=== PATIENT | female | born 1960 | race African-American/Black ===

== ENCOUNTER 2017-03-17 01:14 | Inpatient (IN) | payer MEDICARE, OTHER ==
[2017-03-17] MEDS: PIPERACILLIN/TAZOBACTAM 4.5 GM in IV NORMAL SALINE 100ML 100 ML IV (01:30)
[2017-03-17] MEDS: IV NORMAL SALINE 1000ML BAG 1,000 ML IV ×3 (01:30→03:15)
[2017-03-17] MEDS ORDERED: PIPERACILLIN/TAZO IV Push 4.5 GM VIAL. IVP (01:30)
[2017-03-17] MEDS: IPRATRPIUM/ALBUTEROL 0.5/2.5MG 3 ML NEBU. NEB ×4 (02:20→19:20)
[2017-03-17 02:25] LABS: INFLUENZA A PATIENT NEGATIVE (NEGATIVE); INFLUENZA B PATIENT NEGATIVE (NEGATIVE); OBC FLU VALID
[2017-03-17 02:26] LABS: BILIRUBIN,URINE NEGATIVE (NEG); CLARITY,URINE CLOUDY; COLOR,URINE AMBER; GLUCOSE,URINE NEGATIVE (NEG); NITRITE,URINE NEGATIVE (NEG); PROTEIN,URINE 30 mg/dL (NEG-TRACE); UROBILINOGEN,URINE 0.2 mg/dL (0.2 mg/dL)
[2017-03-17 02:27] LABS: BASO % 0 % (0-3); EOS % 0 % (0-3); HEMATOCRIT 41.1 % (36.0-47.0); HEMOGLOBIN 13.7 g/dL (12.0-15.5); LYMPH % 9 % (24-48); MEAN CORPUSCULAR HEMOGLOBIN 32 pg (25-35); MEAN CORPUSCULAR HGB CONC 33 g/dL (31-37); MEAN CORPUSCULAR VOLUME 96 fL (79-100); MONO # 0.5 x10^3/uL (0.0-1.1); MONO % 4 % (0-9); NEUT # 9.6 x10^3uL (1.8-7.7); NEUT % 87 % (31-73); PLATELET COUNT 352 x10^3/uL (140-400); RED BLOOD COUNT 4.27 x10^6/uL (3.50-5.40); RED CELL DISTRIBUTION WIDTH 14.7 % (11.5-14.5); WHITE BLOOD COUNT 11.1 x10^3/uL (4.0-11.0)
[2017-03-17] MEDS: ONDANSETRON PF 4 MG/2 ML VIAL. IV (02:33)
[2017-03-17 02:36] LABS: ANION GAP 8 (6-14); BLOOD UREA NITROGEN 23 mg/dL (7-20); BUN/CREATININE RATIO 23 (6-20); CALCIUM 8.9 mg/dL (8.5-10.1); CARBON DIOXIDE 28 mmol/L (21-32); CHLORIDE 99 mmol/L (98-107); GFR 69.1; GLUCOSE 136 mg/dL (70-99); POTASSIUM 5.3 mmol/L (3.5-5.1); SODIUM 135 mmol/L (136-145)
[2017-03-17 02:44] LABS: LACTIC ACID 2.3 mmol/L (0.4-2.0)
[2017-03-17 02:49] LABS: BACTERIA,URINE MOD /HPF (0-FEW); SQUAMOUS EPITHELIAL CELL,UR FEW /LPF; WBC,URINE TNTC /HPF (0-4)
[2017-03-17 02:50] LABS: ALBUMIN/GLOBULIN RATIO 0.6 (1.0-1.7); ALK PHOS 111 U/L (46-116); ALT (SGPT) 32 U/L (14-59); AST (SGOT) 35 U/L (15-37); CREATINE KINASE 166 U/L (26-192); TOTAL BILIRUBIN 0.6 mg/dL (0.2-1.0); TOTAL PROTEIN 7.8 g/dL (6.4-8.2)
[2017-03-17 02:54] LABS: NT-PRO BNP < 5 pg/mL (0-124); TROPONINI < 0.017 ng/mL (0.000-0.055)
[2017-03-17 03:11] LABS: ADD MAN DIFF? YES
[2017-03-17] MEDS ORDERED: PIP/TAZO PER PHARMACY MC (03:15)
[2017-03-17] MEDS ORDERED: ONDANSETRON PF 4 MG/2 ML VIAL. IV (03:15)
[2017-03-17 06:25] LABS: LACTIC ACID 3.3 mmol/L (0.4-2.0)
[2017-03-17] MEDS: PIPERACILLIN/TAZOBACTAM 3.375 GM in IV NORMAL SALINE 50ML 50 ML IV ×3 (07:36→17:50)
[2017-03-17 09:30] LABS: % BANDS 6 % (0-9); % LYMPHS 9 % (24-48); % MONOS 3 % (0-10); % SEGS 82 % (35-66); PLT ESTIMATE ADEQUATE (ADEQUATE)
[2017-03-17] MEDS: IOHEXOL 300 MG/ML 100ML VIAL. IV (10:04)
[2017-03-17] MEDS ORDERED: MAGNESIUM HYDROXIDE 2,400 MG/30 ML ORAL.SUSP. PEG (10:30)
[2017-03-17] MEDS ORDERED: DEXTROSE 50% 25 GM / 50ML DISP.SYRIN. IV (10:30)
[2017-03-17] MEDS: POTASSIUM CL 20MEQ IN D5W 1,000 ML IV (10:30)
[2017-03-17] MEDS: METOPROLOL TART IMMED RELEASE 25 MG TABLET. PEG (11:00)
[2017-03-17] MEDS: DOXYCYCLINE HYCLATE 100 MG in IV DEXTROSE 5% 100 ML IV ×2 (11:49→22:23)
[2017-03-17] MEDS: SIMVASTATIN 10 MG TABLET PO (11:55)
[2017-03-17] MEDS: RIVASTIGMINE 13.3MG PATCH. TD (11:56)
[2017-03-17] MEDS: MULTIVITAMINS,THERAPEUTIC 5 ML ORAL LIQUID. PEG (11:56)
[2017-03-17] MEDS: INSULIN ASPART 300 UNITS/3 ML INSULN.PEN SQ ×2 (12:00→17:00)
[2017-03-17 12:28] LABS: POC GLUCOSE 124 mg/dL (70-99)
[2017-03-17 13:11] LABS: INR 1.2 (0.8-1.1); PROTHROMBIN TIME PATIENT 14.7 SEC (11.7-14.0)
[2017-03-17] MEDS ORDERED: IV DEXTROSE 5% 1,000 ML IV ×2 (13:30)
[2017-03-17] MEDS: IV DEXTROSE 5% 1,000 ML IV (13:35)
[2017-03-17] MEDS: VANCOMYCIN 1.5 GM in IV DEXTROSE 5% 500 ML IV (14:46)
[2017-03-17] MEDS: VANCOMYCIN PER PHARMACY MC (15:16)
[2017-03-17 17:26] LABS: POC GLUCOSE 170 mg/dL (70-99)
[2017-03-17] MEDS ORDERED: VANCOMYCIN PER PHARMACY MC (21:00)
[2017-03-17 21:10] LABS: MRSA BY PCR Negative (Negative)
[2017-03-17] MEDS: HEPARIN PF for SUB-Q USE 5,000 UNIT/0.5 ML VIAL. SQ (22:28)
[2017-03-18] MEDS: PIPERACILLIN/TAZOBACTAM 3.375 GM in IV NORMAL SALINE 50ML 50 ML IV ×4 (00:44→17:56)
[2017-03-18] MEDS: METOPROLOL TART IMMED RELEASE 25 MG TABLET. PEG ×3 (00:45→21:50)
[2017-03-18 04:02] LABS: POC GLUCOSE 158 mg/dL (70-99)
[2017-03-18 04:29] LABS: ADD MAN DIFF? NO
[2017-03-18 04:42] LABS: BASO % 0 % (0-3); EOS # 0.2 x10^3/uL (0.0-0.7); EOS % 2 % (0-3); HEMATOCRIT 33.4 % (36.0-47.0); HEMOGLOBIN 11.2 g/dL (12.0-15.5); LYMPH % 8 % (24-48); MEAN CORPUSCULAR HEMOGLOBIN 32 pg (25-35); MEAN CORPUSCULAR HGB CONC 34 g/dL (31-37); MEAN CORPUSCULAR VOLUME 97 fL (79-100); MONO # 0.6 x10^3/uL (0.0-1.1); MONO % 5 % (0-9); NEUT # 11.1 x10^3uL (1.8-7.7); NEUT % 86 % (31-73); PLATELET COUNT 261 x10^3/uL (140-400); RED BLOOD COUNT 3.46 x10^6/uL (3.50-5.40); RED CELL DISTRIBUTION WIDTH 14.6 % (11.5-14.5)
[2017-03-18 04:53] LABS: ANION GAP 9 (6-14); BLOOD UREA NITROGEN 12 mg/dL (7-20); CALCIUM 8.7 mg/dL (8.5-10.1); CARBON DIOXIDE 24 mmol/L (21-32); CHLORIDE 107 mmol/L (98-107); CREATININE 1.1 mg/dL (0.6-1.0); GFR 61.9; GLUCOSE 194 mg/dL (70-99); POTASSIUM 3.8 mmol/L (3.5-5.1); SODIUM 140 mmol/L (136-145)
[2017-03-18 07:54] LABS: POC GLUCOSE 150 mg/dL (70-99)
[2017-03-18] MEDS: INSULIN ASPART 300 UNITS/3 ML INSULN.PEN SQ ×3 (08:00→17:00)
[2017-03-18] MEDS: IPRATRPIUM/ALBUTEROL 0.5/2.5MG 3 ML NEBU. NEB ×4 (08:02→20:27)
[2017-03-18] MEDS: DOXYCYCLINE HYCLATE 100 MG in IV DEXTROSE 5% 100 ML IV ×2 (08:53→21:47)
[2017-03-18] MEDS: RIVASTIGMINE 13.3MG PATCH. TD (08:53)
[2017-03-18] MEDS: HEPARIN PF for SUB-Q USE 5,000 UNIT/0.5 ML VIAL. SQ ×2 (08:55→21:52)
[2017-03-18] MEDS: MULTIVITAMINS,THERAPEUTIC 5 ML ORAL LIQUID. PEG (08:56)
[2017-03-18] MEDS: ASPIRIN CHEWABLE 81 MG TABLET. PO (08:56)
[2017-03-18] MEDS: SIMVASTATIN 10 MG TABLET PO (08:57)
[2017-03-18] MEDS: VANCOMYCIN PER PHARMACY MC ×2 (09:55→09:57)
[2017-03-18 12:04] LABS: POC GLUCOSE 170 mg/dL (70-99)
[2017-03-18] MEDS: VANCOMYCIN 1.25 GM in IV DEXTROSE 5 %-0.2 % NACL 500 ML IV (15:03)
[2017-03-18] MEDS: IV DEXTROSE 5% 1,000 ML IV ×2 (15:03→16:25)
[2017-03-18 20:47] LABS: POC GLUCOSE 184 mg/dL (70-99)
[2017-03-18] MEDS: ACETAMINOPHEN 325 MG TABLET. PO (22:04)
[2017-03-18 23:11] LABS: SPECIMEN SOURCE Urine (.); STREP PNEUMO ANTIGEN Negative (Negative)
[2017-03-19] MEDS: PIPERACILLIN/TAZOBACTAM 3.375 GM in IV NORMAL SALINE 50ML 50 ML IV ×5 (00:16→23:18)
[2017-03-19 05:22] LABS: ADD MAN DIFF? NO
[2017-03-19 05:42] LABS: BASO % 0 % (0-3); EOS # 0.2 x10^3/uL (0.0-0.7); EOS % 2 % (0-3); HEMATOCRIT 33.5 % (36.0-47.0); HEMOGLOBIN 11.1 g/dL (12.0-15.5); LYMPH # 1.5 x10^3/uL (1.0-4.8); LYMPH % 15 % (24-48); MEAN CORPUSCULAR HEMOGLOBIN 32 pg (25-35); MEAN CORPUSCULAR HGB CONC 33 g/dL (31-37); MEAN CORPUSCULAR VOLUME 96 fL (79-100); MONO # 0.6 x10^3/uL (0.0-1.1); MONO % 6 % (0-9); NEUT # 8.2 x10^3uL (1.8-7.7); NEUT % 78 % (31-73); PLATELET COUNT 275 x10^3/uL (140-400); RED CELL DISTRIBUTION WIDTH 14.7 % (11.5-14.5); WHITE BLOOD COUNT 10.5 x10^3/uL (4.0-11.0)
[2017-03-19] MEDS: IV DEXTROSE 5% 1,000 ML IV (05:45)
[2017-03-19 06:01] LABS: ANION GAP 5 (6-14); BLOOD UREA NITROGEN 13 mg/dL (7-20); CALCIUM 8.6 mg/dL (8.5-10.1); CARBON DIOXIDE 29 mmol/L (21-32); CHLORIDE 105 mmol/L (98-107); CREATININE 0.8 mg/dL (0.6-1.0); GFR 89.5; GLUCOSE 184 mg/dL (70-99); POTASSIUM 3.7 mmol/L (3.5-5.1); SODIUM 139 mmol/L (136-145)
[2017-03-19] MEDS: IPRATRPIUM/ALBUTEROL 0.5/2.5MG 3 ML NEBU. NEB ×4 (07:25→19:42)
[2017-03-19] MEDS: INSULIN ASPART 300 UNITS/3 ML INSULN.PEN SQ ×3 (08:00→17:52)
[2017-03-19 08:10] LABS: POC GLUCOSE 173 mg/dL (70-99)
[2017-03-19] MEDS: MULTIVITAMINS,THERAPEUTIC 5 ML ORAL LIQUID. PEG (09:00)
[2017-03-19] MEDS: DOXYCYCLINE HYCLATE 100 MG in IV DEXTROSE 5% 100 ML IV ×2 (09:00→20:30)
[2017-03-19] MEDS: SIMVASTATIN 10 MG TABLET PO (09:00)
[2017-03-19] MEDS: METOPROLOL TART IMMED RELEASE 25 MG TABLET. PEG ×2 (09:00→20:32)
[2017-03-19] MEDS: HEPARIN PF for SUB-Q USE 5,000 UNIT/0.5 ML VIAL. SQ ×2 (09:00→20:31)
[2017-03-19] MEDS: RIVASTIGMINE 13.3MG PATCH. TD (09:00)
[2017-03-19] MEDS: ASPIRIN CHEWABLE 81 MG TABLET. PO (09:00)
[2017-03-19] MEDS: LANSOPRAZOLE 30 MG TAB.RAP.DR FT (09:30)
[2017-03-19 11:48] LABS: POC GLUCOSE 228 mg/dL (70-99)
[2017-03-19 15:23] LABS: VANC TR 8.3 mcg/mL (10.0-20.0)
[2017-03-19] MEDS: VANCOMYCIN 1.25 GM in IV DEXTROSE 5 %-0.2 % NACL 500 ML IV (15:36)
[2017-03-19 16:36] LABS: POC GLUCOSE 208 mg/dL (70-99)
[2017-03-19] MEDS: VANCOMYCIN PER PHARMACY MC (16:45)
[2017-03-19 21:20] LABS: POC GLUCOSE 131 mg/dL (70-99)
[2017-03-20 03:41] LABS: POC GLUCOSE 182 mg/dL (70-99)
[2017-03-20] MEDS: PIPERACILLIN/TAZOBACTAM 3.375 GM in IV NORMAL SALINE 50ML 50 ML IV ×3 (05:39→18:08)
[2017-03-20] MEDS: IPRATRPIUM/ALBUTEROL 0.5/2.5MG 3 ML NEBU. NEB ×4 (08:00→20:03)
[2017-03-20 08:23] LABS: POC GLUCOSE 206 mg/dL (70-99)
[2017-03-20] MEDS: DOXYCYCLINE HYCLATE 100 MG in IV DEXTROSE 5% 100 ML IV ×2 (09:02→20:58)
[2017-03-20] MEDS: RIVASTIGMINE 13.3MG PATCH. TD (09:18)
[2017-03-20] MEDS: MULTIVITAMINS,THERAPEUTIC 5 ML ORAL LIQUID. PEG (09:18)
[2017-03-20] MEDS: SIMVASTATIN 10 MG TABLET PO (09:18)
[2017-03-20] MEDS: ASPIRIN CHEWABLE 81 MG TABLET. PO (09:18)
[2017-03-20] MEDS: LANSOPRAZOLE 30 MG TAB.RAP.DR FT (09:18)
[2017-03-20] MEDS: HEPARIN PF for SUB-Q USE 5,000 UNIT/0.5 ML VIAL. SQ ×2 (09:20→21:16)
[2017-03-20] MEDS: INSULIN ASPART 300 UNITS/3 ML INSULN.PEN SQ ×3 (09:22→18:07)
[2017-03-20] MEDS: VANCOMYCIN 1.25 GM in IV DEXTROSE 5 %-0.2 % NACL 500 ML IV (10:54)
[2017-03-20] MEDS: LACTOBACILLUS RHAMNOSUS GG 1 CAPSULE. PO ×2 (10:58→20:57)
[2017-03-20] MEDS: METOPROLOL TART IMMED RELEASE 25 MG TABLET. PEG ×2 (10:58→20:58)
[2017-03-20 11:23] LABS: POC GLUCOSE 230 mg/dL (70-99)
[2017-03-20] MEDS: VANCOMYCIN PER PHARMACY MC (12:28)
[2017-03-20 16:02] LABS: POC GLUCOSE 239 mg/dL (70-99)
[2017-03-20 21:24] LABS: POC GLUCOSE 123 mg/dL (70-99)
[2017-03-20 23:07] LABS: C DIFF BY PCR Negative (Negative)
[2017-03-21] MEDS: PIPERACILLIN/TAZOBACTAM 3.375 GM in IV NORMAL SALINE 50ML 50 ML IV ×4 (00:30→17:49)
[2017-03-21] MEDS: VANCOMYCIN 1.25 GM in IV DEXTROSE 5 %-0.2 % NACL 500 ML IV ×2 (04:24→21:43)
[2017-03-21 05:09] LABS: ADD MAN DIFF? NO
[2017-03-21 05:22] LABS: BASO # 0.1 x10^3/uL (0.0-0.2); BASO % 1 % (0-3); EOS # 0.2 x10^3/uL (0.0-0.7); EOS % 3 % (0-3); HEMATOCRIT 32.6 % (36.0-47.0); HEMOGLOBIN 10.8 g/dL (12.0-15.5); LYMPH # 1.5 x10^3/uL (1.0-4.8); LYMPH % 20 % (24-48); MEAN CORPUSCULAR HEMOGLOBIN 32 pg (25-35); MEAN CORPUSCULAR HGB CONC 33 g/dL (31-37); MEAN CORPUSCULAR VOLUME 96 fL (79-100); MONO # 0.6 x10^3/uL (0.0-1.1); MONO % 8 % (0-9); NEUT # 5.2 x10^3uL (1.8-7.7); NEUT % 69 % (31-73); PLATELET COUNT 294 x10^3/uL (140-400); RED BLOOD COUNT 3.39 x10^6/uL (3.50-5.40); RED CELL DISTRIBUTION WIDTH 14.6 % (11.5-14.5); WHITE BLOOD COUNT 7.5 x10^3/uL (4.0-11.0)
[2017-03-21 05:40] LABS: ALBUMIN 1.9 g/dL (3.4-5.0); ALBUMIN/GLOBULIN RATIO 0.4 (1.0-1.7); ALK PHOS 82 U/L (46-116); ALT (SGPT) 18 U/L (14-59); ANION GAP 5 (6-14); AST (SGOT) 25 U/L (15-37); BLOOD UREA NITROGEN 14 mg/dL (7-20); BUN/CREATININE RATIO 16 (6-20); CALCIUM 8.8 mg/dL (8.5-10.1); CARBON DIOXIDE 30 mmol/L (21-32); CHLORIDE 105 mmol/L (98-107); CREATININE 0.9 mg/dL (0.6-1.0); GFR 78.1; GLUCOSE 190 mg/dL (70-99); POTASSIUM 3.9 mmol/L (3.5-5.1); SODIUM 140 mmol/L (136-145); TOTAL BILIRUBIN 0.3 mg/dL (0.2-1.0); TOTAL PROTEIN 6.9 g/dL (6.4-8.2)
[2017-03-21] MEDS: IPRATRPIUM/ALBUTEROL 0.5/2.5MG 3 ML NEBU. NEB ×4 (08:51→19:38)
[2017-03-21] MEDS: DOXYCYCLINE HYCLATE 100 MG in IV DEXTROSE 5% 100 ML IV ×2 (09:15→20:55)
[2017-03-21] MEDS: LACTOBACILLUS RHAMNOSUS GG 1 CAPSULE. PO (09:16)
[2017-03-21] MEDS: METOPROLOL TART IMMED RELEASE 25 MG TABLET. PEG ×2 (09:16→21:29)
[2017-03-21] MEDS: ASPIRIN CHEWABLE 81 MG TABLET. PO (09:16)
[2017-03-21] MEDS: MULTIVITAMINS,THERAPEUTIC 5 ML ORAL LIQUID. PEG (09:16)
[2017-03-21] MEDS: LANSOPRAZOLE 30 MG TAB.RAP.DR FT (09:16)
[2017-03-21] MEDS: SIMVASTATIN 10 MG TABLET PO (09:16)
[2017-03-21] MEDS: RIVASTIGMINE 13.3MG PATCH. TD (09:17)
[2017-03-21] MEDS: HEPARIN PF for SUB-Q USE 5,000 UNIT/0.5 ML VIAL. SQ ×2 (09:18→21:47)
[2017-03-21] MEDS: INSULIN ASPART 300 UNITS/3 ML INSULN.PEN SQ ×3 (09:19→18:01)
[2017-03-21 12:11] LABS: POC GLUCOSE 157 mg/dL (70-99)
[2017-03-21 12:11] LABS: POC GLUCOSE 214 mg/dL (70-99)
[2017-03-21] MEDS: VANCOMYCIN PER PHARMACY MC (16:42)
[2017-03-21 17:04] LABS: POC GLUCOSE 167 mg/dL (70-99)
[2017-03-22] MEDS: PIPERACILLIN/TAZOBACTAM 3.375 GM in IV NORMAL SALINE 50ML 50 ML IV ×4 (00:20→18:38)
[2017-03-22] MEDS: INSULIN ASPART 300 UNITS/3 ML INSULN.PEN SQ ×3 (08:00→17:00)
[2017-03-22] MEDS: IPRATRPIUM/ALBUTEROL 0.5/2.5MG 3 ML NEBU. NEB ×4 (08:16→19:47)
[2017-03-22 08:29] LABS: POC GLUCOSE 145 mg/dL (70-99)
[2017-03-22] MEDS: DOXYCYCLINE HYCLATE 100 MG in IV DEXTROSE 5% 100 ML IV (09:00)
[2017-03-22 09:36] LABS: ADD MAN DIFF? NO
[2017-03-22 10:06] LABS: ALBUMIN 1.7 g/dL (3.4-5.0); ALBUMIN/GLOBULIN RATIO 0.4 (1.0-1.7); ALK PHOS 79 U/L (46-116); ALT (SGPT) 15 U/L (14-59); ANION GAP 8 (6-14); AST (SGOT) 19 U/L (15-37); BLOOD UREA NITROGEN 15 mg/dL (7-20); BUN/CREATININE RATIO 17 (6-20); CALCIUM 9.2 mg/dL (8.5-10.1); CARBON DIOXIDE 27 mmol/L (21-32); CHLORIDE 106 mmol/L (98-107); CREATININE 0.9 mg/dL (0.6-1.0); GFR 78.1; GLUCOSE 169 mg/dL (70-99); POTASSIUM 4.2 mmol/L (3.5-5.1); SODIUM 141 mmol/L (136-145); TOTAL BILIRUBIN 0.3 mg/dL (0.2-1.0); TOTAL PROTEIN 6.5 g/dL (6.4-8.2)
[2017-03-22] MEDS: RIVASTIGMINE 13.3MG PATCH. TD (10:16)
[2017-03-22] MEDS: METOPROLOL TART IMMED RELEASE 25 MG TABLET. PEG ×2 (10:17→20:41)
[2017-03-22] MEDS: MULTIVITAMINS,THERAPEUTIC 5 ML ORAL LIQUID. PEG (10:17)
[2017-03-22] MEDS: LANSOPRAZOLE 30 MG TAB.RAP.DR FT (10:17)
[2017-03-22] MEDS: ASPIRIN CHEWABLE 81 MG TABLET. PO (10:18)
[2017-03-22] MEDS: SIMVASTATIN 10 MG TABLET PO (10:21)
[2017-03-22] MEDS: HEPARIN PF for SUB-Q USE 5,000 UNIT/0.5 ML VIAL. SQ ×2 (10:38→20:45)
[2017-03-22 11:00] LABS: BASO % 0 % (0-3); EOS # 0.1 x10^3/uL (0.0-0.7); EOS % 2 % (0-3); HEMATOCRIT 28.9 % (36.0-47.0); HEMOGLOBIN 9.3 g/dL (12.0-15.5); LYMPH # 1.8 x10^3/uL (1.0-4.8); LYMPH % 26 % (24-48); MEAN CORPUSCULAR HEMOGLOBIN 32 pg (25-35); MEAN CORPUSCULAR HGB CONC 32 g/dL (31-37); MEAN CORPUSCULAR VOLUME 98 fL (79-100); MONO # 0.6 x10^3/uL (0.0-1.1); MONO % 8 % (0-9); NEUT # 4.4 x10^3uL (1.8-7.7); NEUT % 63 % (31-73); PLATELET COUNT 281 x10^3/uL (140-400); RED BLOOD COUNT 2.95 x10^6/uL (3.50-5.40); RED CELL DISTRIBUTION WIDTH 14.9 % (11.5-14.5)
[2017-03-22 12:25] LABS: POC GLUCOSE 167 mg/dL (70-99)
[2017-03-22] MEDS: LINEZOLID 600 MG TABLET PO ×2 (13:14→20:41)
[2017-03-22] MEDS: ACETAMINOPHEN 325 MG TABLET. PO (15:30)
[2017-03-23] MEDS: PIPERACILLIN/TAZOBACTAM 3.375 GM in IV NORMAL SALINE 50ML 50 ML IV ×4 (00:08→18:11)
[2017-03-23 05:13] LABS: POC GLUCOSE 161 mg/dL (70-99)
[2017-03-23 06:28] LABS: ALBUMIN 1.9 g/dL (3.4-5.0); ALBUMIN/GLOBULIN RATIO 0.4 (1.0-1.7); ALK PHOS 78 U/L (46-116); ALT (SGPT) 21 U/L (14-59); ANION GAP 10 (6-14); AST (SGOT) 27 U/L (15-37); BLOOD UREA NITROGEN 13 mg/dL (7-20); BUN/CREATININE RATIO 14 (6-20); CALCIUM 9.3 mg/dL (8.5-10.1); CARBON DIOXIDE 28 mmol/L (21-32); CHLORIDE 105 mmol/L (98-107); CREATININE 0.9 mg/dL (0.6-1.0); GFR 78.1; GLUCOSE 144 mg/dL (70-99); POTASSIUM 3.8 mmol/L (3.5-5.1); SODIUM 143 mmol/L (136-145); TOTAL BILIRUBIN 0.3 mg/dL (0.2-1.0); TOTAL PROTEIN 6.7 g/dL (6.4-8.2)
[2017-03-23 06:31] LABS: POC GLUCOSE 137 mg/dL (70-99)
[2017-03-23] MEDS ORDERED: HYDROmorphone 2 MG/ML VIAL IV (07:00)
[2017-03-23] MEDS ORDERED: ONDANSETRON PF 4 MG/2 ML VIAL. IV (07:00)
[2017-03-23] MEDS ORDERED: PROCHLORPERAZINE 10 MG/2 ML VIAL. IV (07:00)
[2017-03-23] MEDS ORDERED: IV RINGERS,LACTATED 1000ML 1,000 ML IV (07:00)
[2017-03-23] MEDS ORDERED: MORPHINE SULFATE 2 MG/ML DISP.SYRIN. IV (07:00)
[2017-03-23] MEDS ORDERED: LIDOCAINE 1% PF 2 ML VIAL. ID (07:00)
[2017-03-23] MEDS: HEPARIN PF for SUB-Q USE 5,000 UNIT/0.5 ML VIAL. SQ ×2 (07:20→20:55)
[2017-03-23] MEDS: IPRATRPIUM/ALBUTEROL 0.5/2.5MG 3 ML NEBU. NEB ×4 (07:54→19:40)
[2017-03-23] MEDS: INSULIN ASPART 300 UNITS/3 ML INSULN.PEN SQ ×3 (08:00→17:00)
[2017-03-23] MEDS: METOPROLOL TART IMMED RELEASE 25 MG TABLET. PEG ×2 (09:00→20:54)
[2017-03-23] MEDS: LINEZOLID 600 MG TABLET PO ×2 (09:45→20:51)
[2017-03-23] MEDS: SIMVASTATIN 10 MG TABLET PO (09:46)
[2017-03-23] MEDS: LANSOPRAZOLE 30 MG TAB.RAP.DR FT (10:00)
[2017-03-23] MEDS: ASPIRIN CHEWABLE 81 MG TABLET. PO (10:00)
[2017-03-23] MEDS: MULTIVITAMINS,THERAPEUTIC 5 ML ORAL LIQUID. PEG (10:01)
[2017-03-23] MEDS: RIVASTIGMINE 13.3MG PATCH. TD (10:02)
[2017-03-23 11:44] LABS: POC GLUCOSE 140 mg/dL (70-99)
[2017-03-23] MEDS ORDERED: fentaNYL PF VIAL 100 MCG/2 ML VIAL (15:10)
[2017-03-23] MEDS ORDERED: MIDAZOLAM HCL/PF 5 MG/5 ML VIAL. (15:10)
[2017-03-23] MEDS: MIDAZOLAM HCL/PF 5 MG/5 ML VIAL. IV ×3 (15:20→15:24)
[2017-03-23] MEDS: fentaNYL PF VIAL 100 MCG/2 ML VIAL IV ×2 (15:20→15:22)
[2017-03-23 17:48] LABS: POC GLUCOSE 132 mg/dL (70-99)
[2017-03-24 00:24] LABS: POC GLUCOSE 127 mg/dL (70-99)
[2017-03-24] MEDS: PIPERACILLIN/TAZOBACTAM 3.375 GM in IV NORMAL SALINE 50ML 50 ML IV ×4 (00:48→18:00)
[2017-03-24 03:38] LABS: ALBUMIN/GLOBULIN RATIO 0.4 (1.0-1.7); ALK PHOS 77 U/L (46-116); ALT (SGPT) 32 U/L (14-59); ANION GAP 9 (6-14); AST (SGOT) 35 U/L (15-37); BLOOD UREA NITROGEN 12 mg/dL (7-20); BUN/CREATININE RATIO 13 (6-20); CALCIUM 9.2 mg/dL (8.5-10.1); CARBON DIOXIDE 27 mmol/L (21-32); CHLORIDE 107 mmol/L (98-107); CREATININE 0.9 mg/dL (0.6-1.0); GFR 78.1; GLUCOSE 125 mg/dL (70-99); POTASSIUM 3.9 mmol/L (3.5-5.1); SODIUM 143 mmol/L (136-145); TOTAL BILIRUBIN 0.3 mg/dL (0.2-1.0); TOTAL PROTEIN 6.8 g/dL (6.4-8.2)
[2017-03-24 06:26] LABS: POC GLUCOSE 113 mg/dL (70-99)
[2017-03-24] MEDS ORDERED: PROCHLORPERAZINE 10 MG/2 ML VIAL. IV (07:00)
[2017-03-24] MEDS ORDERED: LIDOCAINE 1% PF 2 ML VIAL. ID (07:00)
[2017-03-24] MEDS ORDERED: HYDROmorphone 2 MG/ML VIAL IV (07:00)
[2017-03-24] MEDS ORDERED: ONDANSETRON PF 4 MG/2 ML VIAL. IV (07:00)
[2017-03-24] MEDS ORDERED: MORPHINE SULFATE 2 MG/ML DISP.SYRIN. IV (07:00)
[2017-03-24] MEDS: INSULIN ASPART 300 UNITS/3 ML INSULN.PEN SQ ×3 (08:00→17:00)
[2017-03-24] MEDS: MULTIVITAMINS,THERAPEUTIC 5 ML ORAL LIQUID. PEG (09:00)
[2017-03-24] MEDS: HEPARIN PF for SUB-Q USE 5,000 UNIT/0.5 ML VIAL. SQ ×2 (09:00→21:00)
[2017-03-24] MEDS: METOPROLOL TART IMMED RELEASE 25 MG TABLET. PEG ×2 (09:00→20:47)
[2017-03-24] MEDS: IPRATRPIUM/ALBUTEROL 0.5/2.5MG 3 ML NEBU. NEB ×4 (09:14→19:41)
[2017-03-24 11:29] LABS: POC GLUCOSE 114 mg/dL (70-99)
[2017-03-24] MEDS ORDERED: LACTOBACILLUS RHAMNOSUS GG 1 CAPSULE. PO (12:00)
[2017-03-24] MEDS ORDERED: IOHEXOL 300 MG/ML 100ML VIAL. (12:58)
[2017-03-24] MEDS ORDERED: 0.9 % SODIUM CHLORIDE 50 ML VIAL. IJ (12:59)
[2017-03-24] MEDS ORDERED: LIDOCAINE 2% JELLY 6ML IN APPLICATOR. (12:59)
[2017-03-24] MEDS: IV RINGERS,LACTATED 1000ML 1,000 ML IV (13:51)
[2017-03-24] MEDS: CIPROFLOXACIN 400MG PREMIX 200 ML IV ×2 (14:02→21:00)
[2017-03-24] MEDS ORDERED: LIDOCAINE 2% PF Vial for OR 5 ML VIAL. (14:12)
[2017-03-24] MEDS ORDERED: MIDAZOLAM HCL/PF 2 MG/2 ML VIAL. (14:12)
[2017-03-24] MEDS ORDERED: fentaNYL PF VIAL 100 MCG/2 ML VIAL (14:12)
[2017-03-24] MEDS ORDERED: PROPOFOL 20 ML IV (14:12)
[2017-03-24] MEDS ORDERED: DEXAMETHASONE SOD PHOS 20 MG/5 ML VIAL. (14:18)
[2017-03-24] MEDS ORDERED: ONDANSETRON PF 4 MG/2 ML VIAL. (14:18)
[2017-03-24] MEDS ORDERED: GLYCOPYRROLATE 1 MG/5 ML VIAL. (14:55)
[2017-03-24 15:49] LABS: POC GLUCOSE 163 mg/dL (70-99)
[2017-03-24 17:34] LABS: POC GLUCOSE 152 mg/dL (70-99)
[2017-03-24] MEDS: LANSOPRAZOLE 30 MG TAB.RAP.DR FT (18:00)
[2017-03-24] MEDS: ASPIRIN CHEWABLE 81 MG TABLET. PO (18:01)
[2017-03-24] MEDS: SIMVASTATIN 10 MG TABLET PO (18:01)
[2017-03-24] MEDS: LINEZOLID 600 MG TABLET PO ×2 (18:01→20:47)
[2017-03-24] MEDS: RIVASTIGMINE 13.3MG PATCH. TD (18:02)
[2017-03-25 00:17] LABS: POC GLUCOSE 185 mg/dL (70-99)
[2017-03-25] MEDS: PIPERACILLIN/TAZOBACTAM 3.375 GM in IV NORMAL SALINE 50ML 50 ML IV ×2 (00:23→06:23)
[2017-03-25 05:17] LABS: ADD MAN DIFF? NO
[2017-03-25 05:38] LABS: BASO % 0 % (0-3); EOS % 0 % (0-3); HEMATOCRIT 32.4 % (36.0-47.0); HEMOGLOBIN 10.6 g/dL (12.0-15.5); LYMPH # 0.8 x10^3/uL (1.0-4.8); LYMPH % 13 % (24-48); MEAN CORPUSCULAR HEMOGLOBIN 31 pg (25-35); MEAN CORPUSCULAR HGB CONC 33 g/dL (31-37); MEAN CORPUSCULAR VOLUME 96 fL (79-100); MONO # 0.2 x10^3/uL (0.0-1.1); MONO % 3 % (0-9); NEUT # 4.9 x10^3uL (1.8-7.7); NEUT % 84 % (31-73); PLATELET COUNT 365 x10^3/uL (140-400); RED BLOOD COUNT 3.39 x10^6/uL (3.50-5.40); RED CELL DISTRIBUTION WIDTH 14.2 % (11.5-14.5); WHITE BLOOD COUNT 5.9 x10^3/uL (4.0-11.0)
[2017-03-25 05:51] LABS: ALBUMIN 1.8 g/dL (3.4-5.0); ALBUMIN/GLOBULIN RATIO 0.4 (1.0-1.7); ALK PHOS 72 U/L (46-116); ALT (SGPT) 40 U/L (14-59); ANION GAP 8 (6-14); AST (SGOT) 34 U/L (15-37); BLOOD UREA NITROGEN 11 mg/dL (7-20); BUN/CREATININE RATIO 11 (6-20); CALCIUM 8.3 mg/dL (8.5-10.1); CARBON DIOXIDE 29 mmol/L (21-32); CHLORIDE 103 mmol/L (98-107); GFR 69.1; GLUCOSE 208 mg/dL (70-99); POTASSIUM 4.2 mmol/L (3.5-5.1); SODIUM 140 mmol/L (136-145); TOTAL BILIRUBIN 0.2 mg/dL (0.2-1.0); TOTAL PROTEIN 6.7 g/dL (6.4-8.2)
[2017-03-25] MEDS: INSULIN ASPART 300 UNITS/3 ML INSULN.PEN SQ ×3 (08:00→17:00)
[2017-03-25] MEDS: IPRATRPIUM/ALBUTEROL 0.5/2.5MG 3 ML NEBU. NEB ×4 (08:20→20:26)
[2017-03-25] MEDS: METOPROLOL TART IMMED RELEASE 25 MG TABLET. PEG (09:00)
[2017-03-25] MEDS: ASPIRIN CHEWABLE 81 MG TABLET. PO (09:25)
[2017-03-25] MEDS: SIMVASTATIN 10 MG TABLET PO (09:25)
[2017-03-25] MEDS: MULTIVITAMINS,THERAPEUTIC 5 ML ORAL LIQUID. PEG (09:25)
[2017-03-25] MEDS: LANSOPRAZOLE 30 MG TAB.RAP.DR FT (09:25)
[2017-03-25] MEDS: RIVASTIGMINE 13.3MG PATCH. TD (09:25)
[2017-03-25] MEDS: CIPROFLOXACIN HCL 250 MG TABLET. PEG ×2 (09:28→21:17)
[2017-03-25] MEDS: HEPARIN PF for SUB-Q USE 5,000 UNIT/0.5 ML VIAL. SQ ×2 (09:41→21:23)
[2017-03-25 11:30] LABS: POC GLUCOSE 163 mg/dL (70-99)
[2017-03-25 12:05] LABS: POC GLUCOSE 136 mg/dL (70-99)
[2017-03-25 17:18] LABS: POC GLUCOSE 151 mg/dL (70-99)
[2017-03-25] MEDS: CITRIC ACID/SODIUM CITRATE 30 ML SOLUTION. PO ×2 (18:02→21:17)
[2017-03-26 00:14] LABS: POC GLUCOSE 146 mg/dL (70-99)
[2017-03-26 06:17] LABS: ALBUMIN 1.9 g/dL (3.4-5.0); ALBUMIN/GLOBULIN RATIO 0.4 (1.0-1.7); ALK PHOS 72 U/L (46-116); ALT (SGPT) 42 U/L (14-59); ANION GAP 6 (6-14); AST (SGOT) 35 U/L (15-37); BLOOD UREA NITROGEN 14 mg/dL (7-20); BUN/CREATININE RATIO 16 (6-20); CALCIUM 8.6 mg/dL (8.5-10.1); CARBON DIOXIDE 30 mmol/L (21-32); CHLORIDE 108 mmol/L (98-107); CREATININE 0.9 mg/dL (0.6-1.0); GFR 78.1; GLUCOSE 156 mg/dL (70-99); POTASSIUM 3.8 mmol/L (3.5-5.1); SODIUM 144 mmol/L (136-145); TOTAL BILIRUBIN 0.1 mg/dL (0.2-1.0); TOTAL PROTEIN 6.6 g/dL (6.4-8.2)
[2017-03-26] MEDS: INSULIN ASPART 300 UNITS/3 ML INSULN.PEN SQ (08:00)
[2017-03-26] MEDS: IPRATRPIUM/ALBUTEROL 0.5/2.5MG 3 ML NEBU. NEB ×2 (08:12→11:39)
[2017-03-26 08:57] LABS: POC GLUCOSE 169 mg/dL (70-99)
[2017-03-26] MEDS: RIVASTIGMINE 13.3MG PATCH. TD (09:47)
[2017-03-26] MEDS: CITRIC ACID/SODIUM CITRATE 30 ML SOLUTION. PO (09:47)
[2017-03-26] MEDS: LANSOPRAZOLE 30 MG TAB.RAP.DR FT (09:47)
[2017-03-26] MEDS: CIPROFLOXACIN HCL 250 MG TABLET. PEG (09:47)
[2017-03-26] MEDS: MULTIVITAMINS,THERAPEUTIC 5 ML ORAL LIQUID. PEG (09:47)
[2017-03-26] MEDS: ASPIRIN CHEWABLE 81 MG TABLET. PO (09:48)
[2017-03-26] MEDS: SIMVASTATIN 10 MG TABLET PO (09:48)
[2017-03-26] MEDS: HEPARIN PF for SUB-Q USE 5,000 UNIT/0.5 ML VIAL. SQ (10:02)
[2017-04-02 16:22] LABS: CALCIUM PHOSPHATE 40 % (.); COLOR Tan (.); COMMENT Note: (.); MAGNESIUM AMMON PHOS 60 % (.); STONE WEIGHT 8959.3 mg (.)
== END 2017-03-26 12:10 | disposition home or self-care (01) | DRG 871 ==
LOC: ER 01:14 → 2 SOUTH 03:19
PROC: 0TCB8ZZ Extirpation of Matter from Bladder, Via Natural or Artificial Opening Endoscopic (ICD-10-PCS; principal; 2017-03-23 15:20)
PROC: 0D20XUZ Change Feeding Device in Upper Intestinal Tract, External Approach (ICD-10-PCS; 2017-03-23 15:20)
DX: A41.9 Sepsis, unspecified organism (principal); J69.0 Pneumonitis due to inhalation of food and vomit; F03.90 Unspecified dementia, unspecified severity, without behavioral disturbance, psychotic disturbance, mood disturbance, and anxiety; N30.00 Acute cystitis without hematuria; K94.23 Gastrostomy malfunction; F41.9 Anxiety disorder, unspecified; K59.00 Constipation, unspecified; E11.9 Type 2 diabetes mellitus without complications; N21.0 Calculus in bladder; G40.909 Epilepsy, unspecified, not intractable, without status epilepticus; R13.12 Dysphagia, oropharyngeal phase; M19.90 Unspecified osteoarthritis, unspecified site; K29.70 Gastritis, unspecified, without bleeding; N20.0 Calculus of kidney; Q90.9 Down syndrome, unspecified; Z90.710 Acquired absence of both cervix and uterus; Z79.82 Long term (current) use of aspirin; Z79.4 Long term (current) use of insulin; Z79.899 Other long term (current) drug therapy; Z95.0 Presence of cardiac pacemaker
CPT/HCPCS: 36415; 71045; 74018; 74177; 80048; 80053; 80202; 81001; 82365; 82550; 82962; 83605; 83880; 84484; 85007; 85025; 85610; 87040; 87086; 87205; 87324; 87449; 87641; 87804; 87804-59; 93005; 94618; 94640; 94760; 96361; 96365; 96367; 96375; 99291; 99291-25; C1769; G0500; J0744; J1100; J1815; J2250; J2405; J2543; J2704; J3010; J3370; J3490; J7030; J7120; J7620; Q9967

== ENCOUNTER 2018-05-23 19:33 | Inpatient (IN) | payer MEDICARE, OTHER ==
[~2018-05-23] VITALS: Ht 152.4 cm; Wt 92.5 kg
[~2018-05-23 19:33] MED LIST: ACET325T9 PEG; ACET500T33 PO; ASPI-630 PO; ASPI81TA50 PO; BISA10SU55 RC; CIPR500T94 PO; CITR15SO PEG; DICL100G18 TP; DOCU-109 PO; FAMO-63 PEG; Hydrocodone/Acetaminophen NG; INSU100I17 SQ; INSU100I27 SQ; LACT10SO17 PO; LANS30CA PO; Levetiracetam PEG; MAGN400O7 PEG; METO25TA4 PEG; MULT1TAB52 PEG; NAPR-514 PO; ONDA4TAB7 PO; PRED10TA PO; RISP0.5T3 PO; RISP1TAB43 PO; RIVA1PAT5 TD; SIMV10TA PO; SIMV10TA3 PO; TRAM50TA PO; VENL37.5 PO
[2018-05-23] MEDS ORDERED: IV NORMAL SALINE 1000ML BAG 1,000 ML IV ONE ×3 (20:00→21:15)
[2018-05-23] MEDS ORDERED: ACETAMINOPHEN 650 MG SUPP.RECT. PR ONE (20:00)
[2018-05-23] MEDS ORDERED: VANCOMYCIN PER PHARMACY MC ONE (20:00)
[2018-05-23] MEDS ORDERED: 0.9 % SODIUM CHLORIDE 10 ML DISP.SYRIN. IV PRN (20:00)
[2018-05-23] MEDS ORDERED: PROPOFOL 100 ML IV PRN (20:00)
[2018-05-23] MEDS ORDERED: PIPERACILLIN/TAZOBACTAM 4.5 GM in IV NORMAL SALINE 100ML 100 ML IV ONE (20:00)
[2018-05-23] MEDS ORDERED: MIDAZOLAM HCL/PF 5 MG/5 ML VIAL. IV ONE (20:15)
[2018-05-23 20:19] LABS: BASO % 1 % (0-3); EOS % 0 % (0-3); HEMATOCRIT 38.4 % (36.0-47.0); HEMOGLOBIN 12.6 g/dL (12.0-15.5); LYMPH # 0.5 x10^3/uL (1.0-4.8); LYMPH % 12 % (24-48); MEAN CORPUSCULAR HEMOGLOBIN 30 pg (25-35); MEAN CORPUSCULAR HGB CONC 33 g/dL (31-37); MEAN CORPUSCULAR VOLUME 92 fL (79-100); MONO # 0.3 x10^3/uL (0.0-1.1); MONO % 8 % (0-9); NEUT % 79 % (31-73); PLATELET COUNT 229 x10^3/uL (140-400); RED BLOOD COUNT 4.17 x10^6/uL (3.50-5.40); RED CELL DISTRIBUTION WIDTH 17.1 % (11.5-14.5); WHITE BLOOD COUNT 3.8 x10^3/uL (4.0-11.0)
[2018-05-23 20:28] LABS: PROTHROMBIN TIME PATIENT 14.5 SEC (11.7-14.0)
[2018-05-23 20:32] LABS: BILIRUBIN,URINE NEGATIVE (NEG); CLARITY,URINE CLOUDY; COLOR,URINE YELLOW; NITRITE,URINE NEGATIVE (NEG); PH,URINE 5.5; PROTEIN,URINE 100 mg/dL (NEG-TRACE); UROBILINOGEN,URINE 0.2 mg/dL (0.2 mg/dL)
[2018-05-23] MEDS: IV NORMAL SALINE 1000ML BAG 1,000 ML IV SCH (20:40)
[2018-05-23 20:41] LABS: AMORPHOUS SEDIMENT,UR PRESENT /HPF; BACTERIA,URINE FEW /HPF (0-FEW); SQUAMOUS EPITHELIAL CELL,UR MOD /LPF; WBC,URINE OCC /HPF (0-4)
[2018-05-23 20:44] LABS: ALBUMIN 2.5 g/dL (3.4-5.0); ALBUMIN/GLOBULIN RATIO 0.4 (1.0-1.7); CALCIUM 8.7 mg/dL (8.5-10.1); CREATININE 1.5 mg/dL (0.6-1.0); GFR 43.2; POTASSIUM 4.3 mmol/L (3.5-5.1); TOTAL BILIRUBIN 0.2 mg/dL (0.2-1.0); TOTAL PROTEIN 8.3 g/dL (6.4-8.2)
[2018-05-23] MEDS ORDERED: CHLORHEXIDINE 0.12% 15 ML MOUTHWASH. MM SCH (21:00)
[2018-05-23] MEDS ORDERED: PROPOFOL 50 ML IV ONE ×2 (21:02→21:15)
[2018-05-23 21:14] LABS: BASE EXCESS COOX -2 mmol/L (-3-3); HCO3 COOX 24 mmol/L (21-28); METHEMOGLOBIN 0.7 % (0.0-1.9); OXYHEMOGLOBIN 98.1 %; PCO2 COOX 42 mmHg (35-46); PO2 COOX 381 mmHg (75-108); SAT O2 COOX 99 % (92-99)
[2018-05-23] MEDS ORDERED: INSULIN REGULAR 100 UNIT/ML 3ML VIAL. SQ ONE (21:15)
[2018-05-23] MEDS ORDERED: IV 1/2 NORMAL SALINE 1,000 ML IV ONE (21:15)
[2018-05-23] MEDS ORDERED: VANCOMYCIN 1.75 GM in IV NORMAL SALINE 500ML BAG 500 ML IV ONE (21:30)
--- NOTE | 2018-05-23 21:30 | PHYS DOC ---
Past Medical History Past Medical History: Anxiety, Constipation, Dementia, Diabetes-Type II Additional Past Medical Histor: mentally challanged,downs syndrome, cardiac Past Surgical History: Hysterectomy Additional Past Surgical Histo: Gastrostomy tube Alcohol Use: None Drug Use: None Adult General Chief Complaint Chief Complaint: SHORTNESS OF BREATH HPI HPI 57-year-old Down syndrome patient from a halfway presents with fever and respiratory distress via EMS. Apparently the symptoms started over the last 12- 24 hours. Patient is unable to provide any meaningful history. According to EMS on their arrival she was in distress with oxygen saturations in the low 80s. According to the halfway she has been coughing and felt warm.[] Review of Systems Review of Systems Review of systems is unobtainable secondary to critical illness and altered mental status Current Medications Current Medications Current Medications Medications (Trade) Dose Ordered Sig/Charmaine Start Time Stop Time Status Last Admin Dose Admin Acetaminophen (Tylenol Supp) 650 mg 1X ONCE 05/23/18 20:00 05/23/18 20:04 DC 05/23/18 20:33 650 MG Fentanyl Citrate (Fentanyl 2ml Vial) 50 mcg PRN Q1HR PRN 05/23/18 20:00 Lorazepam (Ativan) 2 mg STK-MED ONCE 05/23/18 20:04 05/23/18 20:05 DC Midazolam HCl (Versed) 5 mg 1X ONCE 05/23/18 20:15 05/23/18 20:16 DC 05/23/18 20:33 5 MG Norepinephrine Bitartrate 250 ml @ 0 mls/hr CONT PRN 05/23/18 20:30 Piperacillin Sod/ Tazobactam Sod 4.5 gm/Sodium Chloride 100 ml @ 200 mls/hr 1X ONCE 05/23/18 20:00 05/23/18 20:29 DC 05/23/18 20:34 200 MLS/HR Propofol 100 ml @ 0 mls/hr CONT PRN 05/23/18 20:00 Sodium Chloride 1,000 ml @ 1,000 mls/hr 1X ONCE 05/23/18 20:00 05/23/18 20:59 DC 05/23/18 20:41 1,000 MLS/HR Sodium Chloride (Normal Saline Flush) 10 ml QSHIFT PRN 05/23/18 20:00 Vancomycin HCl (Vanco Per Pharmacy) 1 each 1X ONCE 05/23/18 20:00 4/8/19 22:03 DC 05/23/18 20:00 1 EACH Allergies Allergies Allergies Coded Allergies Type Severity Reaction Last Updated Verified No Known Drug Allergies 03/24/17 No Physical Exam Physical Exam Constitutional: Critically ill appearing female in severe distress. [] HENT: Obvious Down's bases bilateral external ears normal, mucous membranes dry[ ] Eyes: PERRLA, EOMI, conjunctiva normal, no discharge. [] Neck: Normal range of motion, no tenderness, supple, no stridor. [] Cardiovascular: Tachycardic no obvious murmur] Lungs & Thorax: Coarse breath sounds bilaterally by basilar rales[] Abdomen: Bowel sounds normal, soft, no tenderness, no masses, no pulsatile masses. [] Skin: Warm, dry, no erythema, no rash. [] Back: No tenderness, no CVA tenderness. [] Extremities: No tenderness, no cyanosis, no clubbing, ROM intact, no edema. [] Neurologic: Moves all 4 extremities. [] Psychologic: Unable to assess. [] Current Patient Data Vital Signs Vital Signs Date Time Temp Pulse Resp B/P (MAP) Pulse Ox O2 Delivery O2 Flow Rate FiO2 05/23/18 19:50 98 Ventilator 05/23/18 19:33 103.2 132 40 158/109 (125) 103.2 Lab Values Laboratory Tests Test 05/23/18 20:00 05/23/18 20:05 Urine Collection Type U cath Urine Color Yellow Urine Clarity Cloudy Urine pH 5.5 Urine Specific [place] >=1.030 Urine Protein 100 mg/dL (NEG-TRACE) Urine Glucose (UA) >=1000 mg/dL (NEG) Urine Ketones (Stick) Negative mg/dL (NEG) Urine Blood Moderate (NEG) Urine Nitrite Negative (NEG) Urine Bilirubin Negative (NEG) Urine Urobilinogen Dipstick 0.2 mg/dL (0.2 mg/dL) Urine Leukocyte Esterase Negative (NEG) Urine RBC 1-2 /HPF (0-2) Urine WBC Occ /HPF (0-4) Urine Squamous Epithelial Cells Mod /LPF Urine Amorphous Sediment Present /HPF Urine Bacteria Few /HPF (0-FEW) White Blood Count 3.8 x10^3/uL (4.0-11.0) L Red Blood Count 4.17 x10^6/uL (3.50-5.40) Hemoglobin 12.6 g/dL (12.0-15.5) Hematocrit 38.4 % (36.0-47.0) Mean Corpuscular Volume 92 fL (79-100) Mean Corpuscular Hemoglobin 30 pg (25-35) Mean Corpuscular Hemoglobin Concent 33 g/dL (31-37) Red Cell Distribution Width 17.1 % (11.5-14.5) H Platelet Count 229 x10^3/uL (140-400) Neutrophils (%) (Auto) 79 % (31-73) H Lymphocytes (%) (Auto) 12 % (24-48) L Monocytes (%) (Auto) 8 % (0-9) Eosinophils (%) (Auto) 0 % (0-3) Basophils (%) (Auto) 1 % (0-3) Neutrophils # (Auto) 3.0 x10^3uL (1.8-7.7) Lymphocytes # (Auto) 0.5 x10^3/uL (1.0-4.8) L Monocytes # (Auto) 0.3 x10^3/uL (0.0-1.1) Eosinophils # (Auto) 0.0 x10^3/uL (0.0-0.7) Basophils # (Auto) 0.0 x10^3/uL (0.0-0.2) Prothrombin Time 14.5 SEC (11.7-14.0) H Prothrombin Time INR 1.2 (0.8-1.1) H Sodium Level 151 mmol/L (136-145) H Potassium Level 4.3 mmol/L (3.5-5.1) Chloride Level 111 mmol/L (98-107) H Carbon Dioxide Level 25 mmol/L (21-32) Anion Gap 15 (6-14) H Blood Urea Nitrogen 28 mg/dL (7-20) H Creatinine 1.5 mg/dL (0.6-1.0) H Estimated GFR (Cockcroft-Gault) 43.2 BUN/Creatinine Ratio 19 (6-20) Glucose Level 612 mg/dL (70-99) *H Lactic Acid Level 5.7 mmol/L (0.4-2.0) *H Calcium Level 8.7 mg/dL (8.5-10.1) Total Bilirubin 0.2 mg/dL (0.2-1.0) Aspartate Amino Transferase (AST) 43 U/L (15-37) H Alanine Aminotransferase (ALT) 44 U/L (14-59) Alkaline Phosphatase 93 U/L (46-116) Total Protein 8.3 g/dL (6.4-8.2) H Albumin 2.5 g/dL (3.4-5.0) L Albumin/Globulin Ratio 0.4 (1.0-1.7) L Laboratory Tests 05/23/18 20:05 Laboratory Tests 05/23/18 20:05 EKG EKG [EKG sinus tachycardia rate of 110 with some nonspecific T-wave abnormality anterior lateral] Radiology/Procedures Radiology/Procedures [] Impressions: Chest x-ray no obvious infiltrate as interpreted by me Course & Med Decision Making Course & Med Decision Making Pertinent Labs and Imaging studies reviewed. (See chart for details) [CRITICAL CARE: Time spent was 35 minutes. This includes medical management, evaluation, reevaluation, discussion with consultants and family. Critical Care does NOT include time spent on separately billed procedures. ] Procedure: Rapid sequence intubation Indication respiratory failure tachypnea. Patient was given 20 mg of etomidate followed by 100 mg of succinyl choline then using a 4 Michael blade the cords were directly visualized and 80 ET tube was placed to 21 cm at the lips. Patient was then placed on a ventilator. Patient tolerated procedure well. ED course: Evaluation reveals a febrile altered female with tachypnea who appears toxic. The severe sepsis pathway was followed. The patient was given 30 mL's per kilogram of normal saline she was also given broad-spectrum antibiotics in the way of Zosyn 4.5 g IV and vancomycin 1 g IV. Patient's blood pressure was in the 90s systolic early after the fluid bolus it was up into the 120s and she was appropriately sedated with clipper van. I spoke with Dr. Hudson who agreed to accept the patient to the ICU. Patient's lactic acid was in the 5 range. Dragon Disclaimer Dragon Disclaimer This electronic medical record was generated, in whole or in part, using a voice recognition dictation system. Departure Departure Impression: Primary Impression: Septic shock Disposition: 09 ADMITTED INPATIENT Admitting Physician: Shanice Butler Condition: CRITICAL Referrals: VANNESSA GOMEZ (PCP) VIOLETA BRIGGS DO May 23, 2018 21:30
[2018-05-23] MEDS ORDERED: ETOMIDATE 20 MG/10 ML VIAL. IV ONE (21:32)
[2018-05-23] MEDS ORDERED: SUCCINYLCHOLINE 200 MG/10 ML VIAL. ONE (21:32)
[2018-05-23 22:00] VITALS: BP 114/76
--- NOTE | 2018-05-23 22:08 | NUR ---
Pharmacy Vancomycin Dosing Note S:Consulted to monitor and dose vancomycin started 05/23/18. O:CORNELIO SMITH V is a 57 year old F with Sepsis . Height: 5 feet, 0 inches Weight: 72.933224 kg [place] Body Weight: 45.50 Adjusted Body Weight: 56.14 Dosing Weight: Actual Other Antibiotics: ZOSYN 4.5GM IV X1 IN ER (05/23) LABS: Last BUN: 28 Last Creatinine: 1.5 Creatinine Clearance: 36 mL/min Last WBC: 3.8 Last Procalcitonin: Tmax (past 24 hours): Microbiology: I/O: Drug Levels: Last level: on at Last dose given at Vancomycin Dosing: Loading Dose: 1750 mg x1 05/23/182129 Dosing Weight: Actual Target Trough: 15-20 A: Based on: Actual Wt and CrCl P: 1. 05/24/182129 Vancomycin 1000 mg IV q24h 2. Follow up Trough level on 05/25/18 at 2100 3. Pharmacy will continue to monitor, follow and adjust therapy as needed. MARCIA OCHOA RPH, 05/23/182207 Signed: 05/23/18 at 2209 by MARCIA OCHOA RPH PHA
[2018-05-23 22:15] VITALS: BP 76/55
[2018-05-23 22:30] VITALS: BP 79/53
[2018-05-23 22:45] VITALS: BP 93/55
[2018-05-23] MEDS ORDERED: IV NORMAL SALINE 500ML BAG 500 ML IV ONE ×2 (22:45→23:00)
[2018-05-23 23:00] VITALS: BP 86/62
[2018-05-23 23:30] VITALS: BP 78/59
[2018-05-23] MEDS ORDERED: DEXTROSE 50% 25 GM / 50ML DISP.SYRIN. IV PRN (23:30)
[2018-05-23] MEDS ORDERED: PIP/TAZO PER PHARMACY MC PRN (23:30)
[2018-05-23] MEDS: MIDAZOLAM 100mg/100ml NS BAG 100 ML IV PRN (23:34)
[2018-05-23] MEDS: ENOXAPARIN 40 MG/0.4 ML SYRINGE. SQ SCH (23:36)
--- NOTE | 2018-05-23 23:55 | HP ---
ADMIT DATE: 05/23/2018 CHIEF COMPLAINT: Shortness of breath. HISTORY OF PRESENT ILLNESS: The patient is a pleasant 57-year-old female who has Down syndrome. She presented with fulminant respiratory failure that has been occurring for 12-24 hours. She was unable to provide any history. EMS brought her in. She is from a facility. While in the ER, she was noted to be extremely in severe sepsis with respiratory failure. She has now been intubated. She has got a fever. She is tachycardic and we just suctioned her lungs. It appears she has probably aspirated. There was a lot of aspirate in the suction tube. She also has a lactic acid level of 5.7. PAST MEDICAL HISTORY: Down syndrome, anxiety, constipation, dementia, diabetes, hysterectomy, PEG tube. ALLERGIES: None. FAMILY HISTORY: Diabetes. SOCIAL HISTORY: I believe she lives at a facility. She does not drink, smoke or take drugs. MEDICATIONS: Reviewed. She is on Cipro, Exelon, simvastatin, aspirin, Tylenol, citric acid, milk of magnesia, Prevacid, Levemir, vitamins, Keppra. REVIEW OF SYSTEMS: Unable to obtain. The patient is on the vent. PHYSICAL EXAMINATION: VITAL SIGNS: Temperature 103.2, pulse 110, respirations 16, blood pressure 106/74 and O2 sat 100% on the vent. GENERAL: She is sedated with propofol on the ventilator. HEART: Tachycardic, S1, S2. LUNGS: Coarse. ABDOMEN: Soft, positive bowel sounds. There is a PEG. EXTREMITIES: Trace edema. SKIN: No rashes. ENDOCRINE: No thyromegaly. LYMPHATICS: No cervical nodes. HEMATOPOIETIC: No bruising. LABORATORY DATA: White count is 3.8. Electrolytes: Sodium 151, potassium 4.3, chloride 111, bicarbonate 25, BUN 28, creatinine 1.5, glucose 612, anion gap is 15. Chest x-ray, results are pending. ASSESSMENT AND PLAN: Severe sepsis and anion gap metabolic acidosis, suspect diabetic ketoacidosis on top of sepsis in a middle-aged female who has Down's and respiratory failure. The patient is being admitted to the ICU on the ventilator. We will consult Pulmonary Medicine, consult Infectious Disease. Diabetic ketoacidosis protocol, frequent labs. Deep venous thrombosis prophylaxis. Full code per the records. PROGNOSIS: Extremely guarded. Total time 31 minutes. DARCI ALICEA DO DR: Alysa JOB#: [id number] / [id number]
[2018-05-24] VITALS (31 sets, daily range): BP systolic 68–127; BP diastolic 46–75
[2018-05-24] MEDS: INSULIN LISPRO 300 UNITS/3 ML INSULN.PEN. SQ SCH ×4 (00:06→17:48)
[2018-05-24] MEDS: NOREPINEPHRIN 8MG/250ML PREMIX 250 ML IV PRN ×2 (00:27→12:56)
--- NOTE | 2018-05-24 01:00 | NUR ---
ADMISSION: Pt arrived to RM 107 @ 2155 via ED bed. Pt on Ventilator, propofol for sedation. Pt hooked up to ICU monitors, unable to orient to room/call light or routines. RN talked to pt's mother Ayesha on the phone and updated on pt condition. Dr. Esme gurrola for sedation medications and updated on sepsis protocol. Versed and Fentanyl PRN were ordered for sedation. Due to low BP on admission, (2) 500cc Normal saline boluses were ordered to increase BP. Duoned QID, CXR and ABG in the AM. Dr. Luke gurrola for antibiotic orders, insulin orders, and DVT prophylaxis. Orders received for Zosyn and Vancomycin, high dose sliding scale insulin, and Lovenox daily. See IV spreadsheet and vital signs for Levophed titration and BP readings. Will continue to monitor.
[2018-05-24] MEDS ORDERED: NYST1POW5 MC (02:27)
[2018-05-24] MEDS ORDERED: METF500T16 PEG (02:27)
[2018-05-24] MEDS ORDERED: FAMO20TA5 PEG (02:27)
[2018-05-24] MEDS ORDERED: ATOR10TA60 PEG (02:27)
[2018-05-24] MEDS: IV NORMAL SALINE 1000ML BAG 1,000 ML IV SCH ×3 (04:37→20:31)
[2018-05-24] MEDS: ACETAMINOPHEN 650 MG SUPP.RECT. PR PRN ×2 (04:50→15:52)
[2018-05-24 05:24] LABS: BASO % 0 % (0-3); EOS # 0.1 x10^3/uL (0.0-0.7); EOS % 1 % (0-3); HEMATOCRIT 34.2 % (36.0-47.0); LYMPH # 0.9 x10^3/uL (1.0-4.8); LYMPH % 17 % (24-48); MEAN CORPUSCULAR HEMOGLOBIN 30 pg (25-35); MEAN CORPUSCULAR HGB CONC 32 g/dL (31-37); MEAN CORPUSCULAR VOLUME 92 fL (79-100); MONO # 0.2 x10^3/uL (0.0-1.1); MONO % 4 % (0-9); NEUT # 3.8 x10^3uL (1.8-7.7); NEUT % 77 % (31-73); PLATELET COUNT 200 x10^3/uL (140-400); RED BLOOD COUNT 3.73 x10^6/uL (3.50-5.40); RED CELL DISTRIBUTION WIDTH 16.5 % (11.5-14.5)
[2018-05-24 05:50] LABS: ALBUMIN 2.1 g/dL (3.4-5.0); ALBUMIN/GLOBULIN RATIO 0.4 (1.0-1.7); CREATININE 1.1 mg/dL (0.6-1.0); GFR 61.7; POTASSIUM 3.6 mmol/L (3.5-5.1); TOTAL BILIRUBIN 0.3 mg/dL (0.2-1.0)
[2018-05-24] MEDS: PIPERACILLIN/TAZOBACTAM 3.375 GM in IV NORMAL SALINE 50ML 50 ML IV SCH ×4 (06:03→23:52)
--- NOTE | 2018-05-24 06:43 | EKG ---
[facility] [address] [place] [address] Test Date: 2018-05-23 Test Time: 20:37:13 Pat Name: CORNELIO SMITH Department: Room: 107 1 Gender: F Executor Of Estate: : 1960 Requested By: VIOLETA BRIGGS Order Number: [id number] Reading MD: Suresh Galdamez MD Measurements Intervals [place] Rate: 110 P: 49 DE: 128 QRS: 35 QRSD: 64 T: 27 QT: 344 QTc: 471 Interpretive Statements SINUS TACHYCARDIA NON-SPECIFIC ST/T CHANGES Electronically Signed On 05-26-2018 10:05:07 CDT by Suresh Galdamez MD
--- NOTE | 2018-05-24 07:58 | RAD ---
Examination: PORTABLE CHEST 1V History: ER PATIENT. SEPSIS, ETT, OG TUBE. Hx PACEMAKER. Comparison/Correlation: 4 09/16/2018 portable chest x-ray exam Findings: Portable semiupright frontal view chest was obtained. Endotracheal tube terminus within the right mainstem bronchus. Dual-lead left-sided pacemaker is present. Enteric tube is present. It extends beyond the inferior aspect of the image acquired. It appears to be directed towards the pyloric region. Patient is rotated limiting assessment. Heart size and pulmonary vasculature are normal. No infiltrate or pleural effusion. No pneumothorax. No acute bony process. Impression: Endotracheal tube within the right mainstem bronchus. Retraction by 5 cm recommended. No infiltrate. Discussed with patient's nurse Zeinab on 05/24/2018 at 7:55 AM. Electronically signed by: Franco Penny MD (05/24/2018 7:55 AM) [facility]
--- NOTE | 2018-05-24 08:01 | PDOC ---
Infectious Disease Note Vital Sign Vital Signs Vital Signs Date Time Temp Pulse Resp B/P (MAP) Pulse Ox O2 Delivery O2 Flow Rate FiO2 05/24/18 06:00 101.9 103 16 104/66 (79) 92 Ventilator 101.9 Labs Lab Laboratory Tests Test 05/23/18 20:00 05/23/18 20:05 05/23/18 21:12 05/23/18 21:28 Urine Collection Type U cath Urine Color Yellow Urine Clarity Cloudy Urine pH 5.5 Urine Specific [place] >=1.030 Urine Protein 100 mg/dL (NEG-TRACE) Urine Glucose (UA) >=1000 mg/dL (NEG) Urine Ketones (Stick) Negative mg/dL (NEG) Urine Blood Moderate (NEG) Urine Nitrite Negative (NEG) Urine Bilirubin Negative (NEG) Urine Urobilinogen Dipstick 0.2 mg/dL (0.2 mg/dL) Urine Leukocyte Esterase Negative (NEG) Urine RBC 1-2 /HPF (0-2) Urine WBC Occ /HPF (0-4) Urine Squamous Epithelial Cells Mod /LPF Urine Amorphous Sediment Present /HPF Urine Bacteria Few /HPF (0-FEW) White Blood Count 3.8 x10^3/uL (4.0-11.0) Red Blood Count 4.17 x10^6/uL (3.50-5.40) Hemoglobin 12.6 g/dL (12.0-15.5) Hematocrit 38.4 % (36.0-47.0) Mean Corpuscular Volume 92 fL (79-100) Mean Corpuscular Hemoglobin 30 pg (25-35) Mean Corpuscular Hemoglobin Concent 33 g/dL (31-37) Red Cell Distribution Width 17.1 % (11.5-14.5) Platelet Count 229 x10^3/uL (140-400) Neutrophils (%) (Auto) 79 % (31-73) Lymphocytes (%) (Auto) 12 % (24-48) Monocytes (%) (Auto) 8 % (0-9) Eosinophils (%) (Auto) 0 % (0-3) Basophils (%) (Auto) 1 % (0-3) Neutrophils # (Auto) 3.0 x10^3uL (1.8-7.7) Lymphocytes # (Auto) 0.5 x10^3/uL (1.0-4.8) Monocytes # (Auto) 0.3 x10^3/uL (0.0-1.1) Eosinophils # (Auto) 0.0 x10^3/uL (0.0-0.7) Basophils # (Auto) 0.0 x10^3/uL (0.0-0.2) Prothrombin Time 14.5 SEC (11.7-14.0) Prothromb Time International Ratio 1.2 (0.8-1.1) Sodium Level 151 mmol/L (136-145) Potassium Level 4.3 mmol/L (3.5-5.1) Chloride Level 111 mmol/L (98-107) Carbon Dioxide Level 25 mmol/L (21-32) Anion Gap 15 (6-14) Blood Urea Nitrogen 28 mg/dL (7-20) Creatinine 1.5 mg/dL (0.6-1.0) Estimated GFR (Cockcroft-Gault) 43.2 BUN/Creatinine Ratio 19 (6-20) Glucose Level 612 mg/dL (70-99) Lactic Acid Level 5.7 mmol/L (0.4-2.0) Calcium Level 8.7 mg/dL (8.5-10.1) Total Bilirubin 0.2 mg/dL (0.2-1.0) Aspartate Amino Transf (AST/SGOT) 43 U/L (15-37) Alanine Aminotransferase (ALT/SGPT) 44 U/L (14-59) Alkaline Phosphatase 93 U/L (46-116) Total Protein 8.3 g/dL (6.4-8.2) Albumin 2.5 g/dL (3.4-5.0) Albumin/Globulin Ratio 0.4 (1.0-1.7) O2 Saturation 99 % (92-99) Arterial Blood pH 7.37 (7.35-7.45) Arterial Blood pCO2 at Patient Temp 42 mmHg (35-46) Arterial Blood pO2 at Patient Temp 381 mmHg (75-108) Arterial Blood HCO3 24 mmol/L (21-28) Arterial Blood Base Excess -2 mmol/L (-3-3) Oxyhemoglobin 98.1 % Methemoglobin 0.7 % (0.0-1.9) Carbon Monoxide, Quantitative 0.2 % (0.0-1.9) FiO2 100 Glucose (Fingerstick) 440 mg/dL (70-99) Test 05/23/18 23:45 05/24/18 00:02 05/24/18 04:25 Lactic Acid Level 5.1 mmol/L (0.4-2.0) Glucose (Fingerstick) 355 mg/dL (70-99) White Blood Count 5.0 x10^3/uL (4.0-11.0) Red Blood Count 3.73 x10^6/uL (3.50-5.40) Hemoglobin 11.0 g/dL (12.0-15.5) Hematocrit 34.2 % (36.0-47.0) Mean Corpuscular Volume 92 fL (79-100) Mean Corpuscular Hemoglobin 30 pg (25-35) Mean Corpuscular Hemoglobin Concent 32 g/dL (31-37) Red Cell Distribution Width 16.5 % (11.5-14.5) Platelet Count 200 x10^3/uL (140-400) Neutrophils (%) (Auto) 77 % (31-73) Lymphocytes (%) (Auto) 17 % (24-48) Monocytes (%) (Auto) 4 % (0-9) Eosinophils (%) (Auto) 1 % (0-3) Basophils (%) (Auto) 0 % (0-3) Neutrophils # (Auto) 3.8 x10^3uL (1.8-7.7) Lymphocytes # (Auto) 0.9 x10^3/uL (1.0-4.8) Monocytes # (Auto) 0.2 x10^3/uL (0.0-1.1) Eosinophils # (Auto) 0.1 x10^3/uL (0.0-0.7) Basophils # (Auto) 0.0 x10^3/uL (0.0-0.2) Sodium Level 155 mmol/L (136-145) Potassium Level 3.6 mmol/L (3.5-5.1) Chloride Level 119 mmol/L (98-107) Carbon Dioxide Level 22 mmol/L (21-32) Anion Gap 14 (6-14) Blood Urea Nitrogen 19 mg/dL (7-20) Creatinine 1.1 mg/dL (0.6-1.0) Estimated GFR (Cockcroft-Gault) 61.7 BUN/Creatinine Ratio 17 (6-20) Glucose Level 228 mg/dL (70-99) Calcium Level 8.0 mg/dL (8.5-10.1) Total Bilirubin 0.3 mg/dL (0.2-1.0) Aspartate Amino Transf (AST/SGOT) 42 U/L (15-37) Alanine Aminotransferase (ALT/SGPT) 33 U/L (14-59) Alkaline Phosphatase 69 U/L (46-116) Total Protein 7.0 g/dL (6.4-8.2) Albumin 2.1 g/dL (3.4-5.0) Albumin/Globulin Ratio 0.4 (1.0-1.7) Procalcitonin 0.56 ng/mL (0.00-0.10) Objective Assessment Septic shock Hypotension Lactic acidosis Fever Aspiration Down sy Plan Plan of Care vanc and zosyn supportive care need palliative care consult check cultures TERRANCE FLORES MD May 24, 2018 08:01
[2018-05-24] MEDS: IPRATRPIUM/ALBUTEROL 0.5/2.5MG 3 ML NEBU. NEB SCH ×4 (08:02→20:00)
[2018-05-24 08:06] LABS: BASE EXCESS ABG -2 mmol/L (-3-3); HCO3 ABG 20 mmol/L (21-28); PCO2 ABG 26 mmHg (35-46); PO2 ABG 59 mmHg (75-108); SAT O2 ABG 93 % (92-99)
--- NOTE | 2018-05-24 08:18 | RAD ---
Chest radiograph 05/24/2018 5:00 AM INDICATION: Respiratory failure COMPARISON: May 23, 2018 TECHNIQUE: Portable frontal semi-upright view of the chest is provided. FINDINGS: The cardiomediastinal silhouette is within normal limits. Endotracheal tube is in similar position, identified at the level of the gayathri with the distal tip projecting toward the right mainstem bronchus. Nasogastric tube is in similar position. Left chest wall cardiac device is in similar position. There is worsened aeration of the right lower lobe with patchy airspace disease in the right lower lobe. There is mild pulmonary vascular congestion. Suspect trace bilateral pleural effusions, increased. No pneumothorax. IMPRESSION: Similar position of endotracheal tube with the distal tip projecting over the right mainstem bronchus. This may be retracted 2-3 cm. Increased patchy airspace density in the right lower lobe may represent aspiration pneumonitis or atelectasis. Mild pulmonary vascular congestion with trace bilateral pleural effusions, increased. Electronically signed by: Renata Ace MD (05/24/2018 8:15 AM) [id number]
--- NOTE | 2018-05-24 10:27 | PDOC ---
PROGRESS NOTES Chief Complaint Chief Complaint Septic shock etiology undetermined at the present time Severe dehydration hypernatremia secondary to the above History of Down syndrome, History of anxiety dementia, diabetes mellitus type II insulin requiring History of PEG tube. Plan: Continue with supportive measures. Continue ventilatory support as per education sales consultant Continue with fluid resuscitation Will resume home medications Further recommendations based on the clinical course History of Present Illness History of Present Illness Patient laying in bed in no apparent distress. Patient is currently sedated on mechanical ventilation, no acute events reported overnight. No clear etiology for her sepsis other than low effective circulatory volume Vitals Vitals Vital Signs Date Time Temp Pulse Resp B/P (MAP) Pulse Ox O2 Delivery O2 Flow Rate FiO2 05/24/18 08:02 96 Ventilator 05/24/18 07:00 98.1 94 16 87/69 (75) 98.1 Physical Exam Physical Exam Gen.: Chronically ill-appearing in no apparent distress Head: Normal shape atraumatic Eyes: Pupils equal reactive to light and accommodation, normal conjunctivae and lids Ears: Normal shape Nose: Normal shape no trauma Mouth: No exudates of the back of throat no thrush no lesions Neck: Supple no JVD no carotid bruit or lymphadenopathy no thyromegaly Chest: Lungs clear to auscultation with good inspiratory effort no crackles rales or rhonchi Cardiovascular: S1-S2 regular rhythm no murmurs gallops or rubs Abdomen: Bowel sounds present soft nontender no hepatosplenomegaly appreciated sign Extremities: No clubbing no cyanosis no edema peripheral pulses palpated bilaterally Neurological: On sedation currently Psych: Unable to assess Lungs: Other Labs LABS Laboratory Tests Test 05/23/18 20:00 05/23/18 20:05 05/23/18 21:12 05/23/18 21:28 Urine Collection Type U cath Urine Color Yellow Urine Clarity Cloudy Urine pH 5.5 Urine Specific Ringle >=1.030 Urine Protein 100 mg/dL (NEG-TRACE) Urine Glucose (UA) >=1000 mg/dL (NEG) Urine Ketones (Stick) Negative mg/dL (NEG) Urine Blood Moderate (NEG) Urine Nitrite Negative (NEG) Urine Bilirubin Negative (NEG) Urine Urobilinogen Dipstick 0.2 mg/dL (0.2 mg/dL) Urine Leukocyte Esterase Negative (NEG) Urine RBC 1-2 /HPF (0-2) Urine WBC Occ /HPF (0-4) Urine Squamous Epithelial Cells Mod /LPF Urine Amorphous Sediment Present /HPF Urine Bacteria Few /HPF (0-FEW) White Blood Count 3.8 x10^3/uL (4.0-11.0) Red Blood Count 4.17 x10^6/uL (3.50-5.40) Hemoglobin 12.6 g/dL (12.0-15.5) Hematocrit 38.4 % (36.0-47.0) Mean Corpuscular Volume 92 fL (79-100) Mean Corpuscular Hemoglobin 30 pg (25-35) Mean Corpuscular Hemoglobin Concent 33 g/dL (31-37) Red Cell Distribution Width 17.1 % (11.5-14.5) Platelet Count 229 x10^3/uL (140-400) Neutrophils (%) (Auto) 79 % (31-73) Lymphocytes (%) (Auto) 12 % (24-48) Monocytes (%) (Auto) 8 % (0-9) Eosinophils (%) (Auto) 0 % (0-3) Basophils (%) (Auto) 1 % (0-3) Neutrophils # (Auto) 3.0 x10^3uL (1.8-7.7) Lymphocytes # (Auto) 0.5 x10^3/uL (1.0-4.8) Monocytes # (Auto) 0.3 x10^3/uL (0.0-1.1) Eosinophils # (Auto) 0.0 x10^3/uL (0.0-0.7) Basophils # (Auto) 0.0 x10^3/uL (0.0-0.2) Prothrombin Time 14.5 SEC (11.7-14.0) Prothromb Time International Ratio 1.2 (0.8-1.1) Sodium Level 151 mmol/L (136-145) Potassium Level 4.3 mmol/L (3.5-5.1) Chloride Level 111 mmol/L (98-107) Carbon Dioxide Level 25 mmol/L (21-32) Anion Gap 15 (6-14) Blood Urea Nitrogen 28 mg/dL (7-20) Creatinine 1.5 mg/dL (0.6-1.0) Estimated GFR (Cockcroft-Gault) 43.2 BUN/Creatinine Ratio 19 (6-20) Glucose Level 612 mg/dL (70-99) Lactic Acid Level 5.7 mmol/L (0.4-2.0) Calcium Level 8.7 mg/dL (8.5-10.1) Total Bilirubin 0.2 mg/dL (0.2-1.0) Aspartate Amino Transf (AST/SGOT) 43 U/L (15-37) Alanine Aminotransferase (ALT/SGPT) 44 U/L (14-59) Alkaline Phosphatase 93 U/L (46-116) Total Protein 8.3 g/dL (6.4-8.2) Albumin 2.5 g/dL (3.4-5.0) Albumin/Globulin Ratio 0.4 (1.0-1.7) O2 Saturation 99 % (92-99) Arterial Blood pH 7.37 (7.35-7.45) Arterial Blood pCO2 at Patient Temp 42 mmHg (35-46) Arterial Blood pO2 at Patient Temp 381 mmHg (75-108) Arterial Blood HCO3 24 mmol/L (21-28) Arterial Blood Base Excess -2 mmol/L (-3-3) Oxyhemoglobin 98.1 % Methemoglobin 0.7 % (0.0-1.9) Carbon Monoxide, Quantitative 0.2 % (0.0-1.9) FiO2 100 Glucose (Fingerstick) 440 mg/dL (70-99) Test 05/23/18 23:45 05/24/18 00:02 05/24/18 04:25 05/24/18 09:26 Lactic Acid Level 5.1 mmol/L (0.4-2.0) Glucose (Fingerstick) 355 mg/dL (70-99) 296 mg/dL (70-99) White Blood Count 5.0 x10^3/uL (4.0-11.0) Red Blood Count 3.73 x10^6/uL (3.50-5.40) Hemoglobin 11.0 g/dL (12.0-15.5) Hematocrit 34.2 % (36.0-47.0) Mean Corpuscular Volume 92 fL (79-100) Mean Corpuscular Hemoglobin 30 pg (25-35) Mean Corpuscular Hemoglobin Concent 32 g/dL (31-37) Red Cell Distribution Width 16.5 % (11.5-14.5) Platelet Count 200 x10^3/uL (140-400) Neutrophils (%) (Auto) 77 % (31-73) Lymphocytes (%) (Auto) 17 % (24-48) Monocytes (%) (Auto) 4 % (0-9) Eosinophils (%) (Auto) 1 % (0-3) Basophils (%) (Auto) 0 % (0-3) Neutrophils # (Auto) 3.8 x10^3uL (1.8-7.7) Lymphocytes # (Auto) 0.9 x10^3/uL (1.0-4.8) Monocytes # (Auto) 0.2 x10^3/uL (0.0-1.1) Eosinophils # (Auto) 0.1 x10^3/uL (0.0-0.7) Basophils # (Auto) 0.0 x10^3/uL (0.0-0.2) Sodium Level 155 mmol/L (136-145) Potassium Level 3.6 mmol/L (3.5-5.1) Chloride Level 119 mmol/L (98-107) Carbon Dioxide Level 22 mmol/L (21-32) Anion Gap 14 (6-14) Blood Urea Nitrogen 19 mg/dL (7-20) Creatinine 1.1 mg/dL (0.6-1.0) Estimated GFR (Cockcroft-Gault) 61.7 BUN/Creatinine Ratio 17 (6-20) Glucose Level 228 mg/dL (70-99) Calcium Level 8.0 mg/dL (8.5-10.1) Total Bilirubin 0.3 mg/dL (0.2-1.0) Aspartate Amino Transf (AST/SGOT) 42 U/L (15-37) Alanine Aminotransferase (ALT/SGPT) 33 U/L (14-59) Alkaline Phosphatase 69 U/L (46-116) Total Protein 7.0 g/dL (6.4-8.2) Albumin 2.1 g/dL (3.4-5.0) Albumin/Globulin Ratio 0.4 (1.0-1.7) Procalcitonin 0.56 ng/mL (0.00-0.10) Comment Review of Relevant I have reviewed the following items trey (where applicable) has been applied. Labs Laboratory Tests Test 05/23/18 20:00 05/23/18 20:05 05/23/18 21:12 05/23/18 21:28 Urine Collection Type U cath Urine Color Yellow Urine Clarity Cloudy Urine pH 5.5 Urine Specific Ringle >=1.030 Urine Protein 100 mg/dL (NEG-TRACE) Urine Glucose (UA) >=1000 mg/dL (NEG) Urine Ketones (Stick) Negative mg/dL (NEG) Urine Blood Moderate (NEG) Urine Nitrite Negative (NEG) Urine Bilirubin Negative (NEG) Urine Urobilinogen Dipstick 0.2 mg/dL (0.2 mg/dL) Urine Leukocyte Esterase Negative (NEG) Urine RBC 1-2 /HPF (0-2) Urine WBC Occ /HPF (0-4) Urine Squamous Epithelial Cells Mod /LPF Urine Amorphous Sediment Present /HPF Urine Bacteria Few /HPF (0-FEW) White Blood Count 3.8 x10^3/uL (4.0-11.0) Red Blood Count 4.17 x10^6/uL (3.50-5.40) Hemoglobin 12.6 g/dL (12.0-15.5) Hematocrit 38.4 % (36.0-47.0) Mean Corpuscular Volume 92 fL (79-100) Mean Corpuscular Hemoglobin 30 pg (25-35) Mean Corpuscular Hemoglobin Concent 33 g/dL (31-37) Red Cell Distribution Width 17.1 % (11.5-14.5) Platelet Count 229 x10^3/uL (140-400) Neutrophils (%) (Auto) 79 % (31-73) Lymphocytes (%) (Auto) 12 % (24-48) Monocytes (%) (Auto) 8 % (0-9) Eosinophils (%) (Auto) 0 % (0-3) Basophils (%) (Auto) 1 % (0-3) Neutrophils # (Auto) 3.0 x10^3uL (1.8-7.7) Lymphocytes # (Auto) 0.5 x10^3/uL (1.0-4.8) Monocytes # (Auto) 0.3 x10^3/uL (0.0-1.1) Eosinophils # (Auto) 0.0 x10^3/uL (0.0-0.7) Basophils # (Auto) 0.0 x10^3/uL (0.0-0.2) Prothrombin Time 14.5 SEC (11.7-14.0) Prothromb Time International Ratio 1.2 (0.8-1.1) Sodium Level 151 mmol/L (136-145) Potassium Level 4.3 mmol/L (3.5-5.1) Chloride Level 111 mmol/L (98-107) Carbon Dioxide Level 25 mmol/L (21-32) Anion Gap 15 (6-14) Blood Urea Nitrogen 28 mg/dL (7-20) Creatinine 1.5 mg/dL (0.6-1.0) Estimated GFR (Cockcroft-Gault) 43.2 BUN/Creatinine Ratio 19 (6-20) Glucose Level 612 mg/dL (70-99) Lactic Acid Level 5.7 mmol/L (0.4-2.0) Calcium Level 8.7 mg/dL (8.5-10.1) Total Bilirubin 0.2 mg/dL (0.2-1.0) Aspartate Amino Transf (AST/SGOT) 43 U/L (15-37) Alanine Aminotransferase (ALT/SGPT) 44 U/L (14-59) Alkaline Phosphatase 93 U/L (46-116) Total Protein 8.3 g/dL (6.4-8.2) Albumin 2.5 g/dL (3.4-5.0) Albumin/Globulin Ratio 0.4 (1.0-1.7) O2 Saturation 99 % (92-99) Arterial Blood pH 7.37 (7.35-7.45) Arterial Blood pCO2 at Patient Temp 42 mmHg (35-46) Arterial Blood pO2 at Patient Temp 381 mmHg (75-108) Arterial Blood HCO3 24 mmol/L (21-28) Arterial Blood Base Excess -2 mmol/L (-3-3) Oxyhemoglobin 98.1 % Methemoglobin 0.7 % (0.0-1.9) Carbon Monoxide, Quantitative 0.2 % (0.0-1.9) FiO2 100 Glucose (Fingerstick) 440 mg/dL (70-99) Test 05/23/18 23:45 05/24/18 00:02 05/24/18 04:25 05/24/18 09:26 Lactic Acid Level 5.1 mmol/L (0.4-2.0) Glucose (Fingerstick) 355 mg/dL (70-99) 296 mg/dL (70-99) White Blood Count 5.0 x10^3/uL (4.0-11.0) Red Blood Count 3.73 x10^6/uL (3.50-5.40) Hemoglobin 11.0 g/dL (12.0-15.5) Hematocrit 34.2 % (36.0-47.0) Mean Corpuscular Volume 92 fL (79-100) Mean Corpuscular Hemoglobin 30 pg (25-35) Mean Corpuscular Hemoglobin Concent 32 g/dL (31-37) Red Cell Distribution Width 16.5 % (11.5-14.5) Platelet Count 200 x10^3/uL (140-400) Neutrophils (%) (Auto) 77 % (31-73) Lymphocytes (%) (Auto) 17 % (24-48) Monocytes (%) (Auto) 4 % (0-9) Eosinophils (%) (Auto) 1 % (0-3) Basophils (%) (Auto) 0 % (0-3) Neutrophils # (Auto) 3.8 x10^3uL (1.8-7.7) Lymphocytes # (Auto) 0.9 x10^3/uL (1.0-4.8) Monocytes # (Auto) 0.2 x10^3/uL (0.0-1.1) Eosinophils # (Auto) 0.1 x10^3/uL (0.0-0.7) Basophils # (Auto) 0.0 x10^3/uL (0.0-0.2) Sodium Level 155 mmol/L (136-145) Potassium Level 3.6 mmol/L (3.5-5.1) Chloride Level 119 mmol/L (98-107) Carbon Dioxide Level 22 mmol/L (21-32) Anion Gap 14 (6-14) Blood Urea Nitrogen 19 mg/dL (7-20) Creatinine 1.1 mg/dL (0.6-1.0) Estimated GFR (Cockcroft-Gault) 61.7 BUN/Creatinine Ratio 17 (6-20) Glucose Level 228 mg/dL (70-99) Calcium Level 8.0 mg/dL (8.5-10.1) Total Bilirubin 0.3 mg/dL (0.2-1.0) Aspartate Amino Transf (AST/SGOT) 42 U/L (15-37) Alanine Aminotransferase (ALT/SGPT) 33 U/L (14-59) Alkaline Phosphatase 69 U/L (46-116) Total Protein 7.0 g/dL (6.4-8.2) Albumin 2.1 g/dL (3.4-5.0) Albumin/Globulin Ratio 0.4 (1.0-1.7) Procalcitonin 0.56 ng/mL (0.00-0.10) Laboratory Tests Test 05/23/18 20:00 05/23/18 20:05 05/23/18 21:12 05/23/18 21:28 Urine Collection Type U cath Urine Color Yellow Urine Clarity Cloudy Urine pH 5.5 Urine Specific Ringle >=1.030 Urine Protein 100 mg/dL (NEG-TRACE) Urine Glucose (UA) >=1000 mg/dL (NEG) Urine Ketones (Stick) Negative mg/dL (NEG) Urine Blood Moderate (NEG) Urine Nitrite Negative (NEG) Urine Bilirubin Negative (NEG) Urine Urobilinogen Dipstick 0.2 mg/dL (0.2 mg/dL) Urine Leukocyte Esterase Negative (NEG) Urine RBC 1-2 /HPF (0-2) Urine WBC Occ /HPF (0-4) Urine Squamous Epithelial Cells Mod /LPF Urine Amorphous Sediment Present /HPF Urine Bacteria Few /HPF (0-FEW) White Blood Count 3.8 x10^3/uL (4.0-11.0) Red Blood Count 4.17 x10^6/uL (3.50-5.40) Hemoglobin 12.6 g/dL (12.0-15.5) Hematocrit 38.4 % (36.0-47.0) Mean Corpuscular Volume 92 fL (79-100) Mean Corpuscular Hemoglobin 30 pg (25-35) Mean Corpuscular Hemoglobin Concent 33 g/dL (31-37) Red Cell Distribution Width 17.1 % (11.5-14.5) Platelet Count 229 x10^3/uL (140-400) Neutrophils (%) (Auto) 79 % (31-73) Lymphocytes (%) (Auto) 12 % (24-48) Monocytes (%) (Auto) 8 % (0-9) Eosinophils (%) (Auto) 0 % (0-3) Basophils (%) (Auto) 1 % (0-3) Neutrophils # (Auto) 3.0 x10^3uL (1.8-7.7) Lymphocytes # (Auto) 0.5 x10^3/uL (1.0-4.8) Monocytes # (Auto) 0.3 x10^3/uL (0.0-1.1) Eosinophils # (Auto) 0.0 x10^3/uL (0.0-0.7) Basophils # (Auto) 0.0 x10^3/uL (0.0-0.2) Prothrombin Time 14.5 SEC (11.7-14.0) Prothromb Time International Ratio 1.2 (0.8-1.1) Sodium Level 151 mmol/L (136-145) Potassium Level 4.3 mmol/L (3.5-5.1) Chloride Level 111 mmol/L (98-107) Carbon Dioxide Level 25 mmol/L (21-32) Anion Gap 15 (6-14) Blood Urea Nitrogen 28 mg/dL (7-20) Creatinine 1.5 mg/dL (0.6-1.0) Estimated GFR (Cockcroft-Gault) 43.2 BUN/Creatinine Ratio 19 (6-20) Glucose Level 612 mg/dL (70-99) Lactic Acid Level 5.7 mmol/L (0.4-2.0) Calcium Level 8.7 mg/dL (8.5-10.1) Total Bilirubin 0.2 mg/dL (0.2-1.0) Aspartate Amino Transf (AST/SGOT) 43 U/L (15-37) Alanine Aminotransferase (ALT/SGPT) 44 U/L (14-59) Alkaline Phosphatase 93 U/L (46-116) Total Protein 8.3 g/dL (6.4-8.2) Albumin 2.5 g/dL (3.4-5.0) Albumin/Globulin Ratio 0.4 (1.0-1.7) O2 Saturation 99 % (92-99) Arterial Blood pH 7.37 (7.35-7.45) Arterial Blood pCO2 at Patient Temp 42 mmHg (35-46) Arterial Blood pO2 at Patient Temp 381 mmHg (75-108) Arterial Blood HCO3 24 mmol/L (21-28) Arterial Blood Base Excess -2 mmol/L (-3-3) Oxyhemoglobin 98.1 % Methemoglobin 0.7 % (0.0-1.9) Carbon Monoxide, Quantitative 0.2 % (0.0-1.9) FiO2 100 Glucose (Fingerstick) 440 mg/dL (70-99) Test 05/23/18 23:45 05/24/18 00:02 05/24/18 04:25 05/24/18 09:26 Lactic Acid Level 5.1 mmol/L (0.4-2.0) Glucose (Fingerstick) 355 mg/dL (70-99) 296 mg/dL (70-99) White Blood Count 5.0 x10^3/uL (4.0-11.0) Red Blood Count 3.73 x10^6/uL (3.50-5.40) Hemoglobin 11.0 g/dL (12.0-15.5) Hematocrit 34.2 % (36.0-47.0) Mean Corpuscular Volume 92 fL (79-100) Mean Corpuscular Hemoglobin 30 pg (25-35) Mean Corpuscular Hemoglobin Concent 32 g/dL (31-37) Red Cell Distribution Width 16.5 % (11.5-14.5) Platelet Count 200 x10^3/uL (140-400) Neutrophils (%) (Auto) 77 % (31-73) Lymphocytes (%) (Auto) 17 % (24-48) Monocytes (%) (Auto) 4 % (0-9) Eosinophils (%) (Auto) 1 % (0-3) Basophils (%) (Auto) 0 % (0-3) Neutrophils # (Auto) 3.8 x10^3uL (1.8-7.7) Lymphocytes # (Auto) 0.9 x10^3/uL (1.0-4.8) Monocytes # (Auto) 0.2 x10^3/uL (0.0-1.1) Eosinophils # (Auto) 0.1 x10^3/uL (0.0-0.7) Basophils # (Auto) 0.0 x10^3/uL (0.0-0.2) Sodium Level 155 mmol/L (136-145) Potassium Level 3.6 mmol/L (3.5-5.1) Chloride Level 119 mmol/L (98-107) Carbon Dioxide Level 22 mmol/L (21-32) Anion Gap 14 (6-14) Blood Urea Nitrogen 19 mg/dL (7-20) Creatinine 1.1 mg/dL (0.6-1.0) Estimated GFR (Cockcroft-Gault) 61.7 BUN/Creatinine Ratio 17 (6-20) Glucose Level 228 mg/dL (70-99) Calcium Level 8.0 mg/dL (8.5-10.1) Total Bilirubin 0.3 mg/dL (0.2-1.0) Aspartate Amino Transf (AST/SGOT) 42 U/L (15-37) Alanine Aminotransferase (ALT/SGPT) 33 U/L (14-59) Alkaline Phosphatase 69 U/L (46-116) Total Protein 7.0 g/dL (6.4-8.2) Albumin 2.1 g/dL (3.4-5.0) Albumin/Globulin Ratio 0.4 (1.0-1.7) Procalcitonin 0.56 ng/mL (0.00-0.10) Medications Current Medications Sodium Chloride (Normal Saline Flush) 10 ml QSHIFT PRN IV AFTER MEDS AND BLOOD DRAWS; Start 05/23/18 at 20:00 Piperacillin Sod/ Tazobactam Sod 4.5 gm/Sodium Chloride 100 ml @ 200 mls/hr 1X ONCE IV Last administered on 05/23/18at 20:34; Start 05/23/18 at 20:00; Stop 05/23/18 at 20:29; Status DC Vancomycin HCl (Vanco Per Pharmacy) 1 each 1X ONCE MC Last administered on 05/23at 20:00; Start 05/23/18 at 20:00; Stop 05/23/18 at 22:03; Status DC Propofol 100 ml @ 0 mls/hr CONT PRN IV SEE PROTOCOL; Start 05/23/18 at 20:00 Fentanyl Citrate (Fentanyl 2ml Vial) 25 mcg PRN Q1HR PRN IV SEE COMMENTS; Start 05/23/18 at 20:00 Fentanyl Citrate (Fentanyl 2ml Vial) 50 mcg PRN Q1HR PRN IV SEE COMMENTS; Start 05/23/18 at 20:00 Chlorhexidine Gluconate (Peridex) 15 ml BID MM Last administered on 05/24/18at 00 :05; Start 05/23/18 at 21:00; Stop 05/24/18 at 08:09; Status DC Acetaminophen (Tylenol Supp) 650 mg 1X ONCE ME Last administered on 05/23/18at 20:33; Start 05/23/18 at 20:00; Stop 05/23/18 at 20:04; Status DC Sodium Chloride 1,000 ml @ 1,000 mls/hr 1X ONCE IV Last administered on at 20:41; Start 05/23/18 at 20:00; Stop 05/23/18 at 20:59; Status DC Midazolam HCl (Versed) 5 mg 1X ONCE IV Last administered on 05/23/18at 20:33; Start 05/23/18 at 20:15; Stop 05/23/18 at 20:16; Status DC Lorazepam (Ativan) 2 mg STK-MED ONCE .ROUTE ; Start 05/23/18 at 20:04; Stop at 20:05; Status DC Norepinephrine Bitartrate 250 ml @ 0 mls/hr CONT PRN IV PER PROTOCOL Last administered on 05/24/18at 00:27; Start 05/23/18 at 20:30 Sodium Chloride 1,000 ml @ 126 mls/hr [id number] IV ; Start 05/23/18 at 20:40; Stop 05/24/18 at 20:39 Sodium Chloride 1,000 ml @ 1,000 mls/hr 1X ONCE IV Last administered on at 20:50; Start 05/23/18 at 20:45; Stop 05/23/18 at 21:44; Status DC Sodium Chloride 1,000 ml @ 1,000 mls/hr 1X ONCE IV ; Start 05/23/18 at 21:15; Stop 05/23/18 at 21:16; Status DC Propofol 50 ml @ As Directed STK-MED ONCE IV ; Start 05/23/18 at 21:02; Stop 05/23 at 21:03; Status DC Propofol 50 ml @ 1.082 mls/ hr 1X ONCE IV Last administered on 05/23/18at 21:12 ; Start 05/23/18 at 21:15; Stop 05/25/18 at 19:27 Vancomycin HCl 1.75 gm/Sodium Chloride 500 ml @ 250 mls/hr 1X ONCE IV Last administered on 05/23/18at 21:23; Start 05/23/18 at 21:30; Stop 05/23/18 at 23:29; Status DC Insulin Human Regular (HumuLIN R VIAL) 14 unit 1X ONCE SQ Last administered on 05/23/18at 21:46; Start 05/23/18 at 21:15; Stop 05/23/18 at 21:16; Status DC Sodium Chloride 1,000 ml @ 75 mls/hr 1X ONCE IV Last administered on at 21:23; Start 05/23/18 at 21:15; Stop 05/24/18 at 10:34 Etomidate (Amidate) 20 mg STK-MED ONCE IV ; Start 05/23/18 at 21:32; Stop at 21:33; Status DC Succinylcholine Chloride (Anectine) 200 mg STK-MED ONCE .ROUTE ; Start 05/23/18 at 21:32; Stop 05/23/18 at 21:33; Status DC Vancomycin HCl 1 gm/Sodium Chloride 250 ml @ 250 mls/hr Q24H IV ; Start at 21:30 Vancomycin HCl (Vancomycin Trough Level) 1 each 1X ONCE MC ; Start 05/25/18 at 21:00; Stop 05/25/18 at 21:01 Sodium Chloride 500 ml @ 500 mls/hr 1X ONCE IV Last administered on 05/23/18at 22:45; Start 05/23/18 at 22:45; Stop 05/23/18 at 23:44; Status DC Albuterol/ Ipratropium (Duoneb) 3 ml RTQID NEB Last administered on 05/24/18at 08 :02; Start 05/24/18 at 08:00 Fentanyl Citrate 30 ml @ 0 mls/hr CONT PRN IV SEE PROTOCOL; Start 05/23/18 at 22 :45 Midazolam HCl 100 ml @ 0 mls/hr CONT PRN IV SEE PROTOCOL Last administered on at 23:34; Start 05/23/18 at 22:45 Sodium Chloride 500 ml @ 500 mls/hr 1X ONCE IV Last administered on 05/23/18at 23:33; Start 05/23/18 at 23:00; Stop 05/23/18 at 23:59; Status DC Insulin Human Lispro (HumaLOG) 0-9 UNITS TIDWMEALS SQ Last administered on at 09:31; Start 05/24/18 at 00:00 Dextrose (Dextrose 50%-Water Syringe) 12.5 gm PRN Q15MIN PRN IV SEE COMMENTS; Start 05/23/18 at 23:30 Enoxaparin Sodium (Lovenox 40mg Syringe) 40 mg Q24H SQ Last administered on 05/23at 23:36; Start 05/23/18 at 23:30 Piperacillin Sod/ Tazobactam Sod (Zosyn Per Pharmacy) 1 each PRN DAILY PRN MC SEE COMMENTS; Start 05/23/18 at 23:30 Vancomycin HCl (Vanco Per Pharmacy) 1 each PRN DAILY PRN MC SEE COMMENTS; Start 05/23/18 at 23:30 Piperacillin Sod/ Tazobactam Sod 3.375 gm/Sodium Chloride 50 ml @ 100 mls/hr Q6HRS IV Last administered on 05/24/18at 06:03; Start 05/24/18 at 06:00 Acetaminophen (Tylenol Supp) 650 mg PRN Q6HRS PRN ME MILD PAIN / TEMP Last administered on 05/24/18at 04:50; Start 05/24/18 at 04:45 Active Scripts Active Levemir Flextouch (Insulin Detemir) 300 Units/3 Ml Insuln.pen 14 Units SQ DAILY Milk Of Magnesia (Magnesium Hydroxide) 2,400 Mg/30 Ml Oral.susp 2,400 Mg PEG PRN DAILY PRN 30 Days [Levetiracetam] 500 MG/5 ML Solution 500 Mg PEG BID 30 Days Reported Nystatin 1 Each Powder.ea. 1 Each MC PRN PRN Famotidine 20 Mg Tablet 20 Mg PEG HS Atorvastatin Calcium 10 Mg Tablet 10 Mg PEG HS Metformin Hcl 500 Mg Tablet 500 Mg PEG BIDWMEALS Sod Citrate-Citric Acid Soln (Citric Acid/Sodium Citrate) 15 Ml Solution 10 Ml PEG QIDAFTMEAL Lansoprazole 30 Mg Capsule.dr 1 Cap PO DAILY Cipro (Ciprofloxacin Hcl) 500 Mg Tablet 1 Tab PO BID 2 Days Tylenol (Acetaminophen) 325 Mg Tablet 650 Mg PEG PRN Q8HRS PRN Multivitamins (Multivitamin) 1 Each Tablet 1 Tab PEG DAILY EXELON 13.3mg/24hr (Rivastigmine) 1 Each Patch.td24 1 Patch TD DAILY Aspirin 81 Mg Tab.chew 81 Mg PO DAILY Simvastatin 10 Mg Tablet 10 Mg PO DAILY Vitals/I & O Vital Sign - Last 24 Hours 05/23/18 05/23/18 05/23/18 05/23/18 19:33 19:44 19:49 19:50 Temp 103.2 103.2 Pulse 132 130 110 Resp 40 20 20 B/P (MAP) 158/109 (125) 167/75 (105) 132/56 (81) Pulse Ox 90 93 98 98 O2 Delivery NonRebreather Mask Bag Valve Mask Ventilator Ventilator 05/23/18 05/23/18 05/23/18 05/23/18 20:00 20:20 20:25 20:35 Pulse 120 116 110 106 Resp 16 16 20 20 B/P (MAP) 93/61 (72) 133/64 (87) 122/63 (82) 100/63 (75) Pulse Ox 97 98 97 97 O2 Delivery Ventilator 05/23/18 05/23/18 05/23/18 05/23/18 20:45 20:55 21:10 21:15 Temp 99.1 99.1 Pulse 106 102 100 102 Resp 16 16 16 16 B/P (MAP) 101/64 (76) 121/76 (91) 110/72 (85) 110/70 (83) Pulse Ox 97 99 100 100 05/23/18 05/23/18 05/23/18 05/23/18 21:25 21:35 21:45 21:55 Pulse 104 104 106 Resp 16 16 16 B/P (MAP) 118/80 (93) 128/76 (93) 122/69 (86) Pulse Ox 98 98 98 99 O2 Delivery Ventilator Ventilator Ventilator 05/23/18 05/23/18 05/23/18 05/23/18 22:00 22:15 22:30 22:35 Temp 100.1 100.1 Pulse 98 106 Resp 16 15 B/P (MAP) 114/76 (89) 76/55 (62) 79/53 (62) Pulse Ox 98 97 O2 Delivery Ventilator Ventilator Mechanical Ventilator 05/23/18 05/23/18 05/23/18 05/23/18 22:45 23:00 23:30 23:59 Pulse 96 108 99 Resp 28 21 15 B/P (MAP) 93/55 (68) 86/62 (70) 78/59 (65) Pulse Ox 97 96 94 O2 Delivery Ventilator Ventilator Ventilator Mechanical Ventilator 05/24/18 05/24/18 05/24/18 05/24/18 00:00 00:00 00:20 00:30 Temp 99.7 99.7 Pulse 100 Resp 17 B/P (MAP) 81/53 (62) 68/46 (53) 77/51 (60) Pulse Ox 99 92 O2 Delivery Ventilator Ventilator 05/24/18 05/24/18 05/24/18 05/24/18 00:35 00:37 00:39 00:41 B/P (MAP) 76/51 (59) 82/51 (61) 80/53 (62) 86/54 (65) 05/24/18 05/24/18 05/24/18 05/24/18 00:53 01:00 02:00 02:09 Pulse 88 95 Resp 16 16 B/P (MAP) 86/61 (69) 92/57 (69) 81/61 (68) Pulse Ox 100 96 99 O2 Delivery Ventilator Ventilator Ventilator 05/24/18 05/24/18 05/24/18 05/24/18 03:00 04:00 04:00 05:00 Temp 102.0 102.0 Pulse 96 102 100 Resp 15 15 16 B/P (MAP) 99/58 (72) 97/54 (68) 91/58 (69) Pulse Ox 97 96 93 O2 Delivery Ventilator Mechanical Ventilator Ventilator Ventilator 05/24/18 05/24/18 05/24/18 05/24/18 05:03 06:00 07:00 08:02 Temp 101.9 98.1 101.9 98.1 Pulse 103 94 Resp 16 16 B/P (MAP) 104/66 (79) 87/69 (75) Pulse Ox 94 92 96 96 O2 Delivery Ventilator Ventilator Ventilator Ventilator Intake and Output 05/23/18 05/23/18 05/24/18 15:00 23:00 07:00 Intake Total 2100 ml 1798 ml Output Total 400 ml Balance 2100 ml 1398 ml LUCIEN PUGA MD May 24, 2018 10:27
[2018-05-24] MEDS ORDERED: MAGNESIUM HYDROXIDE 2,400 MG/30 ML ORAL.SUSP. PEG PRN (10:45)
[2018-05-24] MEDS: metFORMIN 500 MG TABLET PO SCH ×2 (11:30→17:00)
[2018-05-24] MEDS ORDERED: levETIRAcetam 500 MG TABLET PO SCH (11:30)
[2018-05-24] MEDS ORDERED: INSULIN GLARGINE 300 UNITS/3 ML INSULN.PEN. SQ SCH (11:30)
[2018-05-24] MEDS: VANCOMYCIN PER PHARMACY MC PRN (12:18)
[2018-05-24] MEDS: MULTIVITAMINS,THERAPEUTIC 5 ML ORAL LIQUID. PEG SCH (12:24)
[2018-05-24] MEDS: CITRIC ACID/SODIUM CITRATE 30 ML SOLUTION. PEG SCH ×3 (12:25→21:05)
[2018-05-24] MEDS: ASPIRIN CHEWABLE 81 MG TABLET. PO SCH (12:25)
[2018-05-24] MEDS: RIVASTIGMINE 13.3MG PATCH. TD SCH (12:26)
[2018-05-24] MEDS ORDERED: IV 1/2 NORMAL SALINE 1,000 ML IV ONE (12:30)
--- NOTE | 2018-05-24 12:38 | NUR ---
SS following for discharge planning SS reviewed pt chart. Pt is LTC resident from [facility] in [place], ; fax [phone]. Pt is currently on the vent. Palliative Care consulted. SS will continue to follow for discharge planning.
[2018-05-24] MEDS: MIDAZOLAM 100mg/100ml NS BAG 100 ML IV PRN (12:55)
--- NOTE | 2018-05-24 13:26 | PDOC2 ---
PALLIATIVE CARE Palliative Care Note Palliative Care Consult requested by Dr. Powell to address goals of care. Medical Assessment per medical record; Septic shock etiology undetermined at the present time Severe dehydration hypernatremia secondary to the above History of Down syndrome, History of anxiety dementia, diabetes mellitus type II insulin requiring History of PEG tube. Patient on Vent. pressor x1 ; Versed. Met with mother Ayesha and sister Deborah. Patient has 5 siblings. Reviewed above medical condition and events surrounding her admission from [facility] Patient has been a resident of [facility] x 5 years. Now Bedridden; PEG tube, unresponsive to commands --screaming at times. Family shared; patient graduated from special education school, enjoyed cooking and cleaning and being with her siblings/nieces and family. Loved to dance Vero: important Patient had stopped walking prior to being admitted to retirement Mother and sister feel that the patient has suffered enough. Discussed Code Status; They requested DNR--no chest compressions. no shocks. If patient is extubated they request patient not be re-intubated. Pacemaker will remain on. Outside the Hospital DNR/DNI form signed. Will have more conversation in 48 hours ---after seeing if she is able to improve. Above Reviewed with Zeinab Arriola will call physician for orders. LANCE SALAZAR May 24, 2018 13:26
--- NOTE | 2018-05-24 16:42 | CONS ---
DATE OF CONSULTATION: PULMONARY CONSULTATION ATTENDING PHYSICIAN: Dr. Shanice Butler. REASON FOR CONSULTATION: Respiratory failure. HISTORY OF PRESENT ILLNESS: The patient is a 57-year-old female who has history of Down syndrome. She was brought into the hospital with fulminant respiratory failure. The patient was seen in the Emergency Room and was noted to be septic. She was intubated. She had fever. She was tachycardic. She is currently requiring 12 mcg of Levophed despite receiving aggressive fluid resuscitation. The patient's chest x-ray was reviewed. Endotracheal tube is at the gayathri and there was a right lower lobe consolidation. She was seen by Infectious Disease and broad spectrum antibiotics have been initiated. The patient has also been seen by palliative care and there will be a family discussion regarding advanced directives. She is a DNR at present. PAST MEDICAL HISTORY: Significant for history of Down syndrome, anxiety, constipation, dementia, diabetes, hysterectomy and PEG tube. PAST SURGICAL HISTORY: As above. ALLERGIES: None. FAMILY HISTORY: Diabetes. SOCIAL HISTORY: Lives at the facility. No history of tobacco use. MEDICATIONS: All reviewed as listed in the MRAD. REVIEW OF SYSTEMS: Unable to obtain. PHYSICAL EXAMINATION: VITAL SIGNS: She had a T-max of 101.3, blood pressure 94 systolic, pulse ox is 97%. HEENT: Sclerae nonicteric. NECK: Supple. LUNGS: Diminished breath sounds. CARDIOVASCULAR: Regular rate and rhythm. ABDOMEN: Soft, obese. EXTREMITIES: Trace pitting edema. LABORATORY DATA: Reviewed. Sodium 155, BUN and creatinine 19 and 1.1, procalcitonin 0.56. ABGs with a pH of 7.37, pCO2 of 42 and a pO2 of 381 on 100% FiO2. INR 1.2. IMPRESSION: 1. Acute respiratory failure secondary to septic shock. 2. Septic shock likely source aspiration pneumonia. 3. High grade fever, likely related to aspiration pneumonia, but needs to rule out all other sources. 4. Down syndrome. RECOMMENDATIONS: 1. Continue with present assist control mode. Follow ABGs and make necessary adjustments. 2. Monitor sodium level. 3. Broad-spectrum antibiotics. 4. Follow renal function. 5. Wean pressors when systolic blood pressure stays above 100. 6. Monitor urine output. 7. Monitor white cell count. 8. DVT and stress ulcer prophylaxis. 9. Discussed with RN and RT. The patient remains critical. Palliative care is on the case to discuss the goals of care. RICH GREGORY MD DR: [place]/latrell JOB#: [id number] / [id number]
[2018-05-24 17:29] LABS: FIO2 ABG 40
[2018-05-24] MEDS ORDERED: NYSTATIN TOPICAL POWDER 15GM BOTTLE. TP PRN (21:00)
[2018-05-24] MEDS: ATORVASTATIN CALCIUM 10 MG TABLET. PEG SCH (21:05)
[2018-05-24] MEDS: VANCOMYCIN 1 GM in IV NORMAL SALINE 250ML 250 ML IV SCH (21:06)
--- NOTE | 2018-05-24 22:12 | CONS ---
DATE OF CONSULTATION: 05/24/2018 REQUESTING PHYSICIAN: Dr. Butler. REASON FOR CONSULTATION: Sepsis. HISTORY OF PRESENT ILLNESS: This is a 57-year-old female, with Down syndrome, who has been a snf resident with [facility], who also has a PEG tube. Evidently, she vomited and aspirated and was brought in with respiratory distress. The patient was found to be hypotensive, respiratory failure. The patient was intubated, requiring vasopressor support, started on vancomycin and Zosyn and currently, she is on a ventilator. The patient is not able to provide any information even in a normal state. The patient is currently on a ventilator, orally intubated and on a vasopressor support. PAST MEDICAL HISTORY: Positive for Down syndrome, the patient is total [facility], has had hysterectomy, gastrostomy tube, evidently documented as dementia, diabetes. SOCIAL HISTORY: Lives in a snf with total care. ALLERGIES: No known drug allergies. CURRENT MEDICATIONS: Reviewed. The patient is on vancomycin and Zosyn. REVIEW OF SYSTEMS: Unable to obtain other than what I mentioned in the HPI. Through the nursing, there is no more nausea, vomiting or diarrhea noted. She does have fever. PHYSICAL EXAMINATION: GENERAL: Orally intubated, sedated female, not in any distress. VITAL SIGNS: Temperature max is 102, pulse 103, respirations 16, blood pressure 104/66. HEENT: Both pupils are round and reacting. No conjunctival lesion. Oral, not much able to visualize since orally intubated. NECK: Supple, no JVP, no lymphadenopathy. LUNGS: Decreased breath sounds bilaterally. HEART: S1, S2 regular. No gallop or murmur. ABDOMEN: Soft, nontender. No organomegaly. EXTREMITIES: No edema or cyanosis. The patient has contractures. NEUROLOGIC: The patient does not respond currently. Anyway, she is sedated, intubated. SKIN: There is no skin breakdown. LABORATORY DATA: White count on admission yesterday was 3.8, it has improved to 5; hemoglobin 11, platelets are normal. BUN and creatinine is 19 and 1.1, bicarb is 22. Lactic acid was 5.1. Urinalysis unremarkable. Cultures are pending. Chest x-ray showed right-sided pulmonary infiltrate. IMPRESSION: 1. Aspiration pneumonia. 2. Sepsis with hypotension, lactic acidosis, requiring vasopressor support. 3. Fever. 4. Respiratory failure. 5. Circulatory failure. 6. Down syndrome. RECOMMENDATIONS: Agree with vancomycin and Zosyn. Supportive care. We will check the cultures and adjust. The patient needs Palliative Care consult. Overall prognosis is poor. Thank you very much, Dr. Butler, for giving me the opportunity to participate in this patient's care. TERRANCE FLORES MD DR: AMOL/latrell JOB#: [id number] / [id number]
[2018-05-24] MEDS: ENOXAPARIN 40 MG/0.4 ML SYRINGE. SQ SCH (23:52)
[2018-05-24] MEDS: IV 1/2 NORMAL SALINE 1,000 ML IV SCH (23:52)
[2018-05-25] VITALS (35 sets, daily range): BP systolic 73–125; BP diastolic 45–70
[2018-05-25] MEDS: ACETAMINOPHEN 325 MG TABLET. PO PRN (00:01)
[2018-05-25] MEDS: NOREPINEPHRIN 8MG/250ML PREMIX 250 ML IV PRN (01:42)
--- NOTE | 2018-05-25 02:00 | NUR ---
During bath, wounds found and pictured. Foams applied. Wound care nurse & nutrition consult placed per protocol.
[2018-05-25] MEDS: PIPERACILLIN/TAZOBACTAM 3.375 GM in IV NORMAL SALINE 50ML 50 ML IV SCH ×4 (06:07→23:38)
[2018-05-25 07:10] LABS: CALCIUM 7.6 mg/dL (8.5-10.1); CREATININE 1.1 mg/dL (0.6-1.0); GFR 61.7; POTASSIUM 3.5 mmol/L (3.5-5.1)
[2018-05-25 07:35] LABS: BASO % 0 % (0-3); EOS % 0 % (0-3); HEMATOCRIT 33.2 % (36.0-47.0); HEMOGLOBIN 10.8 g/dL (12.0-15.5); LYMPH # 1.4 x10^3/uL (1.0-4.8); LYMPH % 15 % (24-48); MEAN CORPUSCULAR HEMOGLOBIN 30 pg (25-35); MEAN CORPUSCULAR HGB CONC 33 g/dL (31-37); MEAN CORPUSCULAR VOLUME 92 fL (79-100); MONO # 0.2 x10^3/uL (0.0-1.1); MONO % 2 % (0-9); NEUT # 7.5 x10^3uL (1.8-7.7); NEUT % 82 % (31-73); PLATELET COUNT 163 x10^3/uL (140-400); RED CELL DISTRIBUTION WIDTH 17.1 % (11.5-14.5); WHITE BLOOD COUNT 9.1 x10^3/uL (4.0-11.0)
--- NOTE | 2018-05-25 07:38 | PDOC ---
Infectious Disease Note Subjective Subjective sedated on vent ROS ROS no n/v/d/sob Vital Sign Vital Signs Vital Signs Date Time Temp Pulse Resp B/P (MAP) Pulse Ox O2 Delivery O2 Flow Rate FiO2 05/25/18 07:09 98.2 64 16 124/67 (86) 93 Ventilator 98.2 Physical Exam PHYSICAL EXAM GENERAL: Orally intubated, sedated female, not in any distress. VITAL SIGNS: stable HEENT: Both pupils are round and reacting. No conjunctival lesion. Oral, not much able to visualize since orally intubated. NECK: Supple, no JVP, no lymphadenopathy. LUNGS: Decreased breath sounds bilaterally. HEART: S1, S2 regular. No gallop or murmur. ABDOMEN: Soft, nontender. No organomegaly. EXTREMITIES: No edema or cyanosis. The patient has contractures. NEUROLOGIC: The patient does not respond currently. Anyway, she is sedated, intubated. SKIN: There is no skin breakdown. Labs Lab Laboratory Tests Test 05/24/18 08:05 05/24/18 09:26 05/24/18 12:31 05/24/18 17:46 O2 Saturation 93 % (92-99) Arterial Blood pH 7.51 (7.35-7.45) Arterial Blood pCO2 at Patient Temp 26 mmHg (35-46) Arterial Blood pO2 at Patient Temp 59 mmHg (75-108) Arterial Blood HCO3 20 mmol/L (21-28) Arterial Blood Base Excess -2 mmol/L (-3-3) FiO2 40 Glucose (Fingerstick) 296 mg/dL (70-99) 294 mg/dL (70-99) 297 mg/dL (70-99) Test 05/25/18 06:20 Sodium Level 151 mmol/L (136-145) Potassium Level 3.5 mmol/L (3.5-5.1) Chloride Level 116 mmol/L (98-107) Carbon Dioxide Level 22 mmol/L (21-32) Anion Gap 13 (6-14) Blood Urea Nitrogen 9 mg/dL (7-20) Creatinine 1.1 mg/dL (0.6-1.0) Estimated GFR (Cockcroft-Gault) 61.7 Glucose Level 336 mg/dL (70-99) Calcium Level 7.6 mg/dL (8.5-10.1) Micro Microbiology 05/23/18 Blood Culture - Preliminary, Resulted NO GROWTH AFTER 1 DAY 05/23/18 - Final, Resulted 05/23/18 - Final, Resulted 05/23/18 - Final, Resulted 05/23/18 Gram Stain Evaluation - Final, Resulted 05/23/18 Sputum Culture, Resulted Pending Objective Assessment 1. Aspiration pneumonia. 2. Sepsis with hypotension, lactic acidosis, requiring vasopressor support. 3. Fever. 4. Respiratory failure. 5. Circulatory failure. 6. Down syndrome. Plan Plan of Care [facility] supportive care check cultures Palliative care input appreciated TERRANCE FLORES MD May 25, 2018 07:38
[2018-05-25] MEDS: MIDAZOLAM 100mg/100ml NS BAG 100 ML IV PRN (07:40)
[2018-05-25] MEDS: IV 1/2 NORMAL SALINE 1,000 ML IV SCH ×3 (07:44→23:39)
[2018-05-25] MEDS: metFORMIN 500 MG TABLET PO SCH ×2 (08:00→16:05)
[2018-05-25] MEDS: IPRATRPIUM/ALBUTEROL 0.5/2.5MG 3 ML NEBU. NEB SCH ×4 (08:13→20:04)
--- NOTE | 2018-05-25 08:20 | RAD ---
Single view of the chest. 05/25/2018 5:17 AM Indication: INTUBATED
RESPIRATORY FAILURE Comparison: Chest radiograph, yesterday FINDINGS: Endotracheal tube has been retracted and sits just above the gayathri. Enteric tube extends below the diaphragm. Left subclavian pacemaking device appears grossly similar in configuration. Right basilar infiltrate with possible small associated pleural effusion noted. No pneumothorax is identified. Heart size remains normal. Bony thorax is unchanged. IMPRESSION: 1. Repositioning of endotracheal tube with tip now just above the gayathri. 2. Grossly similar right basilar infiltrate. Probable small layering right pleural effusion. Electronically signed by: Vignesh Izaguirre MD (05/25/2018 8:17 AM) [id number]
[2018-05-25] MEDS: MULTIVITAMINS,THERAPEUTIC 5 ML ORAL LIQUID. PEG SCH (08:34)
[2018-05-25] MEDS: CITRIC ACID/SODIUM CITRATE 30 ML SOLUTION. PEG SCH ×4 (08:34→21:00)
[2018-05-25] MEDS: RIVASTIGMINE 13.3MG PATCH. TD SCH (08:34)
[2018-05-25] MEDS: ASPIRIN CHEWABLE 81 MG TABLET. PO SCH (08:34)
[2018-05-25 08:38] LABS: BASE EXCESS ABG -4 mmol/L (-3-3); HCO3 ABG 19 mmol/L (21-28); PCO2 ABG 26 mmHg (35-46); PO2 ABG 66 mmHg (75-108); SAT O2 ABG 93 % (92-99)
[2018-05-25] MEDS: INSULIN GLARGINE 300 UNITS/3 ML INSULN.PEN. SQ SCH (08:40)
[2018-05-25 08:41] LABS: FIO2 ABG 40%
[2018-05-25] MEDS: INSULIN LISPRO 300 UNITS/3 ML INSULN.PEN. SQ SCH ×3 (08:53→17:50)
[2018-05-25] MEDS ORDERED: SIMVASTATIN 10 MG TABLET PO SCH (09:00)
--- NOTE | 2018-05-25 09:16 | PDOC ---
PROGRESS NOTES Chief Complaint Chief Complaint Septic shock etiology undetermined at the present time Severe dehydration hypernatremia secondary to the above History of Down syndrome, History of anxiety dementia, diabetes mellitus type II insulin requiring uncontrolled History of PEG tube. Plan: increase lantus insulin and porvide correctional with 7 units for her glycemia of over 300 Continue with supportive measures. Continue ventilatory support as per immigration consultant Continue with fluid resuscitation Will resume home medications Further recommendations based on the clinical course History of Present Illness History of Present Illness Patient laying in bed in no apparent distress. Patient is currently sedated on mechanical ventilation, no acute events reported overnight. No clear etiology for her sepsis other than low effective circulatory volume Vitals Vitals Vital Signs Date Time Temp Pulse Resp B/P (MAP) Pulse Ox O2 Delivery O2 Flow Rate FiO2 05/25/18 09:00 61 16 102/50 (67) 96 Ventilator 05/25/18 07:09 98.2 98.2 Physical Exam Physical Exam GENERAL: Orally intubated, sedated female, not in any distress. VITAL SIGNS: stable HEENT: Both pupils are round and reacting. No conjunctival lesion. Oral, not much able to visualize since orally intubated. NECK: Supple, no JVP, no lymphadenopathy. LUNGS: Decreased breath sounds bilaterally. HEART: S1, S2 regular. No gallop or murmur. ABDOMEN: Soft, nontender. No organomegaly. EXTREMITIES: No edema or cyanosis. The patient has contractures. NEUROLOGIC: The patient does not respond currently. Anyway, she is sedated, intubated. SKIN: There is no skin breakdown. Lungs: Other Labs LABS Laboratory Tests Test 05/24/18 09:26 05/24/18 12:31 05/24/18 17:46 05/25/18 06:20 Glucose (Fingerstick) 296 mg/dL (70-99) 294 mg/dL (70-99) 297 mg/dL (70-99) White Blood Count 9.1 x10^3/uL (4.0-11.0) Red Blood Count 3.60 x10^6/uL (3.50-5.40) Hemoglobin 10.8 g/dL (12.0-15.5) Hematocrit 33.2 % (36.0-47.0) Mean Corpuscular Volume 92 fL (79-100) Mean Corpuscular Hemoglobin 30 pg (25-35) Mean Corpuscular Hemoglobin Concent 33 g/dL (31-37) Red Cell Distribution Width 17.1 % (11.5-14.5) Platelet Count 163 x10^3/uL (140-400) Neutrophils (%) (Auto) 82 % (31-73) Lymphocytes (%) (Auto) 15 % (24-48) Monocytes (%) (Auto) 2 % (0-9) Eosinophils (%) (Auto) 0 % (0-3) Basophils (%) (Auto) 0 % (0-3) Neutrophils # (Auto) 7.5 x10^3uL (1.8-7.7) Lymphocytes # (Auto) 1.4 x10^3/uL (1.0-4.8) Monocytes # (Auto) 0.2 x10^3/uL (0.0-1.1) Eosinophils # (Auto) 0.0 x10^3/uL (0.0-0.7) Basophils # (Auto) 0.0 x10^3/uL (0.0-0.2) Sodium Level 151 mmol/L (136-145) Potassium Level 3.5 mmol/L (3.5-5.1) Chloride Level 116 mmol/L (98-107) Carbon Dioxide Level 22 mmol/L (21-32) Anion Gap 13 (6-14) Blood Urea Nitrogen 9 mg/dL (7-20) Creatinine 1.1 mg/dL (0.6-1.0) Estimated GFR (Cockcroft-Gault) 61.7 Glucose Level 336 mg/dL (70-99) Calcium Level 7.6 mg/dL (8.5-10.1) Test 05/25/18 08:25 05/25/18 08:37 O2 Saturation 93 % (92-99) Arterial Blood pH 7.47 (7.35-7.45) Arterial Blood pCO2 at Patient Temp 26 mmHg (35-46) Arterial Blood pO2 at Patient Temp 66 mmHg (75-108) Arterial Blood HCO3 19 mmol/L (21-28) Arterial Blood Base Excess -4 mmol/L (-3-3) FiO2 40% Glucose (Fingerstick) 372 mg/dL (70-99) Review of Systems Review of Systems uanble to assess Comment Review of Relevant I have reviewed the following items trey (where applicable) has been applied. Labs Laboratory Tests Test 05/23/18 20:00 05/23/18 20:05 05/23/18 21:12 05/23/18 21:28 Urine Collection Type U cath Urine Color Yellow Urine Clarity Cloudy Urine pH 5.5 Urine Specific [place] >=1.030 Urine Protein 100 mg/dL (NEG-TRACE) Urine Glucose (UA) >=1000 mg/dL (NEG) Urine Ketones (Stick) Negative mg/dL (NEG) Urine Blood Moderate (NEG) Urine Nitrite Negative (NEG) Urine Bilirubin Negative (NEG) Urine Urobilinogen Dipstick 0.2 mg/dL (0.2 mg/dL) Urine Leukocyte Esterase Negative (NEG) Urine RBC 1-2 /HPF (0-2) Urine WBC Occ /HPF (0-4) Urine Squamous Epithelial Cells Mod /LPF Urine Amorphous Sediment Present /HPF Urine Bacteria Few /HPF (0-FEW) White Blood Count 3.8 x10^3/uL (4.0-11.0) Red Blood Count 4.17 x10^6/uL (3.50-5.40) Hemoglobin 12.6 g/dL (12.0-15.5) Hematocrit 38.4 % (36.0-47.0) Mean Corpuscular Volume 92 fL (79-100) Mean Corpuscular Hemoglobin 30 pg (25-35) Mean Corpuscular Hemoglobin Concent 33 g/dL (31-37) Red Cell Distribution Width 17.1 % (11.5-14.5) Platelet Count 229 x10^3/uL (140-400) Neutrophils (%) (Auto) 79 % (31-73) Lymphocytes (%) (Auto) 12 % (24-48) Monocytes (%) (Auto) 8 % (0-9) Eosinophils (%) (Auto) 0 % (0-3) Basophils (%) (Auto) 1 % (0-3) Neutrophils # (Auto) 3.0 x10^3uL (1.8-7.7) Lymphocytes # (Auto) 0.5 x10^3/uL (1.0-4.8) Monocytes # (Auto) 0.3 x10^3/uL (0.0-1.1) Eosinophils # (Auto) 0.0 x10^3/uL (0.0-0.7) Basophils # (Auto) 0.0 x10^3/uL (0.0-0.2) Prothrombin Time 14.5 SEC (11.7-14.0) Prothromb Time International Ratio 1.2 (0.8-1.1) Sodium Level 151 mmol/L (136-145) Potassium Level 4.3 mmol/L (3.5-5.1) Chloride Level 111 mmol/L (98-107) Carbon Dioxide Level 25 mmol/L (21-32) Anion Gap 15 (6-14) Blood Urea Nitrogen 28 mg/dL (7-20) Creatinine 1.5 mg/dL (0.6-1.0) Estimated GFR (Cockcroft-Gault) 43.2 BUN/Creatinine Ratio 19 (6-20) Glucose Level 612 mg/dL (70-99) Lactic Acid Level 5.7 mmol/L (0.4-2.0) Calcium Level 8.7 mg/dL (8.5-10.1) Total Bilirubin 0.2 mg/dL (0.2-1.0) Aspartate Amino Transf (AST/SGOT) 43 U/L (15-37) Alanine Aminotransferase (ALT/SGPT) 44 U/L (14-59) Alkaline Phosphatase 93 U/L (46-116) Total Protein 8.3 g/dL (6.4-8.2) Albumin 2.5 g/dL (3.4-5.0) Albumin/Globulin Ratio 0.4 (1.0-1.7) O2 Saturation 99 % (92-99) Arterial Blood pH 7.37 (7.35-7.45) Arterial Blood pCO2 at Patient Temp 42 mmHg (35-46) Arterial Blood pO2 at Patient Temp 381 mmHg (75-108) Arterial Blood HCO3 24 mmol/L (21-28) Arterial Blood Base Excess -2 mmol/L (-3-3) Oxyhemoglobin 98.1 % Methemoglobin 0.7 % (0.0-1.9) Carbon Monoxide, Quantitative 0.2 % (0.0-1.9) FiO2 100 Glucose (Fingerstick) 440 mg/dL (70-99) Test 05/23/18 22:15 05/23/18 23:45 05/24/18 00:02 05/24/18 04:25 Nasal Screen MRSA (PCR) Negative (Negative) Lactic Acid Level 5.1 mmol/L (0.4-2.0) Glucose (Fingerstick) 355 mg/dL (70-99) White Blood Count 5.0 x10^3/uL (4.0-11.0) Red Blood Count 3.73 x10^6/uL (3.50-5.40) Hemoglobin 11.0 g/dL (12.0-15.5) Hematocrit 34.2 % (36.0-47.0) Mean Corpuscular Volume 92 fL (79-100) Mean Corpuscular Hemoglobin 30 pg (25-35) Mean Corpuscular Hemoglobin Concent 32 g/dL (31-37) Red Cell Distribution Width 16.5 % (11.5-14.5) Platelet Count 200 x10^3/uL (140-400) Neutrophils (%) (Auto) 77 % (31-73) Lymphocytes (%) (Auto) 17 % (24-48) Monocytes (%) (Auto) 4 % (0-9) Eosinophils (%) (Auto) 1 % (0-3) Basophils (%) (Auto) 0 % (0-3) Neutrophils # (Auto) 3.8 x10^3uL (1.8-7.7) Lymphocytes # (Auto) 0.9 x10^3/uL (1.0-4.8) Monocytes # (Auto) 0.2 x10^3/uL (0.0-1.1) Eosinophils # (Auto) 0.1 x10^3/uL (0.0-0.7) Basophils # (Auto) 0.0 x10^3/uL (0.0-0.2) Sodium Level 155 mmol/L (136-145) Potassium Level 3.6 mmol/L (3.5-5.1) Chloride Level 119 mmol/L (98-107) Carbon Dioxide Level 22 mmol/L (21-32) Anion Gap 14 (6-14) Blood Urea Nitrogen 19 mg/dL (7-20) Creatinine 1.1 mg/dL (0.6-1.0) Estimated GFR (Cockcroft-Gault) 61.7 BUN/Creatinine Ratio 17 (6-20) Glucose Level 228 mg/dL (70-99) Calcium Level 8.0 mg/dL (8.5-10.1) Total Bilirubin 0.3 mg/dL (0.2-1.0) Aspartate Amino Transf (AST/SGOT) 42 U/L (15-37) Alanine Aminotransferase (ALT/SGPT) 33 U/L (14-59) Alkaline Phosphatase 69 U/L (46-116) Total Protein 7.0 g/dL (6.4-8.2) Albumin 2.1 g/dL (3.4-5.0) Albumin/Globulin Ratio 0.4 (1.0-1.7) Procalcitonin 0.56 ng/mL (0.00-0.10) Test 05/24/18 08:05 05/24/18 09:26 05/24/18 12:31 05/24/18 17:46 O2 Saturation 93 % (92-99) Arterial Blood pH 7.51 (7.35-7.45) Arterial Blood pCO2 at Patient Temp 26 mmHg (35-46) Arterial Blood pO2 at Patient Temp 59 mmHg (75-108) Arterial Blood HCO3 20 mmol/L (21-28) Arterial Blood Base Excess -2 mmol/L (-3-3) FiO2 40 Glucose (Fingerstick) 296 mg/dL (70-99) 294 mg/dL (70-99) 297 mg/dL (70-99) Test 05/25/18 06:20 05/25/18 08:25 05/25/18 08:37 White Blood Count 9.1 x10^3/uL (4.0-11.0) Red Blood Count 3.60 x10^6/uL (3.50-5.40) Hemoglobin 10.8 g/dL (12.0-15.5) Hematocrit 33.2 % (36.0-47.0) Mean Corpuscular Volume 92 fL (79-100) Mean Corpuscular Hemoglobin 30 pg (25-35) Mean Corpuscular Hemoglobin Concent 33 g/dL (31-37) Red Cell Distribution Width 17.1 % (11.5-14.5) Platelet Count 163 x10^3/uL (140-400) Neutrophils (%) (Auto) 82 % (31-73) Lymphocytes (%) (Auto) 15 % (24-48) Monocytes (%) (Auto) 2 % (0-9) Eosinophils (%) (Auto) 0 % (0-3) Basophils (%) (Auto) 0 % (0-3) Neutrophils # (Auto) 7.5 x10^3uL (1.8-7.7) Lymphocytes # (Auto) 1.4 x10^3/uL (1.0-4.8) Monocytes # (Auto) 0.2 x10^3/uL (0.0-1.1) Eosinophils # (Auto) 0.0 x10^3/uL (0.0-0.7) Basophils # (Auto) 0.0 x10^3/uL (0.0-0.2) Sodium Level 151 mmol/L (136-145) Potassium Level 3.5 mmol/L (3.5-5.1) Chloride Level 116 mmol/L (98-107) Carbon Dioxide Level 22 mmol/L (21-32) Anion Gap 13 (6-14) Blood Urea Nitrogen 9 mg/dL (7-20) Creatinine 1.1 mg/dL (0.6-1.0) Estimated GFR (Cockcroft-Gault) 61.7 Glucose Level 336 mg/dL (70-99) Calcium Level 7.6 mg/dL (8.5-10.1) O2 Saturation 93 % (92-99) Arterial Blood pH 7.47 (7.35-7.45) Arterial Blood pCO2 at Patient Temp 26 mmHg (35-46) Arterial Blood pO2 at Patient Temp 66 mmHg (75-108) Arterial Blood HCO3 19 mmol/L (21-28) Arterial Blood Base Excess -4 mmol/L (-3-3) FiO2 40% Glucose (Fingerstick) 372 mg/dL (70-99) Laboratory Tests Test 05/24/18 09:26 05/24/18 12:31 05/24/18 17:46 05/25/18 06:20 Glucose (Fingerstick) 296 mg/dL (70-99) 294 mg/dL (70-99) 297 mg/dL (70-99) White Blood Count 9.1 x10^3/uL (4.0-11.0) Red Blood Count 3.60 x10^6/uL (3.50-5.40) Hemoglobin 10.8 g/dL (12.0-15.5) Hematocrit 33.2 % (36.0-47.0) Mean Corpuscular Volume 92 fL (79-100) Mean Corpuscular Hemoglobin 30 pg (25-35) Mean Corpuscular Hemoglobin Concent 33 g/dL (31-37) Red Cell Distribution Width 17.1 % (11.5-14.5) Platelet Count 163 x10^3/uL (140-400) Neutrophils (%) (Auto) 82 % (31-73) Lymphocytes (%) (Auto) 15 % (24-48) Monocytes (%) (Auto) 2 % (0-9) Eosinophils (%) (Auto) 0 % (0-3) Basophils (%) (Auto) 0 % (0-3) Neutrophils # (Auto) 7.5 x10^3uL (1.8-7.7) Lymphocytes # (Auto) 1.4 x10^3/uL (1.0-4.8) Monocytes # (Auto) 0.2 x10^3/uL (0.0-1.1) Eosinophils # (Auto) 0.0 x10^3/uL (0.0-0.7) Basophils # (Auto) 0.0 x10^3/uL (0.0-0.2) Sodium Level 151 mmol/L (136-145) Potassium Level 3.5 mmol/L (3.5-5.1) Chloride Level 116 mmol/L (98-107) Carbon Dioxide Level 22 mmol/L (21-32) Anion Gap 13 (6-14) Blood Urea Nitrogen 9 mg/dL (7-20) Creatinine 1.1 mg/dL (0.6-1.0) Estimated GFR (Cockcroft-Gault) 61.7 Glucose Level 336 mg/dL (70-99) Calcium Level 7.6 mg/dL (8.5-10.1) Test 05/25/18 08:25 05/25/18 08:37 O2 Saturation 93 % (92-99) Arterial Blood pH 7.47 (7.35-7.45) Arterial Blood pCO2 at Patient Temp 26 mmHg (35-46) Arterial Blood pO2 at Patient Temp 66 mmHg (75-108) Arterial Blood HCO3 19 mmol/L (21-28) Arterial Blood Base Excess -4 mmol/L (-3-3) FiO2 40% Glucose (Fingerstick) 372 mg/dL (70-99) Microbiology 05/23/18 Blood Culture - Preliminary, Resulted NO GROWTH AFTER 1 DAY 05/23/18 - Final, Resulted 05/23/18 - Final, Resulted 05/23/18 - Final, Resulted 05/23/18 Gram Stain Evaluation - Final, Resulted 05/23/18 Sputum Culture, Resulted Pending Medications Current Medications Sodium Chloride (Normal Saline Flush) 10 ml QSHIFT PRN IV AFTER MEDS AND BLOOD DRAWS; Start 05/23/18 at 20:00 Piperacillin Sod/ Tazobactam Sod 4.5 gm/Sodium Chloride 100 ml @ 200 mls/hr 1X ONCE IV Last administered on 05/23/18at 20:34; Start 05/23/18 at 20:00; Stop 05/23/18 at 20:29; Status DC Vancomycin HCl (Vanco Per Pharmacy) 1 each 1X ONCE MC Last administered on 05/23at 20:00; Start 05/23/18 at 20:00; Stop 05/23/18 at 22:03; Status DC Propofol 100 ml @ 0 mls/hr CONT PRN IV SEE PROTOCOL; Start 05/23/18 at 20:00 Fentanyl Citrate (Fentanyl 2ml Vial) 25 mcg PRN Q1HR PRN IV SEE COMMENTS; Start 05/23/18 at 20:00 Fentanyl Citrate (Fentanyl 2ml Vial) 50 mcg PRN Q1HR PRN IV SEE COMMENTS; Start 05/23/18 at 20:00 Chlorhexidine Gluconate (Peridex) 15 ml BID MM Last administered on 05/24/18at 00 :05; Start 05/23/18 at 21:00; Stop 05/24/18 at 08:09; Status DC Acetaminophen (Tylenol Supp) 650 mg 1X ONCE NE Last administered on 05/23/18at 20:33; Start 05/23/18 at 20:00; Stop 05/23/18 at 20:04; Status DC Sodium Chloride 1,000 ml @ 1,000 mls/hr 1X ONCE IV Last administered on at 20:41; Start 05/23/18 at 20:00; Stop 05/23/18 at 20:59; Status DC Midazolam HCl (Versed) 5 mg 1X ONCE IV Last administered on 05/23/18at 20:33; Start 05/23/18 at 20:15; Stop 05/23/18 at 20:16; Status DC Lorazepam (Ativan) 2 mg STK-MED ONCE .ROUTE ; Start 05/23/18 at 20:04; Stop at 20:05; Status DC Norepinephrine Bitartrate 250 ml @ 0 mls/hr CONT PRN IV PER PROTOCOL Last administered on 05/25/18at 01:42; Start 05/23/18 at 20:30 Sodium Chloride 1,000 ml @ 126 mls/hr Q7H57M IV ; Start 05/23/18 at 20:40; Stop 05/24/18 at 20:39; Status DC Sodium Chloride 1,000 ml @ 1,000 mls/hr 1X ONCE IV Last administered on at 20:50; Start 05/23/18 at 20:45; Stop 05/23/18 at 21:44; Status DC Sodium Chloride 1,000 ml @ 1,000 mls/hr 1X ONCE IV ; Start 05/23/18 at 21:15; Stop 05/23/18 at 21:16; Status DC Propofol 50 ml @ As Directed STK-MED ONCE IV ; Start 05/23/18 at 21:02; Stop 05/23 at 21:03; Status DC Propofol 50 ml @ 1.082 mls/ hr 1X ONCE IV Last administered on 05/23/18at 21:12 ; Start 05/23/18 at 21:15; Stop 05/25/18 at 19:27 Vancomycin HCl 1.75 gm/Sodium Chloride 500 ml @ 250 mls/hr 1X ONCE IV Last administered on 05/23/18at 21:23; Start 05/23/18 at 21:30; Stop 05/23/18 at 23:29; Status DC Insulin Human Regular (HumuLIN R VIAL) 14 unit 1X ONCE SQ Last administered on 05/23/18at 21:46; Start 05/23/18 at 21:15; Stop 05/23/18 at 21:16; Status DC Sodium Chloride 1,000 ml @ 75 mls/hr 1X ONCE IV Last administered on at 21:23; Start 05/23/18 at 21:15; Stop 05/24/18 at 10:34; Status DC Etomidate (Amidate) 20 mg STK-MED ONCE IV ; Start 05/23/18 at 21:32; Stop at 21:33; Status DC Succinylcholine Chloride (Anectine) 200 mg STK-MED ONCE .ROUTE ; Start 05/23/18 at 21:32; Stop 05/23/18 at 21:33; Status DC Vancomycin HCl 1 gm/Sodium Chloride 250 ml @ 250 mls/hr Q24H IV Last administered on 05/24/18at 21:06; Start 05/24/18 at 21:30 Vancomycin HCl (Vancomycin Trough Level) 1 each 1X ONCE MC ; Start 05/25/18 at 21:00; Stop 05/25/18 at 21:01 Sodium Chloride 500 ml @ 500 mls/hr 1X ONCE IV Last administered on 05/23/18at 22:45; Start 05/23/18 at 22:45; Stop 05/23/18 at 23:44; Status DC Albuterol/ Ipratropium (Duoneb) 3 ml RTQID NEB Last administered on 05/25/18at 08:13; Start 05/24/18 at 08:00 Fentanyl Citrate 30 ml @ 0 mls/hr CONT PRN IV SEE PROTOCOL; Start 05/23/18 at 22 :45 Midazolam HCl 100 ml @ 0 mls/hr CONT PRN IV SEE PROTOCOL Last administered on at 07:40; Start 05/23/18 at 22:45 Sodium Chloride 500 ml @ 500 mls/hr 1X ONCE IV Last administered on 05/23/18at 23:33; Start 05/23/18 at 23:00; Stop 05/23/18 at 23:59; Status DC Insulin Human Lispro (HumaLOG) 0-9 UNITS TIDWMEALS SQ Last administered on 05/25at 08:53; Start 05/24/18 at 00:00 Dextrose (Dextrose 50%-Water Syringe) 12.5 gm PRN Q15MIN PRN IV SEE COMMENTS; Start 05/23/18 at 23:30 Enoxaparin Sodium (Lovenox 40mg Syringe) 40 mg Q24H SQ Last administered on 05/24at 23:52; Start 05/23/18 at 23:30 Piperacillin Sod/ Tazobactam Sod (Zosyn Per Pharmacy) 1 each PRN DAILY PRN MC SEE COMMENTS; Start 05/23/18 at 23:30 Vancomycin HCl (Vanco Per Pharmacy) 1 each PRN DAILY PRN MC SEE COMMENTS Last administered on 05/24/18at 12:18; Start 05/23/18 at 23:30 Piperacillin Sod/ Tazobactam Sod 3.375 gm/Sodium Chloride 50 ml @ 100 mls/hr Q6HRS IV Last administered on 05/25/18 06:07; Start 05/24/18 at 06:00 Acetaminophen (Tylenol Supp) 650 mg PRN Q6HRS PRN NE MILD PAIN / TEMP Last administered on 05/24/18at 15:52; Start 05/24/18 at 04:45 Acetaminophen (Tylenol) 650 mg PRN Q8HRS PRN PO MILD PAIN / TEMP Last administered on 05/25/18at 00:01; Start 05/24/18 at 10:45 Aspirin (Children'S Aspirin) 81 mg DAILY PO Last administered on 05/25/18 08: 34; Start 05/24/18 at 12:00 Atorvastatin Calcium (Lipitor) 10 mg HS PEG Last administered on 05/24/18at 21:05 ; Start 05/24/18 at 21:00 Citric Acid/ Sodium Citrate (Bicitra) 10 ml QIDAFTMEAL PEG Last administered on 05/25/18 08:34; Start 05/24/18 at 13:00 Magnesium Hydroxide (Milk Of Magnesia) 2,400 mg PRN DAILY PRN PEG CONSTIPATION ; Start 05/24/18 at 10:45 Rivastigmine (Exelon 13.3mg) 1 patch DAILY TD Last administered on 05/25/18at 08 :34; Start 05/24/18 at 11:30 Simvastatin (Zocor) 10 mg DAILY PO ; Start 05/25/18 at 09:00; Status UNV Insulin Glargine (Lantus) 14 units DAILY SQ Last administered on 05/24/18at 12:36 ; Start 05/24/18 at 11:30; Stop 05/25/18 at 07:19; Status DC Metformin HCl (Glucophage) 500 mg BIDWMEALS PO ; Start 05/24/18 at 11:30 Multivitamins (Thera-Plus Oral Liquid) 5 ml DAILY PEG Last administered on 05/25at 08:34; Start 05/24/18 at 11:30 Nystatin (Nystop) 1 ron PRN TID PRN TP REDNESS UNDER BREAST OR ARM; Start at 21:00 Levetiracetam (Keppra) 500 mg BID PO ; Start 05/24/18 at 11:30; Stop 05/24/18 at 12:10; Status DC Sodium Chloride 1,000 ml @ 125 mls/hr 1X ONCE IV Last administered on at 12:03; Start 05/24/18 at 12:30; Stop 05/24/18 at 20:29; Status DC Levetiracetam (Keppra) 500 mg BID PEG Last administered on 05/25/18at 08:34; Start 05/24/18 at 12:30 Sodium Chloride 1,000 ml @ 125 mls/hr Q8H IV Last administered on 05/25/18at 07 :44; Start 05/24/18 at 23:00 Insulin Glargine (Lantus) 18 units DAILY SQ Last administered on 05/25/18at 08: 40; Start 05/25/18 at 09:00 Active Scripts Active Levemir Flextouch (Insulin Detemir) 300 Units/3 Ml Insuln.pen 14 Units SQ DAILY Milk Of Magnesia (Magnesium Hydroxide) 2,400 Mg/30 Ml Oral.susp 2,400 Mg PEG PRN DAILY PRN 30 Days [Levetiracetam] 500 MG/5 ML Solution 500 Mg PEG BID 30 Days Reported Nystatin 1 Each Powder.ea. 1 Each MC PRN PRN Famotidine 20 Mg Tablet 20 Mg PEG HS Atorvastatin Calcium 10 Mg Tablet 10 Mg PEG HS Metformin Hcl 500 Mg Tablet 500 Mg PEG BIDWMEALS Sod Citrate-Citric Acid Soln (Citric Acid/Sodium Citrate) 15 Ml Solution 10 Ml PEG QIDAFTMEAL Lansoprazole 30 Mg Capsule.dr 1 Cap PO DAILY Cipro (Ciprofloxacin Hcl) 500 Mg Tablet 1 Tab PO BID 2 Days Tylenol (Acetaminophen) 325 Mg Tablet 650 Mg PEG PRN Q8HRS PRN Multivitamins (Multivitamin) 1 Each Tablet 1 Tab PEG DAILY EXELON 13.3mg/24hr (Rivastigmine) 1 Each Patch.td24 1 Patch TD DAILY Aspirin 81 Mg Tab.chew 81 Mg PO DAILY Simvastatin 10 Mg Tablet 10 Mg PO DAILY Vitals/I & O Vital Sign - Last 24 Hours 05/24/18 05/24/18 05/24/18 05/24/18 10:00 10:00 11:00 12:00 Temp 99.2 99.2 Pulse 106 100 100 Resp 16 16 16 B/P (MAP) 103/57 (72) 102/75 (84) 94/53 (67) Pulse Ox 96 91 92 93 O2 Delivery Ventilator Ventilator Ventilator Ventilator 05/24/18 05/24/18 05/24/18 05/24/18 12:00 12:25 13:00 14:00 Pulse 110 102 Resp 16 16 B/P (MAP) 100/56 (71) 90/50 (63) Pulse Ox 97 92 91 O2 Delivery Mechanical Ventilator Ventilator Ventilator Ventilator 05/24/18 05/24/18 05/24/18 05/24/18 14:10 15:00 15:59 16:02 Temp 101.3 101.3 Pulse 97 97 Resp 16 16 B/P (MAP) 95/65 (75) 94/52 (66) Pulse Ox 95 92 93 O2 Delivery Ventilator Ventilator Mechanical Ventilator 05/24/18 05/24/18 05/24/18 05/24/18 16:51 17:00 18:00 19:00 Pulse 106 110 103 Resp 16 19 16 B/P (MAP) 87/52 (64) 109/56 (73) 99/47 (64) Pulse Ox 97 93 92 95 O2 Delivery Ventilator Ventilator 05/24/18 05/24/18 05/24/18 05/24/18 20:00 20:00 20:00 21:00 Temp 102.5 98.6 102.5 98.6 Pulse 101 110 Resp 16 23 B/P (MAP) 100/61 (74) 93/62 (72) Pulse Ox 95 95 95 O2 Delivery Ventilator Mechanical Ventilator Ventilator Ventilator 05/24/18 05/24/18 05/24/18 05/24/18 22:00 22:57 23:00 23:59 Pulse 105 95 Resp 16 16 B/P (MAP) 107/66 (80) 127/73 (91) Pulse Ox 93 93 92 O2 Delivery Ventilator Ventilator Ventilator Mechanical Ventilator 05/25/18 05/25/18 05/25/18 05/25/18 00:00 01:00 01:00 02:00 Temp 101.5 101.5 Pulse 108 86 88 Resp 19 16 16 B/P (MAP) 109/70 (83) 98/56 (70) 120/62 (81) Pulse Ox 93 94 94 93 O2 Delivery Ventilator Ventilator Ventilator Ventilator 05/25/18 05/25/18 05/25/18 05/25/18 03:00 03:45 04:00 04:00 Temp 98.8 98.8 Pulse 65 90 Resp 16 18 B/P (MAP) 87/61 (70) 125/68 (87) Pulse Ox 91 92 93 O2 Delivery Ventilator Ventilator Ventilator Mechanical Ventilator 05/25/18 05/25/18 05/25/18 05/25/18 05:00 05:30 06:00 07:09 Temp 98.2 98.2 Pulse 94 60 64 Resp 17 15 16 B/P (MAP) 113/68 (83) 95/61 (72) 124/67 (86) Pulse Ox 92 92 96 93 O2 Delivery Ventilator Ventilator Ventilator Ventilator 05/25/18 05/25/18 05/25/18 05/25/18 08:00 08:00 08:13 09:00 Pulse 60 61 Resp 16 16 B/P (MAP) 105/65 (78) 102/50 (67) Pulse Ox 94 93 96 O2 Delivery Ventilator Mechanical Ventilator Ventilator Ventilator Intake and Output 05/24/18 05/24/18 05/25/18 15:00 23:00 07:00 Intake Total 50 ml 1367 ml 1663 ml Output Total 280 ml 405 ml 460 ml Balance -230 ml 962 ml 1203 ml LUCIEN PUGA MD May 25, 2018 09:16
[2018-05-25] MEDS: VANCOMYCIN PER PHARMACY MC PRN (09:26)
--- NOTE | 2018-05-25 09:27 | PDOC ---
PULMONARY PROGRESS NOTES Subjective remains on AC mode 12 mics of levo Vitals Vital Signs Date Time Temp Pulse Resp B/P (MAP) Pulse Ox O2 Delivery O2 Flow Rate FiO2 05/25/18 09:00 61 16 102/50 (67) 96 Ventilator 05/25/18 07:09 98.2 98.2 Lungs: Other (decrease bs) Cardiovascular: S1 Abdomen: Soft Extremities: Other (edema trace) Skin: Warm Labs Laboratory Tests Test 05/23/18 20:00 05/23/18 20:05 05/23/18 21:12 05/23/18 21:28 Urine Collection Type U cath Urine Color Yellow Urine Clarity Cloudy Urine pH 5.5 Urine Specific [place] >=1.030 Urine Protein 100 mg/dL (NEG-TRACE) Urine Glucose (UA) >=1000 mg/dL (NEG) Urine Ketones (Stick) Negative mg/dL (NEG) Urine Blood Moderate (NEG) Urine Nitrite Negative (NEG) Urine Bilirubin Negative (NEG) Urine Urobilinogen Dipstick 0.2 mg/dL (0.2 mg/dL) Urine Leukocyte Esterase Negative (NEG) Urine RBC 1-2 /HPF (0-2) Urine WBC Occ /HPF (0-4) Urine Squamous Epithelial Cells Mod /LPF Urine Amorphous Sediment Present /HPF Urine Bacteria Few /HPF (0-FEW) White Blood Count 3.8 x10^3/uL (4.0-11.0) Red Blood Count 4.17 x10^6/uL (3.50-5.40) Hemoglobin 12.6 g/dL (12.0-15.5) Hematocrit 38.4 % (36.0-47.0) Mean Corpuscular Volume 92 fL (79-100) Mean Corpuscular Hemoglobin 30 pg (25-35) Mean Corpuscular Hemoglobin Concent 33 g/dL (31-37) Red Cell Distribution Width 17.1 % (11.5-14.5) Platelet Count 229 x10^3/uL (140-400) Neutrophils (%) (Auto) 79 % (31-73) Lymphocytes (%) (Auto) 12 % (24-48) Monocytes (%) (Auto) 8 % (0-9) Eosinophils (%) (Auto) 0 % (0-3) Basophils (%) (Auto) 1 % (0-3) Neutrophils # (Auto) 3.0 x10^3uL (1.8-7.7) Lymphocytes # (Auto) 0.5 x10^3/uL (1.0-4.8) Monocytes # (Auto) 0.3 x10^3/uL (0.0-1.1) Eosinophils # (Auto) 0.0 x10^3/uL (0.0-0.7) Basophils # (Auto) 0.0 x10^3/uL (0.0-0.2) Prothrombin Time 14.5 SEC (11.7-14.0) Prothromb Time International Ratio 1.2 (0.8-1.1) Sodium Level 151 mmol/L (136-145) Potassium Level 4.3 mmol/L (3.5-5.1) Chloride Level 111 mmol/L (98-107) Carbon Dioxide Level 25 mmol/L (21-32) Anion Gap 15 (6-14) Blood Urea Nitrogen 28 mg/dL (7-20) Creatinine 1.5 mg/dL (0.6-1.0) Estimated GFR (Cockcroft-Gault) 43.2 BUN/Creatinine Ratio 19 (6-20) Glucose Level 612 mg/dL (70-99) Lactic Acid Level 5.7 mmol/L (0.4-2.0) Calcium Level 8.7 mg/dL (8.5-10.1) Total Bilirubin 0.2 mg/dL (0.2-1.0) Aspartate Amino Transf (AST/SGOT) 43 U/L (15-37) Alanine Aminotransferase (ALT/SGPT) 44 U/L (14-59) Alkaline Phosphatase 93 U/L (46-116) Total Protein 8.3 g/dL (6.4-8.2) Albumin 2.5 g/dL (3.4-5.0) Albumin/Globulin Ratio 0.4 (1.0-1.7) O2 Saturation 99 % (92-99) Arterial Blood pH 7.37 (7.35-7.45) Arterial Blood pCO2 at Patient Temp 42 mmHg (35-46) Arterial Blood pO2 at Patient Temp 381 mmHg (75-108) Arterial Blood HCO3 24 mmol/L (21-28) Arterial Blood Base Excess -2 mmol/L (-3-3) Oxyhemoglobin 98.1 % Methemoglobin 0.7 % (0.0-1.9) Carbon Monoxide, Quantitative 0.2 % (0.0-1.9) FiO2 100 Glucose (Fingerstick) 440 mg/dL (70-99) Test 05/23/18 22:15 05/23/18 23:45 05/24/18 00:02 05/24/18 04:25 Nasal Screen MRSA (PCR) Negative (Negative) Lactic Acid Level 5.1 mmol/L (0.4-2.0) Glucose (Fingerstick) 355 mg/dL (70-99) White Blood Count 5.0 x10^3/uL (4.0-11.0) Red Blood Count 3.73 x10^6/uL (3.50-5.40) Hemoglobin 11.0 g/dL (12.0-15.5) Hematocrit 34.2 % (36.0-47.0) Mean Corpuscular Volume 92 fL (79-100) Mean Corpuscular Hemoglobin 30 pg (25-35) Mean Corpuscular Hemoglobin Concent 32 g/dL (31-37) Red Cell Distribution Width 16.5 % (11.5-14.5) Platelet Count 200 x10^3/uL (140-400) Neutrophils (%) (Auto) 77 % (31-73) Lymphocytes (%) (Auto) 17 % (24-48) Monocytes (%) (Auto) 4 % (0-9) Eosinophils (%) (Auto) 1 % (0-3) Basophils (%) (Auto) 0 % (0-3) Neutrophils # (Auto) 3.8 x10^3uL (1.8-7.7) Lymphocytes # (Auto) 0.9 x10^3/uL (1.0-4.8) Monocytes # (Auto) 0.2 x10^3/uL (0.0-1.1) Eosinophils # (Auto) 0.1 x10^3/uL (0.0-0.7) Basophils # (Auto) 0.0 x10^3/uL (0.0-0.2) Sodium Level 155 mmol/L (136-145) Potassium Level 3.6 mmol/L (3.5-5.1) Chloride Level 119 mmol/L (98-107) Carbon Dioxide Level 22 mmol/L (21-32) Anion Gap 14 (6-14) Blood Urea Nitrogen 19 mg/dL (7-20) Creatinine 1.1 mg/dL (0.6-1.0) Estimated GFR (Cockcroft-Gault) 61.7 BUN/Creatinine Ratio 17 (6-20) Glucose Level 228 mg/dL (70-99) Calcium Level 8.0 mg/dL (8.5-10.1) Total Bilirubin 0.3 mg/dL (0.2-1.0) Aspartate Amino Transf (AST/SGOT) 42 U/L (15-37) Alanine Aminotransferase (ALT/SGPT) 33 U/L (14-59) Alkaline Phosphatase 69 U/L (46-116) Total Protein 7.0 g/dL (6.4-8.2) Albumin 2.1 g/dL (3.4-5.0) Albumin/Globulin Ratio 0.4 (1.0-1.7) Procalcitonin 0.56 ng/mL (0.00-0.10) Test 05/24/18 08:05 05/24/18 09:26 05/24/18 12:31 05/24/18 17:46 O2 Saturation 93 % (92-99) Arterial Blood pH 7.51 (7.35-7.45) Arterial Blood pCO2 at Patient Temp 26 mmHg (35-46) Arterial Blood pO2 at Patient Temp 59 mmHg (75-108) Arterial Blood HCO3 20 mmol/L (21-28) Arterial Blood Base Excess -2 mmol/L (-3-3) FiO2 40 Glucose (Fingerstick) 296 mg/dL (70-99) 294 mg/dL (70-99) 297 mg/dL (70-99) Test 05/25/18 06:20 05/25/18 08:25 05/25/18 08:37 White Blood Count 9.1 x10^3/uL (4.0-11.0) Red Blood Count 3.60 x10^6/uL (3.50-5.40) Hemoglobin 10.8 g/dL (12.0-15.5) Hematocrit 33.2 % (36.0-47.0) Mean Corpuscular Volume 92 fL (79-100) Mean Corpuscular Hemoglobin 30 pg (25-35) Mean Corpuscular Hemoglobin Concent 33 g/dL (31-37) Red Cell Distribution Width 17.1 % (11.5-14.5) Platelet Count 163 x10^3/uL (140-400) Neutrophils (%) (Auto) 82 % (31-73) Lymphocytes (%) (Auto) 15 % (24-48) Monocytes (%) (Auto) 2 % (0-9) Eosinophils (%) (Auto) 0 % (0-3) Basophils (%) (Auto) 0 % (0-3) Neutrophils # (Auto) 7.5 x10^3uL (1.8-7.7) Lymphocytes # (Auto) 1.4 x10^3/uL (1.0-4.8) Monocytes # (Auto) 0.2 x10^3/uL (0.0-1.1) Eosinophils # (Auto) 0.0 x10^3/uL (0.0-0.7) Basophils # (Auto) 0.0 x10^3/uL (0.0-0.2) Sodium Level 151 mmol/L (136-145) Potassium Level 3.5 mmol/L (3.5-5.1) Chloride Level 116 mmol/L (98-107) Carbon Dioxide Level 22 mmol/L (21-32) Anion Gap 13 (6-14) Blood Urea Nitrogen 9 mg/dL (7-20) Creatinine 1.1 mg/dL (0.6-1.0) Estimated GFR (Cockcroft-Gault) 61.7 Glucose Level 336 mg/dL (70-99) Calcium Level 7.6 mg/dL (8.5-10.1) O2 Saturation 93 % (92-99) Arterial Blood pH 7.47 (7.35-7.45) Arterial Blood pCO2 at Patient Temp 26 mmHg (35-46) Arterial Blood pO2 at Patient Temp 66 mmHg (75-108) Arterial Blood HCO3 19 mmol/L (21-28) Arterial Blood Base Excess -4 mmol/L (-3-3) FiO2 40% Glucose (Fingerstick) 372 mg/dL (70-99) Laboratory Tests Test 05/24/18 09:26 05/24/18 12:31 05/24/18 17:46 05/25/18 06:20 Glucose (Fingerstick) 296 mg/dL (70-99) 294 mg/dL (70-99) 297 mg/dL (70-99) White Blood Count 9.1 x10^3/uL (4.0-11.0) Red Blood Count 3.60 x10^6/uL (3.50-5.40) Hemoglobin 10.8 g/dL (12.0-15.5) Hematocrit 33.2 % (36.0-47.0) Mean Corpuscular Volume 92 fL (79-100) Mean Corpuscular Hemoglobin 30 pg (25-35) Mean Corpuscular Hemoglobin Concent 33 g/dL (31-37) Red Cell Distribution Width 17.1 % (11.5-14.5) Platelet Count 163 x10^3/uL (140-400) Neutrophils (%) (Auto) 82 % (31-73) Lymphocytes (%) (Auto) 15 % (24-48) Monocytes (%) (Auto) 2 % (0-9) Eosinophils (%) (Auto) 0 % (0-3) Basophils (%) (Auto) 0 % (0-3) Neutrophils # (Auto) 7.5 x10^3uL (1.8-7.7) Lymphocytes # (Auto) 1.4 x10^3/uL (1.0-4.8) Monocytes # (Auto) 0.2 x10^3/uL (0.0-1.1) Eosinophils # (Auto) 0.0 x10^3/uL (0.0-0.7) Basophils # (Auto) 0.0 x10^3/uL (0.0-0.2) Sodium Level 151 mmol/L (136-145) Potassium Level 3.5 mmol/L (3.5-5.1) Chloride Level 116 mmol/L (98-107) Carbon Dioxide Level 22 mmol/L (21-32) Anion Gap 13 (6-14) Blood Urea Nitrogen 9 mg/dL (7-20) Creatinine 1.1 mg/dL (0.6-1.0) Estimated GFR (Cockcroft-Gault) 61.7 Glucose Level 336 mg/dL (70-99) Calcium Level 7.6 mg/dL (8.5-10.1) Test 05/25/18 08:25 05/25/18 08:37 O2 Saturation 93 % (92-99) Arterial Blood pH 7.47 (7.35-7.45) Arterial Blood pCO2 at Patient Temp 26 mmHg (35-46) Arterial Blood pO2 at Patient Temp 66 mmHg (75-108) Arterial Blood HCO3 19 mmol/L (21-28) Arterial Blood Base Excess -4 mmol/L (-3-3) FiO2 40% Glucose (Fingerstick) 372 mg/dL (70-99) Medications Active Scripts Medications Dose Route/Sig Max Daily Dose Days Date Category Nystatin 1 Each Powder.ea. 1 Each MC PRN PRN 05/24/18 Reported Famotidine 20 Mg Tablet 20 Mg PEG HS 05/24/18 Reported Atorvastatin Calcium 10 Mg Tablet 10 Mg PEG HS 05/24/18 Reported Metformin Hcl 500 Mg Tablet 500 Mg PEG BIDWMEALS 05/24/18 Reported Sod Citrate-Citric Acid Soln (Citric Acid/Sodium Citrate) 15 Ml Solution 10 Ml PEG QIDAFTMEAL 03/26/17 Reported Lansoprazole 30 Mg Capsule.dr 1 Cap PO DAILY 03/26/17 Reported Cipro (Ciprofloxacin Hcl) 500 Mg Tablet 1 Tab PO BID 2 03/26/17 Reported Tylenol (Acetaminophen) 325 Mg Tablet 650 Mg PEG PRN Q8HRS PRN 03/17/17 Reported Multivitamins (Multivitamin) 1 Each Tablet 1 Tab PEG DAILY 03/17/17 Reported Levemir Flextouch (Insulin Detemir) 300 Units/3 Ml Insuln.pen 14 Units SQ DAILY 09/05/14 Rx Milk Of Magnesia (Magnesium Hydroxide) 2,400 Mg/30 Ml Oral.susp 2,400 Mg PEG PRN DAILY PRN 30 09/05/14 Rx [Levetiracetam] 500 MG/5 ML Solution 500 Mg PEG BID 30 09/05/14 Rx EXELON 13.3mg/24hr (Rivastigmine) 1 Each Patch.td24 1 Patch TD DAILY 08/14/14 Reported Aspirin 81 Mg Tab.chew 81 Mg PO DAILY 03/18/13 Reported Simvastatin 10 Mg Tablet 10 Mg PO DAILY 03/18/13 Reported Comments CXR 05/25 RLL consolidation Impression . 1. Acute respiratory failure secondary to septic shock. 2. Septic shock likely source aspiration pneumonia. 3. High grade fever, likely related to aspiration pneumonia, but needs to rule out all other sources. 4. Down's syndrome. 5. Hypernatremia/ free water deficit Plan . 1. Continue with present assist control mode. Follow ABGs and make necessary adjustments. 2. Monitor sodium level. tap water today 3. Broad-spectrum antibiotics. 4. Follow renal function. 5. Wean pressors when systolic blood pressure stays above 100. 6. Monitor urine output. 7. Monitor white cell count. 8. DVT and stress ulcer prophylaxis. 9. Discussed with RN and RT. The patient remains critical. Palliative care is on the case to discuss the goals of care cct 30. RICH GREGORY MD May 25, 2018 09:27
--- NOTE | 2018-05-25 11:00 | PDOC2 ---
PALLIATIVE CARE Palliative Care Note Palliative Care Patient remains on Vent, pressor, Versed. Keppra. No family at bedside. Code Status; DNR/ no reintubation when extubated per family wishes Will continue to evaluate. Meet with family end of week. Spoke with Ayesha--mother. Answered questions/provided support. [id number] Family Meeting Wednesday 1300. LANCE SALAZAR May 25, 2018 11:00
--- NOTE | 2018-05-25 17:43 | NUR ---
Wound care: Patient seen per wound care consult. See wound assessment. Tube feeding placed on hold. Patient has DTI to right 5th toe. Wound cleansed and assessed. Recommendations for skin prep and telfa dressing. Dressing applied. all other areas that were pictured are reddened but remain blanchable. Patient having loose stools at this time. patient cleaned up and gown and linens changed. Patient repositioned to right side using wedge. Calazime applied to coccyx. Jpatient on ICU bed. Bilateral heel medix placed back on patient. Dressing change instructions left in room. No other wounds noted. RN at bedside. Wound care will follow patient.
[2018-05-25] MEDS: ATORVASTATIN CALCIUM 10 MG TABLET. PEG SCH (21:09)
[2018-05-25 21:24] LABS: VANC TR 6.9 mcg/mL (10.0-20.0)
[2018-05-25] MEDS: VANCOMYCIN 1 GM in IV NORMAL SALINE 250ML 250 ML IV SCH (21:37)
[2018-05-25] MEDS: ENOXAPARIN 40 MG/0.4 ML SYRINGE. SQ SCH (23:38)
[2018-05-26] VITALS (23 sets, daily range): BP systolic 70–118; BP diastolic 42–68
[2018-05-26] MEDS: VANCOMYCIN PER PHARMACY MC PRN (01:02)
--- NOTE | 2018-05-26 01:02 | NUR ---
Pharmacy Vancomycin Dosing Note S:Consulted to monitor and dose vancomycin started 05/23/18. O:CORNELIO SMITH V is a 57 year old F with Sepsis . Height: 5 feet, 0 inches Weight: 77.611790 kg [place] Body Weight: 45.50 Adjusted Body Weight: 58.34 Dosing Weight: Actual Other Antibiotics: ZOSYN LABS: Last BUN: 9 Last Creatinine: 1.1 Creatinine Clearance: 50 mL/min Last WBC: 9.1 Last Procalcitonin: 0.56 Tmax (past 24 hours): 101.5 Microbiology: Sputum: GPC Blood: NGTD (after 1 day) I/O: 3080/1175 Drug Levels: Last Trough level: 6.9 on 05/25/18 at 2100 Last dose given 05/24/18 at 2106 Vancomycin Dosing: Loading Dose: 1750 mg x1 Dosing Weight: Actual Target Trough: 15-20 A: Based on: TROUGH P: 1. Begin Vancomycin 1000 mg IV q12h 2. Follow up Trough level on 05/27/18 at 0930 3. Pharmacy will continue to monitor, follow and adjust therapy as needed. ASIM SANTORO RPH, 05/26/18101 Signed: 05/26/18 at 101 by ASIM SANTORO RPH PHA
[2018-05-26] MEDS: NOREPINEPHRIN 8MG/250ML PREMIX 250 ML IV PRN ×3 (01:25→23:24)
[2018-05-26] MEDS: ACETAMINOPHEN 650 MG SUPP.RECT. PR PRN (02:16)
[2018-05-26] MEDS: MIDAZOLAM 100mg/100ml NS BAG 100 ML IV PRN (02:49)
[2018-05-26] MEDS: PIPERACILLIN/TAZOBACTAM 3.375 GM in IV NORMAL SALINE 50ML 50 ML IV SCH ×4 (06:15→23:33)
--- NOTE | 2018-05-26 07:46 | PDOC ---
Infectious Disease Note Subjective Subjective sedated on vent ROS ROS unresponsive Vital Sign Vital Signs Vital Signs Date Time Temp Pulse Resp B/P (MAP) Pulse Ox O2 Delivery O2 Flow Rate FiO2 05/26/18 06:00 103 17 103/68 (80) 96 Ventilator 05/26/18 04:00 100.8 100.8 Physical Exam PHYSICAL EXAM GENERAL: Orally intubated, sedated female, not in any distress. VITAL SIGNS: stable HEENT: Both pupils are round and reacting. No conjunctival lesion. Oral, not much able to visualize since orally intubated. NECK: Supple, no JVP, no lymphadenopathy. LUNGS: Decreased breath sounds bilaterally. HEART: S1, S2 regular. No gallop or murmur. ABDOMEN: Soft, nontender. No organomegaly. EXTREMITIES: No edema or cyanosis. The patient has contractures. NEUROLOGIC: The patient does not respond currently. Anyway, she is sedated, intubated. SKIN: There is no skin breakdown. Labs Lab Laboratory Tests Test 05/25/18 08:25 05/25/18 08:37 05/25/18 11:58 05/25/18 17:47 O2 Saturation 93 % (92-99) Arterial Blood pH 7.47 (7.35-7.45) Arterial Blood pCO2 at Patient Temp 26 mmHg (35-46) Arterial Blood pO2 at Patient Temp 66 mmHg (75-108) Arterial Blood HCO3 19 mmol/L (21-28) Arterial Blood Base Excess -4 mmol/L (-3-3) FiO2 40% Glucose (Fingerstick) 372 mg/dL (70-99) 238 mg/dL (70-99) 269 mg/dL (70-99) Test 05/25/18 20:50 05/25/18 23:45 Vancomycin Level Trough 6.9 mcg/mL (10.0-20.0) Vancomycin Last Dose Date 05/24/18 Vancomycin Last Dose Time 2130 Glucose (Fingerstick) 216 mg/dL (70-99) Micro Microbiology 05/23/18 Blood Culture - Preliminary, Resulted NO GROWTH AFTER 1 DAY 05/23/18 - Final, Resulted 05/23/18 - Final, Resulted 05/23/18 - Final, Resulted 05/23/18 Gram Stain Evaluation - Final, Resulted 05/23/18 Sputum Culture, Resulted Pending Objective Assessment 1. Aspiration pneumonia. 2. Sepsis with hypotension, lactic acidosis, requiring vasopressor support. 3. Fever. 4. Respiratory failure. 5. Circulatory failure. 6. Down syndrome. Plan Plan of Care [place] d/c vanc supportive care check cultures Palliative care input appreciated TERRANCE FLORES MD May 26, 2018 07:46
[2018-05-26 08:34] LABS: BASE EXCESS ABG -2 mmol/L (-3-3); HCO3 ABG 20 mmol/L (21-28); PCO2 ABG 26 mmHg (35-46); PO2 ABG 55 mmHg (75-108); SAT O2 ABG 91 % (92-99)
--- NOTE | 2018-05-26 08:34 | PDOC ---
PROGRESS NOTES Chief Complaint Chief Complaint Septic shock etiology most likely Related to underlying lung process Severe dehydration hypernatremia secondary to the above History of Down syndrome, History of anxiety dementia, diabetes mellitus type II insulin requiring uncontrolled History of PEG tube. Hypernatremia secondary to water deficit Plan: increase lantus insulin and provide correctional with 7 units for her glycemia of over 300 Continue with supportive measures. Continue ventilatory support as per validation consultant Continue with fluid resuscitation Will resume home medications currently still on pressors antibiotics [facility] tomás Further recommendations based on the clinical course History of Present Illness History of Present Illness Patient laying in bed in no apparent distress. Patient is currently sedated on mechanical ventilation, no acute events reported overnight. No clear etiology for her sepsis other than low effective circulatory volume Vitals Vitals Vital Signs Date Time Temp Pulse Resp B/P (MAP) Pulse Ox O2 Delivery O2 Flow Rate FiO2 05/26/18 07:31 94 Ventilator 05/26/18 06:00 103 17 103/68 (80) 05/26/18 04:00 100.8 100.8 Physical Exam Physical Exam GENERAL: Orally intubated, sedated female, not in any distress. VITAL SIGNS: stable HEENT: Both pupils are round and reacting. No conjunctival lesion. Oral, not much able to visualize since orally intubated. NECK: Supple, no JVP, no lymphadenopathy. LUNGS: Decreased breath sounds bilaterally. HEART: S1, S2 regular. No gallop or murmur. ABDOMEN: Soft, nontender. No organomegaly. EXTREMITIES: No edema or cyanosis. The patient has contractures. NEUROLOGIC: The patient does not respond currently. Anyway, she is sedated, intubated. SKIN: There is no skin breakdown. Lungs: Other (decrease bs) Labs LABS Laboratory Tests Test 05/25/18 08:37 05/25/18 11:58 05/25/18 17:47 05/25/18 20:50 Glucose (Fingerstick) 372 mg/dL (70-99) 238 mg/dL (70-99) 269 mg/dL (70-99) Vancomycin Level Trough 6.9 mcg/mL (10.0-20.0) Vancomycin Last Dose Date 05/24/18 Vancomycin Last Dose Time 2129 Test 05/25/18 23:45 Glucose (Fingerstick) 216 mg/dL (70-99) Comment Review of Relevant I have reviewed the following items trey (where applicable) has been applied. Labs Laboratory Tests Test 05/24/18 09:26 05/24/18 12:31 05/24/18 17:46 05/25/18 06:20 Glucose (Fingerstick) 296 mg/dL (70-99) 294 mg/dL (70-99) 297 mg/dL (70-99) White Blood Count 9.1 x10^3/uL (4.0-11.0) Red Blood Count 3.60 x10^6/uL (3.50-5.40) Hemoglobin 10.8 g/dL (12.0-15.5) Hematocrit 33.2 % (36.0-47.0) Mean Corpuscular Volume 92 fL (79-100) Mean Corpuscular Hemoglobin 30 pg (25-35) Mean Corpuscular Hemoglobin Concent 33 g/dL (31-37) Red Cell Distribution Width 17.1 % (11.5-14.5) Platelet Count 163 x10^3/uL (140-400) Neutrophils (%) (Auto) 82 % (31-73) Lymphocytes (%) (Auto) 15 % (24-48) Monocytes (%) (Auto) 2 % (0-9) Eosinophils (%) (Auto) 0 % (0-3) Basophils (%) (Auto) 0 % (0-3) Neutrophils # (Auto) 7.5 x10^3uL (1.8-7.7) Lymphocytes # (Auto) 1.4 x10^3/uL (1.0-4.8) Monocytes # (Auto) 0.2 x10^3/uL (0.0-1.1) Eosinophils # (Auto) 0.0 x10^3/uL (0.0-0.7) Basophils # (Auto) 0.0 x10^3/uL (0.0-0.2) Sodium Level 151 mmol/L (136-145) Potassium Level 3.5 mmol/L (3.5-5.1) Chloride Level 116 mmol/L (98-107) Carbon Dioxide Level 22 mmol/L (21-32) Anion Gap 13 (6-14) Blood Urea Nitrogen 9 mg/dL (7-20) Creatinine 1.1 mg/dL (0.6-1.0) Estimated GFR (Cockcroft-Gault) 61.7 Glucose Level 336 mg/dL (70-99) Calcium Level 7.6 mg/dL (8.5-10.1) Test 05/25/18 08:25 05/25/18 08:37 05/25/18 11:58 05/25/18 17:47 O2 Saturation 93 % (92-99) Arterial Blood pH 7.47 (7.35-7.45) Arterial Blood pCO2 at Patient Temp 26 mmHg (35-46) Arterial Blood pO2 at Patient Temp 66 mmHg (75-108) Arterial Blood HCO3 19 mmol/L (21-28) Arterial Blood Base Excess -4 mmol/L (-3-3) FiO2 40% Glucose (Fingerstick) 372 mg/dL (70-99) 238 mg/dL (70-99) 269 mg/dL (70-99) Test 05/25/18 20:50 05/25/18 23:45 Vancomycin Level Trough 6.9 mcg/mL (10.0-20.0) Vancomycin Last Dose Date 05/24/18 Vancomycin Last Dose Time 2130 Glucose (Fingerstick) 216 mg/dL (70-99) Laboratory Tests Test 05/25/18 08:37 05/25/18 11:58 05/25/18 17:47 05/25/18 20:50 Glucose (Fingerstick) 372 mg/dL (70-99) 238 mg/dL (70-99) 269 mg/dL (70-99) Vancomycin Level Trough 6.9 mcg/mL (10.0-20.0) Vancomycin Last Dose Date 05/24/18 Vancomycin Last Dose Time 2129 Test 05/25/18 23:45 Glucose (Fingerstick) 216 mg/dL (70-99) Microbiology 05/23/18 Blood Culture - Preliminary, Resulted NO GROWTH AFTER 2 DAYS 05/23/18 - Final, Resulted 05/23/18 - Final, Resulted 05/23/18 - Final, Resulted 05/23/18 Gram Stain Evaluation - Final, Resulted 05/23/18 Sputum Culture - Preliminary, Resulted 05/23/18 Sputum Result 1 - Final, Resulted Medications Current Medications Sodium Chloride (Normal Saline Flush) 10 ml QSHIFT PRN IV AFTER MEDS AND BLOOD DRAWS; Start 05/23/18 at 20:00 Piperacillin Sod/ Tazobactam Sod 4.5 gm/Sodium Chloride 100 ml @ 200 mls/hr 1X ONCE IV Last administered on 05/23/18at 20:34; Start 05/23/18 at 20:00; Stop 05/23/18 at 20:29; Status DC Vancomycin HCl (Vanco Per Pharmacy) 1 each 1X ONCE MC Last administered on 05/23at 20:00; Start 05/23/18 at 20:00; Stop 05/23/18 at 22:03; Status DC Propofol 100 ml @ 0 mls/hr CONT PRN IV SEE PROTOCOL; Start 05/23/18 at 20:00 Fentanyl Citrate (Fentanyl 2ml Vial) 25 mcg PRN Q1HR PRN IV SEE COMMENTS; Start 05/23/18 at 20:00 Fentanyl Citrate (Fentanyl 2ml Vial) 50 mcg PRN Q1HR PRN IV SEE COMMENTS; Start 05/23/18 at 20:00 Chlorhexidine Gluconate (Peridex) 15 ml BID MM Last administered on 05/24/18at 00 :05; Start 05/23/18 at 21:00; Stop 05/24/18 at 08:09; Status DC Acetaminophen (Tylenol Supp) 650 mg 1X ONCE OK Last administered on 05/23/18at 20:33; Start 05/23/18 at 20:00; Stop 05/23/18 at 20:04; Status DC Sodium Chloride 1,000 ml @ 1,000 mls/hr 1X ONCE IV Last administered on at 20:41; Start 05/23/18 at 20:00; Stop 05/23/18 at 20:59; Status DC Midazolam HCl (Versed) 5 mg 1X ONCE IV Last administered on 05/23/18at 20:33; Start 05/23/18 at 20:15; Stop 05/23/18 at 20:16; Status DC Lorazepam (Ativan) 2 mg STK-MED ONCE .ROUTE ; Start 05/23/18 at 20:04; Stop at 20:05; Status DC Norepinephrine Bitartrate 250 ml @ 0 mls/hr CONT PRN IV PER PROTOCOL Last administered on 05/26/18at 01:25; Start 05/23/18 at 20:30 Sodium Chloride 1,000 ml @ 126 mls/hr Q7H57M IV ; Start 05/23/18 at 20:40; Stop 05/24/18 at 20:39; Status DC Sodium Chloride 1,000 ml @ 1,000 mls/hr 1X ONCE IV Last administered on at 20:50; Start 05/23/18 at 20:45; Stop 05/23/18 at 21:44; Status DC Sodium Chloride 1,000 ml @ 1,000 mls/hr 1X ONCE IV ; Start 05/23/18 at 21:15; Stop 05/23/18 at 21:16; Status DC Propofol 50 ml @ As Directed STK-MED ONCE IV ; Start 05/23/18 at 21:02; Stop 05/23 at 21:03; Status DC Propofol 50 ml @ 1.082 mls/ hr 1X ONCE IV Last administered on 05/23/18at 21:12 ; Start 05/23/18 at 21:15; Stop 05/25/18 at 19:27; Status DC Vancomycin HCl 1.75 gm/Sodium Chloride 500 ml @ 250 mls/hr 1X ONCE IV Last administered on 05/23/18at 21:23; Start 05/23/18 at 21:30; Stop 05/23/18 at 23:29; Status DC Insulin Human Regular (HumuLIN R VIAL) 14 unit 1X ONCE SQ Last administered on 05/23/18at 21:46; Start 05/23/18 at 21:15; Stop 05/23/18 at 21:16; Status DC Sodium Chloride 1,000 ml @ 75 mls/hr 1X ONCE IV Last administered on at 21:23; Start 05/23/18 at 21:15; Stop 05/24/18 at 10:34; Status DC Etomidate (Amidate) 20 mg STK-MED ONCE IV ; Start 05/23/18 at 21:32; Stop at 21:33; Status DC Succinylcholine Chloride (Anectine) 200 mg STK-MED ONCE .ROUTE ; Start 05/23/18 at 21:32; Stop 05/23/18 at 21:33; Status DC Vancomycin HCl 1 gm/Sodium Chloride 250 ml @ 250 mls/hr Q24H IV Last administered on 05/25/18at 21:37; Start 05/24/18 at 21:30; Stop 05/26/18 at 01:00 ; Status DC Vancomycin HCl (Vancomycin Trough Level) 1 each 1X ONCE MC Last administered on 05/25/18at 21:00; Start 05/25/18 at 21:00; Stop 05/25/18 at 21:01; Status DC Sodium Chloride 500 ml @ 500 mls/hr 1X ONCE IV Last administered on 05/23/18at 22:45; Start 05/23/18 at 22:45; Stop 05/23/18 at 23:44; Status DC Albuterol/ Ipratropium (Duoneb) 3 ml RTQID NEB Last administered on 05/25/18at 20:04; Start 05/24/18 at 08:00 Fentanyl Citrate 30 ml @ 0 mls/hr CONT PRN IV SEE PROTOCOL; Start 05/23/18 at 22 :45 Midazolam HCl 100 ml @ 0 mls/hr CONT PRN IV SEE PROTOCOL Last administered on at 02:49; Start 05/23/18 at 22:45 Sodium Chloride 500 ml @ 500 mls/hr 1X ONCE IV Last administered on 05/23/18at 23:33; Start 05/23/18 at 23:00; Stop 05/23/18 at 23:59; Status DC Insulin Human Lispro (HumaLOG) 0-9 UNITS TIDWMEALS SQ Last administered on 05/25at 17:50; Start 05/24/18 at 00:00 Dextrose (Dextrose 50%-Water Syringe) 12.5 gm PRN Q15MIN PRN IV SEE COMMENTS; Start 05/23/18 at 23:30 Enoxaparin Sodium (Lovenox 40mg Syringe) 40 mg Q24H SQ Last administered on 12/03at 23:38; Start 05/23/18 at 23:30 Piperacillin Sod/ Tazobactam Sod (Zosyn Per Pharmacy) 1 each PRN DAILY PRN MC SEE COMMENTS; Start 05/23/18 at 23:30 Vancomycin HCl (Vanco Per Pharmacy) 1 each PRN DAILY PRN MC SEE COMMENTS Last administered on 05/26/18at 01:02; Start 05/23/18 at 23:30 Piperacillin Sod/ Tazobactam Sod 3.375 gm/Sodium Chloride 50 ml @ 100 mls/hr Q6HRS IV Last administered on 05/26/18at 06:15; Start 05/24/18 at 06:00 Acetaminophen (Tylenol Supp) 650 mg PRN Q6HRS PRN OK MILD PAIN / TEMP Last administered on 05/26/18at 02:16; Start 05/24/18 at 04:45 Acetaminophen (Tylenol) 650 mg PRN Q8HRS PRN PO MILD PAIN / TEMP Last administered on 05/25/18at 00:01; Start 05/24/18 at 10:45 Aspirin (Children'S Aspirin) 81 mg DAILY PO Last administered on 05/25/18at 08: 34; Start 05/24/18 at 12:00 Atorvastatin Calcium (Lipitor) 10 mg HS PEG Last administered on 05/25/18at 21: 09; Start 05/24/18 at 21:00 Citric Acid/ Sodium Citrate (Bicitra) 10 ml QIDAFTMEAL PEG Last administered on 05/25/18at 21:00; Start 05/24/18 at 13:00 Magnesium Hydroxide (Milk Of Magnesia) 2,400 mg PRN DAILY PRN PEG CONSTIPATION ; Start 05/24/18 at 10:45 Rivastigmine (Exelon 13.3mg) 1 patch DAILY TD Last administered on 05/25/18at 08 :34; Start 05/24/18 at 11:30 Simvastatin (Zocor) 10 mg DAILY PO ; Start 05/25/18 at 09:00; Status UNV Insulin Glargine (Lantus) 14 units DAILY SQ Last administered on 05/24/18at 12:36 ; Start 05/24/18 at 11:30; Stop 05/25/18 at 07:19; Status DC Metformin HCl (Glucophage) 500 mg BIDWMEALS PO ; Start 05/24/18 at 11:30 Multivitamins (Thera-Plus Oral Liquid) 5 ml DAILY PEG Last administered on 05/25at 08:34; Start 05/24/18 at 11:30 Nystatin (Nystop) 1 ron PRN TID PRN TP REDNESS UNDER BREAST OR ARM; Start at 21:00 Levetiracetam (Keppra) 500 mg BID PO ; Start 05/24/18 at 11:30; Stop 05/24/18 at 12:10; Status DC Sodium Chloride 1,000 ml @ 125 mls/hr 1X ONCE IV Last administered on at 12:03; Start 05/24/18 at 12:30; Stop 05/24/18 at 20:29; Status DC Levetiracetam (Keppra) 500 mg BID PEG Last administered on 05/25/18at 21:09; Start 05/24/18 at 12:30 Sodium Chloride 1,000 ml @ 125 mls/hr Q8H IV Last administered on 05/25/18at 23 :39; Start 05/24/18 at 23:00 Insulin Glargine (Lantus) 18 units DAILY SQ Last administered on 05/25/18at 08: 40; Start 05/25/18 at 09:00 Vancomycin HCl 1 gm/Sodium Chloride 250 ml @ 250 mls/hr Q12H IV ; Start at 10:00 Vancomycin HCl (Vancomycin Trough Level) 1 each 1X ONCE MC ; Start 05/27/18 at 09:30; Stop 05/27/18 at 09:31 Active Scripts Active Levemir Flextouch (Insulin Detemir) 300 Units/3 Ml Insuln.pen 14 Units SQ DAILY Milk Of Magnesia (Magnesium Hydroxide) 2,400 Mg/30 Ml Oral.susp 2,400 Mg PEG PRN DAILY PRN 30 Days [Levetiracetam] 500 MG/5 ML Solution 500 Mg PEG BID 30 Days Reported Nystatin 1 Each Powder.ea. 1 Each MC PRN PRN Famotidine 20 Mg Tablet 20 Mg PEG HS Atorvastatin Calcium 10 Mg Tablet 10 Mg PEG HS Metformin Hcl 500 Mg Tablet 500 Mg PEG BIDWMEALS Sod Citrate-Citric Acid Soln (Citric Acid/Sodium Citrate) 15 Ml Solution 10 Ml PEG QIDAFTMEAL Lansoprazole 30 Mg Capsule.dr 1 Cap PO DAILY Cipro (Ciprofloxacin Hcl) 500 Mg Tablet 1 Tab PO BID 2 Days Tylenol (Acetaminophen) 325 Mg Tablet 650 Mg PEG PRN Q8HRS PRN Multivitamins (Multivitamin) 1 Each Tablet 1 Tab PEG DAILY EXELON 13.3mg/24hr (Rivastigmine) 1 Each Patch.td24 1 Patch TD DAILY Aspirin 81 Mg Tab.chew 81 Mg PO DAILY Simvastatin 10 Mg Tablet 10 Mg PO DAILY Vitals/I & O Vital Sign - Last 24 Hours 05/25/18 05/25/18 05/25/18 05/25/18 09:00 10:00 10:45 11:01 Temp 99.0 99.0 Pulse 61 94 95 Resp 16 16 17 B/P (MAP) 102/50 (67) 105/66 (79) 94/56 (69) 93/60 (71) Pulse Ox 96 95 95 O2 Delivery Ventilator Ventilator Ventilator 05/25/18 05/25/18 05/25/18 05/25/18 11:15 11:30 11:30 12:00 B/P (MAP) 103/56 (72) 91/56 (68) Pulse Ox 97 O2 Delivery Ventilator Mechanical Ventilator 05/25/18 05/25/18 05/25/18 05/25/18 12:00 12:15 13:00 13:15 Pulse 94 87 Resp 16 16 B/P (MAP) 105/62 (76) 103/66 (78) 86/54 (65) 86/56 (66) Pulse Ox 96 97 O2 Delivery Ventilator Ventilator 05/25/18 05/25/18 05/25/18 05/25/18 14:00 14:34 15:00 15:20 Pulse 96 90 Resp 16 16 B/P (MAP) 93/62 (72) 100/68 (79) 82/53 (63) Pulse Ox 96 92 96 O2 Delivery Ventilator Ventilator Ventilator 05/25/18 05/25/18 05/25/18 05/25/18 15:37 16:00 16:20 16:35 B/P (MAP) 109/66 (80) 106/66 (79) Pulse Ox 94 O2 Delivery Ventilator Mechanical Ventilator 05/25/18 05/25/18 05/25/18 05/25/18 16:45 17:00 17:00 17:33 Pulse 85 Resp 16 B/P (MAP) 99/63 (75) 89/52 (64) 89/55 (66) Pulse Ox 95 96 O2 Delivery Ventilator Ventilator 05/25/18 05/25/18 05/25/18 05/25/18 18:00 19:00 20:00 20:00 Temp 98.7 98.7 Pulse 108 108 102 Resp 18 18 15 B/P (MAP) 84/46 (59) 84/46 (59) 85/56 (66) Pulse Ox 96 96 96 O2 Delivery Ventilator Ventilator Mechanical Ventilator Ventilator 05/25/18 05/25/18 05/25/18 05/25/18 20:05 21:00 22:00 23:00 Pulse 108 113 118 Resp 19 B/P (MAP) 103/60 (74) 96/64 (75) 73/45 (54) Pulse Ox 96 96 96 96 O2 Delivery Ventilator Ventilator Ventilator Ventilator 05/25/18 05/25/18 05/25/18 05/25/18 23:15 23:30 23:52 23:59 Temp 98.8 98.8 Pulse 110 110 102 Resp 19 19 17 B/P (MAP) 83/49 (60) 83/49 (60) 112/56 (74) Pulse Ox 97 97 96 95 O2 Delivery Ventilator Ventilator Ventilator Ventilator 05/25/18 05/26/18 05/26/18 05/26/18 23:59 01:03 02:00 02:11 Temp 101.0 101.0 Pulse 118 98 Resp B/P (MAP) 104/67 (79) 98/59 (72) Pulse Ox 92 92 96 O2 Delivery Mechanical Ventilator Ventilator Ventilator Ventilator 05/26/18 05/26/18 05/26/18 05/26/18 03:00 03:54 04:00 04:00 Temp 100.8 100.8 Pulse 95 90 Resp 17 18 B/P (MAP) 105/57 (73) 113/63 (80) Pulse Ox 95 95 96 O2 Delivery Ventilator Ventilator Ventilator Mechanical Ventilator 05/26/18 05/26/18 05/26/18 05:32 06:00 07:31 Pulse 114 103 Resp 17 17 B/P (MAP) 104/63 (77) 103/68 (80) Pulse Ox 95 96 94 O2 Delivery Ventilator Ventilator Ventilator Intake and Output 05/25/18 05/25/18 05/26/18 15:00 23:00 07:00 Intake Total 500 ml 3104 ml 1098 ml Output Total 650 ml 635 ml 975 ml Balance -150 ml 2469 ml 123 ml LUCIEN PUGA MD May 26, 2018 08:33
[2018-05-26] MEDS: metFORMIN 500 MG TABLET PO SCH ×2 (08:38→17:28)
[2018-05-26] MEDS: ASPIRIN CHEWABLE 81 MG TABLET. PO SCH (08:38)
[2018-05-26] MEDS: MULTIVITAMINS,THERAPEUTIC 5 ML ORAL LIQUID. PEG SCH (08:39)
[2018-05-26] MEDS: CITRIC ACID/SODIUM CITRATE 30 ML SOLUTION. PEG SCH ×4 (08:40→21:00)
[2018-05-26] MEDS: RIVASTIGMINE 13.3MG PATCH. TD SCH (08:44)
[2018-05-26] MEDS ORDERED: MAGNESIUM SULFATE 2GM 50 ML IV ONE (08:45)
[2018-05-26] MEDS: IV 1/2 NORMAL SALINE 1,000 ML IV SCH ×3 (08:46→23:29)
--- NOTE | 2018-05-26 09:18 | PDOC ---
PULMONARY PROGRESS NOTES Subjective on vent, on versed, on levo, increased 02 need, febrile Vitals Vital Signs Date Time Temp Pulse Resp B/P (MAP) Pulse Ox O2 Delivery O2 Flow Rate FiO2 05/26/18 07:31 94 Ventilator 05/26/18 06:00 103 17 103/68 (80) 05/26/18 04:00 100.8 100.8 Comments ros as mentioned as above discussed w rn, rt, other sys otherwise neg sedated on vent HEENT: Other (nc at perrl nose clear, orally intubated neck no lad, no thyromegaly) Lungs: Other (decrease bs) Cardiovascular: S1, S2 Abdomen: Soft, Non-tender, Other (no mass) Extremities: Other (edema trace) Skin: Warm Labs Laboratory Tests Test 05/24/18 09:26 05/24/18 12:31 05/24/18 17:46 05/25/18 06:20 Glucose (Fingerstick) 296 mg/dL (70-99) 294 mg/dL (70-99) 297 mg/dL (70-99) White Blood Count 9.1 x10^3/uL (4.0-11.0) Red Blood Count 3.60 x10^6/uL (3.50-5.40) Hemoglobin 10.8 g/dL (12.0-15.5) Hematocrit 33.2 % (36.0-47.0) Mean Corpuscular Volume 92 fL (79-100) Mean Corpuscular Hemoglobin 30 pg (25-35) Mean Corpuscular Hemoglobin Concent 33 g/dL (31-37) Red Cell Distribution Width 17.1 % (11.5-14.5) Platelet Count 163 x10^3/uL (140-400) Neutrophils (%) (Auto) 82 % (31-73) Lymphocytes (%) (Auto) 15 % (24-48) Monocytes (%) (Auto) 2 % (0-9) Eosinophils (%) (Auto) 0 % (0-3) Basophils (%) (Auto) 0 % (0-3) Neutrophils # (Auto) 7.5 x10^3uL (1.8-7.7) Lymphocytes # (Auto) 1.4 x10^3/uL (1.0-4.8) Monocytes # (Auto) 0.2 x10^3/uL (0.0-1.1) Eosinophils # (Auto) 0.0 x10^3/uL (0.0-0.7) Basophils # (Auto) 0.0 x10^3/uL (0.0-0.2) Sodium Level 151 mmol/L (136-145) Potassium Level 3.5 mmol/L (3.5-5.1) Chloride Level 116 mmol/L (98-107) Carbon Dioxide Level 22 mmol/L (21-32) Anion Gap 13 (6-14) Blood Urea Nitrogen 9 mg/dL (7-20) Creatinine 1.1 mg/dL (0.6-1.0) Estimated GFR (Cockcroft-Gault) 61.7 Glucose Level 336 mg/dL (70-99) Calcium Level 7.6 mg/dL (8.5-10.1) Test 05/25/18 08:25 05/25/18 08:37 05/25/18 11:58 05/25/18 17:47 O2 Saturation 93 % (92-99) Arterial Blood pH 7.47 (7.35-7.45) Arterial Blood pCO2 at Patient Temp 26 mmHg (35-46) Arterial Blood pO2 at Patient Temp 66 mmHg (75-108) Arterial Blood HCO3 19 mmol/L (21-28) Arterial Blood Base Excess -4 mmol/L (-3-3) FiO2 40% Glucose (Fingerstick) 372 mg/dL (70-99) 238 mg/dL (70-99) 269 mg/dL (70-99) Test 05/25/18 20:50 05/25/18 23:45 Vancomycin Level Trough 6.9 mcg/mL (10.0-20.0) Vancomycin Last Dose Date 05/24/18 Vancomycin Last Dose Time 2129 Glucose (Fingerstick) 216 mg/dL (70-99) Laboratory Tests Test 05/25/18 11:58 05/25/18 17:47 05/25/18 20:50 05/25/18 23:45 Glucose (Fingerstick) 238 mg/dL (70-99) 269 mg/dL (70-99) 216 mg/dL (70-99) Vancomycin Level Trough 6.9 mcg/mL (10.0-20.0) Vancomycin Last Dose Date 05/24/18 Vancomycin Last Dose Time 2130 Medications Active Scripts Medications Dose Route/Sig Max Daily Dose Days Date Category Nystatin 1 Each Powder.ea. 1 Each MC PRN PRN 05/24/18 Reported Famotidine 20 Mg Tablet 20 Mg PEG HS 05/24/18 Reported Atorvastatin Calcium 10 Mg Tablet 10 Mg PEG HS 05/24/18 Reported Metformin Hcl 500 Mg Tablet 500 Mg PEG BIDWMEALS 05/24/18 Reported Sod Citrate-Citric Acid Soln (Citric Acid/Sodium Citrate) 15 Ml Solution 10 Ml PEG QIDAFTMEAL 03/26/17 Reported Lansoprazole 30 Mg Capsule.dr 1 Cap PO DAILY 03/26/17 Reported Cipro (Ciprofloxacin Hcl) 500 Mg Tablet 1 Tab PO BID 2 03/26/17 Reported Tylenol (Acetaminophen) 325 Mg Tablet 650 Mg PEG PRN Q8HRS PRN 03/17/17 Reported Multivitamins (Multivitamin) 1 Each Tablet 1 Tab PEG DAILY 03/17/17 Reported Levemir Flextouch (Insulin Detemir) 300 Units/3 Ml Insuln.pen 14 Units SQ DAILY 09/05/14 Rx Milk Of Magnesia (Magnesium Hydroxide) 2,400 Mg/30 Ml Oral.susp 2,400 Mg PEG PRN DAILY PRN 30 09/05/14 Rx [Levetiracetam] 500 MG/5 ML Solution 500 Mg PEG BID 30 09/05/14 Rx EXELON 13.3mg/24hr (Rivastigmine) 1 Each Patch.td24 1 Patch TD DAILY 08/14/14 Reported Aspirin 81 Mg Tab.chew 81 Mg PO DAILY 03/18/13 Reported Simvastatin 10 Mg Tablet 10 Mg PO DAILY 03/18/13 Reported Comments CXR 05/25 RLL consolidation Impression . 1. Acute respiratory failure secondary to septic shock. worse, increased 02 need 2. Septic shock likely source aspiration pneumonia. 3. recurrent fever, ? etiology 4. Down's syndrome. 5. Hypernatremia/ improving Plan . 1. cont vent support, setting reviewed, abg reviewed, increased 02 need, will do cxr, will decrease vt to 450, not ready for sbt 2. Monitor sodium level. 3. Broad-spectrum antibiotics. new fever, [place] cx, abx per id 4. Follow renal function. 5. Wean pressors to keep map >65 6. Monitor urine output. 7. Monitor white cell count. 8. DVT and stress ulcer prophylaxis. 9. elevate hob Discussed with RN and RT. The patient remains critical. Palliative care is on the case to discuss the goals of care KWESI PIPER MD May 26, 2018 09:17
[2018-05-26 09:27] LABS: FIO2 ABG 55
[2018-05-26] MEDS: INSULIN LISPRO 300 UNITS/3 ML INSULN.PEN. SQ SCH ×3 (09:29→17:48)
[2018-05-26] MEDS: INSULIN GLARGINE 300 UNITS/3 ML INSULN.PEN. SQ SCH (09:34)
[2018-05-26 09:40] LABS: BASO % 0 % (0-3); EOS % 0 % (0-3); HEMATOCRIT 35.8 % (36.0-47.0); HEMOGLOBIN 11.4 g/dL (12.0-15.5); LYMPH % 22 % (24-48); MEAN CORPUSCULAR HEMOGLOBIN 29 pg (25-35); MEAN CORPUSCULAR HGB CONC 32 g/dL (31-37); MEAN CORPUSCULAR VOLUME 92 fL (79-100); MONO # 0.1 x10^3/uL (0.0-1.1); MONO % 3 % (0-9); NEUT # 3.5 x10^3uL (1.8-7.7); NEUT % 75 % (31-73); PLATELET COUNT 149 x10^3/uL (140-400); RED BLOOD COUNT 3.88 x10^6/uL (3.50-5.40); RED CELL DISTRIBUTION WIDTH 17.3 % (11.5-14.5); WHITE BLOOD COUNT 4.7 x10^3/uL (4.0-11.0)
[2018-05-26 09:50] LABS: CALCIUM 7.6 mg/dL (8.5-10.1); CREATININE 1.1 mg/dL (0.6-1.0); GFR 61.7; POTASSIUM 3.3 mmol/L (3.5-5.1)
[2018-05-26] MEDS ORDERED: VANCOMYCIN 1 GM in IV NORMAL SALINE 250ML 250 ML IV SCH (10:00)
[2018-05-26] MEDS ORDERED: POTASSIUM CHLORIDE 20 MEQ/15 ML ORAL LIQUID. PEG ONE (10:30)
[2018-05-26] MEDS: IPRATRPIUM/ALBUTEROL 0.5/2.5MG 3 ML NEBU. NEB SCH ×4 (11:16→20:00)
--- NOTE | 2018-05-26 17:16 | RAD ---
EXAM: CHEST 1 VIEW History: Respiratory failure COMPARISON: 05/25/2018 TECHNIQUE: Single portable radiograph of the chest FINDINGS: Mild cardiomegaly. Left-sided cardiac pacer is identified. ET tube, feeding tube unchanged. Moderate prominent appearing bilateral interstitial lung markings likely congestive changes. Patchy bibasilar lung airspace opacity likely atelectasis or infiltrates with small bilateral pleural effusions. IMPRESSION: 1. ET tube, feeding tube as described above. 2. Increased congestive changes with patchy bibasilar lung airspace opacities likely atelectasis or infiltrates. Electronically signed by: Santana Guerrero MD (05/26/2018 5:13 PM) [id number]
[2018-05-26] MEDS: ACETAMINOPHEN 650 MG/20.3 ML SOLUTION. PEG PRN (17:31)
[2018-05-26] MEDS: FAMOTIDINE 20 MG/2 ML VIAL IVP SCH (21:55)
[2018-05-26] MEDS: ATORVASTATIN CALCIUM 10 MG TABLET. PEG SCH (21:55)
[2018-05-26] MEDS: ENOXAPARIN 40 MG/0.4 ML SYRINGE. SQ SCH (23:29)
[2018-05-27] VITALS (24 sets, daily range): BP systolic 81–140; BP diastolic 45–92
[2018-05-27] MEDS: MIDAZOLAM 100mg/100ml NS BAG 100 ML IV PRN ×2 (02:59→19:09)
[2018-05-27] MEDS: PIPERACILLIN/TAZOBACTAM 3.375 GM in IV NORMAL SALINE 50ML 50 ML IV SCH ×3 (05:52→18:12)
--- NOTE | 2018-05-27 06:11 | PDOC ---
PULMONARY PROGRESS NOTES Subjective on vent, on versed, on more levo, on fi02 60%, small ett secretion, febrile Vitals Vital Signs Date Time Temp Pulse Resp B/P (MAP) Pulse Ox O2 Delivery O2 Flow Rate FiO2 05/27/18 05:33 92 Ventilator 05/27/18 05:00 65 14 111/71 (84) 05/26/18 23:59 97.5 97.5 Comments ros as mentioned as above discussed w rn, rt, other sys otherwise neg sedated on vent HEENT: Other (nc at perrl nose clear, orally intubated neck no lad, no thyromegaly) Lungs: Other (decrease bs) Cardiovascular: S1, S2 Abdomen: Soft, Non-tender, Other (no mass) Extremities: Other (edema trace) Skin: Warm Labs Laboratory Tests Test 05/25/18 06:20 05/25/18 08:25 05/25/18 08:37 05/25/18 11:58 White Blood Count 9.1 x10^3/uL (4.0-11.0) Red Blood Count 3.60 x10^6/uL (3.50-5.40) Hemoglobin 10.8 g/dL (12.0-15.5) Hematocrit 33.2 % (36.0-47.0) Mean Corpuscular Volume 92 fL (79-100) Mean Corpuscular Hemoglobin 30 pg (25-35) Mean Corpuscular Hemoglobin Concent 33 g/dL (31-37) Red Cell Distribution Width 17.1 % (11.5-14.5) Platelet Count 163 x10^3/uL (140-400) Neutrophils (%) (Auto) 82 % (31-73) Lymphocytes (%) (Auto) 15 % (24-48) Monocytes (%) (Auto) 2 % (0-9) Eosinophils (%) (Auto) 0 % (0-3) Basophils (%) (Auto) 0 % (0-3) Neutrophils # (Auto) 7.5 x10^3uL (1.8-7.7) Lymphocytes # (Auto) 1.4 x10^3/uL (1.0-4.8) Monocytes # (Auto) 0.2 x10^3/uL (0.0-1.1) Eosinophils # (Auto) 0.0 x10^3/uL (0.0-0.7) Basophils # (Auto) 0.0 x10^3/uL (0.0-0.2) Sodium Level 151 mmol/L (136-145) Potassium Level 3.5 mmol/L (3.5-5.1) Chloride Level 116 mmol/L (98-107) Carbon Dioxide Level 22 mmol/L (21-32) Anion Gap 13 (6-14) Blood Urea Nitrogen 9 mg/dL (7-20) Creatinine 1.1 mg/dL (0.6-1.0) Estimated GFR (Cockcroft-Gault) 61.7 Glucose Level 336 mg/dL (70-99) Calcium Level 7.6 mg/dL (8.5-10.1) O2 Saturation 93 % (92-99) Arterial Blood pH 7.47 (7.35-7.45) Arterial Blood pCO2 at Patient Temp 26 mmHg (35-46) Arterial Blood pO2 at Patient Temp 66 mmHg (75-108) Arterial Blood HCO3 19 mmol/L (21-28) Arterial Blood Base Excess -4 mmol/L (-3-3) FiO2 40% Glucose (Fingerstick) 372 mg/dL (70-99) 238 mg/dL (70-99) Test 05/25/18 17:47 05/25/18 20:50 05/25/18 23:45 05/26/18 07:00 Glucose (Fingerstick) 269 mg/dL (70-99) 216 mg/dL (70-99) Vancomycin Level Trough 6.9 mcg/mL (10.0-20.0) Vancomycin Last Dose Date 05/24/18 Vancomycin Last Dose Time 2130 O2 Saturation 91 % (92-99) Arterial Blood pH 7.50 (7.35-7.45) Arterial Blood pCO2 at Patient Temp 26 mmHg (35-46) Arterial Blood pO2 at Patient Temp 55 mmHg (75-108) Arterial Blood HCO3 20 mmol/L (21-28) Arterial Blood Base Excess -2 mmol/L (-3-3) FiO2 55 Test 05/26/18 09:20 05/26/18 09:22 05/26/18 13:09 05/26/18 17:42 White Blood Count 4.7 x10^3/uL (4.0-11.0) Red Blood Count 3.88 x10^6/uL (3.50-5.40) Hemoglobin 11.4 g/dL (12.0-15.5) Hematocrit 35.8 % (36.0-47.0) Mean Corpuscular Volume 92 fL (79-100) Mean Corpuscular Hemoglobin 29 pg (25-35) Mean Corpuscular Hemoglobin Concent 32 g/dL (31-37) Red Cell Distribution Width 17.3 % (11.5-14.5) Platelet Count 149 x10^3/uL (140-400) Neutrophils (%) (Auto) 75 % (31-73) Lymphocytes (%) (Auto) 22 % (24-48) Monocytes (%) (Auto) 3 % (0-9) Eosinophils (%) (Auto) 0 % (0-3) Basophils (%) (Auto) 0 % (0-3) Neutrophils # (Auto) 3.5 x10^3uL (1.8-7.7) Lymphocytes # (Auto) 1.0 x10^3/uL (1.0-4.8) Monocytes # (Auto) 0.1 x10^3/uL (0.0-1.1) Eosinophils # (Auto) 0.0 x10^3/uL (0.0-0.7) Basophils # (Auto) 0.0 x10^3/uL (0.0-0.2) Sodium Level 147 mmol/L (136-145) Potassium Level 3.3 mmol/L (3.5-5.1) Chloride Level 108 mmol/L (98-107) Carbon Dioxide Level 24 mmol/L (21-32) Anion Gap 15 (6-14) Blood Urea Nitrogen 9 mg/dL (7-20) Creatinine 1.1 mg/dL (0.6-1.0) Estimated GFR (Cockcroft-Gault) 61.7 Glucose Level 298 mg/dL (70-99) Calcium Level 7.6 mg/dL (8.5-10.1) Glucose (Fingerstick) 272 mg/dL (70-99) 302 mg/dL (70-99) 270 mg/dL (70-99) Laboratory Tests Test 05/26/18 07:00 05/26/18 09:20 05/26/18 09:22 05/26/18 13:09 O2 Saturation 91 % (92-99) Arterial Blood pH 7.50 (7.35-7.45) Arterial Blood pCO2 at Patient Temp 26 mmHg (35-46) Arterial Blood pO2 at Patient Temp 55 mmHg (75-108) Arterial Blood HCO3 20 mmol/L (21-28) Arterial Blood Base Excess -2 mmol/L (-3-3) FiO2 55 White Blood Count 4.7 x10^3/uL (4.0-11.0) Red Blood Count 3.88 x10^6/uL (3.50-5.40) Hemoglobin 11.4 g/dL (12.0-15.5) Hematocrit 35.8 % (36.0-47.0) Mean Corpuscular Volume 92 fL (79-100) Mean Corpuscular Hemoglobin 29 pg (25-35) Mean Corpuscular Hemoglobin Concent 32 g/dL (31-37) Red Cell Distribution Width 17.3 % (11.5-14.5) Platelet Count 149 x10^3/uL (140-400) Neutrophils (%) (Auto) 75 % (31-73) Lymphocytes (%) (Auto) 22 % (24-48) Monocytes (%) (Auto) 3 % (0-9) Eosinophils (%) (Auto) 0 % (0-3) Basophils (%) (Auto) 0 % (0-3) Neutrophils # (Auto) 3.5 x10^3uL (1.8-7.7) Lymphocytes # (Auto) 1.0 x10^3/uL (1.0-4.8) Monocytes # (Auto) 0.1 x10^3/uL (0.0-1.1) Eosinophils # (Auto) 0.0 x10^3/uL (0.0-0.7) Basophils # (Auto) 0.0 x10^3/uL (0.0-0.2) Sodium Level 147 mmol/L (136-145) Potassium Level 3.3 mmol/L (3.5-5.1) Chloride Level 108 mmol/L (98-107) Carbon Dioxide Level 24 mmol/L (21-32) Anion Gap 15 (6-14) Blood Urea Nitrogen 9 mg/dL (7-20) Creatinine 1.1 mg/dL (0.6-1.0) Estimated GFR (Cockcroft-Gault) 61.7 Glucose Level 298 mg/dL (70-99) Calcium Level 7.6 mg/dL (8.5-10.1) Glucose (Fingerstick) 272 mg/dL (70-99) 302 mg/dL (70-99) Test 05/26/18 17:42 Glucose (Fingerstick) 270 mg/dL (70-99) Medications Active Scripts Medications Dose Route/Sig Max Daily Dose Days Date Category Nystatin 1 Each Powder.ea. 1 Each MC PRN PRN 05/24/18 Reported Famotidine 20 Mg Tablet 20 Mg PEG HS 05/24/18 Reported Atorvastatin Calcium 10 Mg Tablet 10 Mg PEG HS 05/24/18 Reported Metformin Hcl 500 Mg Tablet 500 Mg PEG BIDWMEALS 05/24/18 Reported Sod Citrate-Citric Acid Soln (Citric Acid/Sodium Citrate) 15 Ml Solution 10 Ml PEG QIDAFTMEAL 03/26/17 Reported Lansoprazole 30 Mg Capsule.dr 1 Cap PO DAILY 03/26/17 Reported Cipro (Ciprofloxacin Hcl) 500 Mg Tablet 1 Tab PO BID 2 03/26/17 Reported Tylenol (Acetaminophen) 325 Mg Tablet 650 Mg PEG PRN Q8HRS PRN 03/17/17 Reported Multivitamins (Multivitamin) 1 Each Tablet 1 Tab PEG DAILY 03/17/17 Reported Levemir Flextouch (Insulin Detemir) 300 Units/3 Ml Insuln.pen 14 Units SQ DAILY 09/05/14 Rx Milk Of Magnesia (Magnesium Hydroxide) 2,400 Mg/30 Ml Oral.susp 2,400 Mg PEG PRN DAILY PRN 30 09/05/14 Rx [Levetiracetam] 500 MG/5 ML Solution 500 Mg PEG BID 30 09/05/14 Rx EXELON 13.3mg/24hr (Rivastigmine) 1 Each Patch.td24 1 Patch TD DAILY 08/14/14 Reported Aspirin 81 Mg Tab.chew 81 Mg PO DAILY 03/18/13 Reported Simvastatin 10 Mg Tablet 10 Mg PO DAILY 03/18/13 Reported Comments reviewed, CXR 05/26 b ll infilt atelectasis effusion, worse, ett ok Impression . 1. Acute respiratory failure secondary to septic shock. worse, increased 02 need 2. Septic shock likely source aspiration pneumonia. 3. recurrent fever, ? etiology 4. Down's syndrome. 5. Hypernatremia/ improving Plan . 1. cont vent support, setting reviewed, will review abg, on 60% fio2, not ready for sbt 2. Monitor sodium level. 3. Broad-spectrum antibiotics. new fever, [place] cx, abx per id 4. Follow renal function. 5. Wean pressors to keep map >65 6. Monitor urine output. 7. Monitor white cell count. 8. DVT and stress ulcer prophylaxis. 9. elevate hob Discussed with RN and RT. The patient remains critical. Palliative care is on the case to discuss the goals of care, prognosis poor KWESI PIPER MD May 27, 2018 06:11
[2018-05-27] MEDS: metFORMIN 500 MG TABLET PO SCH ×2 (07:52→18:12)
[2018-05-27] MEDS: INSULIN LISPRO 300 UNITS/3 ML INSULN.PEN. SQ SCH ×3 (07:55→18:45)
[2018-05-27] MEDS: FAMOTIDINE 20 MG/2 ML VIAL IVP SCH ×2 (07:56→21:21)
[2018-05-27] MEDS: CITRIC ACID/SODIUM CITRATE 30 ML SOLUTION. PEG SCH ×4 (07:57→21:21)
[2018-05-27] MEDS: MULTIVITAMINS,THERAPEUTIC 5 ML ORAL LIQUID. PEG SCH (07:57)
[2018-05-27] MEDS: RIVASTIGMINE 13.3MG PATCH. TD SCH (07:58)
[2018-05-27] MEDS: ASPIRIN CHEWABLE 81 MG TABLET. PO SCH (08:08)
[2018-05-27] MEDS: IV 1/2 NORMAL SALINE 1,000 ML IV SCH ×2 (08:10→18:13)
[2018-05-27 09:01] LABS: BASE EXCESS ABG -2 mmol/L (-3-3); HCO3 ABG 21 mmol/L (21-28); PCO2 ABG 29 mmHg (35-46); PO2 ABG 62 mmHg (75-108); SAT O2 ABG 93 % (92-99)
[2018-05-27] MEDS: IPRATRPIUM/ALBUTEROL 0.5/2.5MG 3 ML NEBU. NEB SCH ×4 (09:07→19:43)
--- NOTE | 2018-05-27 09:07 | NUR ---
IP: Pt's sputum culture returned with MRSA requiring contact precautions.
[2018-05-27 09:17] LABS: FIO2 ABG 60
[2018-05-27 09:17] LABS: HEMOGLOBIN 12.2 g/dL (12.0-15.5); RED BLOOD COUNT 4.16 x10^6/uL (3.50-5.40); RED CELL DISTRIBUTION WIDTH 17.4 % (11.5-14.5)
--- NOTE | 2018-05-27 09:29 | PDOC ---
PROGRESS NOTES Chief Complaint Chief Complaint Septic shock etiology most likely Related to underlying lung process Severe dehydration hypernatremia secondary to the above Down syndrome History of anxiety dementia, diabetes mellitus type II insulin requiring uncontrolled History of PEG tube. Hypernatremia secondary to water deficit Plan: increase lantus insulin and provide correctional with 7 units for her glycemia of over 300 Continue with supportive measures. Continue ventilatory support as per bridal sales consultant Continue with fluid resuscitation Will resume home medications currently still on pressors antibiotics [facility] Further recommendations based on the clinical course History of Present Illness History of Present Illness Patient laying in bed in no apparent distress. Patient is currently sedated on mechanical ventilation, no acute events reported overnight. No clear etiology for her sepsis other than low effective circulatory volume Vitals Vitals Vital Signs Date Time Temp Pulse Resp B/P (MAP) Pulse Ox O2 Delivery O2 Flow Rate FiO2 05/27/18 09:07 96 Ventilator 05/27/18 06:23 65 14 117/71 (86) 05/26/18 23:59 97.5 97.5 Physical Exam Physical Exam GENERAL: Orally intubated, sedated female, not in any distress. VITAL SIGNS: stable HEENT: Both pupils are round and reacting. No conjunctival lesion. Oral, not much able to visualize since orally intubated. NECK: Supple, no JVP, no lymphadenopathy. LUNGS: Decreased breath sounds bilaterally. HEART: S1, S2 regular. No gallop or murmur. ABDOMEN: Soft, nontender. No organomegaly. EXTREMITIES: No edema or cyanosis. The patient has contractures. NEUROLOGIC: The patient does not respond currently. Anyway, she is sedated, intubated. SKIN: There is no skin breakdown. Lungs: Other (decrease bs) Labs LABS Laboratory Tests Test 05/26/18 13:09 05/26/18 17:42 05/27/18 07:49 05/27/18 08:40 Glucose (Fingerstick) 302 mg/dL (70-99) 270 mg/dL (70-99) 323 mg/dL (70-99) White Blood Count 4.0 x10^3/uL (4.0-11.0) Red Blood Count 4.16 x10^6/uL (3.50-5.40) Hemoglobin 12.2 g/dL (12.0-15.5) Hematocrit 38.0 % (36.0-47.0) Mean Corpuscular Volume 91 fL (79-100) Mean Corpuscular Hemoglobin 29 pg (25-35) Mean Corpuscular Hemoglobin Concent 32 g/dL (31-37) Red Cell Distribution Width 17.4 % (11.5-14.5) Platelet Count 143 x10^3/uL (140-400) Test 05/27/18 09:00 O2 Saturation 93 % (92-99) Arterial Blood pH 7.47 (7.35-7.45) Arterial Blood pCO2 at Patient Temp 29 mmHg (35-46) Arterial Blood pO2 at Patient Temp 62 mmHg (75-108) Arterial Blood HCO3 21 mmol/L (21-28) Arterial Blood Base Excess -2 mmol/L (-3-3) FiO2 60 Comment Review of Relevant I have reviewed the following items trey (where applicable) has been applied. Labs Laboratory Tests Test 05/25/18 11:58 05/25/18 17:47 05/25/18 20:50 05/25/18 23:45 Glucose (Fingerstick) 238 mg/dL (70-99) 269 mg/dL (70-99) 216 mg/dL (70-99) Vancomycin Level Trough 6.9 mcg/mL (10.0-20.0) Vancomycin Last Dose Date 05/24/18 Vancomycin Last Dose Time 2129 Test 05/26/18 07:00 05/26/18 09:20 05/26/18 09:22 05/26/18 13:09 O2 Saturation 91 % (92-99) Arterial Blood pH 7.50 (7.35-7.45) Arterial Blood pCO2 at Patient Temp 26 mmHg (35-46) Arterial Blood pO2 at Patient Temp 55 mmHg (75-108) Arterial Blood HCO3 20 mmol/L (21-28) Arterial Blood Base Excess -2 mmol/L (-3-3) FiO2 55 White Blood Count 4.7 x10^3/uL (4.0-11.0) Red Blood Count 3.88 x10^6/uL (3.50-5.40) Hemoglobin 11.4 g/dL (12.0-15.5) Hematocrit 35.8 % (36.0-47.0) Mean Corpuscular Volume 92 fL (79-100) Mean Corpuscular Hemoglobin 29 pg (25-35) Mean Corpuscular Hemoglobin Concent 32 g/dL (31-37) Red Cell Distribution Width 17.3 % (11.5-14.5) Platelet Count 149 x10^3/uL (140-400) Neutrophils (%) (Auto) 75 % (31-73) Lymphocytes (%) (Auto) 22 % (24-48) Monocytes (%) (Auto) 3 % (0-9) Eosinophils (%) (Auto) 0 % (0-3) Basophils (%) (Auto) 0 % (0-3) Neutrophils # (Auto) 3.5 x10^3uL (1.8-7.7) Lymphocytes # (Auto) 1.0 x10^3/uL (1.0-4.8) Monocytes # (Auto) 0.1 x10^3/uL (0.0-1.1) Eosinophils # (Auto) 0.0 x10^3/uL (0.0-0.7) Basophils # (Auto) 0.0 x10^3/uL (0.0-0.2) Sodium Level 147 mmol/L (136-145) Potassium Level 3.3 mmol/L (3.5-5.1) Chloride Level 108 mmol/L (98-107) Carbon Dioxide Level 24 mmol/L (21-32) Anion Gap 15 (6-14) Blood Urea Nitrogen 9 mg/dL (7-20) Creatinine 1.1 mg/dL (0.6-1.0) Estimated GFR (Cockcroft-Gault) 61.7 Glucose Level 298 mg/dL (70-99) Calcium Level 7.6 mg/dL (8.5-10.1) Glucose (Fingerstick) 272 mg/dL (70-99) 302 mg/dL (70-99) Test 05/26/18 17:42 05/27/18 07:49 05/27/18 08:40 05/27/18 09:00 Glucose (Fingerstick) 270 mg/dL (70-99) 323 mg/dL (70-99) White Blood Count 4.0 x10^3/uL (4.0-11.0) Red Blood Count 4.16 x10^6/uL (3.50-5.40) Hemoglobin 12.2 g/dL (12.0-15.5) Hematocrit 38.0 % (36.0-47.0) Mean Corpuscular Volume 91 fL (79-100) Mean Corpuscular Hemoglobin 29 pg (25-35) Mean Corpuscular Hemoglobin Concent 32 g/dL (31-37) Red Cell Distribution Width 17.4 % (11.5-14.5) Platelet Count 143 x10^3/uL (140-400) O2 Saturation 93 % (92-99) Arterial Blood pH 7.47 (7.35-7.45) Arterial Blood pCO2 at Patient Temp 29 mmHg (35-46) Arterial Blood pO2 at Patient Temp 62 mmHg (75-108) Arterial Blood HCO3 21 mmol/L (21-28) Arterial Blood Base Excess -2 mmol/L (-3-3) FiO2 60 Laboratory Tests Test 05/26/18 13:09 05/26/18 17:42 05/27/18 07:49 05/27/18 08:40 Glucose (Fingerstick) 302 mg/dL (70-99) 270 mg/dL (70-99) 323 mg/dL (70-99) White Blood Count 4.0 x10^3/uL (4.0-11.0) Red Blood Count 4.16 x10^6/uL (3.50-5.40) Hemoglobin 12.2 g/dL (12.0-15.5) Hematocrit 38.0 % (36.0-47.0) Mean Corpuscular Volume 91 fL (79-100) Mean Corpuscular Hemoglobin 29 pg (25-35) Mean Corpuscular Hemoglobin Concent 32 g/dL (31-37) Red Cell Distribution Width 17.4 % (11.5-14.5) Platelet Count 143 x10^3/uL (140-400) Test 05/27/18 09:00 O2 Saturation 93 % (92-99) Arterial Blood pH 7.47 (7.35-7.45) Arterial Blood pCO2 at Patient Temp 29 mmHg (35-46) Arterial Blood pO2 at Patient Temp 62 mmHg (75-108) Arterial Blood HCO3 21 mmol/L (21-28) Arterial Blood Base Excess -2 mmol/L (-3-3) FiO2 60 Microbiology 05/23/18 Blood Culture - Preliminary, Resulted NO GROWTH AFTER 3 DAYS 05/23/18 Stool Culture - Final, Resulted 05/23/18 Stool Culture Result 1 (GRACIE) - Final, Resulted 05/23/18 Campylobacter Antigen Assay - Preliminary, Resulted 05/23/18 Campylobactor Result 1 - Preliminary, Resulted 05/23/18 Shiga Toxin Test - Final, Resulted 05/23/18 - Final, Complete 05/23/18 - Final, Complete 05/23/18 - Final, Complete 05/23/18 Gram Stain Evaluation - Final, Complete 05/23/18 Sputum Culture - Final, Complete 05/23/18 Sputum Result 1 - Final, Complete 05/23/18 Sputum Result 2 - Final, Complete 05/23/18 - Final, Complete 05/23/18 Antimicrobic Susceptibility - Final, Complete Medications Current Medications Sodium Chloride (Normal Saline Flush) 10 ml QSHIFT PRN IV AFTER MEDS AND BLOOD DRAWS; Start 05/23/18 at 20:00 Piperacillin Sod/ Tazobactam Sod 4.5 gm/Sodium Chloride 100 ml @ 200 mls/hr 1X ONCE IV Last administered on 05/23/18at 20:34; Start 05/23/18 at 20:00; Stop 05/23/18 at 20:29; Status DC Vancomycin HCl (Vanco Per Pharmacy) 1 each 1X ONCE MC Last administered on 05/23at 20:00; Start 05/23/18 at 20:00; Stop 05/23/18 at 22:03; Status DC Propofol 100 ml @ 0 mls/hr CONT PRN IV SEE PROTOCOL; Start 05/23/18 at 20:00 Fentanyl Citrate (Fentanyl 2ml Vial) 25 mcg PRN Q1HR PRN IV SEE COMMENTS; Start 05/23/18 at 20:00 Fentanyl Citrate (Fentanyl 2ml Vial) 50 mcg PRN Q1HR PRN IV SEE COMMENTS; Start 05/23/18 at 20:00 Chlorhexidine Gluconate (Peridex) 15 ml BID MM Last administered on 05/24/18at 00 :05; Start 05/23/18 at 21:00; Stop 05/24/18 at 08:09; Status DC Acetaminophen (Tylenol Supp) 650 mg 1X ONCE IA Last administered on 05/23/18at 20:33; Start 05/23/18 at 20:00; Stop 05/23/18 at 20:04; Status DC Sodium Chloride 1,000 ml @ 1,000 mls/hr 1X ONCE IV Last administered on at 20:41; Start 05/23/18 at 20:00; Stop 05/23/18 at 20:59; Status DC Midazolam HCl (Versed) 5 mg 1X ONCE IV Last administered on 05/23/18at 20:33; Start 05/23/18 at 20:15; Stop 05/23/18 at 20:16; Status DC Lorazepam (Ativan) 2 mg STK-MED ONCE .ROUTE ; Start 05/23/18 at 20:04; Stop at 20:05; Status DC Norepinephrine Bitartrate 250 ml @ 0 mls/hr CONT PRN IV PER PROTOCOL Last administered on 05/26/18at 23:24; Start 05/23/18 at 20:30 Sodium Chloride 1,000 ml @ 126 mls/hr Q7H57M IV ; Start 05/23/18 at 20:40; Stop 05/24/18 at 20:39; Status DC Sodium Chloride 1,000 ml @ 1,000 mls/hr 1X ONCE IV Last administered on at 20:50; Start 05/23/18 at 20:45; Stop 05/23/18 at 21:44; Status DC Sodium Chloride 1,000 ml @ 1,000 mls/hr 1X ONCE IV ; Start 05/23/18 at 21:15; Stop 05/23/18 at 21:16; Status DC Propofol 50 ml @ As Directed STK-MED ONCE IV ; Start 05/23/18 at 21:02; Stop 05/23 at 21:03; Status DC Propofol 50 ml @ 1.082 mls/ hr 1X ONCE IV Last administered on 05/23/18at 21:12 ; Start 05/23/18 at 21:15; Stop 05/25/18 at 19:27; Status DC Vancomycin HCl 1.75 gm/Sodium Chloride 500 ml @ 250 mls/hr 1X ONCE IV Last administered on 05/23/18at 21:23; Start 05/23/18 at 21:30; Stop 05/23/18 at 23:29; Status DC Insulin Human Regular (HumuLIN R VIAL) 14 unit 1X ONCE SQ Last administered on 05/23/18at 21:46; Start 05/23/18 at 21:15; Stop 05/23/18 at 21:16; Status DC Sodium Chloride 1,000 ml @ 75 mls/hr 1X ONCE IV Last administered on at 21:23; Start 05/23/18 at 21:15; Stop 05/24/18 at 10:34; Status DC Etomidate (Amidate) 20 mg STK-MED ONCE IV ; Start 05/23/18 at 21:32; Stop at 21:33; Status DC Succinylcholine Chloride (Anectine) 200 mg STK-MED ONCE .ROUTE ; Start 05/23/18 at 21:32; Stop 05/23/18 at 21:33; Status DC Vancomycin HCl 1 gm/Sodium Chloride 250 ml @ 250 mls/hr Q24H IV Last administered on 05/25/18at 21:37; Start 05/24/18 at 21:30; Stop 05/26/18 at 01:00 ; Status DC Vancomycin HCl (Vancomycin Trough Level) 1 each 1X ONCE MC Last administered on 05/25/18at 21:00; Start 05/25/18 at 21:00; Stop 05/26/18 at 08:58; Status DC Sodium Chloride 500 ml @ 500 mls/hr 1X ONCE IV Last administered on 05/23/18at 22:45; Start 05/23/18 at 22:45; Stop 05/23/18 at 23:44; Status DC Albuterol/ Ipratropium (Duoneb) 3 ml RTQID NEB Last administered on 05/27/18at 09:07; Start 05/24/18 at 08:00 Fentanyl Citrate 30 ml @ 0 mls/hr CONT PRN IV SEE PROTOCOL; Start 05/23/18 at 22 :45 Midazolam HCl 100 ml @ 0 mls/hr CONT PRN IV SEE PROTOCOL Last administered on at 02:59; Start 05/23/18 at 22:45 Sodium Chloride 500 ml @ 500 mls/hr 1X ONCE IV Last administered on 05/23/18at 23:33; Start 05/23/18 at 23:00; Stop 05/23/18 at 23:59; Status DC Insulin Human Lispro (HumaLOG) 0-9 UNITS TIDWMEALS SQ Last administered on 05/27at 07:55; Start 05/24/18 at 00:00 Dextrose (Dextrose 50%-Water Syringe) 12.5 gm PRN Q15MIN PRN IV SEE COMMENTS; Start 05/23/18 at 23:30 Enoxaparin Sodium (Lovenox 40mg Syringe) 40 mg Q24H SQ Last administered on 01/03at 23:29; Start 05/23/18 at 23:30 Piperacillin Sod/ Tazobactam Sod (Zosyn Per Pharmacy) 1 each PRN DAILY PRN MC SEE COMMENTS; Start 05/23/18 at 23:30 Vancomycin HCl (Vanco Per Pharmacy) 1 each PRN DAILY PRN MC SEE COMMENTS Last administered on 05/26/18at 01:02; Start 05/23/18 at 23:30; Stop 05/26/18 at 08:58 ; Status DC Piperacillin Sod/ Tazobactam Sod 3.375 gm/Sodium Chloride 50 ml @ 100 mls/hr Q6HRS IV Last administered on 05/27/18 05:52; Start 05/24/18 at 06:00 Acetaminophen (Tylenol Supp) 650 mg PRN Q6HRS PRN IA MILD PAIN / TEMP Last administered on 05/26/18at 02:16; Start 05/24/18 at 04:45 Acetaminophen (Tylenol) 650 mg PRN Q8HRS PRN PO MILD PAIN / TEMP Last administered on 05/25/18at 00:01; Start 05/24/18 at 10:45 Aspirin (Children'S Aspirin) 81 mg DAILY PO Last administered on 05/27/18at 08: 08; Start 05/24/18 at 12:00 Atorvastatin Calcium (Lipitor) 10 mg HS PEG Last administered on 05/26/18at 21: 55; Start 05/24/18 at 21:00 Citric Acid/ Sodium Citrate (Bicitra) 10 ml QIDAFTMEAL PEG Last administered on 05/27/18 07:57; Start 05/24/18 at 13:00 Magnesium Hydroxide (Milk Of Magnesia) 2,400 mg PRN DAILY PRN PEG CONSTIPATION ; Start 05/24/18 at 10:45 Rivastigmine (Exelon 13.3mg) 1 patch DAILY TD Last administered on 05/27/18at 07 :58; Start 05/24/18 at 11:30 Simvastatin (Zocor) 10 mg DAILY PO ; Start 05/25/18 at 09:00; Status UNV Insulin Glargine (Lantus) 14 units DAILY SQ Last administered on 05/24/18at 12:36 ; Start 05/24/18 at 11:30; Stop 05/25/18 at 07:19; Status DC Metformin HCl (Glucophage) 500 mg BIDWMEALS PO Last administered on 05/27/18at 07:52; Start 05/24/18 at 11:30 Multivitamins (Thera-Plus Oral Liquid) 5 ml DAILY PEG Last administered on 05/27at 07:57; Start 05/24/18 at 11:30 Nystatin (Nystop) 1 ron PRN TID PRN TP REDNESS UNDER BREAST OR ARM; Start at 21:00 Levetiracetam (Keppra) 500 mg BID PO ; Start 05/24/18 at 11:30; Stop 05/24/18 at 12:10; Status DC Sodium Chloride 1,000 ml @ 125 mls/hr 1X ONCE IV Last administered on at 12:03; Start 05/24/18 at 12:30; Stop 05/24/18 at 20:29; Status DC Levetiracetam (Keppra) 500 mg BID PEG Last administered on 05/27/18at 07:57; Start 05/24/18 at 12:30 Sodium Chloride 1,000 ml @ 125 mls/hr Q8H IV Last administered on 05/27/18at 08 :10; Start 05/24/18 at 23:00 Insulin Glargine (Lantus) 18 units DAILY SQ Last administered on 05/26/18at 09: 34; Start 05/25/18 at 09:00 Vancomycin HCl 1 gm/Sodium Chloride 250 ml @ 250 mls/hr Q12H IV ; Start at 10:00; Stop 05/26/18 at 10:00; Status DC Vancomycin HCl (Vancomycin Trough Level) 1 each 1X ONCE MC ; Start 05/27/18 at 09:30; Stop 05/27/18 at 09:30; Status DC Magnesium Sulfate 50 ml @ 25 mls/hr 1X ONCE IV Last administered on 05/26/18at 10:00; Start 05/26/18 at 08:45; Stop 05/26/18 at 10:44; Status DC Acetaminophen (Tylenol) 650 mg PRN Q6HRS PRN PEG MILD PAIN / TEMP Last administered on 05/26/18at 17:31; Start 05/26/18 at 10:15 Potassium Chloride (KCl Oral Soln) 20 meq 1X ONCE PEG Last administered on 01/03at 10:44; Start 05/26/18 at 10:30; Stop 05/26/18 at 10:36; Status DC Famotidine (Pepcid Vial) 20 mg BID IVP Last administered on 05/27/18at 07:56; Start 05/26/18 at 21:00 Active Scripts Active Levemir Flextouch (Insulin Detemir) 300 Units/3 Ml Insuln.pen 14 Units SQ DAILY Milk Of Magnesia (Magnesium Hydroxide) 2,400 Mg/30 Ml Oral.susp 2,400 Mg PEG PRN DAILY PRN 30 Days [Levetiracetam] 500 MG/5 ML Solution 500 Mg PEG BID 30 Days Reported Nystatin 1 Each Powder.ea. 1 Each MC PRN PRN Famotidine 20 Mg Tablet 20 Mg PEG HS Atorvastatin Calcium 10 Mg Tablet 10 Mg PEG HS Metformin Hcl 500 Mg Tablet 500 Mg PEG BIDWMEALS Sod Citrate-Citric Acid Soln (Citric Acid/Sodium Citrate) 15 Ml Solution 10 Ml PEG QIDAFTMEAL Lansoprazole 30 Mg Capsule.dr 1 Cap PO DAILY Cipro (Ciprofloxacin Hcl) 500 Mg Tablet 1 Tab PO BID 2 Days Tylenol (Acetaminophen) 325 Mg Tablet 650 Mg PEG PRN Q8HRS PRN Multivitamins (Multivitamin) 1 Each Tablet 1 Tab PEG DAILY EXELON 13.3mg/24hr (Rivastigmine) 1 Each Patch.td24 1 Patch TD DAILY Aspirin 81 Mg Tab.chew 81 Mg PO DAILY Simvastatin 10 Mg Tablet 10 Mg PO DAILY Vitals/I & O Vital Sign - Last 24 Hours 05/26/18 05/26/18 05/26/18 05/26/18 10:00 11:00 11:17 12:00 Pulse 110 96 Resp 18 30 B/P (MAP) 70/42 (51) 110/58 (75) Pulse Ox 95 95 94 O2 Delivery Ventilator Ventilator Ventilator Mechanical Ventilator 05/26/18 05/26/18 05/26/18 05/26/18 12:00 12:23 13:00 14:00 Temp 100.1 100.1 Pulse 90 96 84 Resp 18 24 18 B/P (MAP) 96/47 (63) 84/52 (63) 97/44 (61) Pulse Ox 90 94 90 90 O2 Delivery Ventilator Ventilator Ventilator Ventilator 05/26/18 05/26/18 05/26/18 05/26/18 14:55 15:00 16:00 16:00 Temp 99.6 99.6 Pulse 72 72 Resp 16 16 B/P (MAP) 94/46 (62) 99/47 (64) Pulse Ox 91 93 91 O2 Delivery Ventilator Ventilator Ventilator Mechanical Ventilator 05/26/18 05/26/18 05/26/18 05/26/18 17:00 17:09 18:00 19:00 Pulse 70 68 72 Resp 16 16 18 B/P (MAP) 103/57 (72) 106/57 (73) 102/53 (69) Pulse Ox 92 90 92 95 O2 Delivery Ventilator Ventilator Ventilator Ventilator 05/26/18 05/26/18 05/26/18 05/26/18 19:59 20:00 20:00 21:00 Temp 97.5 97.5 Pulse 61 61 Resp 18 16 B/P (MAP) 118/67 (84) 97/50 (66) Pulse Ox 93 92 93 O2 Delivery Ventilator Ventilator Mechanical Ventilator Ventilator 05/26/18 05/26/18 05/26/18 05/26/18 22:00 23:00 23:26 23:59 Temp 97.5 97.5 Pulse 60 60 60 Resp 15 15 18 B/P (MAP) 96/50 (65) 103/56 (72) 109/63 (78) Pulse Ox 93 95 95 95 O2 Delivery Ventilator Ventilator Ventilator Ventilator 05/26/18 05/27/18 05/27/18 05/27/18 23:59 01:00 02:00 02:17 Pulse 60 58 Resp 15 15 B/P (MAP) 110/68 (82) 106/64 (78) Pulse Ox 95 95 92 O2 Delivery Mechanical Ventilator Ventilator Ventilator Ventilator 05/27/18 05/27/18 05/27/18 05/27/18 03:07 04:00 04:00 05:00 Pulse 93 99 65 Resp 15 15 14 B/P (MAP) 109/67 (81) 120/68 (85) 111/71 (84) Pulse Ox 92 92 92 O2 Delivery Ventilator Ventilator Mechanical Ventilator Ventilator 05/27/18 05/27/18 05/27/18 05/27/18 05:33 06:00 06:23 09:07 Pulse 65 65 Resp 14 14 B/P (MAP) 117/71 (86) 117/71 (86) Pulse Ox 92 92 92 96 O2 Delivery Ventilator Ventilator Ventilator Ventilator Intake and Output 05/26/18 05/26/18 05/27/18 15:00 23:00 07:00 Intake Total 510 ml 2867 ml 913 ml Output Total 1355 ml 1255 ml 1325 ml Balance -845 ml 1612 ml -412 ml ARIEL COBB MD May 27, 2018 09:29
--- NOTE | 2018-05-27 09:51 | PDOC ---
Infectious Disease Note Subjective Subjective sedated on vent ROS ROS no n/v/d/sob Vital Sign Vital Signs Vital Signs Date Time Temp Pulse Resp B/P (MAP) Pulse Ox O2 Delivery O2 Flow Rate FiO2 05/27/18 09:07 96 Ventilator 05/27/18 06:23 65 14 117/71 (86) 05/26/18 23:59 97.5 97.5 Physical Exam PHYSICAL EXAM GENERAL: Orally intubated, sedated female, not in any distress. VITAL SIGNS: stable HEENT: Both pupils are round and reacting. No conjunctival lesion. Oral, not much able to visualize since orally intubated. NECK: Supple, no JVP, no lymphadenopathy. LUNGS: Decreased breath sounds bilaterally. HEART: S1, S2 regular. No gallop or murmur. ABDOMEN: Soft, nontender. No organomegaly. EXTREMITIES: No edema or cyanosis. The patient has contractures. NEUROLOGIC: The patient does not respond currently. Anyway, she is sedated, intubated. SKIN: There is no skin breakdown. Labs Lab Laboratory Tests Test 05/26/18 13:09 05/26/18 17:42 05/27/18 07:49 05/27/18 08:40 Glucose (Fingerstick) 302 mg/dL (70-99) 270 mg/dL (70-99) 323 mg/dL (70-99) White Blood Count 4.0 x10^3/uL (4.0-11.0) Red Blood Count 4.16 x10^6/uL (3.50-5.40) Hemoglobin 12.2 g/dL (12.0-15.5) Hematocrit 38.0 % (36.0-47.0) Mean Corpuscular Volume 91 fL (79-100) Mean Corpuscular Hemoglobin 29 pg (25-35) Mean Corpuscular Hemoglobin Concent 32 g/dL (31-37) Red Cell Distribution Width 17.4 % (11.5-14.5) Platelet Count 143 x10^3/uL (140-400) Lactic Acid Level 2.5 mmol/L (0.4-2.0) Magnesium Level 2.1 mg/dL (1.8-2.4) Test 05/27/18 09:00 O2 Saturation 93 % (92-99) Arterial Blood pH 7.47 (7.35-7.45) Arterial Blood pCO2 at Patient Temp 29 mmHg (35-46) Arterial Blood pO2 at Patient Temp 62 mmHg (75-108) Arterial Blood HCO3 21 mmol/L (21-28) Arterial Blood Base Excess -2 mmol/L (-3-3) FiO2 60 Micro SPUTUM CULT RES 2 Final (continued) Beta hemolytic Streptococcus, group B 4+ Penicillin and ampicillin are drugs of choice for treatment of beta-hemolytic streptococcal infections. Susceptibility testing of penicillins and other beta-lactam agents approved by the FDA for treatment of beta-hemolytic streptococcal infections need not be performed routinely because nonsusceptible isolates are extremely rare in any beta-hemolytic streptococcus and have not been reported for Streptococcus pyogenes (group A). (CLSI) SPUTUM CULT RES 3 Final Comment Methicillin - resistant Staphylococcus aureus 4+ Most isolates of Staphylococcus sp. produce a beta- lactamase enzyme rendering them resistant to penicillin. Please contact the laboratory if penicillin is being considered for therapy. * This is a corrected result. * A prior result that was reported as final has been changed. ANTIMICROBIAL SUSCEPTIBILITY Final Comment S = Susceptible; I = Intermediate; R = Resistant P = Positive; N = Negative MICS are expressed in micrograms per mL Antibiotic RSLT#1 RSLT#2 RSLT#3 RSLT#4 Ciprofloxacin S =1 Clindamycin S<=0.25 Erythromycin S =0.5 Gentamicin S<=0.5 Levofloxacin S =1 Linezolid S =2 Oxacillin R =R Rifampin S<=0.5 Tetracycline S<=1 Trimethoprim/Sulfa S<=10 Vancomycin S =1 Performed at: [facility] [address], [place], [place] [id number] Management Accounts Manager: BRENT Kim MD, Phone: [phone] END OF REPORT Objective Assessment 1. Aspiration pneumonia. 2. Sepsis with hypotension, lactic acidosis, requiring vasopressor support. 3. Fever. 4. Respiratory failure. 5. Circulatory failure. 6. Down syndrome. Plan Plan of Care pedrosyn,, start zyvox supportive care check cultures Palliative care in works TERRANCE FLORES MD May 27, 2018 09:51
[2018-05-27 09:53] LABS: ALBUMIN 1.7 g/dL (3.4-5.0); ALBUMIN/GLOBULIN RATIO 0.3 (1.0-1.7); CALCIUM 7.8 mg/dL (8.5-10.1); CREATININE 1.1 mg/dL (0.6-1.0); GFR 61.7; POTASSIUM 4.1 mmol/L (3.5-5.1); TOTAL BILIRUBIN 0.2 mg/dL (0.2-1.0); TOTAL PROTEIN 7.1 g/dL (6.4-8.2)
[2018-05-27] MEDS: INSULIN GLARGINE 300 UNITS/3 ML INSULN.PEN. SQ SCH (10:12)
--- NOTE | 2018-05-27 10:15 | NUR ---
RN notified Dr. Poe of [place] 2.5. BC's drawn. Patient currently on IVF at 125ml/hr. No other IVF orders received. I.D. on case, Antibiotics ordered prior.
--- NOTE | 2018-05-27 13:41 | PDOC2 ---
PALLIATIVE CARE Palliative Care Note Palliative Care Patient remains on Vent 60%, Versed, pressor x1, antibiotics Does not respond to verbal stimuli. Met with Ayesha--mother; sister Deborah, brother Jan. Reviewed medical condition; need for continued ventilator support 60% (greater need for oxygen then at previous meeting) LA elevated; pressor increased/ decrease as appropriate; lack of significant progress. Discussed need for tracheostomy if patient is not able to be extubated in 10-14 days. currently day #4 of intubation. Would not be able to return to care home with vent. Family would like to continue with current treatment. Plan to meet again on Wednesday 4pm. LANCE SALAZAR May 27, 2018 13:41
[2018-05-27] MEDS: ACETAMINOPHEN 650 MG/20.3 ML SOLUTION. PEG PRN (15:04)
[2018-05-27] MEDS: NOREPINEPHRIN 8MG/250ML PREMIX 250 ML IV PRN (19:09)
[2018-05-27] MEDS: ATORVASTATIN CALCIUM 10 MG TABLET. PEG SCH (21:21)
[2018-05-28] VITALS (24 sets, daily range): BP systolic 69–126; BP diastolic 38–70
[2018-05-28] MEDS: PIPERACILLIN/TAZOBACTAM 3.375 GM in IV NORMAL SALINE 50ML 50 ML IV SCH ×5 (00:16→23:55)
[2018-05-28] MEDS: ENOXAPARIN 40 MG/0.4 ML SYRINGE. SQ SCH ×2 (00:16→23:55)
[2018-05-28] MEDS: fentaNYL PF VIAL 100 MCG/2 ML VIAL IV PRN (00:22)
--- NOTE | 2018-05-28 06:55 | PDOC ---
PULMONARY PROGRESS NOTES Subjective on vent, on versed, on levo, on fi02 60%, mod ett secretion, febrile, max t 103.3 Vitals Vital Signs Date Time Temp Pulse Resp B/P (MAP) Pulse Ox O2 Delivery O2 Flow Rate FiO2 05/28/18 06:00 108 21 106/61 (76) 99 Ventilator 05/28/18 05:00 99.6 99.6 Comments ros as mentioned as above discussed w rn, rt, other sys otherwise neg sedated on vent HEENT: Other (nc at perrl nose clear, orally intubated neck no lad, no thyromegaly) Lungs: Other (decrease bs) Cardiovascular: S1, S2 Abdomen: Soft, Non-tender, Other (no mass) Extremities: Other (edema trace) Skin: Warm Labs Laboratory Tests Test 05/26/18 07:00 05/26/18 09:20 05/26/18 09:22 05/26/18 13:09 O2 Saturation 91 % (92-99) Arterial Blood pH 7.50 (7.35-7.45) Arterial Blood pCO2 at Patient Temp 26 mmHg (35-46) Arterial Blood pO2 at Patient Temp 55 mmHg (75-108) Arterial Blood HCO3 20 mmol/L (21-28) Arterial Blood Base Excess -2 mmol/L (-3-3) FiO2 55 White Blood Count 4.7 x10^3/uL (4.0-11.0) Red Blood Count 3.88 x10^6/uL (3.50-5.40) Hemoglobin 11.4 g/dL (12.0-15.5) Hematocrit 35.8 % (36.0-47.0) Mean Corpuscular Volume 92 fL (79-100) Mean Corpuscular Hemoglobin 29 pg (25-35) Mean Corpuscular Hemoglobin Concent 32 g/dL (31-37) Red Cell Distribution Width 17.3 % (11.5-14.5) Platelet Count 149 x10^3/uL (140-400) Neutrophils (%) (Auto) 75 % (31-73) Lymphocytes (%) (Auto) 22 % (24-48) Monocytes (%) (Auto) 3 % (0-9) Eosinophils (%) (Auto) 0 % (0-3) Basophils (%) (Auto) 0 % (0-3) Neutrophils # (Auto) 3.5 x10^3uL (1.8-7.7) Lymphocytes # (Auto) 1.0 x10^3/uL (1.0-4.8) Monocytes # (Auto) 0.1 x10^3/uL (0.0-1.1) Eosinophils # (Auto) 0.0 x10^3/uL (0.0-0.7) Basophils # (Auto) 0.0 x10^3/uL (0.0-0.2) Sodium Level 147 mmol/L (136-145) Potassium Level 3.3 mmol/L (3.5-5.1) Chloride Level 108 mmol/L (98-107) Carbon Dioxide Level 24 mmol/L (21-32) Anion Gap 15 (6-14) Blood Urea Nitrogen 9 mg/dL (7-20) Creatinine 1.1 mg/dL (0.6-1.0) Estimated GFR (Cockcroft-Gault) 61.7 Glucose Level 298 mg/dL (70-99) Calcium Level 7.6 mg/dL (8.5-10.1) Glucose (Fingerstick) 272 mg/dL (70-99) 302 mg/dL (70-99) Test 05/26/18 17:42 05/27/18 07:49 05/27/18 08:40 05/27/18 09:00 Glucose (Fingerstick) 270 mg/dL (70-99) 323 mg/dL (70-99) White Blood Count 4.0 x10^3/uL (4.0-11.0) Red Blood Count 4.16 x10^6/uL (3.50-5.40) Hemoglobin 12.2 g/dL (12.0-15.5) Hematocrit 38.0 % (36.0-47.0) Mean Corpuscular Volume 91 fL (79-100) Mean Corpuscular Hemoglobin 29 pg (25-35) Mean Corpuscular Hemoglobin Concent 32 g/dL (31-37) Red Cell Distribution Width 17.4 % (11.5-14.5) Platelet Count 143 x10^3/uL (140-400) Sodium Level 149 mmol/L (136-145) Potassium Level 4.1 mmol/L (3.5-5.1) Chloride Level 112 mmol/L (98-107) Carbon Dioxide Level 25 mmol/L (21-32) Anion Gap 12 (6-14) Blood Urea Nitrogen 9 mg/dL (7-20) Creatinine 1.1 mg/dL (0.6-1.0) Estimated GFR (Cockcroft-Gault) 61.7 BUN/Creatinine Ratio 8 (6-20) Glucose Level 337 mg/dL (70-99) Lactic Acid Level 2.5 mmol/L (0.4-2.0) Calcium Level 7.8 mg/dL (8.5-10.1) Magnesium Level 2.1 mg/dL (1.8-2.4) Total Bilirubin 0.2 mg/dL (0.2-1.0) Aspartate Amino Transf (AST/SGOT) 71 U/L (15-37) Alanine Aminotransferase (ALT/SGPT) 37 U/L (14-59) Alkaline Phosphatase 109 U/L (46-116) Total Protein 7.1 g/dL (6.4-8.2) Albumin 1.7 g/dL (3.4-5.0) Albumin/Globulin Ratio 0.3 (1.0-1.7) O2 Saturation 93 % (92-99) Arterial Blood pH 7.47 (7.35-7.45) Arterial Blood pCO2 at Patient Temp 29 mmHg (35-46) Arterial Blood pO2 at Patient Temp 62 mmHg (75-108) Arterial Blood HCO3 21 mmol/L (21-28) Arterial Blood Base Excess -2 mmol/L (-3-3) FiO2 60 Test 05/27/18 10:10 05/27/18 12:52 05/27/18 18:15 Glucose (Fingerstick) 253 mg/dL (70-99) 311 mg/dL (70-99) 282 mg/dL (70-99) Laboratory Tests Test 05/27/18 07:49 05/27/18 08:40 05/27/18 09:00 05/27/18 10:10 Glucose (Fingerstick) 323 mg/dL (70-99) 253 mg/dL (70-99) White Blood Count 4.0 x10^3/uL (4.0-11.0) Red Blood Count 4.16 x10^6/uL (3.50-5.40) Hemoglobin 12.2 g/dL (12.0-15.5) Hematocrit 38.0 % (36.0-47.0) Mean Corpuscular Volume 91 fL (79-100) Mean Corpuscular Hemoglobin 29 pg (25-35) Mean Corpuscular Hemoglobin Concent 32 g/dL (31-37) Red Cell Distribution Width 17.4 % (11.5-14.5) Platelet Count 143 x10^3/uL (140-400) Sodium Level 149 mmol/L (136-145) Potassium Level 4.1 mmol/L (3.5-5.1) Chloride Level 112 mmol/L (98-107) Carbon Dioxide Level 25 mmol/L (21-32) Anion Gap 12 (6-14) Blood Urea Nitrogen 9 mg/dL (7-20) Creatinine 1.1 mg/dL (0.6-1.0) Estimated GFR (Cockcroft-Gault) 61.7 BUN/Creatinine Ratio 8 (6-20) Glucose Level 337 mg/dL (70-99) Lactic Acid Level 2.5 mmol/L (0.4-2.0) Calcium Level 7.8 mg/dL (8.5-10.1) Magnesium Level 2.1 mg/dL (1.8-2.4) Total Bilirubin 0.2 mg/dL (0.2-1.0) Aspartate Amino Transf (AST/SGOT) 71 U/L (15-37) Alanine Aminotransferase (ALT/SGPT) 37 U/L (14-59) Alkaline Phosphatase 109 U/L (46-116) Total Protein 7.1 g/dL (6.4-8.2) Albumin 1.7 g/dL (3.4-5.0) Albumin/Globulin Ratio 0.3 (1.0-1.7) O2 Saturation 93 % (92-99) Arterial Blood pH 7.47 (7.35-7.45) Arterial Blood pCO2 at Patient Temp 29 mmHg (35-46) Arterial Blood pO2 at Patient Temp 62 mmHg (75-108) Arterial Blood HCO3 21 mmol/L (21-28) Arterial Blood Base Excess -2 mmol/L (-3-3) FiO2 60 Test 05/27/18 12:52 05/27/18 18:15 Glucose (Fingerstick) 311 mg/dL (70-99) 282 mg/dL (70-99) Medications Active Scripts Medications Dose Route/Sig Max Daily Dose Days Date Category Nystatin 1 Each Powder.ea. 1 Each MC PRN PRN 05/24/18 Reported Famotidine 20 Mg Tablet 20 Mg PEG HS 05/24/18 Reported Atorvastatin Calcium 10 Mg Tablet 10 Mg PEG HS 05/24/18 Reported Metformin Hcl 500 Mg Tablet 500 Mg PEG BIDWMEALS 05/24/18 Reported Sod Citrate-Citric Acid Soln (Citric Acid/Sodium Citrate) 15 Ml Solution 10 Ml PEG QIDAFTMEAL 03/26/17 Reported Lansoprazole 30 Mg Capsule.dr 1 Cap PO DAILY 03/26/17 Reported Cipro (Ciprofloxacin Hcl) 500 Mg Tablet 1 Tab PO BID 2 03/26/17 Reported Tylenol (Acetaminophen) 325 Mg Tablet 650 Mg PEG PRN Q8HRS PRN 03/17/17 Reported Multivitamins (Multivitamin) 1 Each Tablet 1 Tab PEG DAILY 03/17/17 Reported Levemir Flextouch (Insulin Detemir) 300 Units/3 Ml Insuln.pen 14 Units SQ DAILY 09/05/14 Rx Milk Of Magnesia (Magnesium Hydroxide) 2,400 Mg/30 Ml Oral.susp 2,400 Mg PEG PRN DAILY PRN 30 09/05/14 Rx [Levetiracetam] 500 MG/5 ML Solution 500 Mg PEG BID 30 09/05/14 Rx EXELON 13.3mg/24hr (Rivastigmine) 1 Each Patch.td24 1 Patch TD DAILY 08/14/14 Reported Aspirin 81 Mg Tab.chew 81 Mg PO DAILY 03/18/13 Reported Simvastatin 10 Mg Tablet 10 Mg PO DAILY 03/18/13 Reported Comments reviewed, CXR 05/26 b ll infilt atelectasis effusion, worse, ett ok Impression . 1. Acute respiratory failure secondary to septic shock. worse, increased 02 need 2. Septic shock likely source aspiration pneumonia. MRSA and group B strep 3. recurrent fever, ? etiology 4. Down's syndrome. 5. Hypernatremia/ improving Plan . 1. cont vent support, setting reviewed, abg reviewed, on 60% fio2, titrate fi02 to keep sat 94%, not ready for sbt 2. Monitor sodium level. 3. Broad-spectrum antibiotics. fever, fu cx, sputum cx, abx per id, zosyn,, zyvox 4. Follow renal function. 5. Wean pressors to keep map >65 6. Monitor urine output. 7. Monitor white cell count. 8. DVT and stress ulcer prophylaxis. 9. elevate hob Discussed with RN and RT. The patient remains critical. Palliative care is on the case to discuss the goals of care, prognosis poor KWESI PIPER MD May 28, 2018 06:55
[2018-05-28] MEDS: IPRATRPIUM/ALBUTEROL 0.5/2.5MG 3 ML NEBU. NEB SCH ×4 (07:46→20:27)
[2018-05-28] MEDS: metFORMIN 500 MG TABLET PO SCH ×2 (07:53→17:37)
[2018-05-28] MEDS: INSULIN LISPRO 300 UNITS/3 ML INSULN.PEN. SQ SCH ×3 (07:54→17:38)
[2018-05-28] MEDS: ASPIRIN CHEWABLE 81 MG TABLET. PO SCH (08:36)
[2018-05-28] MEDS: CITRIC ACID/SODIUM CITRATE 30 ML SOLUTION. PEG SCH ×4 (08:36→21:22)
[2018-05-28] MEDS: MULTIVITAMINS,THERAPEUTIC 5 ML ORAL LIQUID. PEG SCH (08:37)
[2018-05-28] MEDS: RIVASTIGMINE 13.3MG PATCH. TD SCH (08:37)
[2018-05-28] MEDS: IV 1/2 NORMAL SALINE 1,000 ML IV SCH ×3 (08:38→23:00)
[2018-05-28] MEDS: FAMOTIDINE 20 MG/2 ML VIAL IVP SCH ×2 (08:38→21:22)
[2018-05-28] MEDS: INSULIN GLARGINE 300 UNITS/3 ML INSULN.PEN. SQ SCH (08:40)
--- NOTE | 2018-05-28 08:43 | PDOC ---
PROGRESS NOTES Chief Complaint Chief Complaint Septic shock etiology most likely Related to underlying lung process Severe dehydration hypernatremia secondary to the above Down syndrome History of anxiety dementia, diabetes mellitus type II insulin requiring uncontrolled History of PEG tube. Hypernatremia secondary to water deficit Plan: increased lantus insulin and provide correctional with 7 units for her glycemia of over 300 Continue with supportive measures. Continue ventilatory support as per health care consultant Continue with fluid resuscitation cont home medications currently still on pressors antibiotics [facility] Further recommendations based on the clinical course History of Present Illness History of Present Illness Patient laying in bed in no apparent distress. No acute events reported overnight. Temp 103F yesterday, repeated blood cultures. Intubated and sedated, FiO2 60%, Tube feedings 45 ml/hr No clear etiology for her sepsis other than low effective circulatory volume Vitals Vitals Vital Signs Date Time Temp Pulse Resp B/P (MAP) Pulse Ox O2 Delivery O2 Flow Rate FiO2 05/28/18 07:46 98 Ventilator 05/28/18 06:00 108 21 106/61 (76) 05/28/18 05:00 99.6 99.6 Physical Exam Physical Exam GENERAL: Orally intubated, sedated female, not in any distress. VITAL SIGNS: stable HEENT: Both pupils are round and reacting. No conjunctival lesion. Oral, not much able to visualize since orally intubated. NECK: Supple, no JVP, no lymphadenopathy. LUNGS: Decreased breath sounds bilaterally. HEART: S1, S2 regular. No gallop or murmur. ABDOMEN: Soft, nontender. No organomegaly. EXTREMITIES: No edema or cyanosis. The patient has contractures. NEUROLOGIC: The patient does not respond currently. Anyway, she is sedated, intubated. SKIN: There is no skin breakdown. Lungs: Other (decrease bs) Labs LABS Laboratory Tests Test 05/27/18 09:00 05/27/18 10:10 05/27/18 12:52 05/27/18 18:15 O2 Saturation 93 % (92-99) Arterial Blood pH 7.47 (7.35-7.45) Arterial Blood pCO2 at Patient Temp 29 mmHg (35-46) Arterial Blood pO2 at Patient Temp 62 mmHg (75-108) Arterial Blood HCO3 21 mmol/L (21-28) Arterial Blood Base Excess -2 mmol/L (-3-3) FiO2 60 Glucose (Fingerstick) 253 mg/dL (70-99) 311 mg/dL (70-99) 282 mg/dL (70-99) Test 05/28/18 07:51 Glucose (Fingerstick) 235 mg/dL (70-99) Comment Review of Relevant I have reviewed the following items trey (where applicable) has been applied. Labs Laboratory Tests Test 05/26/18 09:20 05/26/18 09:22 05/26/18 13:09 05/26/18 17:42 White Blood Count 4.7 x10^3/uL (4.0-11.0) Red Blood Count 3.88 x10^6/uL (3.50-5.40) Hemoglobin 11.4 g/dL (12.0-15.5) Hematocrit 35.8 % (36.0-47.0) Mean Corpuscular Volume 92 fL (79-100) Mean Corpuscular Hemoglobin 29 pg (25-35) Mean Corpuscular Hemoglobin Concent 32 g/dL (31-37) Red Cell Distribution Width 17.3 % (11.5-14.5) Platelet Count 149 x10^3/uL (140-400) Neutrophils (%) (Auto) 75 % (31-73) Lymphocytes (%) (Auto) 22 % (24-48) Monocytes (%) (Auto) 3 % (0-9) Eosinophils (%) (Auto) 0 % (0-3) Basophils (%) (Auto) 0 % (0-3) Neutrophils # (Auto) 3.5 x10^3uL (1.8-7.7) Lymphocytes # (Auto) 1.0 x10^3/uL (1.0-4.8) Monocytes # (Auto) 0.1 x10^3/uL (0.0-1.1) Eosinophils # (Auto) 0.0 x10^3/uL (0.0-0.7) Basophils # (Auto) 0.0 x10^3/uL (0.0-0.2) Sodium Level 147 mmol/L (136-145) Potassium Level 3.3 mmol/L (3.5-5.1) Chloride Level 108 mmol/L (98-107) Carbon Dioxide Level 24 mmol/L (21-32) Anion Gap 15 (6-14) Blood Urea Nitrogen 9 mg/dL (7-20) Creatinine 1.1 mg/dL (0.6-1.0) Estimated GFR (Cockcroft-Gault) 61.7 Glucose Level 298 mg/dL (70-99) Calcium Level 7.6 mg/dL (8.5-10.1) Glucose (Fingerstick) 272 mg/dL (70-99) 302 mg/dL (70-99) 270 mg/dL (70-99) Test 05/27/18 07:49 05/27/18 08:40 05/27/18 09:00 05/27/18 10:10 Glucose (Fingerstick) 323 mg/dL (70-99) 253 mg/dL (70-99) White Blood Count 4.0 x10^3/uL (4.0-11.0) Red Blood Count 4.16 x10^6/uL (3.50-5.40) Hemoglobin 12.2 g/dL (12.0-15.5) Hematocrit 38.0 % (36.0-47.0) Mean Corpuscular Volume 91 fL (79-100) Mean Corpuscular Hemoglobin 29 pg (25-35) Mean Corpuscular Hemoglobin Concent 32 g/dL (31-37) Red Cell Distribution Width 17.4 % (11.5-14.5) Platelet Count 143 x10^3/uL (140-400) Sodium Level 149 mmol/L (136-145) Potassium Level 4.1 mmol/L (3.5-5.1) Chloride Level 112 mmol/L (98-107) Carbon Dioxide Level 25 mmol/L (21-32) Anion Gap 12 (6-14) Blood Urea Nitrogen 9 mg/dL (7-20) Creatinine 1.1 mg/dL (0.6-1.0) Estimated GFR (Cockcroft-Gault) 61.7 BUN/Creatinine Ratio 8 (6-20) Glucose Level 337 mg/dL (70-99) Lactic Acid Level 2.5 mmol/L (0.4-2.0) Calcium Level 7.8 mg/dL (8.5-10.1) Magnesium Level 2.1 mg/dL (1.8-2.4) Total Bilirubin 0.2 mg/dL (0.2-1.0) Aspartate Amino Transf (AST/SGOT) 71 U/L (15-37) Alanine Aminotransferase (ALT/SGPT) 37 U/L (14-59) Alkaline Phosphatase 109 U/L (46-116) Total Protein 7.1 g/dL (6.4-8.2) Albumin 1.7 g/dL (3.4-5.0) Albumin/Globulin Ratio 0.3 (1.0-1.7) O2 Saturation 93 % (92-99) Arterial Blood pH 7.47 (7.35-7.45) Arterial Blood pCO2 at Patient Temp 29 mmHg (35-46) Arterial Blood pO2 at Patient Temp 62 mmHg (75-108) Arterial Blood HCO3 21 mmol/L (21-28) Arterial Blood Base Excess -2 mmol/L (-3-3) FiO2 60 Test 05/27/18 12:52 05/27/18 18:15 05/28/18 07:51 Glucose (Fingerstick) 311 mg/dL (70-99) 282 mg/dL (70-99) 235 mg/dL (70-99) Laboratory Tests Test 05/27/18 09:00 05/27/18 10:10 05/27/18 12:52 05/27/18 18:15 O2 Saturation 93 % (92-99) Arterial Blood pH 7.47 (7.35-7.45) Arterial Blood pCO2 at Patient Temp 29 mmHg (35-46) Arterial Blood pO2 at Patient Temp 62 mmHg (75-108) Arterial Blood HCO3 21 mmol/L (21-28) Arterial Blood Base Excess -2 mmol/L (-3-3) FiO2 60 Glucose (Fingerstick) 253 mg/dL (70-99) 311 mg/dL (70-99) 282 mg/dL (70-99) Test 05/28/18 07:51 Glucose (Fingerstick) 235 mg/dL (70-99) Microbiology 05/23/18 Blood Culture - Preliminary, Resulted NO GROWTH AFTER 4 DAYS 05/23/18 Stool Culture - Final, Resulted 05/23/18 Stool Culture Result 1 (GRACIE) - Final, Resulted 05/23/18 Campylobacter Antigen Assay - Preliminary, Resulted 05/23/18 Campylobactor Result 1 - Preliminary, Resulted 05/23/18 Shiga Toxin Test - Final, Resulted 05/23/18 - Final, Complete 05/23/18 - Final, Complete 05/23/18 - Final, Complete 05/23/18 Gram Stain Evaluation - Final, Complete 05/23/18 Sputum Culture - Final, Complete 05/23/18 Sputum Result 1 - Final, Complete 05/23/18 Sputum Result 2 - Final, Complete 05/23/18 - Final, Complete 05/23/18 Antimicrobic Susceptibility - Final, Complete Medications Current Medications Sodium Chloride (Normal Saline Flush) 10 ml QSHIFT PRN IV AFTER MEDS AND BLOOD DRAWS; Start 05/23/18 at 20:00 Piperacillin Sod/ Tazobactam Sod 4.5 gm/Sodium Chloride 100 ml @ 200 mls/hr 1X ONCE IV Last administered on 05/23/18at 20:34; Start 05/23/18 at 20:00; Stop 05/23/18 at 20:29; Status DC Vancomycin HCl (Vanco Per Pharmacy) 1 each 1X ONCE MC Last administered on 05/23at 20:00; Start 05/23/18 at 20:00; Stop 05/23/18 at 22:03; Status DC Propofol 100 ml @ 0 mls/hr CONT PRN IV SEE PROTOCOL; Start 05/23/18 at 20:00 Fentanyl Citrate (Fentanyl 2ml Vial) 25 mcg PRN Q1HR PRN IV SEE COMMENTS; Start 05/23/18 at 20:00 Fentanyl Citrate (Fentanyl 2ml Vial) 50 mcg PRN Q1HR PRN IV SEE COMMENTS Last administered on 05/28/18at 00:22; Start 05/23/18 at 20:00 Chlorhexidine Gluconate (Peridex) 15 ml BID MM Last administered on 05/24/18at 00 :05; Start 05/23/18 at 21:00; Stop 05/24/18 at 08:09; Status DC Acetaminophen (Tylenol Supp) 650 mg 1X ONCE [place] Last administered on 05/23/18at 20:33; Start 05/23/18 at 20:00; Stop 05/23/18 at 20:04; Status DC Sodium Chloride 1,000 ml @ 1,000 mls/hr 1X ONCE IV Last administered on at 20:41; Start 05/23/18 at 20:00; Stop 05/23/18 at 20:59; Status DC Midazolam HCl (Versed) 5 mg 1X ONCE IV Last administered on 05/23/18at 20:33; Start 05/23/18 at 20:15; Stop 05/23/18 at 20:16; Status DC Lorazepam (Ativan) 2 mg STK-MED ONCE .ROUTE ; Start 05/23/18 at 20:04; Stop at 20:05; Status DC Norepinephrine Bitartrate 250 ml @ 0 mls/hr CONT PRN IV PER PROTOCOL Last administered on 05/27/18at 19:09; Start 05/23/18 at 20:30 Sodium Chloride 1,000 ml @ 126 mls/hr Q7H57M IV ; Start 05/23/18 at 20:40; Stop 05/24/18 at 20:39; Status DC Sodium Chloride 1,000 ml @ 1,000 mls/hr 1X ONCE IV Last administered on at 20:50; Start 05/23/18 at 20:45; Stop 05/23/18 at 21:44; Status DC Sodium Chloride 1,000 ml @ 1,000 mls/hr 1X ONCE IV ; Start 05/23/18 at 21:15; Stop 05/23/18 at 21:16; Status DC Propofol 50 ml @ As Directed STK-MED ONCE IV ; Start 05/23/18 at 21:02; Stop 05/23 at 21:03; Status DC Propofol 50 ml @ 1.082 mls/ hr 1X ONCE IV Last administered on 05/23/18 21:12 ; Start 05/23/18 at 21:15; Stop 05/25/18 at 19:27; Status DC Vancomycin HCl 1.75 gm/Sodium Chloride 500 ml @ 250 mls/hr 1X ONCE IV Last administered on 05/23/18 21:23; Start 05/23/18 at 21:30; Stop 05/23/18 at 23:29; Status DC Insulin Human Regular (HumuLIN R VIAL) 14 unit 1X ONCE SQ Last administered on 05/23/18at 21:46; Start 05/23/18 at 21:15; Stop 05/23/18 at 21:16; Status DC Sodium Chloride 1,000 ml @ 75 mls/hr 1X ONCE IV Last administered on 21:23; Start 05/23/18 at 21:15; Stop 05/24/18 at 10:34; Status DC Etomidate (Amidate) 20 mg STK-MED ONCE IV ; Start 05/23/18 at 21:32; Stop at 21:33; Status DC Succinylcholine Chloride (Anectine) 200 mg STK-MED ONCE .ROUTE ; Start 05/23/18 at 21:32; Stop 05/23/18 at 21:33; Status DC Vancomycin HCl 1 gm/Sodium Chloride 250 ml @ 250 mls/hr Q24H IV Last administered on 05/25/18at 21:37; Start 05/24/18 at 21:30; Stop 05/26/18 at 01:00 ; Status DC Vancomycin HCl (Vancomycin Trough Level) 1 each 1X ONCE MC Last administered on 05/25/18at 21:00; Start 05/25/18 at 21:00; Stop 05/26/18 at 08:58; Status DC Sodium Chloride 500 ml @ 500 mls/hr 1X ONCE IV Last administered on 05/23/18at 22:45; Start 05/23/18 at 22:45; Stop 05/23/18 at 23:44; Status DC Albuterol/ Ipratropium (Duoneb) 3 ml RTQID NEB Last administered on 05/28/18at 07:46; Start 05/24/18 at 08:00 Fentanyl Citrate 30 ml @ 0 mls/hr CONT PRN IV SEE PROTOCOL; Start 05/23/18 at 22 :45 Midazolam HCl 100 ml @ 0 mls/hr CONT PRN IV SEE PROTOCOL Last administered on at 19:09; Start 05/23/18 at 22:45 Sodium Chloride 500 ml @ 500 mls/hr 1X ONCE IV Last administered on 05/23/18at 23:33; Start 05/23/18 at 23:00; Stop 05/23/18 at 23:59; Status DC Insulin Human Lispro (HumaLOG) 0-9 UNITS TIDWMEALS SQ Last administered on 05/28at 07:54; Start 05/24/18 at 00:00 Dextrose (Dextrose 50%-Water Syringe) 12.5 gm PRN Q15MIN PRN IV SEE COMMENTS; Start 05/23/18 at 23:30 Enoxaparin Sodium (Lovenox 40mg Syringe) 40 mg Q24H SQ Last administered on at 00:16; Start 05/23/18 at 23:30 Piperacillin Sod/ Tazobactam Sod (Zosyn Per Pharmacy) 1 each PRN DAILY PRN MC SEE COMMENTS; Start 05/23/18 at 23:30 Vancomycin HCl (Vanco Per Pharmacy) 1 each PRN DAILY PRN MC SEE COMMENTS Last administered on 05/26/18at 01:02; Start 05/23/18 at 23:30; Stop 05/26/18 at 08:58 ; Status DC Piperacillin Sod/ Tazobactam Sod 3.375 gm/Sodium Chloride 50 ml @ 100 mls/hr Q6HRS IV Last administered on 05/28/18at 05:34; Start 05/24/18 at 06:00 Acetaminophen (Tylenol Supp) 650 mg PRN Q6HRS PRN [place] MILD PAIN / TEMP Last administered on 05/26/18at 02:16; Start 05/24/18 at 04:45 Acetaminophen (Tylenol) 650 mg PRN Q8HRS PRN PO MILD PAIN / TEMP Last administered on 05/25/18at 00:01; Start 05/24/18 at 10:45 Aspirin (Children'S Aspirin) 81 mg DAILY PO Last administered on 05/28/18at 08: 36; Start 05/24/18 at 12:00 Atorvastatin Calcium (Lipitor) 10 mg HS PEG Last administered on 05/27/18at 21: 21; Start 05/24/18 at 21:00 Citric Acid/ Sodium Citrate (Bicitra) 10 ml QIDAFTMEAL PEG Last administered on 05/28/18at 08:36; Start 05/24/18 at 13:00 Magnesium Hydroxide (Milk Of Magnesia) 2,400 mg PRN DAILY PRN PEG CONSTIPATION ; Start 05/24/18 at 10:45 Rivastigmine (Exelon 13.3mg) 1 patch DAILY TD Last administered on 05/28/18at 08 :37; Start 05/24/18 at 11:30 Simvastatin (Zocor) 10 mg DAILY PO ; Start 05/25/18 at 09:00; Status UNV Insulin Glargine (Lantus) 14 units DAILY SQ Last administered on 05/24/18at 12:36 ; Start 05/24/18 at 11:30; Stop 05/25/18 at 07:19; Status DC Metformin HCl (Glucophage) 500 mg BIDWMEALS PO Last administered on 05/28/18at 07:53; Start 05/24/18 at 11:30 Multivitamins (Thera-Plus Oral Liquid) 5 ml DAILY PEG Last administered on 05/28at 08:37; Start 05/24/18 at 11:30 Nystatin (Nystop) 1 ron PRN TID PRN TP REDNESS UNDER BREAST OR ARM; Start at 21:00 Levetiracetam (Keppra) 500 mg BID PO ; Start 05/24/18 at 11:30; Stop 05/24/18 at 12:10; Status DC Sodium Chloride 1,000 ml @ 125 mls/hr 1X ONCE IV Last administered on at 12:03; Start 05/24/18 at 12:30; Stop 05/24/18 at 20:29; Status DC Levetiracetam (Keppra) 500 mg BID PEG Last administered on 05/28/18at 08:37; Start 05/24/18 at 12:30 Sodium Chloride 1,000 ml @ 125 mls/hr Q8H IV Last administered on 05/28/18at 08 :38; Start 05/24/18 at 23:00 Insulin Glargine (Lantus) 18 units DAILY SQ Last administered on 05/28/18at 08: 40; Start 05/25/18 at 09:00 Vancomycin HCl 1 gm/Sodium Chloride 250 ml @ 250 mls/hr Q12H IV ; Start at 10:00; Stop 05/26/18 at 10:00; Status DC Vancomycin HCl (Vancomycin Trough Level) 1 each 1X ONCE MC ; Start 05/27/18 at 09:30; Stop 05/27/18 at 09:30; Status DC Magnesium Sulfate 50 ml @ 25 mls/hr 1X ONCE IV Last administered on 05/26/18at 10:00; Start 05/26/18 at 08:45; Stop 05/26/18 at 10:44; Status DC Acetaminophen (Tylenol) 650 mg PRN Q6HRS PRN PEG MILD PAIN / TEMP Last administered on 05/27/18at 15:04; Start 05/26/18 at 10:15 Potassium Chloride (KCl Oral Soln) 20 meq 1X ONCE PEG Last administered on 01/03at 10:44; Start 05/26/18 at 10:30; Stop 05/26/18 at 10:36; Status DC Famotidine (Pepcid Vial) 20 mg BID IVP Last administered on 05/28/18at 08:38; Start 05/26/18 at 21:00 Linezolid/Dextrose 300 ml @ 300 mls/hr Q12HR IV Last administered on at 08:38; Start 05/27/18 at 10:30 Active Scripts Active Levemir Flextouch (Insulin Detemir) 300 Units/3 Ml Insuln.pen 14 Units SQ DAILY Milk Of Magnesia (Magnesium Hydroxide) 2,400 Mg/30 Ml Oral.susp 2,400 Mg PEG PRN DAILY PRN 30 Days [Levetiracetam] 500 MG/5 ML Solution 500 Mg PEG BID 30 Days Reported Nystatin 1 Each Powder.ea. 1 Each MC PRN PRN Famotidine 20 Mg Tablet 20 Mg PEG HS Atorvastatin Calcium 10 Mg Tablet 10 Mg PEG HS Metformin Hcl 500 Mg Tablet 500 Mg PEG BIDWMEALS Sod Citrate-Citric Acid Soln (Citric Acid/Sodium Citrate) 15 Ml Solution 10 Ml PEG QIDAFTMEAL Lansoprazole 30 Mg Capsule.dr 1 Cap PO DAILY Cipro (Ciprofloxacin Hcl) 500 Mg Tablet 1 Tab PO BID 2 Days Tylenol (Acetaminophen) 325 Mg Tablet 650 Mg PEG PRN Q8HRS PRN Multivitamins (Multivitamin) 1 Each Tablet 1 Tab PEG DAILY EXELON 13.3mg/24hr (Rivastigmine) 1 Each Patch.td24 1 Patch TD DAILY Aspirin 81 Mg Tab.chew 81 Mg PO DAILY Simvastatin 10 Mg Tablet 10 Mg PO DAILY Vitals/I & O Vital Sign - Last 24 Hours 05/27/18 05/27/18 05/27/18 05/27/18 09:00 09:07 10:00 11:00 Temp 101.1 101.1 Pulse 98 100 96 Resp 24 20 20 B/P (MAP) 117/62 (80) 103/61 (75) 122/53 (76) Pulse Ox 96 96 96 94 O2 Delivery Ventilator Ventilator Ventilator Ventilator 05/27/18 05/27/18 05/27/18 05/27/18 12:00 12:00 12:50 13:00 Temp 99.4 99.4 Pulse 104 104 Resp 21 21 B/P (MAP) 93/63 (73) 93/63 (73) Pulse Ox 94 92 94 O2 Delivery Ventilator Mechanical Ventilator Ventilator Ventilator 05/27/18 05/27/18 05/27/18 05/27/18 14:00 15:00 15:55 16:00 Temp 103.3 103.3 Pulse 120 120 120 Resp 26 B/P (MAP) 92/67 (75) 113/66 (82) 89/49 (62) Pulse Ox 92 94 95 95 O2 Delivery Ventilator Ventilator Ventilator Ventilator 05/27/18 05/27/18 05/27/18 05/27/18 16:00 17:00 18:00 19:00 Temp 98.9 98.8 98.9 98.8 Pulse 108 102 112 Resp 28 B/P (MAP) 96/54 (68) 100/63 (75) 95/56 (69) Pulse Ox 96 97 97 O2 Delivery Mechanical Ventilator Ventilator Ventilator Ventilator 05/27/18 05/27/18 05/27/18 05/27/18 19:30 19:43 20:00 20:00 Pulse 110 110 Resp 31 B/P (MAP) 81/50 (60) 92/45 (61) Pulse Ox 95 94 95 O2 Delivery Ventilator Ventilator Mechanical Ventilator Ventilator 05/27/18 05/27/18 05/27/18 05/27/18 21:00 22:00 22:43 23:00 Pulse 119 112 110 Resp 28 B/P (MAP) 119/63 (81) 111/57 (75) 89/53 (65) Pulse Ox 96 95 99 99 O2 Delivery Ventilator Ventilator Ventilator Ventilator 05/28/18 05/28/18 05/28/18 05/28/18 00:00 00:15 01:00 01:47 Temp 99.0 99.0 Pulse 94 106 Resp 18 17 B/P (MAP) 119/63 (81) 106/61 (76) Pulse Ox 99 100 100 O2 Delivery Ventilator Mechanical Ventilator Ventilator Ventilator 05/28/18 05/28/18 05/28/18 05/28/18 02:00 03:00 03:47 04:00 Pulse 94 102 102 Resp 25 B/P (MAP) 118/63 (81) 114/66 (82) 107/57 (74) Pulse Ox 100 100 99 O2 Delivery Ventilator Ventilator Mechanical Ventilator Ventilator 05/28/18 05/28/18 05/28/18 05/28/18 05:00 05:00 06:00 07:46 Temp 99.6 99.6 Pulse 98 108 Resp 24 21 B/P (MAP) 110/62 (78) 106/61 (76) Pulse Ox 100 100 99 98 O2 Delivery Ventilator Ventilator Ventilator Ventilator Intake and Output 05/27/18 05/27/18 05/28/18 15:00 23:00 07:00 Intake Total 1050 ml 2839.8 ml 2445 ml Output Total 1045 ml 855 ml 825 ml Balance 5 ml 1984.8 ml 1620 ml ARIEL COBB MD May 28, 2018 08:43
--- NOTE | 2018-05-28 09:26 | PDOC ---
Infectious Disease Note Subjective Subjective Intubated and sedated, FiO2 60% Tube feedings 45 ml/hr + diarrhea s/p rectal tube placement No fevers since yesterday so far, Tmaxx 103.3 Vital Sign Vital Signs Vital Signs Date Time Temp Pulse Resp B/P (MAP) Pulse Ox O2 Delivery O2 Flow Rate FiO2 05/28/18 07:46 98 Ventilator 05/28/18 06:00 108 21 106/61 (76) 05/28/18 05:00 99.6 99.6 Physical Exam PHYSICAL EXAM GENERAL: Orally intubated, sedated, not in any distress. HEENT: Pupils small, ETT, OGT LUNGS: Decreased breath sounds bilaterally. HEART: S1, S2 regular. No gallop or murmur. ABDOMEN: Soft, + BS. Rectal tube in place : Tamayo EXTREMITIES: Generalized edema, LE contractures NEUROLOGIC: Sedated on vent SKIN: No rash PIV Labs Lab Laboratory Tests Test 05/27/18 10:10 05/27/18 12:52 05/27/18 18:15 05/28/18 07:51 Glucose (Fingerstick) 253 mg/dL (70-99) 311 mg/dL (70-99) 282 mg/dL (70-99) 235 mg/dL (70-99) Micro 05/27. BLOOD CULTURE Preliminary NO GROWTH AFTER 1 DAY Objective Assessment Aspiration pneumonia. MRSA and group B strep Sepsis with hypotension, lactic acidosis, requiring vasopressor support. Fever. Respiratory failure. Circulatory failure. Down syndrome. Diarrhea Plan Plan of Care Zyvox and Zosyn BC NGTD Monitor labs/temp Supportive care Palliative care in works D/w nursing Criticall ill Patient seen and examined. Chart reviewed in detail. Case d/w [employer]. Agree with above plan. LOUISA MEDINA [employer] May 28, 2018 09:26 VENESSA BARRIENTOS MD May 28, 2018 20:26
[2018-05-28 09:52] LABS: BASE EXCESS ABG -2 mmol/L (-3-3); HCO3 ABG 22 mmol/L (21-28); PCO2 ABG 33 mmHg (35-46); PO2 ABG 65 mmHg (75-108); SAT O2 ABG 93 % (92-99)
[2018-05-28 09:56] LABS: FIO2 ABG 60
[2018-05-28] MEDS: MIDAZOLAM 100mg/100ml NS BAG 100 ML IV PRN (11:23)
[2018-05-28] MEDS: ACETAMINOPHEN 650 MG/20.3 ML SOLUTION. PEG PRN (19:13)
[2018-05-28] MEDS: ATORVASTATIN CALCIUM 10 MG TABLET. PEG SCH (21:23)
[2018-05-29] VITALS (27 sets, daily range): BP systolic 67–148; BP diastolic 44–84
[2018-05-29] MEDS: NOREPINEPHRIN 8MG/250ML PREMIX 250 ML IV PRN (03:18)
[2018-05-29] MEDS: PIPERACILLIN/TAZOBACTAM 3.375 GM in IV NORMAL SALINE 50ML 50 ML IV SCH ×4 (05:32→23:15)
--- NOTE | 2018-05-29 06:29 | PDOC ---
PULMONARY PROGRESS NOTES Subjective on vent, on versed, on levo, on fi02 50%, small ett secretion, febrile, max t 102 Vitals Vital Signs Date Time Temp Pulse Resp B/P (MAP) Pulse Ox O2 Delivery O2 Flow Rate FiO2 05/29/18 05:30 99 Ventilator 05/29/18 05:00 90 22 123/78 (93) 05/29/18 04:00 98.3 98.3 Comments ros as mentioned as above discussed w rn, rt, other sys otherwise neg sedated on vent HEENT: Other (nc at perrl nose clear, orally intubated neck no lad, no thyromegaly) Lungs: Crackles, Other (decrease bs) Cardiovascular: S1, S2 Abdomen: Soft, Non-tender, Other (no mass) Extremities: Other (edema trace) Skin: Warm Labs Laboratory Tests Test 05/27/18 07:49 05/27/18 08:40 05/27/18 09:00 05/27/18 10:10 Glucose (Fingerstick) 323 mg/dL (70-99) 253 mg/dL (70-99) White Blood Count 4.0 x10^3/uL (4.0-11.0) Red Blood Count 4.16 x10^6/uL (3.50-5.40) Hemoglobin 12.2 g/dL (12.0-15.5) Hematocrit 38.0 % (36.0-47.0) Mean Corpuscular Volume 91 fL (79-100) Mean Corpuscular Hemoglobin 29 pg (25-35) Mean Corpuscular Hemoglobin Concent 32 g/dL (31-37) Red Cell Distribution Width 17.4 % (11.5-14.5) Platelet Count 143 x10^3/uL (140-400) Sodium Level 149 mmol/L (136-145) Potassium Level 4.1 mmol/L (3.5-5.1) Chloride Level 112 mmol/L (98-107) Carbon Dioxide Level 25 mmol/L (21-32) Anion Gap 12 (6-14) Blood Urea Nitrogen 9 mg/dL (7-20) Creatinine 1.1 mg/dL (0.6-1.0) Estimated GFR (Cockcroft-Gault) 61.7 BUN/Creatinine Ratio 8 (6-20) Glucose Level 337 mg/dL (70-99) Lactic Acid Level 2.5 mmol/L (0.4-2.0) Calcium Level 7.8 mg/dL (8.5-10.1) Magnesium Level 2.1 mg/dL (1.8-2.4) Total Bilirubin 0.2 mg/dL (0.2-1.0) Aspartate Amino Transf (AST/SGOT) 71 U/L (15-37) Alanine Aminotransferase (ALT/SGPT) 37 U/L (14-59) Alkaline Phosphatase 109 U/L (46-116) Total Protein 7.1 g/dL (6.4-8.2) Albumin 1.7 g/dL (3.4-5.0) Albumin/Globulin Ratio 0.3 (1.0-1.7) O2 Saturation 93 % (92-99) Arterial Blood pH 7.47 (7.35-7.45) Arterial Blood pCO2 at Patient Temp 29 mmHg (35-46) Arterial Blood pO2 at Patient Temp 62 mmHg (75-108) Arterial Blood HCO3 21 mmol/L (21-28) Arterial Blood Base Excess -2 mmol/L (-3-3) FiO2 60 Test 05/27/18 12:52 05/27/18 18:15 05/28/18 07:51 05/28/18 09:35 Glucose (Fingerstick) 311 mg/dL (70-99) 282 mg/dL (70-99) 235 mg/dL (70-99) O2 Saturation 93 % (92-99) Arterial Blood pH 7.44 (7.35-7.45) Arterial Blood pCO2 at Patient Temp 33 mmHg (35-46) Arterial Blood pO2 at Patient Temp 65 mmHg (75-108) Arterial Blood HCO3 22 mmol/L (21-28) Arterial Blood Base Excess -2 mmol/L (-3-3) FiO2 60 Test 05/28/18 11:41 05/28/18 17:35 Glucose (Fingerstick) 263 mg/dL (70-99) 202 mg/dL (70-99) Laboratory Tests Test 05/28/18 07:51 05/28/18 09:35 05/28/18 11:41 05/28/18 17:35 Glucose (Fingerstick) 235 mg/dL (70-99) 263 mg/dL (70-99) 202 mg/dL (70-99) O2 Saturation 93 % (92-99) Arterial Blood pH 7.44 (7.35-7.45) Arterial Blood pCO2 at Patient Temp 33 mmHg (35-46) Arterial Blood pO2 at Patient Temp 65 mmHg (75-108) Arterial Blood HCO3 22 mmol/L (21-28) Arterial Blood Base Excess -2 mmol/L (-3-3) FiO2 60 Medications Active Scripts Medications Dose Route/Sig Max Daily Dose Days Date Category Nystatin 1 Each Powder.ea. 1 Each MC PRN PRN 05/24/18 Reported Famotidine 20 Mg Tablet 20 Mg PEG HS 05/24/18 Reported Atorvastatin Calcium 10 Mg Tablet 10 Mg PEG HS 05/24/18 Reported Metformin Hcl 500 Mg Tablet 500 Mg PEG BIDWMEALS 05/24/18 Reported Sod Citrate-Citric Acid Soln (Citric Acid/Sodium Citrate) 15 Ml Solution 10 Ml PEG QIDAFTMEAL 03/26/17 Reported Lansoprazole 30 Mg Capsule.dr 1 Cap PO DAILY 03/26/17 Reported Cipro (Ciprofloxacin Hcl) 500 Mg Tablet 1 Tab PO BID 2 03/26/17 Reported Tylenol (Acetaminophen) 325 Mg Tablet 650 Mg PEG PRN Q8HRS PRN 03/17/17 Reported Multivitamins (Multivitamin) 1 Each Tablet 1 Tab PEG DAILY 03/17/17 Reported Levemir Flextouch (Insulin Detemir) 300 Units/3 Ml Insuln.pen 14 Units SQ DAILY 09/05/14 Rx Milk Of Magnesia (Magnesium Hydroxide) 2,400 Mg/30 Ml Oral.susp 2,400 Mg PEG PRN DAILY PRN 30 09/05/14 Rx [Levetiracetam] 500 MG/5 ML Solution 500 Mg PEG BID 30 09/05/14 Rx EXELON 13.3mg/24hr (Rivastigmine) 1 Each Patch.td24 1 Patch TD DAILY 08/14/14 Reported Aspirin 81 Mg Tab.chew 81 Mg PO DAILY 03/18/13 Reported Simvastatin 10 Mg Tablet 10 Mg PO DAILY 03/18/13 Reported Comments reviewed, CXR b ll infilt atelectasis effusion, worse, ett ok Impression . 1. Acute respiratory failure secondary to septic shock. worse, increased 02 need 2. Septic shock likely source aspiration pneumonia. MRSA and group B strep 3. recurrent fever, ? etiology, per id 4. Down's syndrome. 5. Hypernatremia/ improving Plan . 1. cont vent support, setting reviewed, abg reviewed, on 50% fio2, titrate fi02 to keep sat 94%, not ready for sbt, am cxr, abg 2. Monitor sodium level. 3. Broad-spectrum antibiotics. fever, fu cx, sputum cx, abx per id, zosyn,, zyvox 4. Follow renal function. 5. Wean pressors to keep map >65 6. Monitor urine output. 7. Monitor white cell count. 8. DVT and stress ulcer prophylaxis. 9. elevate hob 10. pepcid and lovenox for prophylaxis Discussed with RN and RT. The patient remains critical. Palliative care is on the case to discuss the goals of care, prognosis poor KWESI PIPER MD May 29, 2018 06:28
[2018-05-29] MEDS: MIDAZOLAM 100mg/100ml NS BAG 100 ML IV PRN ×2 (08:04→23:09)
[2018-05-29] MEDS: IPRATRPIUM/ALBUTEROL 0.5/2.5MG 3 ML NEBU. NEB SCH ×4 (08:10→19:58)
--- NOTE | 2018-05-29 08:40 | PDOC ---
Infectious Disease Note Subjective Subjective Intubated and sedated, FiO2 down to 50% Hypotensive, Levophed 7 mcg Tube feedings 45 ml/hr Diarrhea Fevers Tmax 102.0 ROS ROS unobtainable Vital Sign Vital Signs Vital Signs Date Time Temp Pulse Resp B/P (MAP) Pulse Ox O2 Delivery O2 Flow Rate FiO2 05/29/18 08:09 112/69 (83) 05/29/18 08:06 96 Ventilator 05/29/18 07:56 99.8 101 17 99.8 Physical Exam PHYSICAL EXAM GENERAL: Orally intubated, sedated, not in any distress. HEENT: Pupils small, ETT, OGT LUNGS: Clear anteriorly HEART: S1, S2 regular. No gallop or murmur. ABDOMEN: Obese, soft, + BS. rectal tube out : Tamayo EXTREMITIES: Generalized edema, LE contractures NEUROLOGIC: Sedated on vent SKIN: No rash PIV Labs Lab Laboratory Tests Test 05/28/18 09:35 05/28/18 11:41 05/28/18 17:35 O2 Saturation 93 % (92-99) Arterial Blood pH 7.44 (7.35-7.45) Arterial Blood pCO2 at Patient Temp 33 mmHg (35-46) Arterial Blood pO2 at Patient Temp 65 mmHg (75-108) Arterial Blood HCO3 22 mmol/L (21-28) Arterial Blood Base Excess -2 mmol/L (-3-3) FiO2 60 Glucose (Fingerstick) 263 mg/dL (70-99) 202 mg/dL (70-99) Micro 05/27. BLOOD CULTURE Preliminary NO GROWTH AFTER 1 DAY Objective Assessment Aspiration pneumonia. MRSA and group B strep Sepsis with hypotension, lactic acidosis, requiring vasopressor support. Fever. Respiratory failure. Circulatory failure. Down syndrome. Diarrhea Plan Plan of Care Zyvox and Zosyn BC NGTD Monitor labs/temp Supportive care check c. diff May place PICC Palliative care in works D/w nursing Critically ill Patient seen and examined. Chart reviewed in detail. Case discussed with HELP DESK ASSOCIATE. Agree with above plan. LOUISA MEDINA AUDIT ANALYST May 29, 2018 08:40 VENESSA BARRIENTOS MD May 29, 2018 18:48
[2018-05-29] MEDS: metFORMIN 500 MG TABLET PO SCH ×2 (09:21→16:35)
[2018-05-29] MEDS: MULTIVITAMINS,THERAPEUTIC 5 ML ORAL LIQUID. PEG SCH (09:21)
[2018-05-29] MEDS: FAMOTIDINE 20 MG/2 ML VIAL IVP SCH ×2 (09:21→20:59)
[2018-05-29] MEDS: CITRIC ACID/SODIUM CITRATE 30 ML SOLUTION. PEG SCH ×4 (09:21→20:59)
[2018-05-29] MEDS: ASPIRIN CHEWABLE 81 MG TABLET. PO SCH (09:21)
[2018-05-29] MEDS: RIVASTIGMINE 13.3MG PATCH. TD SCH (09:21)
[2018-05-29] MEDS: INSULIN LISPRO 300 UNITS/3 ML INSULN.PEN. SQ SCH ×3 (09:22→16:37)
[2018-05-29] MEDS: INSULIN GLARGINE 300 UNITS/3 ML INSULN.PEN. SQ SCH (09:23)
[2018-05-29 09:29] LABS: ALBUMIN 1.4 g/dL (3.4-5.0); ALBUMIN/GLOBULIN RATIO 0.3 (1.0-1.7); CALCIUM 7.9 mg/dL (8.5-10.1); GFR 68.9; POTASSIUM 4.1 mmol/L (3.5-5.1); TOTAL BILIRUBIN 0.3 mg/dL (0.2-1.0); TOTAL PROTEIN 6.8 g/dL (6.4-8.2)
[2018-05-29 09:51] LABS: BASE EXCESS ABG 2 mmol/L (-3-3); HCO3 ABG 25 mmol/L (21-28); PCO2 ABG 34 mmHg (35-46); PO2 ABG 60 mmHg (75-108); SAT O2 ABG 93 % (92-99)
[2018-05-29 09:53] LABS: FIO2 ABG 50
--- NOTE | 2018-05-29 13:09 | RAD ---
AP chest. HISTORY: PICC line AP view was taken of the chest. There is a right arm PICC line which stops at the superior vena cava in good position. There are diffuse bilateral infiltrates with little change. There are pleural effusions. Endotracheal tube remains in good position. Pacemaker is unchanged. IMPRESSION: 1. Right arm PICC line in good position. 2. No change bilateral infiltrates. Electronically signed by: Vlad Vasquez MD (05/29/2018 1:05 PM) [facility]
[2018-05-29] MEDS: IV 1/2 NORMAL SALINE 1,000 ML IV SCH ×2 (14:28→15:00)
--- NOTE | 2018-05-29 18:14 | PDOC ---
PROGRESS NOTES Chief Complaint Chief Complaint Septic shock etiology most likely Related to underlying lung process Severe dehydration hypernatremia secondary to the above Down syndrome History of anxiety dementia, diabetes mellitus type II insulin requiring uncontrolled History of PEG tube. Hypernatremia secondary to water deficit Plan: increased lantus insulin and provide correctional with 7 units for her glycemia of over 300 Continue with supportive measures. Continue ventilatory support as per sr solutions consultant Continue with fluid resuscitation cont home medications currently still on pressors antibiotics [facility] Further recommendations based on the clinical course History of Present Illness History of Present Illness no apparent distress. No acute events reported overnight. fever yesterday, repeated blood cultures. No clear etiology for her sepsis other than low effective circulatory volume Vitals Vitals Vital Signs Date Time Temp Pulse Resp B/P (MAP) Pulse Ox O2 Delivery O2 Flow Rate FiO2 05/29/18 18:00 92 17 92/60 (71) 97 Ventilator 05/29/18 16:00 98.6 98.6 Physical Exam Physical Exam GENERAL: Orally intubated, sedated, not in any distress. HEENT: Pupils small, ETT, OGT LUNGS: Clear anteriorly HEART: S1, S2 regular. No gallop or murmur. ABDOMEN: Obese, soft, + BS. rectal tube out : Tamayo EXTREMITIES: Generalized edema, LE contractures NEUROLOGIC: Sedated on vent SKIN: No rash PIV Lungs: Crackles, Other (decrease bs) Labs LABS Laboratory Tests Test 05/29/18 08:55 05/29/18 09:20 05/29/18 09:40 05/29/18 12:03 Sodium Level 147 mmol/L (136-145) Potassium Level 4.1 mmol/L (3.5-5.1) Chloride Level 108 mmol/L (98-107) Carbon Dioxide Level 28 mmol/L (21-32) Anion Gap 11 (6-14) Blood Urea Nitrogen 8 mg/dL (7-20) Creatinine 1.0 mg/dL (0.6-1.0) Estimated GFR (Cockcroft-Gault) 68.9 BUN/Creatinine Ratio 8 (6-20) Glucose Level 336 mg/dL (70-99) Calcium Level 7.9 mg/dL (8.5-10.1) Total Bilirubin 0.3 mg/dL (0.2-1.0) Aspartate Amino Transf (AST/SGOT) 85 U/L (15-37) Alanine Aminotransferase (ALT/SGPT) 43 U/L (14-59) Alkaline Phosphatase 142 U/L (46-116) Total Protein 6.8 g/dL (6.4-8.2) Albumin 1.4 g/dL (3.4-5.0) Albumin/Globulin Ratio 0.3 (1.0-1.7) Glucose (Fingerstick) 317 mg/dL (70-99) 299 mg/dL (70-99) O2 Saturation 93 % (92-99) Arterial Blood pH 7.49 (7.35-7.45) Arterial Blood pCO2 at Patient Temp 34 mmHg (35-46) Arterial Blood pO2 at Patient Temp 60 mmHg (75-108) Arterial Blood HCO3 25 mmol/L (21-28) Arterial Blood Base Excess 2 mmol/L (-3-3) FiO2 50 Test 05/29/18 16:31 Glucose (Fingerstick) 251 mg/dL (70-99) Assessment and Plan Assessmemt and Plan PICC line today Comment Review of Relevant I have reviewed the following items trey (where applicable) has been applied. Labs Laboratory Tests Test 05/27/18 18:15 05/28/18 07:51 05/28/18 09:35 05/28/18 11:41 Glucose (Fingerstick) 282 mg/dL (70-99) 235 mg/dL (70-99) 263 mg/dL (70-99) O2 Saturation 93 % (92-99) Arterial Blood pH 7.44 (7.35-7.45) Arterial Blood pCO2 at Patient Temp 33 mmHg (35-46) Arterial Blood pO2 at Patient Temp 65 mmHg (75-108) Arterial Blood HCO3 22 mmol/L (21-28) Arterial Blood Base Excess -2 mmol/L (-3-3) FiO2 60 Test 05/28/18 17:35 05/29/18 08:55 05/29/18 09:20 05/29/18 09:40 Glucose (Fingerstick) 202 mg/dL (70-99) 317 mg/dL (70-99) Sodium Level 147 mmol/L (136-145) Potassium Level 4.1 mmol/L (3.5-5.1) Chloride Level 108 mmol/L (98-107) Carbon Dioxide Level 28 mmol/L (21-32) Anion Gap 11 (6-14) Blood Urea Nitrogen 8 mg/dL (7-20) Creatinine 1.0 mg/dL (0.6-1.0) Estimated GFR (Cockcroft-Gault) 68.9 BUN/Creatinine Ratio 8 (6-20) Glucose Level 336 mg/dL (70-99) Calcium Level 7.9 mg/dL (8.5-10.1) Total Bilirubin 0.3 mg/dL (0.2-1.0) Aspartate Amino Transf (AST/SGOT) 85 U/L (15-37) Alanine Aminotransferase (ALT/SGPT) 43 U/L (14-59) Alkaline Phosphatase 142 U/L (46-116) Total Protein 6.8 g/dL (6.4-8.2) Albumin 1.4 g/dL (3.4-5.0) Albumin/Globulin Ratio 0.3 (1.0-1.7) O2 Saturation 93 % (92-99) Arterial Blood pH 7.49 (7.35-7.45) Arterial Blood pCO2 at Patient Temp 34 mmHg (35-46) Arterial Blood pO2 at Patient Temp 60 mmHg (75-108) Arterial Blood HCO3 25 mmol/L (21-28) Arterial Blood Base Excess 2 mmol/L (-3-3) FiO2 50 Test 05/29/18 12:03 05/29/18 16:31 Glucose (Fingerstick) 299 mg/dL (70-99) 251 mg/dL (70-99) Laboratory Tests Test 05/29/18 08:55 05/29/18 09:20 05/29/18 09:40 05/29/18 12:03 Sodium Level 147 mmol/L (136-145) Potassium Level 4.1 mmol/L (3.5-5.1) Chloride Level 108 mmol/L (98-107) Carbon Dioxide Level 28 mmol/L (21-32) Anion Gap 11 (6-14) Blood Urea Nitrogen 8 mg/dL (7-20) Creatinine 1.0 mg/dL (0.6-1.0) Estimated GFR (Cockcroft-Gault) 68.9 BUN/Creatinine Ratio 8 (6-20) Glucose Level 336 mg/dL (70-99) Calcium Level 7.9 mg/dL (8.5-10.1) Total Bilirubin 0.3 mg/dL (0.2-1.0) Aspartate Amino Transf (AST/SGOT) 85 U/L (15-37) Alanine Aminotransferase (ALT/SGPT) 43 U/L (14-59) Alkaline Phosphatase 142 U/L (46-116) Total Protein 6.8 g/dL (6.4-8.2) Albumin 1.4 g/dL (3.4-5.0) Albumin/Globulin Ratio 0.3 (1.0-1.7) Glucose (Fingerstick) 317 mg/dL (70-99) 299 mg/dL (70-99) O2 Saturation 93 % (92-99) Arterial Blood pH 7.49 (7.35-7.45) Arterial Blood pCO2 at Patient Temp 34 mmHg (35-46) Arterial Blood pO2 at Patient Temp 60 mmHg (75-108) Arterial Blood HCO3 25 mmol/L (21-28) Arterial Blood Base Excess 2 mmol/L (-3-3) FiO2 50 Test 05/29/18 16:31 Glucose (Fingerstick) 251 mg/dL (70-99) Microbiology 05/27/18 Blood Culture - Preliminary, Resulted NO GROWTH AFTER 2 DAYS 05/23/18 Stool Culture - Final, Complete 05/23/18 Stool Culture Result 1 (GRACIE) - Final, Complete 05/23/18 Campylobacter Antigen Assay - Final, Complete 05/23/18 Campylobactor Result 1 - Final, Complete 05/23/18 Shiga Toxin Test - Final, Complete 05/23/18 - Final, Complete 05/23/18 - Final, Complete 05/23/18 - Final, Complete 05/23/18 Gram Stain Evaluation - Final, Complete 05/23/18 Sputum Culture - Final, Complete 05/23/18 Sputum Result 1 - Final, Complete 05/23/18 Sputum Result 2 - Final, Complete 05/23/18 - Final, Complete 05/23/18 Antimicrobic Susceptibility - Final, Complete Medications Current Medications Sodium Chloride (Normal Saline Flush) 10 ml QSHIFT PRN IV AFTER MEDS AND BLOOD DRAWS; Start 05/23/18 at 20:00 Piperacillin Sod/ Tazobactam Sod 4.5 gm/Sodium Chloride 100 ml @ 200 mls/hr 1X ONCE IV Last administered on 05/23/18at 20:34; Start 05/23/18 at 20:00; Stop 05/23/18 at 20:29; Status DC Vancomycin HCl (Vanco Per Pharmacy) 1 each 1X ONCE MC Last administered on 05/23at 20:00; Start 05/23/18 at 20:00; Stop 05/23/18 at 22:03; Status DC Propofol 100 ml @ 0 mls/hr CONT PRN IV SEE PROTOCOL; Start 05/23/18 at 20:00 Fentanyl Citrate (Fentanyl 2ml Vial) 25 mcg PRN Q1HR PRN IV SEE COMMENTS; Start 05/23/18 at 20:00 Fentanyl Citrate (Fentanyl 2ml Vial) 50 mcg PRN Q1HR PRN IV SEE COMMENTS Last administered on 05/28/18at 00:22; Start 05/23/18 at 20:00 Chlorhexidine Gluconate (Peridex) 15 ml BID MM Last administered on 05/24/18at 00 :05; Start 05/23/18 at 21:00; Stop 05/24/18 at 08:09; Status DC Acetaminophen (Tylenol Supp) 650 mg 1X ONCE NC Last administered on 05/23/18at 20:33; Start 05/23/18 at 20:00; Stop 05/23/18 at 20:04; Status DC Sodium Chloride 1,000 ml @ 1,000 mls/hr 1X ONCE IV Last administered on at 20:41; Start 05/23/18 at 20:00; Stop 05/23/18 at 20:59; Status DC Midazolam HCl (Versed) 5 mg 1X ONCE IV Last administered on 05/23/18at 20:33; Start 05/23/18 at 20:15; Stop 05/23/18 at 20:16; Status DC Lorazepam (Ativan) 2 mg STK-MED ONCE .ROUTE ; Start 05/23/18 at 20:04; Stop at 20:05; Status DC Norepinephrine Bitartrate 250 ml @ 0 mls/hr CONT PRN IV PER PROTOCOL Last administered on 05/29/18at 03:18; Start 05/23/18 at 20:30 Sodium Chloride 1,000 ml @ 126 mls/hr Q7H57M IV ; Start 05/23/18 at 20:40; Stop 05/24/18 at 20:39; Status DC Sodium Chloride 1,000 ml @ 1,000 mls/hr 1X ONCE IV Last administered on at 20:50; Start 05/23/18 at 20:45; Stop 05/23/18 at 21:44; Status DC Sodium Chloride 1,000 ml @ 1,000 mls/hr 1X ONCE IV ; Start 05/23/18 at 21:15; Stop 05/23/18 at 21:16; Status DC Propofol 50 ml @ As Directed STK-MED ONCE IV ; Start 05/23/18 at 21:02; Stop 05/23 at 21:03; Status DC Propofol 50 ml @ 1.082 mls/ hr 1X ONCE IV Last administered on 05/23/18at 21:12 ; Start 05/23/18 at 21:15; Stop 05/25/18 at 19:27; Status DC Vancomycin HCl 1.75 gm/Sodium Chloride 500 ml @ 250 mls/hr 1X ONCE IV Last administered on 05/23/18at 21:23; Start 05/23/18 at 21:30; Stop 05/23/18 at 23:29; Status DC Insulin Human Regular (HumuLIN R VIAL) 14 unit 1X ONCE SQ Last administered on 05/23/18at 21:46; Start 05/23/18 at 21:15; Stop 05/23/18 at 21:16; Status DC Sodium Chloride 1,000 ml @ 75 mls/hr 1X ONCE IV Last administered on at 21:23; Start 05/23/18 at 21:15; Stop 05/24/18 at 10:34; Status DC Etomidate (Amidate) 20 mg STK-MED ONCE IV ; Start 05/23/18 at 21:32; Stop at 21:33; Status DC Succinylcholine Chloride (Anectine) 200 mg STK-MED ONCE .ROUTE ; Start 05/23/18 at 21:32; Stop 05/23/18 at 21:33; Status DC Vancomycin HCl 1 gm/Sodium Chloride 250 ml @ 250 mls/hr Q24H IV Last administered on 05/25/18at 21:37; Start 05/24/18 at 21:30; Stop 05/26/18 at 01:00 ; Status DC Vancomycin HCl (Vancomycin Trough Level) 1 each 1X ONCE MC Last administered on 05/25/18at 21:00; Start 05/25/18 at 21:00; Stop 05/26/18 at 08:58; Status DC Sodium Chloride 500 ml @ 500 mls/hr 1X ONCE IV Last administered on 05/23/18at 22:45; Start 05/23/18 at 22:45; Stop 05/23/18 at 23:44; Status DC Albuterol/ Ipratropium (Duoneb) 3 ml RTQID NEB Last administered on 05/29/18at 15:44; Start 05/24/18 at 08:00 Fentanyl Citrate 30 ml @ 0 mls/hr CONT PRN IV SEE PROTOCOL; Start 05/23/18 at 22 :45 Midazolam HCl 100 ml @ 0 mls/hr CONT PRN IV SEE PROTOCOL Last administered on at 08:04; Start 05/23/18 at 22:45 Sodium Chloride 500 ml @ 500 mls/hr 1X ONCE IV Last administered on 05/23/18at 23:33; Start 05/23/18 at 23:00; Stop 05/23/18 at 23:59; Status DC Insulin Human Lispro (HumaLOG) 0-9 UNITS TIDWMEALS SQ Last administered on 05/29at 16:37; Start 05/24/18 at 00:00 Dextrose (Dextrose 50%-Water Syringe) 12.5 gm PRN Q15MIN PRN IV SEE COMMENTS; Start 05/23/18 at 23:30 Enoxaparin Sodium (Lovenox 40mg Syringe) 40 mg Q24H SQ Last administered on at 23:55; Start 05/23/18 at 23:30 Piperacillin Sod/ Tazobactam Sod (Zosyn Per Pharmacy) 1 each PRN DAILY PRN MC SEE COMMENTS; Start 05/23/18 at 23:30 Vancomycin HCl (Vanco Per Pharmacy) 1 each PRN DAILY PRN MC SEE COMMENTS Last administered on 05/26/18at 01:02; Start 05/23/18 at 23:30; Stop 05/26/18 at 08:58 ; Status DC Piperacillin Sod/ Tazobactam Sod 3.375 gm/Sodium Chloride 50 ml @ 100 mls/hr Q6HRS IV Last administered on 05/29/18at 16:35; Start 05/24/18 at 06:00 Acetaminophen (Tylenol Supp) 650 mg PRN Q6HRS PRN NC MILD PAIN / TEMP Last administered on 05/26/18 02:16; Start 05/24/18 at 04:45 Acetaminophen (Tylenol) 650 mg PRN Q8HRS PRN PO MILD PAIN / TEMP Last administered on 05/25/18at 00:01; Start 05/24/18 at 10:45 Aspirin (Children'S Aspirin) 81 mg DAILY PO Last administered on 05/29/18 09: 21; Start 05/24/18 at 12:00 Atorvastatin Calcium (Lipitor) 10 mg HS PEG Last administered on 05/28/18 21: 23; Start 05/24/18 at 21:00 Citric Acid/ Sodium Citrate (Bicitra) 10 ml QIDAFTMEAL PEG Last administered on 05/29/18 16:38; Start 05/24/18 at 13:00 Magnesium Hydroxide (Milk Of Magnesia) 2,400 mg PRN DAILY PRN PEG CONSTIPATION ; Start 05/24/18 at 10:45 Rivastigmine (Exelon 13.3mg) 1 patch DAILY TD Last administered on 05/29/18 09 :21; Start 05/24/18 at 11:30 Simvastatin (Zocor) 10 mg DAILY PO ; Start 05/25/18 at 09:00; Status UNV Insulin Glargine (Lantus) 14 units DAILY SQ Last administered on 05/24/18 12:36 ; Start 05/24/18 at 11:30; Stop 05/25/18 at 07:19; Status DC Metformin HCl (Glucophage) 500 mg BIDWMEALS PO Last administered on 05/29/18 16:35; Start 05/24/18 at 11:30 Multivitamins (Thera-Plus Oral Liquid) 5 ml DAILY PEG Last administered on 05/29 09:21; Start 05/24/18 at 11:30 Nystatin (Nystop) 1 ron PRN TID PRN TP REDNESS UNDER BREAST OR ARM; Start at 21:00 Levetiracetam (Keppra) 500 mg BID PO ; Start 05/24/18 at 11:30; Stop 05/24/18 at 12:10; Status DC Sodium Chloride 1,000 ml @ 125 mls/hr 1X ONCE IV Last administered on 4/9/ 19at 12:03; Start 05/24/18 at 12:30; Stop 05/24/18 at 20:29; Status DC Levetiracetam (Keppra) 500 mg BID PEG Last administered on 05/29/18 09:21; Start 05/24/18 at 12:30 Sodium Chloride 1,000 ml @ 125 mls/hr Q8H IV Last administered on 05/29/18at 14 :28; Start 05/24/18 at 23:00 Insulin Glargine (Lantus) 18 units DAILY SQ Last administered on 05/29/18 09: 23; Start 05/25/18 at 09:00; Stop 05/29/18 at 11:53; Status DC Vancomycin HCl 1 gm/Sodium Chloride 250 ml @ 250 mls/hr Q12H IV ; Start at 10:00; Stop 05/26/18 at 10:00; Status DC Vancomycin HCl (Vancomycin Trough Level) 1 each 1X ONCE MC ; Start 05/27/18 at 09:30; Stop 05/27/18 at 09:30; Status DC Magnesium Sulfate 50 ml @ 25 mls/hr 1X ONCE IV Last administered on 05/26/18at 10:00; Start 05/26/18 at 08:45; Stop 05/26/18 at 10:44; Status DC Acetaminophen (Tylenol) 650 mg PRN Q6HRS PRN PEG MILD PAIN / TEMP Last administered on 05/28/18at 19:13; Start 05/26/18 at 10:15 Potassium Chloride (KCl Oral Soln) 20 meq 1X ONCE PEG Last administered on 01/03at 10:44; Start 05/26/18 at 10:30; Stop 05/26/18 at 10:36; Status DC Famotidine (Pepcid Vial) 20 mg BID IVP Last administered on 05/29/18 09:21; Start 05/26/18 at 21:00 Linezolid/Dextrose 300 ml @ 300 mls/hr Q12HR IV Last administered on at 09:29; Start 05/27/18 at 10:30 Insulin Glargine (Lantus) 22 units DAILY SQ ; Start 05/30/18 at 09:00 Active Scripts Active Levemir Flextouch (Insulin Detemir) 300 Units/3 Ml Insuln.pen 14 Units SQ DAILY Milk Of Magnesia (Magnesium Hydroxide) 2,400 Mg/30 Ml Oral.susp 2,400 Mg PEG PRN DAILY PRN 30 Days [Levetiracetam] 500 MG/5 ML Solution 500 Mg PEG BID 30 Days Reported Nystatin 1 Each Powder.ea. 1 Each MC PRN PRN Famotidine 20 Mg Tablet 20 Mg PEG HS Atorvastatin Calcium 10 Mg Tablet 10 Mg PEG HS Metformin Hcl 500 Mg Tablet 500 Mg PEG BIDWMEALS Sod Citrate-Citric Acid Soln (Citric Acid/Sodium Citrate) 15 Ml Solution 10 Ml PEG QIDAFTMEAL Lansoprazole 30 Mg Capsule.dr 1 Cap PO DAILY Cipro (Ciprofloxacin Hcl) 500 Mg Tablet 1 Tab PO BID 2 Days Tylenol (Acetaminophen) 325 Mg Tablet 650 Mg PEG PRN Q8HRS PRN Multivitamins (Multivitamin) 1 Each Tablet 1 Tab PEG DAILY EXELON 13.3mg/24hr (Rivastigmine) 1 Each Patch.td24 1 Patch TD DAILY Aspirin 81 Mg Tab.chew 81 Mg PO DAILY Simvastatin 10 Mg Tablet 10 Mg PO DAILY Vitals/I & O Vital Sign - Last 24 Hours 05/28/18 05/28/18 05/28/18 05/28/18 19:00 19:44 20:00 20:27 Temp 102.0 102.0 Pulse 109 98 Resp 19 21 B/P (MAP) 86/52 (63) 69/38 (48) Pulse Ox 98 98 99 O2 Delivery Ventilator Mechanical Ventilator Ventilator Ventilator 05/28/18 05/28/18 05/28/18 05/28/18 21:00 22:00 22:18 23:00 Temp 100.5 100.5 Pulse 88 86 82 Resp 22 20 18 B/P (MAP) 104/48 (66) 106/48 (67) 98/50 (66) Pulse Ox 95 94 94 95 O2 Delivery Ventilator Ventilator Ventilator Ventilator 05/28/18 05/28/18 05/29/18 05/29/18 23:50 23:50 00:00 01:00 Temp 98.6 98.6 Pulse 82 82 Resp 17 18 B/P (MAP) 133/63 (86) 113/59 (77) Pulse Ox 96 95 99 O2 Delivery Mechanical Ventilator Ventilator Ventilator Ventilator 05/29/18 05/29/18 05/29/18/14/19 01:14 02:00 03:00 03:05 Pulse 86 86 Resp 18 18 B/P (MAP) 133/77 (95) 119/74 (89) Pulse Ox 94 95 97 99 O2 Delivery Ventilator Ventilator Ventilator Ventilator 05/29/18 05/29/18 05/29/18 05/29/18 04:00 04:05 05:00 05:30 Temp 98.3 98.3 Pulse 102 90 Resp 24 22 B/P (MAP) 122/81 (95) 123/78 (93) Pulse Ox 98 98 99 O2 Delivery Ventilator Mechanical Ventilator Ventilator Ventilator 05/29/18 05/29/18 05/29/18 05/29/18 06:00 07:00 07:56 08:00 Temp 99.8 99.8 Pulse 90 98 101 Resp 22 21 17 B/P (MAP) 112/66 (81) 126/78 (94) 104/70 (81) Pulse Ox 96 97 99 O2 Delivery Ventilator Ventilator Ventilator Mechanical Ventilator 05/29/18 05/29/18 05/29/18 05/29/18 08:06 08:09 09:00 09:36 Pulse 111 Resp 20 B/P (MAP) 112/69 (83) 122/72 (89) 121/69 (86) Pulse Ox 96 95 O2 Delivery Ventilator Ventilator 05/29/18 05/29/18 05/29/18 05/29/18 10:00 10:11 11:00 12:00 Pulse 103 91 Resp 20 24 B/P (MAP) 103/63 (76) 103/63 (76) Pulse Ox 98 99 99 O2 Delivery Ventilator Ventilator Ventilator Mechanical Ventilator 05/29/18 05/29/18 05/29/18 05/29/18 12:00 12:43 13:00 13:50 Temp 99.3 99.3 Pulse 92 84 Resp 22 15 B/P (MAP) 99/52 (68) 80/48 (59) Pulse Ox 98 96 99 99 O2 Delivery Ventilator Ventilator Ventilator Ventilator 05/29/18 05/29/18 05/29/18 05/29/18 14:00 15:00 15:44 16:00 Temp 98.6 98.6 Pulse 81 80 96 Resp 16 20 15 B/P (MAP) 92/59 (70) 110/64 (79) 100/79 (86) Pulse Ox 97 97 97 98 O2 Delivery Ventilator Ventilator Ventilator Ventilator 05/29/18 05/29/18 05/29/18 05/29/18 16:00 17:04 17:15 18:00 Pulse 91 91 91 Resp 16 16 16 B/P (MAP) 67/44 (52) 88/44 (59) 67/44 (52) Pulse Ox 95 95 95 O2 Delivery Mechanical Ventilator Ventilator Ventilator Ventilator 05/29/18 18:00 Pulse 92 Resp 17 B/P (MAP) 92/60 (71) Pulse Ox 97 O2 Delivery Ventilator Intake and Output 05/28/18 05/28/18 05/29/18 15:00 23:00 07:00 Intake Total 680 ml 2995 ml 2201 ml Output Total 1755 ml 1425 ml 1475 ml Balance -1075 ml 1570 ml 726 ml MARY BRANCH MD May 29, 2018 18:14
[2018-05-29] MEDS: ATORVASTATIN CALCIUM 10 MG TABLET. PEG SCH (20:59)
[2018-05-29] MEDS: ENOXAPARIN 40 MG/0.4 ML SYRINGE. SQ SCH (23:13)
[2018-05-30] VITALS (25 sets, daily range): BP systolic 76–121; BP diastolic 41–77
[2018-05-30] MEDS: IV 1/2 NORMAL SALINE 1,000 ML IV SCH ×3 (01:44→20:41)
[2018-05-30] MEDS: PIPERACILLIN/TAZOBACTAM 3.375 GM in IV NORMAL SALINE 50ML 50 ML IV SCH ×3 (05:06→17:02)
[2018-05-30] MEDS: NOREPINEPHRIN 8MG/250ML PREMIX 250 ML IV PRN (07:34)
[2018-05-30] MEDS: IPRATRPIUM/ALBUTEROL 0.5/2.5MG 3 ML NEBU. NEB SCH ×4 (07:38→19:55)
[2018-05-30 07:53] LABS: BASO % 0 % (0-3); EOS % 1 % (0-3); HEMATOCRIT 22.8 % (36.0-47.0); LYMPH # 1.2 x10^3/uL (1.0-4.8); LYMPH % 24 % (24-48); MEAN CORPUSCULAR HEMOGLOBIN 29 pg (25-35); MEAN CORPUSCULAR HGB CONC 33 g/dL (31-37); MEAN CORPUSCULAR VOLUME 90 fL (79-100); MONO # 0.3 x10^3/uL (0.0-1.1); MONO % 6 % (0-9); NEUT # 3.6 x10^3uL (1.8-7.7); NEUT % 70 % (31-73); PLATELET COUNT 172 x10^3/uL (140-400); RED BLOOD COUNT 2.54 x10^6/uL (3.50-5.40); RED CELL DISTRIBUTION WIDTH 17.1 % (11.5-14.5); WHITE BLOOD COUNT 5.1 x10^3/uL (4.0-11.0)
[2018-05-30 07:57] LABS: HEMOGLOBIN 7.5 g/dL (12.0-15.5)
--- NOTE | 2018-05-30 08:03 | RAD ---
Portable chest, 05/30/2018: HISTORY: Respiratory distress Comparison is made to yesterday's study. The patient is moderately rotated to the left. The ET tube tip lies well above the gayathri. A right PICC extends into the inferior aspect of the superior vena cava. A left-sided transvenous pacing device is again noted with 2 leads extending into the right heart. The heart size is unchanged. There are moderate ongoing bilateral pulmonary infiltrates compatible with pulmonary edema and/or pneumonia. There appears to be pleural fluid contributing to the basilar opacities. There is no evidence of pneumothorax. No new abnormality is seen. IMPRESSION: No significant change since yesterday's exam. Electronically signed by: Sherwin Oneill MD (05/30/2018 8:00 AM) [facility]
[2018-05-30 08:07] LABS: ALBUMIN/GLOBULIN RATIO 0.2 (1.0-1.7); CALCIUM 6.7 mg/dL (8.5-10.1); CREATININE 0.7 mg/dL (0.6-1.0); POTASSIUM 3.4 mmol/L (3.5-5.1); TOTAL BILIRUBIN 0.2 mg/dL (0.2-1.0); TOTAL PROTEIN 5.2 g/dL (6.4-8.2)
--- NOTE | 2018-05-30 08:19 | PDOC ---
Infectious Disease Note Subjective: Subjective Intubated and sedated, FiO2 down to 50% Hypotensive, Levophed 7 mcg Tube feedings 45 ml/hr Diarrhea Fever continues though pattern improved HB dropped to 7 Vital Signs: Vital Signs Vital Signs Date Time Temp Pulse Resp B/P (MAP) Pulse Ox O2 Delivery O2 Flow Rate FiO2 05/30/18 08:05 95 16 84/42 (56) 94 Ventilator 05/30/18 07:00 99.5 99.5 Physical Exam: PHYSICAL EXAM GENERAL: Orally intubated, sedated, not in any distress. HEENT: Pupils small, ETT, OGT LUNGS: Clear anteriorly HEART: S1, S2 regular. No gallop or murmur. ABDOMEN: Obese, soft, + BS. rectal tube out : Tamayo EXTREMITIES: Generalized edema, LE contractures NEUROLOGIC: Sedated on vent SKIN: No rash PIV Medications: Inpatient Meds: Current Medications Medications (Trade) Dose Ordered Sig/Charmaine Start Time Stop Time Status Last Admin Dose Admin Acetaminophen (Tylenol Supp) 650 mg PRN Q6HRS PRN 05/24/18 04:45 05/26/18 02:16 650 MG Acetaminophen (Tylenol) 650 mg PRN Q6HRS PRN 05/26/18 10:15 05/28/18 19:13 650 MG Albuterol/ Ipratropium (Duoneb) 3 ml RTQID 05/24/18 08:00 05/30/18 07:38 3 ML Aspirin (Children'S Aspirin) 81 mg DAILY 05/24/18 12:00 05/29/18 09:21 81 MG Atorvastatin Calcium (Lipitor) 10 mg HS 05/24/18 21:00 05/29/18 20:59 10 MG Chlorhexidine Gluconate (Peridex) 15 ml BID 05/23/18 21:00 05/24/18 08:09 DC 05/24/18 00:05 15 ML Citric Acid/ Sodium Citrate (Bicitra) 10 ml QIDAFTMEAL 05/24/18 13:00 05/29/18 20:59 10 ML Dextrose (Dextrose 50%-Water Syringe) 12.5 gm PRN Q15MIN PRN 05/23/18 23:30 Enoxaparin Sodium (Lovenox 40mg Syringe) 40 mg Q24H 05/23/18 23:30 05/29/18 23:13 40 MG Etomidate (Amidate) 20 mg STK-MED ONCE 05/23/18 21:32 05/23/18 21:33 DC Famotidine (Pepcid Vial) 20 mg BID 05/26/18 21:00 05/29/18 20:59 20 MG Fentanyl Citrate 30 ml @ 0 mls/hr CONT PRN 05/23/18 22:45 Fentanyl Citrate (Fentanyl 2ml Vial) 50 mcg PRN Q1HR PRN 05/23/18 20:00 05/28/18 00:22 50 MCG Insulin Glargine (Lantus) 22 units DAILY 05/30/18 09:00 Insulin Human Lispro (HumaLOG) 0-9 UNITS TIDWMEALS 05/24/18 00:00 05/29/18 16:37 7 UNITS Insulin Human Regular (HumuLIN R VIAL) 14 unit 1X ONCE 05/23/18 21:15 05/23/18 21:16 DC 05/23/18 21:46 14 UNIT Levetiracetam (Keppra) 500 mg BID 05/24/18 12:30 05/29/18 20:59 500 MG Linezolid/Dextrose 300 ml @ 300 mls/hr Q12HR 05/27/18 10:30 05/29/18 20:57 300 MLS/HR Lorazepam (Ativan) 2 mg STK-MED ONCE 05/23/18 20:04 05/23/18 20:05 DC Magnesium Hydroxide (Milk Of Magnesia) 2,400 mg PRN DAILY PRN 05/24/18 10:45 Magnesium Sulfate 50 ml @ 25 mls/hr 1X ONCE 05/26/18 08:45 05/26/18 10:44 DC 05/26/18 10:00 25 MLS/HR Metformin HCl (Glucophage) 500 mg BIDWMEALS 05/24/18 11:30 05/29/18 16:35 500 MG Midazolam HCl 100 ml @ 0 mls/hr CONT PRN 05/23/18 22:45 05/29/18 23:09 6 MLS/HR Midazolam HCl (Versed) 5 mg 1X ONCE 05/23/18 20:15 05/23/18 20:16 DC 05/23/18 20:33 5 MG Multivitamins (Thera-Plus Oral Liquid) 5 ml DAILY 05/24/18 11:30 05/29/18 09:21 5 ML Norepinephrine Bitartrate 250 ml @ 0 mls/hr CONT PRN 05/23/18 20:30 05/30/18 07:34 7.5 MLS/HR Nystatin (Nystop) 1 ron PRN TID PRN 05/24/18 21:00 Piperacillin Sod/ Tazobactam Sod (Zosyn Per Pharmacy) 1 each PRN DAILY PRN 05/23/18 23:30 Piperacillin Sod/ Tazobactam Sod 3.375 gm/Sodium Chloride 50 ml @ 100 mls/hr Q6HRS 05/24/18 06:00 05/30/18 05:06 100 MLS/HR Piperacillin Sod/ Tazobactam Sod 4.5 gm/Sodium Chloride 100 ml @ 200 mls/hr 1X ONCE 05/23/18 20:00 05/23/18 20:29 DC 05/23/18 20:34 200 MLS/HR Potassium Chloride (KCl Oral Soln) 20 meq 1X ONCE 05/26/18 10:30 05/26/18 10:36 DC 05/26/18 10:44 20 MEQ Propofol 50 ml @ 1.082 mls/ hr 1X ONCE 05/23/18 21:15 05/25/18 19:27 DC 05/23/18 21:12 2.164 MLS/HR Rivastigmine (Exelon 13.3mg) 1 patch DAILY 05/24/18 11:30 05/29/18 09:21 1 PATCH Simvastatin (Zocor) 10 mg DAILY 05/25/18 09:00 UNV Sodium Chloride 1,000 ml @ 125 mls/hr Q8H 05/24/18 23:00 05/30/18 01:44 125 MLS/HR Sodium Chloride (Normal Saline Flush) 10 ml QSHIFT PRN 05/23/18 20:00 Succinylcholine Chloride (Anectine) 200 mg STK-MED ONCE 05/23/18 21:32 05/23/18 21:33 DC Vancomycin HCl (Vanco Per Pharmacy) 1 each PRN DAILY PRN 05/23/18 23:30 05/26/18 08:58 DC 05/26/18 01:02 1 EACH Vancomycin HCl (Vancomycin Trough Level) 1 each 1X ONCE 05/27/18 09:30 4/12/19 09:30 DC Vancomycin HCl 1.75 gm/Sodium Chloride 500 ml @ 250 mls/hr 1X ONCE 05/23/18 21:30 05/23/18 23:29 DC 05/23/18 21:23 250 MLS/HR Vancomycin HCl 1 gm/Sodium Chloride 250 ml @ 250 mls/hr Q12H 05/26/18 10:00 05/26/18 10:00 DC Labs: Lab Laboratory Tests Test 05/29/18 08:55 05/29/18 09:20 05/29/18 09:40 05/29/18 12:03 Sodium Level 147 mmol/L (136-145) Potassium Level 4.1 mmol/L (3.5-5.1) Chloride Level 108 mmol/L (98-107) Carbon Dioxide Level 28 mmol/L (21-32) Anion Gap 11 (6-14) Blood Urea Nitrogen 8 mg/dL (7-20) Creatinine 1.0 mg/dL (0.6-1.0) Estimated GFR (Cockcroft-Gault) 68.9 BUN/Creatinine Ratio 8 (6-20) Glucose Level 336 mg/dL (70-99) Calcium Level 7.9 mg/dL (8.5-10.1) Total Bilirubin 0.3 mg/dL (0.2-1.0) Aspartate Amino Transf (AST/SGOT) 85 U/L (15-37) Alanine Aminotransferase (ALT/SGPT) 43 U/L (14-59) Alkaline Phosphatase 142 U/L (46-116) Total Protein 6.8 g/dL (6.4-8.2) Albumin 1.4 g/dL (3.4-5.0) Albumin/Globulin Ratio 0.3 (1.0-1.7) Glucose (Fingerstick) 317 mg/dL (70-99) 299 mg/dL (70-99) O2 Saturation 93 % (92-99) Arterial Blood pH 7.49 (7.35-7.45) Arterial Blood pCO2 at Patient Temp 34 mmHg (35-46) Arterial Blood pO2 at Patient Temp 60 mmHg (75-108) Arterial Blood HCO3 25 mmol/L (21-28) Arterial Blood Base Excess 2 mmol/L (-3-3) FiO2 50 Test 4/14/19 16:31 05/30/18 00:28 05/30/18 07:45 Glucose (Fingerstick) 251 mg/dL (70-99) 275 mg/dL (70-99) White Blood Count 5.1 x10^3/uL (4.0-11.0) Red Blood Count 2.54 x10^6/uL (3.50-5.40) Hemoglobin 7.5 g/dL (12.0-15.5) Hematocrit 22.8 % (36.0-47.0) Mean Corpuscular Volume 90 fL (79-100) Mean Corpuscular Hemoglobin 29 pg (25-35) Mean Corpuscular Hemoglobin Concent 33 g/dL (31-37) Red Cell Distribution Width 17.1 % (11.5-14.5) Platelet Count 172 x10^3/uL (140-400) Neutrophils (%) (Auto) 70 % (31-73) Lymphocytes (%) (Auto) 24 % (24-48) Monocytes (%) (Auto) 6 % (0-9) Eosinophils (%) (Auto) 1 % (0-3) Basophils (%) (Auto) 0 % (0-3) Neutrophils # (Auto) 3.6 x10^3uL (1.8-7.7) Lymphocytes # (Auto) 1.2 x10^3/uL (1.0-4.8) Monocytes # (Auto) 0.3 x10^3/uL (0.0-1.1) Eosinophils # (Auto) 0.0 x10^3/uL (0.0-0.7) Basophils # (Auto) 0.0 x10^3/uL (0.0-0.2) Sodium Level 135 mmol/L (136-145) Potassium Level 3.4 mmol/L (3.5-5.1) Chloride Level 103 mmol/L (98-107) Carbon Dioxide Level 27 mmol/L (21-32) Anion Gap 5 (6-14) Blood Urea Nitrogen 8 mg/dL (7-20) Creatinine 0.7 mg/dL (0.6-1.0) Estimated GFR (Cockcroft-Gault) 104.0 BUN/Creatinine Ratio 11 (6-20) Glucose Level 313 mg/dL (70-99) Calcium Level 6.7 mg/dL (8.5-10.1) Total Bilirubin 0.2 mg/dL (0.2-1.0) Aspartate Amino Transf (AST/SGOT) 56 U/L (15-37) Alanine Aminotransferase (ALT/SGPT) 33 U/L (14-59) Alkaline Phosphatase 95 U/L (46-116) Total Protein 5.2 g/dL (6.4-8.2) Albumin 1.0 g/dL (3.4-5.0) Albumin/Globulin Ratio 0.2 (1.0-1.7) Objective: Assessment: Aspiration pneumonia. MRSA and group B strep Sepsis with hypotension, lactic acidosis, requiring vasopressor support. Fever. Respiratory failure. Circulatory failure. Down syndrome. Diarrhea Anemia Plan: Plan of Care Zyvox ( 05/27), Zosyn since admission BC NGTD Monitor labs/temp Supportive care f/u c. diff May place PICC Palliative care in works D/w nursing Critically ill SERINA FLORES MD May 30, 2018 08:19
--- NOTE | 2018-05-30 08:26 | PDOC ---
PROGRESS NOTES Chief Complaint Chief Complaint Septic shock etiology most likely Related to underlying lung process Severe dehydration hypernatremia secondary to the above Down syndrome History of anxiety dementia, diabetes mellitus type II insulin requiring uncontrolled History of PEG tube. Hypernatremia secondary to water deficit Plan: increased lantus insulin and provide correctional with 7 units for her glycemia of over 300 Continue with supportive measures. Continue ventilatory support as per [employer]eles[employer] consultant Type and screen cont home medications currently still on pressors antibiotics [facility] zosyn Further recommendations based on the clinical course History of Present Illness History of Present Illness No apparent distress. No acute events reported overnight. Fever yesterday, repeated blood cultures over weekend. Intubated and sedated, FiO2 down to 50%, Hypotensive, Levophed 7 mcg, Tube feedings 45 ml/hr Diarrhea less significant, rectal tube in place, however. HB dropped to 7.5 Vitals Vitals Vital Signs Date Time Temp Pulse Resp B/P (MAP) Pulse Ox O2 Delivery O2 Flow Rate FiO2 05/30/18 08:05 95 16 84/42 (56) 94 Ventilator 05/30/18 07:00 99.5 99.5 Physical Exam Physical Exam GENERAL: Orally intubated, sedated, not in any distress. HEENT: Pupils small, ETT, OGT LUNGS: Clear anteriorly HEART: S1, S2 regular. No gallop or murmur. ABDOMEN: Obese, soft, + BS. rectal tube out : Tamayo EXTREMITIES: Generalized edema, LE contractures NEUROLOGIC: Sedated on vent SKIN: No rash PIV Lungs: Crackles, Other (decrease bs) Labs LABS Laboratory Tests Test 05/29/18 08:55 05/29/18 09:20 05/29/18 09:40 05/29/18 12:03 Sodium Level 147 mmol/L (136-145) Potassium Level 4.1 mmol/L (3.5-5.1) Chloride Level 108 mmol/L (98-107) Carbon Dioxide Level 28 mmol/L (21-32) Anion Gap 11 (6-14) Blood Urea Nitrogen 8 mg/dL (7-20) Creatinine 1.0 mg/dL (0.6-1.0) Estimated GFR (Cockcroft-Gault) 68.9 BUN/Creatinine Ratio 8 (6-20) Glucose Level 336 mg/dL (70-99) Calcium Level 7.9 mg/dL (8.5-10.1) Total Bilirubin 0.3 mg/dL (0.2-1.0) Aspartate Amino Transf (AST/SGOT) 85 U/L (15-37) Alanine Aminotransferase (ALT/SGPT) 43 U/L (14-59) Alkaline Phosphatase 142 U/L (46-116) Total Protein 6.8 g/dL (6.4-8.2) Albumin 1.4 g/dL (3.4-5.0) Albumin/Globulin Ratio 0.3 (1.0-1.7) Glucose (Fingerstick) 317 mg/dL (70-99) 299 mg/dL (70-99) O2 Saturation 93 % (92-99) Arterial Blood pH 7.49 (7.35-7.45) Arterial Blood pCO2 at Patient Temp 34 mmHg (35-46) Arterial Blood pO2 at Patient Temp 60 mmHg (75-108) Arterial Blood HCO3 25 mmol/L (21-28) Arterial Blood Base Excess 2 mmol/L (-3-3) FiO2 50 Test 05/29/18 16:31 05/30/18 00:28 05/30/18 07:45 Glucose (Fingerstick) 251 mg/dL (70-99) 275 mg/dL (70-99) White Blood Count 5.1 x10^3/uL (4.0-11.0) Red Blood Count 2.54 x10^6/uL (3.50-5.40) Hemoglobin 7.5 g/dL (12.0-15.5) Hematocrit 22.8 % (36.0-47.0) Mean Corpuscular Volume 90 fL (79-100) Mean Corpuscular Hemoglobin 29 pg (25-35) Mean Corpuscular Hemoglobin Concent 33 g/dL (31-37) Red Cell Distribution Width 17.1 % (11.5-14.5) Platelet Count 172 x10^3/uL (140-400) Neutrophils (%) (Auto) 70 % (31-73) Lymphocytes (%) (Auto) 24 % (24-48) Monocytes (%) (Auto) 6 % (0-9) Eosinophils (%) (Auto) 1 % (0-3) Basophils (%) (Auto) 0 % (0-3) Neutrophils # (Auto) 3.6 x10^3uL (1.8-7.7) Lymphocytes # (Auto) 1.2 x10^3/uL (1.0-4.8) Monocytes # (Auto) 0.3 x10^3/uL (0.0-1.1) Eosinophils # (Auto) 0.0 x10^3/uL (0.0-0.7) Basophils # (Auto) 0.0 x10^3/uL (0.0-0.2) Sodium Level 135 mmol/L (136-145) Potassium Level 3.4 mmol/L (3.5-5.1) Chloride Level 103 mmol/L (98-107) Carbon Dioxide Level 27 mmol/L (21-32) Anion Gap 5 (6-14) Blood Urea Nitrogen 8 mg/dL (7-20) Creatinine 0.7 mg/dL (0.6-1.0) Estimated GFR (Cockcroft-Gault) 104.0 BUN/Creatinine Ratio 11 (6-20) Glucose Level 313 mg/dL (70-99) Calcium Level 6.7 mg/dL (8.5-10.1) Total Bilirubin 0.2 mg/dL (0.2-1.0) Aspartate Amino Transf (AST/SGOT) 56 U/L (15-37) Alanine Aminotransferase (ALT/SGPT) 33 U/L (14-59) Alkaline Phosphatase 95 U/L (46-116) Total Protein 5.2 g/dL (6.4-8.2) Albumin 1.0 g/dL (3.4-5.0) Albumin/Globulin Ratio 0.2 (1.0-1.7) Comment Review of Relevant I have reviewed the following items trey (where applicable) has been applied. Labs Laboratory Tests Test 05/28/18 09:35 05/28/18 11:41 05/28/18 17:35 05/29/18 08:55 O2 Saturation 93 % (92-99) Arterial Blood pH 7.44 (7.35-7.45) Arterial Blood pCO2 at Patient Temp 33 mmHg (35-46) Arterial Blood pO2 at Patient Temp 65 mmHg (75-108) Arterial Blood HCO3 22 mmol/L (21-28) Arterial Blood Base Excess -2 mmol/L (-3-3) FiO2 60 Glucose (Fingerstick) 263 mg/dL (70-99) 202 mg/dL (70-99) Sodium Level 147 mmol/L (136-145) Potassium Level 4.1 mmol/L (3.5-5.1) Chloride Level 108 mmol/L (98-107) Carbon Dioxide Level 28 mmol/L (21-32) Anion Gap 11 (6-14) Blood Urea Nitrogen 8 mg/dL (7-20) Creatinine 1.0 mg/dL (0.6-1.0) Estimated GFR (Cockcroft-Gault) 68.9 BUN/Creatinine Ratio 8 (6-20) Glucose Level 336 mg/dL (70-99) Calcium Level 7.9 mg/dL (8.5-10.1) Total Bilirubin 0.3 mg/dL (0.2-1.0) Aspartate Amino Transf (AST/SGOT) 85 U/L (15-37) Alanine Aminotransferase (ALT/SGPT) 43 U/L (14-59) Alkaline Phosphatase 142 U/L (46-116) Total Protein 6.8 g/dL (6.4-8.2) Albumin 1.4 g/dL (3.4-5.0) Albumin/Globulin Ratio 0.3 (1.0-1.7) Test 05/29/18 09:20 05/29/18 09:40 05/29/18 12:03 05/29/18 16:31 Glucose (Fingerstick) 317 mg/dL (70-99) 299 mg/dL (70-99) 251 mg/dL (70-99) O2 Saturation 93 % (92-99) Arterial Blood pH 7.49 (7.35-7.45) Arterial Blood pCO2 at Patient Temp 34 mmHg (35-46) Arterial Blood pO2 at Patient Temp 60 mmHg (75-108) Arterial Blood HCO3 25 mmol/L (21-28) Arterial Blood Base Excess 2 mmol/L (-3-3) FiO2 50 Test 05/30/18 00:28 05/30/18 07:45 Glucose (Fingerstick) 275 mg/dL (70-99) White Blood Count 5.1 x10^3/uL (4.0-11.0) Red Blood Count 2.54 x10^6/uL (3.50-5.40) Hemoglobin 7.5 g/dL (12.0-15.5) Hematocrit 22.8 % (36.0-47.0) Mean Corpuscular Volume 90 fL (79-100) Mean Corpuscular Hemoglobin 29 pg (25-35) Mean Corpuscular Hemoglobin Concent 33 g/dL (31-37) Red Cell Distribution Width 17.1 % (11.5-14.5) Platelet Count 172 x10^3/uL (140-400) Neutrophils (%) (Auto) 70 % (31-73) Lymphocytes (%) (Auto) 24 % (24-48) Monocytes (%) (Auto) 6 % (0-9) Eosinophils (%) (Auto) 1 % (0-3) Basophils (%) (Auto) 0 % (0-3) Neutrophils # (Auto) 3.6 x10^3uL (1.8-7.7) Lymphocytes # (Auto) 1.2 x10^3/uL (1.0-4.8) Monocytes # (Auto) 0.3 x10^3/uL (0.0-1.1) Eosinophils # (Auto) 0.0 x10^3/uL (0.0-0.7) Basophils # (Auto) 0.0 x10^3/uL (0.0-0.2) Sodium Level 135 mmol/L (136-145) Potassium Level 3.4 mmol/L (3.5-5.1) Chloride Level 103 mmol/L (98-107) Carbon Dioxide Level 27 mmol/L (21-32) Anion Gap 5 (6-14) Blood Urea Nitrogen 8 mg/dL (7-20) Creatinine 0.7 mg/dL (0.6-1.0) Estimated GFR (Cockcroft-Gault) 104.0 BUN/Creatinine Ratio 11 (6-20) Glucose Level 313 mg/dL (70-99) Calcium Level 6.7 mg/dL (8.5-10.1) Total Bilirubin 0.2 mg/dL (0.2-1.0) Aspartate Amino Transf (AST/SGOT) 56 U/L (15-37) Alanine Aminotransferase (ALT/SGPT) 33 U/L (14-59) Alkaline Phosphatase 95 U/L (46-116) Total Protein 5.2 g/dL (6.4-8.2) Albumin 1.0 g/dL (3.4-5.0) Albumin/Globulin Ratio 0.2 (1.0-1.7) Laboratory Tests Test 05/29/18 08:55 05/29/18 09:20 05/29/18 09:40 05/29/18 12:03 Sodium Level 147 mmol/L (136-145) Potassium Level 4.1 mmol/L (3.5-5.1) Chloride Level 108 mmol/L (98-107) Carbon Dioxide Level 28 mmol/L (21-32) Anion Gap 11 (6-14) Blood Urea Nitrogen 8 mg/dL (7-20) Creatinine 1.0 mg/dL (0.6-1.0) Estimated GFR (Cockcroft-Gault) 68.9 BUN/Creatinine Ratio 8 (6-20) Glucose Level 336 mg/dL (70-99) Calcium Level 7.9 mg/dL (8.5-10.1) Total Bilirubin 0.3 mg/dL (0.2-1.0) Aspartate Amino Transf (AST/SGOT) 85 U/L (15-37) Alanine Aminotransferase (ALT/SGPT) 43 U/L (14-59) Alkaline Phosphatase 142 U/L (46-116) Total Protein 6.8 g/dL (6.4-8.2) Albumin 1.4 g/dL (3.4-5.0) Albumin/Globulin Ratio 0.3 (1.0-1.7) Glucose (Fingerstick) 317 mg/dL (70-99) 299 mg/dL (70-99) O2 Saturation 93 % (92-99) Arterial Blood pH 7.49 (7.35-7.45) Arterial Blood pCO2 at Patient Temp 34 mmHg (35-46) Arterial Blood pO2 at Patient Temp 60 mmHg (75-108) Arterial Blood HCO3 25 mmol/L (21-28) Arterial Blood Base Excess 2 mmol/L (-3-3) FiO2 50 Test 05/29/18 16:31 05/30/18 00:28 05/30/18 07:45 Glucose (Fingerstick) 251 mg/dL (70-99) 275 mg/dL (70-99) White Blood Count 5.1 x10^3/uL (4.0-11.0) Red Blood Count 2.54 x10^6/uL (3.50-5.40) Hemoglobin 7.5 g/dL (12.0-15.5) Hematocrit 22.8 % (36.0-47.0) Mean Corpuscular Volume 90 fL (79-100) Mean Corpuscular Hemoglobin 29 pg (25-35) Mean Corpuscular Hemoglobin Concent 33 g/dL (31-37) Red Cell Distribution Width 17.1 % (11.5-14.5) Platelet Count 172 x10^3/uL (140-400) Neutrophils (%) (Auto) 70 % (31-73) Lymphocytes (%) (Auto) 24 % (24-48) Monocytes (%) (Auto) 6 % (0-9) Eosinophils (%) (Auto) 1 % (0-3) Basophils (%) (Auto) 0 % (0-3) Neutrophils # (Auto) 3.6 x10^3uL (1.8-7.7) Lymphocytes # (Auto) 1.2 x10^3/uL (1.0-4.8) Monocytes # (Auto) 0.3 x10^3/uL (0.0-1.1) Eosinophils # (Auto) 0.0 x10^3/uL (0.0-0.7) Basophils # (Auto) 0.0 x10^3/uL (0.0-0.2) Sodium Level 135 mmol/L (136-145) Potassium Level 3.4 mmol/L (3.5-5.1) Chloride Level 103 mmol/L (98-107) Carbon Dioxide Level 27 mmol/L (21-32) Anion Gap 5 (6-14) Blood Urea Nitrogen 8 mg/dL (7-20) Creatinine 0.7 mg/dL (0.6-1.0) Estimated GFR (Cockcroft-Gault) 104.0 BUN/Creatinine Ratio 11 (6-20) Glucose Level 313 mg/dL (70-99) Calcium Level 6.7 mg/dL (8.5-10.1) Total Bilirubin 0.2 mg/dL (0.2-1.0) Aspartate Amino Transf (AST/SGOT) 56 U/L (15-37) Alanine Aminotransferase (ALT/SGPT) 33 U/L (14-59) Alkaline Phosphatase 95 U/L (46-116) Total Protein 5.2 g/dL (6.4-8.2) Albumin 1.0 g/dL (3.4-5.0) Albumin/Globulin Ratio 0.2 (1.0-1.7) Microbiology 05/27/18 Blood Culture - Preliminary, Resulted NO GROWTH AFTER 2 DAYS 05/23/18 Stool Culture - Final, Complete 05/23/18 Stool Culture Result 1 (GRACIE) - Final, Complete 05/23/18 Campylobacter Antigen Assay - Final, Complete 05/23/18 Campylobactor Result 1 - Final, Complete 05/23/18 Shiga Toxin Test - Final, Complete 05/23/18 - Final, Complete 05/23/18 - Final, Complete 05/23/18 - Final, Complete 05/23/18 Gram Stain Evaluation - Final, Complete 05/23/18 Sputum Culture - Final, Complete 05/23/18 Sputum Result 1 - Final, Complete 05/23/18 Sputum Result 2 - Final, Complete 05/23/18 - Final, Complete 05/23/18 Antimicrobic Susceptibility - Final, Complete Medications Current Medications Sodium Chloride (Normal Saline Flush) 10 ml QSHIFT PRN IV AFTER MEDS AND BLOOD DRAWS; Start 05/23/18 at 20:00 Piperacillin Sod/ Tazobactam Sod 4.5 gm/Sodium Chloride 100 ml @ 200 mls/hr 1X ONCE IV Last administered on 05/23/18at 20:34; Start 05/23/18 at 20:00; Stop 05/23/18 at 20:29; Status DC Vancomycin HCl (Vanco Per Pharmacy) 1 each 1X ONCE MC Last administered on 05/23at 20:00; Start 05/23/18 at 20:00; Stop 05/23/18 at 22:03; Status DC Propofol 100 ml @ 0 mls/hr CONT PRN IV SEE PROTOCOL; Start 05/23/18 at 20:00 Fentanyl Citrate (Fentanyl 2ml Vial) 25 mcg PRN Q1HR PRN IV SEE COMMENTS; Start 05/23/18 at 20:00 Fentanyl Citrate (Fentanyl 2ml Vial) 50 mcg PRN Q1HR PRN IV SEE COMMENTS Last administered on 05/28/18at 00:22; Start 05/23/18 at 20:00 Chlorhexidine Gluconate (Peridex) 15 ml BID MM Last administered on 05/24/18at 00 :05; Start 05/23/18 at 21:00; Stop 05/24/18 at 08:09; Status DC Acetaminophen (Tylenol Supp) 650 mg 1X ONCE [place] Last administered on 05/23/18at 20:33; Start 05/23/18 at 20:00; Stop 05/23/18 at 20:04; Status DC Sodium Chloride 1,000 ml @ 1,000 mls/hr 1X ONCE IV Last administered on at 20:41; Start 05/23/18 at 20:00; Stop 05/23/18 at 20:59; Status DC Midazolam HCl (Versed) 5 mg 1X ONCE IV Last administered on 05/23/18at 20:33; Start 05/23/18 at 20:15; Stop 05/23/18 at 20:16; Status DC Lorazepam (Ativan) 2 mg STK-MED ONCE .ROUTE ; Start 05/23/18 at 20:04; Stop at 20:05; Status DC Norepinephrine Bitartrate 250 ml @ 0 mls/hr CONT PRN IV PER PROTOCOL Last administered on 05/30/18at 07:34; Start 05/23/18 at 20:30 Sodium Chloride 1,000 ml @ 126 mls/hr Q7H57M IV ; Start 05/23/18 at 20:40; Stop 05/24/18 at 20:39; Status DC Sodium Chloride 1,000 ml @ 1,000 mls/hr 1X ONCE IV Last administered on at 20:50; Start 05/23/18 at 20:45; Stop 05/23/18 at 21:44; Status DC Sodium Chloride 1,000 ml @ 1,000 mls/hr 1X ONCE IV ; Start 05/23/18 at 21:15; Stop 05/23/18 at 21:16; Status DC Propofol 50 ml @ As Directed STK-MED ONCE IV ; Start 05/23/18 at 21:02; Stop 05/23 at 21:03; Status DC Propofol 50 ml @ 1.082 mls/ hr 1X ONCE IV Last administered on 05/23/18at 21:12 ; Start 05/23/18 at 21:15; Stop 05/25/18 at 19:27; Status DC Vancomycin HCl 1.75 gm/Sodium Chloride 500 ml @ 250 mls/hr 1X ONCE IV Last administered on 05/23/18 21:23; Start 05/23/18 at 21:30; Stop 05/23/18 at 23:29; Status DC Insulin Human Regular (HumuLIN R VIAL) 14 unit 1X ONCE SQ Last administered on 05/23/18at 21:46; Start 05/23/18 at 21:15; Stop 05/23/18 at 21:16; Status DC Sodium Chloride 1,000 ml @ 75 mls/hr 1X ONCE IV Last administered on at 21:23; Start 05/23/18 at 21:15; Stop 05/24/18 at 10:34; Status DC Etomidate (Amidate) 20 mg STK-MED ONCE IV ; Start 05/23/18 at 21:32; Stop at 21:33; Status DC Succinylcholine Chloride (Anectine) 200 mg STK-MED ONCE .ROUTE ; Start 05/23/18 at 21:32; Stop 05/23/18 at 21:33; Status DC Vancomycin HCl 1 gm/Sodium Chloride 250 ml @ 250 mls/hr Q24H IV Last administered on 05/25/18at 21:37; Start 05/24/18 at 21:30; Stop 05/26/18 at 01:00 ; Status DC Vancomycin HCl (Vancomycin Trough Level) 1 each 1X ONCE MC Last administered on 05/25/18at 21:00; Start 05/25/18 at 21:00; Stop 05/26/18 at 08:58; Status DC Sodium Chloride 500 ml @ 500 mls/hr 1X ONCE IV Last administered on 05/23/18at 22:45; Start 05/23/18 at 22:45; Stop 05/23/18 at 23:44; Status DC Albuterol/ Ipratropium (Duoneb) 3 ml RTQID NEB Last administered on 05/30/18at 07:38; Start 05/24/18 at 08:00 Fentanyl Citrate 30 ml @ 0 mls/hr CONT PRN IV SEE PROTOCOL; Start 05/23/18 at 22 :45 Midazolam HCl 100 ml @ 0 mls/hr CONT PRN IV SEE PROTOCOL Last administered on at 23:09; Start 05/23/18 at 22:45 Sodium Chloride 500 ml @ 500 mls/hr 1X ONCE IV Last administered on 05/23/18 23:33; Start 05/23/18 at 23:00; Stop 05/23/18 at 23:59; Status DC Insulin Human Lispro (HumaLOG) 0-9 UNITS TIDWMEALS SQ Last administered on 05/29at 16:37; Start 05/24/18 at 00:00 Dextrose (Dextrose 50%-Water Syringe) 12.5 gm PRN Q15MIN PRN IV SEE COMMENTS; Start 05/23/18 at 23:30 Enoxaparin Sodium (Lovenox 40mg Syringe) 40 mg Q24H SQ Last administered on at 23:13; Start 05/23/18 at 23:30 Piperacillin Sod/ Tazobactam Sod (Zosyn Per Pharmacy) 1 each PRN DAILY PRN MC SEE COMMENTS; Start 05/23/18 at 23:30 Vancomycin HCl (Vanco Per Pharmacy) 1 each PRN DAILY PRN MC SEE COMMENTS Last administered on 05/26/18at 01:02; Start 05/23/18 at 23:30; Stop 05/26/18 at 08:58 ; Status DC Piperacillin Sod/ Tazobactam Sod 3.375 gm/Sodium Chloride 50 ml @ 100 mls/hr Q6HRS IV Last administered on 05/30/18at 05:06; Start 05/24/18 at 06:00 Acetaminophen (Tylenol Supp) 650 mg PRN Q6HRS PRN [place] MILD PAIN / TEMP Last administered on 05/26/18at 02:16; Start 05/24/18 at 04:45 Acetaminophen (Tylenol) 650 mg PRN Q8HRS PRN PO MILD PAIN / TEMP Last administered on 05/25/18at 00:01; Start 05/24/18 at 10:45 Aspirin (Children'S Aspirin) 81 mg DAILY PO Last administered on 05/29/18 09: 21; Start 05/24/18 at 12:00 Atorvastatin Calcium (Lipitor) 10 mg HS PEG Last administered on 05/29/18at 20: 59; Start 05/24/18 at 21:00 Citric Acid/ Sodium Citrate (Bicitra) 10 ml QIDAFTMEAL PEG Last administered on 05/29/18at 20:59; Start 05/24/18 at 13:00 Magnesium Hydroxide (Milk Of Magnesia) 2,400 mg PRN DAILY PRN PEG CONSTIPATION ; Start 05/24/18 at 10:45 Rivastigmine (Exelon 13.3mg) 1 patch DAILY TD Last administered on 05/29/18 09 :21; Start 05/24/18 at 11:30 Simvastatin (Zocor) 10 mg DAILY PO ; Start 05/25/18 at 09:00; Status UNV Insulin Glargine (Lantus) 14 units DAILY SQ Last administered on 05/24/18at 12:36 ; Start 05/24/18 at 11:30; Stop 05/25/18 at 07:19; Status DC Metformin HCl (Glucophage) 500 mg BIDWMEALS PO Last administered on 05/29/18 16:35; Start 05/24/18 at 11:30 Multivitamins (Thera-Plus Oral Liquid) 5 ml DAILY PEG Last administered on 05/29 09:21; Start 05/24/18 at 11:30 Nystatin (Nystop) 1 ron PRN TID PRN TP REDNESS UNDER BREAST OR ARM; Start at 21:00 Levetiracetam (Keppra) 500 mg BID PO ; Start 05/24/18 at 11:30; Stop 05/24/18 at 12:10; Status DC Sodium Chloride 1,000 ml @ 125 mls/hr 1X ONCE IV Last administered on at 12:03; Start 05/24/18 at 12:30; Stop 05/24/18 at 20:29; Status DC Levetiracetam (Keppra) 500 mg BID PEG Last administered on 05/29/18at 20:59; Start 05/24/18 at 12:30 Sodium Chloride 1,000 ml @ 125 mls/hr Q8H IV Last administered on 05/30/18at 01 :44; Start 05/24/18 at 23:00 Insulin Glargine (Lantus) 18 units DAILY SQ Last administered on 05/29/18at 09: 23; Start 05/25/18 at 09:00; Stop 05/29/18 at 11:53; Status DC Vancomycin HCl 1 gm/Sodium Chloride 250 ml @ 250 mls/hr Q12H IV ; Start at 10:00; Stop 05/26/18 at 10:00; Status DC Vancomycin HCl (Vancomycin Trough Level) 1 each 1X ONCE MC ; Start 05/27/18 at 09:30; Stop 05/27/18 at 09:30; Status DC Magnesium Sulfate 50 ml @ 25 mls/hr 1X ONCE IV Last administered on 05/26/18at 10:00; Start 05/26/18 at 08:45; Stop 05/26/18 at 10:44; Status DC Acetaminophen (Tylenol) 650 mg PRN Q6HRS PRN PEG MILD PAIN / TEMP Last administered on 05/28/18at 19:13; Start 05/26/18 at 10:15 Potassium Chloride (KCl Oral Soln) 20 meq 1X ONCE PEG Last administered on 01/03at 10:44; Start 05/26/18 at 10:30; Stop 05/26/18 at 10:36; Status DC Famotidine (Pepcid Vial) 20 mg BID IVP Last administered on 05/29/18at 20:59; Start 05/26/18 at 21:00 Linezolid/Dextrose 300 ml @ 300 mls/hr Q12HR IV Last administered on at 20:57; Start 05/27/18 at 10:30 Insulin Glargine (Lantus) 22 units DAILY SQ ; Start 05/30/18 at 09:00 Active Scripts Active Levemir Flextouch (Insulin Detemir) 300 Units/3 Ml Insuln.pen 14 Units SQ DAILY Milk Of Magnesia (Magnesium Hydroxide) 2,400 Mg/30 Ml Oral.susp 2,400 Mg PEG PRN DAILY PRN 30 Days [Levetiracetam] 500 MG/5 ML Solution 500 Mg PEG BID 30 Days Reported Nystatin 1 Each Powder.ea. 1 Each MC PRN PRN Famotidine 20 Mg Tablet 20 Mg PEG HS Atorvastatin Calcium 10 Mg Tablet 10 Mg PEG HS Metformin Hcl 500 Mg Tablet 500 Mg PEG BIDWMEALS Sod Citrate-Citric Acid Soln (Citric Acid/Sodium Citrate) 15 Ml Solution 10 Ml PEG QIDAFTMEAL Lansoprazole 30 Mg Capsule.dr 1 Cap PO DAILY Cipro (Ciprofloxacin Hcl) 500 Mg Tablet 1 Tab PO BID 2 Days Tylenol (Acetaminophen) 325 Mg Tablet 650 Mg PEG PRN Q8HRS PRN Multivitamins (Multivitamin) 1 Each Tablet 1 Tab PEG DAILY EXELON 13.3mg/24hr (Rivastigmine) 1 Each Patch.td24 1 Patch TD DAILY Aspirin 81 Mg Tab.chew 81 Mg PO DAILY Simvastatin 10 Mg Tablet 10 Mg PO DAILY Vitals/I & O Vital Sign - Last 24 Hours 05/29/18 05/29/18 05/29/18 05/29/18 09:00 09:36 10:00 10:11 Pulse 111 103 Resp 20 20 B/P (MAP) 122/72 (89) 121/69 (86) 103/63 (76) Pulse Ox 95 98 99 O2 Delivery Ventilator Ventilator Ventilator 05/29/18 05/29/18 05/29/18 05/29/18 11:00 12:00 12:00 12:43 Temp 99.3 99.3 Pulse 91 92 Resp 24 22 B/P (MAP) 103/63 (76) 99/52 (68) Pulse Ox 99 98 96 O2 Delivery Ventilator Mechanical Ventilator Ventilator Ventilator 05/29/18 05/29/18 05/29/18 05/29/18 13:00 13:50 14:00 15:00 Pulse 84 81 80 Resp 15 16 20 B/P (MAP) 80/48 (59) 92/59 (70) 110/64 (79) Pulse Ox 99 99 97 97 O2 Delivery Ventilator Ventilator Ventilator Ventilator 05/29/18 05/29/18 05/29/18 05/29/18 15:44 16:00 16:00 17:04 Temp 98.6 98.6 Pulse 96 91 Resp 15 16 B/P (MAP) 100/79 (86) 67/44 (52) Pulse Ox 97 98 95 O2 Delivery Ventilator Ventilator Mechanical Ventilator Ventilator 05/29/18 05/29/18 05/29/18 05/29/18 17:15 18:00 18:00 18:21 Pulse 91 91 92 Resp 16 16 17 B/P (MAP) 88/44 (59) 67/44 (52) 92/60 (71) Pulse Ox 95 95 97 99 O2 Delivery Ventilator Ventilator Ventilator Ventilator 05/29/18 05/29/18 05/29/18 05/29/18 19:00 19:30 19:59 20:00 Temp 99.0 99.0 Pulse 90 100 Resp 18 20 B/P (MAP) 86/76 (79) 96/84 (88) Pulse Ox 97 98 98 O2 Delivery Ventilator Mechanical Ventilator Ventilator Ventilator 05/29/18 05/29/18 05/29/18 05/29/18 21:00 22:00 23:00 23:57 Temp 98.6 98.6 Pulse 88 92 94 Resp 16 16 16 B/P (MAP) 148/79 (102) 116/73 (87) 100/62 (75) Pulse Ox 97 98 97 97 O2 Delivery Ventilator Ventilator Ventilator Ventilator 05/30/18 05/30/18 05/30/18 05/30/18 00:00 00:09 00:30 01:30 Pulse 90 92 100 Resp 16 16 18 B/P (MAP) 94/60 (71) 100/67 (78) 76/56 (63) Pulse Ox 96 96 95 O2 Delivery Ventilator Mechanical Ventilator Ventilator Ventilator 05/30/18 05/30/18 05/30/18 05/30/18 02:00 03:00 03:00 03:57 Pulse 100 90 Resp 25 17 B/P (MAP) 113/69 (84) 121/59 (79) Pulse Ox 95 95 96 O2 Delivery Ventilator Ventilator Ventilator Mechanical Ventilator 05/30/18 05/30/18 05/30/18 05/30/18 04:00 05:07 05:50 06:00 Temp 100.1 100.1 Pulse 88 90 88 Resp 16 16 16 B/P (MAP) 98/50 (66) 94/48 (63) 91/46 (61) Pulse Ox 95 96 96 97 O2 Delivery Ventilator Ventilator Ventilator Ventilator 05/30/18 05/30/18 05/30/18 07:00 07:39 08:05 Temp 99.5 99.5 Pulse 99 95 Resp 20 16 B/P (MAP) 92/50 (64) 84/42 (56) Pulse Ox 97 96 94 O2 Delivery Ventilator Ventilator Ventilator Intake and Output 05/29/18 05/29/18 05/30/18 14:59 22:59 06:59 Intake Total 300 ml 2706 ml 2972 ml Output Total 1590 ml 1280 ml 595 ml Balance -1290 ml 1426 ml 2377 ml ARIEL COBB MD May 30, 2018 08:26
[2018-05-30] MEDS: CITRIC ACID/SODIUM CITRATE 30 ML SOLUTION. PEG SCH ×4 (08:59→21:27)
[2018-05-30] MEDS: MULTIVITAMINS,THERAPEUTIC 5 ML ORAL LIQUID. PEG SCH (08:59)
[2018-05-30] MEDS ORDERED: INSULIN GLARGINE 300 UNITS/3 ML INSULN.PEN. SQ SCH (09:00)
[2018-05-30] MEDS: metFORMIN 500 MG TABLET PO SCH ×2 (09:00→17:02)
[2018-05-30] MEDS: FAMOTIDINE 20 MG/2 ML VIAL IVP SCH ×2 (09:00→21:27)
[2018-05-30] MEDS: ASPIRIN CHEWABLE 81 MG TABLET. PO SCH (09:02)
[2018-05-30] MEDS: RIVASTIGMINE 13.3MG PATCH. TD SCH (09:02)
[2018-05-30] MEDS: INSULIN LISPRO 300 UNITS/3 ML INSULN.PEN. SQ SCH ×3 (09:13→17:07)
[2018-05-30 09:17] LABS: BASE EXCESS ABG 3 mmol/L (-3-3); HCO3 ABG 27 mmol/L (21-28); PCO2 ABG 39 mmHg (35-46); PO2 ABG 71 mmHg (75-108); SAT O2 ABG 95 % (92-99)
[2018-05-30 09:18] LABS: FIO2 ABG 60
--- NOTE | 2018-05-30 10:52 | PDOC2 ---
PALLIATIVE CARE Palliative Care Note Palliative Care Patient unresponsive to verbal stimuli Off sedation (turned off this am) Remains on Pressor. Remains on Vent 55%. Hg. 7.5. Plan transfusion. Family Meeting tomorrow at [address] May 30, 2018 10:52
--- NOTE | 2018-05-30 13:57 | PDOC ---
PULMONARY PROGRESS NOTES Subjective on vent, on versed, on levo, on fi02 60%, small ett secretion, Vitals Vital Signs Date Time Temp Pulse Resp B/P (MAP) Pulse Ox O2 Delivery O2 Flow Rate FiO2 05/30/18 12:12 99.4 88 16 110/54 (72) 96 Ventilator 99.4 Comments ros as mentioned as above discussed w rn, rt, other sys otherwise neg sedated on vent HEENT: Other (nc at perrl nose clear, orally intubated neck no lad, no thyromegaly) Lungs: Other (decrease bs) Cardiovascular: S1, S2 Abdomen: Soft, Non-tender, Other (no mass) Extremities: Other (edema trace) Skin: Warm Labs Laboratory Tests Test 05/28/18 17:35 05/29/18 08:55 05/29/18 09:20 05/29/18 09:40 Glucose (Fingerstick) 202 mg/dL (70-99) 317 mg/dL (70-99) Sodium Level 147 mmol/L (136-145) Potassium Level 4.1 mmol/L (3.5-5.1) Chloride Level 108 mmol/L (98-107) Carbon Dioxide Level 28 mmol/L (21-32) Anion Gap 11 (6-14) Blood Urea Nitrogen 8 mg/dL (7-20) Creatinine 1.0 mg/dL (0.6-1.0) Estimated GFR (Cockcroft-Gault) 68.9 BUN/Creatinine Ratio 8 (6-20) Glucose Level 336 mg/dL (70-99) Calcium Level 7.9 mg/dL (8.5-10.1) Total Bilirubin 0.3 mg/dL (0.2-1.0) Aspartate Amino Transf (AST/SGOT) 85 U/L (15-37) Alanine Aminotransferase (ALT/SGPT) 43 U/L (14-59) Alkaline Phosphatase 142 U/L (46-116) Total Protein 6.8 g/dL (6.4-8.2) Albumin 1.4 g/dL (3.4-5.0) Albumin/Globulin Ratio 0.3 (1.0-1.7) O2 Saturation 93 % (92-99) Arterial Blood pH 7.49 (7.35-7.45) Arterial Blood pCO2 at Patient Temp 34 mmHg (35-46) Arterial Blood pO2 at Patient Temp 60 mmHg (75-108) Arterial Blood HCO3 25 mmol/L (21-28) Arterial Blood Base Excess 2 mmol/L (-3-3) FiO2 50 Test 05/29/18 12:03 05/29/18 16:31 05/30/18 00:28 05/30/18 07:45 Glucose (Fingerstick) 299 mg/dL (70-99) 251 mg/dL (70-99) 275 mg/dL (70-99) White Blood Count 5.1 x10^3/uL (4.0-11.0) Red Blood Count 2.54 x10^6/uL (3.50-5.40) Hemoglobin 7.5 g/dL (12.0-15.5) Hematocrit 22.8 % (36.0-47.0) Mean Corpuscular Volume 90 fL (79-100) Mean Corpuscular Hemoglobin 29 pg (25-35) Mean Corpuscular Hemoglobin Concent 33 g/dL (31-37) Red Cell Distribution Width 17.1 % (11.5-14.5) Platelet Count 172 x10^3/uL (140-400) Neutrophils (%) (Auto) 70 % (31-73) Lymphocytes (%) (Auto) 24 % (24-48) Monocytes (%) (Auto) 6 % (0-9) Eosinophils (%) (Auto) 1 % (0-3) Basophils (%) (Auto) 0 % (0-3) Neutrophils # (Auto) 3.6 x10^3uL (1.8-7.7) Lymphocytes # (Auto) 1.2 x10^3/uL (1.0-4.8) Monocytes # (Auto) 0.3 x10^3/uL (0.0-1.1) Eosinophils # (Auto) 0.0 x10^3/uL (0.0-0.7) Basophils # (Auto) 0.0 x10^3/uL (0.0-0.2) Sodium Level 135 mmol/L (136-145) Potassium Level 3.4 mmol/L (3.5-5.1) Chloride Level 103 mmol/L (98-107) Carbon Dioxide Level 27 mmol/L (21-32) Anion Gap 5 (6-14) Blood Urea Nitrogen 8 mg/dL (7-20) Creatinine 0.7 mg/dL (0.6-1.0) Estimated GFR (Cockcroft-Gault) 104.0 BUN/Creatinine Ratio 11 (6-20) Glucose Level 313 mg/dL (70-99) Calcium Level 6.7 mg/dL (8.5-10.1) Total Bilirubin 0.2 mg/dL (0.2-1.0) Aspartate Amino Transf (AST/SGOT) 56 U/L (15-37) Alanine Aminotransferase (ALT/SGPT) 33 U/L (14-59) Alkaline Phosphatase 95 U/L (46-116) Total Protein 5.2 g/dL (6.4-8.2) Albumin 1.0 g/dL (3.4-5.0) Albumin/Globulin Ratio 0.2 (1.0-1.7) Test 05/30/18 08:55 05/30/18 09:05 05/30/18 12:08 O2 Saturation 95 % (92-99) Arterial Blood pH 7.46 (7.35-7.45) Arterial Blood pCO2 at Patient Temp 39 mmHg (35-46) Arterial Blood pO2 at Patient Temp 71 mmHg (75-108) Arterial Blood HCO3 27 mmol/L (21-28) Arterial Blood Base Excess 3 mmol/L (-3-3) FiO2 60 Glucose (Fingerstick) 351 mg/dL (70-99) 287 mg/dL (70-99) Laboratory Tests Test 05/29/18 16:31 05/30/18 00:28 05/30/18 07:45 05/30/18 08:55 Glucose (Fingerstick) 251 mg/dL (70-99) 275 mg/dL (70-99) White Blood Count 5.1 x10^3/uL (4.0-11.0) Red Blood Count 2.54 x10^6/uL (3.50-5.40) Hemoglobin 7.5 g/dL (12.0-15.5) Hematocrit 22.8 % (36.0-47.0) Mean Corpuscular Volume 90 fL (79-100) Mean Corpuscular Hemoglobin 29 pg (25-35) Mean Corpuscular Hemoglobin Concent 33 g/dL (31-37) Red Cell Distribution Width 17.1 % (11.5-14.5) Platelet Count 172 x10^3/uL (140-400) Neutrophils (%) (Auto) 70 % (31-73) Lymphocytes (%) (Auto) 24 % (24-48) Monocytes (%) (Auto) 6 % (0-9) Eosinophils (%) (Auto) 1 % (0-3) Basophils (%) (Auto) 0 % (0-3) Neutrophils # (Auto) 3.6 x10^3uL (1.8-7.7) Lymphocytes # (Auto) 1.2 x10^3/uL (1.0-4.8) Monocytes # (Auto) 0.3 x10^3/uL (0.0-1.1) Eosinophils # (Auto) 0.0 x10^3/uL (0.0-0.7) Basophils # (Auto) 0.0 x10^3/uL (0.0-0.2) Sodium Level 135 mmol/L (136-145) Potassium Level 3.4 mmol/L (3.5-5.1) Chloride Level 103 mmol/L (98-107) Carbon Dioxide Level 27 mmol/L (21-32) Anion Gap 5 (6-14) Blood Urea Nitrogen 8 mg/dL (7-20) Creatinine 0.7 mg/dL (0.6-1.0) Estimated GFR (Cockcroft-Gault) 104.0 BUN/Creatinine Ratio 11 (6-20) Glucose Level 313 mg/dL (70-99) Calcium Level 6.7 mg/dL (8.5-10.1) Total Bilirubin 0.2 mg/dL (0.2-1.0) Aspartate Amino Transf (AST/SGOT) 56 U/L (15-37) Alanine Aminotransferase (ALT/SGPT) 33 U/L (14-59) Alkaline Phosphatase 95 U/L (46-116) Total Protein 5.2 g/dL (6.4-8.2) Albumin 1.0 g/dL (3.4-5.0) Albumin/Globulin Ratio 0.2 (1.0-1.7) O2 Saturation 95 % (92-99) Arterial Blood pH 7.46 (7.35-7.45) Arterial Blood pCO2 at Patient Temp 39 mmHg (35-46) Arterial Blood pO2 at Patient Temp 71 mmHg (75-108) Arterial Blood HCO3 27 mmol/L (21-28) Arterial Blood Base Excess 3 mmol/L (-3-3) FiO2 60 Test 05/30/18 09:05 05/30/18 12:08 Glucose (Fingerstick) 351 mg/dL (70-99) 287 mg/dL (70-99) Medications Active Scripts Medications Dose Route/Sig Max Daily Dose Days Date Category Nystatin 1 Each Powder.ea. 1 Each MC PRN PRN 05/24/18 Reported Famotidine 20 Mg Tablet 20 Mg PEG HS 05/24/18 Reported Atorvastatin Calcium 10 Mg Tablet 10 Mg PEG HS 05/24/18 Reported Metformin Hcl 500 Mg Tablet 500 Mg PEG BIDWMEALS 05/24/18 Reported Sod Citrate-Citric Acid Soln (Citric Acid/Sodium Citrate) 15 Ml Solution 10 Ml PEG QIDAFTMEAL 03/26/17 Reported Lansoprazole 30 Mg Capsule.dr 1 Cap PO DAILY 03/26/17 Reported Cipro (Ciprofloxacin Hcl) 500 Mg Tablet 1 Tab PO BID 2 03/26/17 Reported Tylenol (Acetaminophen) 325 Mg Tablet 650 Mg PEG PRN Q8HRS PRN 03/17/17 Reported Multivitamins (Multivitamin) 1 Each Tablet 1 Tab PEG DAILY 03/17/17 Reported Levemir Flextouch (Insulin Detemir) 300 Units/3 Ml Insuln.pen 14 Units SQ DAILY 09/05/14 Rx Milk Of Magnesia (Magnesium Hydroxide) 2,400 Mg/30 Ml Oral.susp 2,400 Mg PEG PRN DAILY PRN 30 09/05/14 Rx [Levetiracetam] 500 MG/5 ML Solution 500 Mg PEG BID 30 09/05/14 Rx EXELON 13.3mg/24hr (Rivastigmine) 1 Each Patch.td24 1 Patch TD DAILY 08/14/14 Reported Aspirin 81 Mg Tab.chew 81 Mg PO DAILY 03/18/13 Reported Simvastatin 10 Mg Tablet 10 Mg PO DAILY 03/18/13 Reported Comments reviewed, CXR 05/30 b ll infilt atelectasis effusion, worse, ett ok Impression . 1. Acute respiratory failure secondary to septic shock. , increased 02 need, likely superimposed CHF 2. Septic shock likely source aspiration pneumonia. MRSA and group B strep 3. recurrent fever, ? etiology, per id 4. Down's syndrome. 5. Hypernatremia/ improving Plan . 1. cont vent support, setting reviewed, abg reviewed, on 60% fio2, titrate fi02 to keep sat 94%, not ready for sbt, am cxr, abg, extra IV LASIX today 2. Monitor sodium level. 3. Broad-spectrum antibiotics. fever, fu cx, sputum cx, abx per id, zosyn,, zyvox 4. Follow renal function. 5. Wean pressors to keep map >65 6. Monitor urine output. 7. Monitor white cell count. 8. DVT and stress ulcer prophylaxis. 9. elevate hob 10. pepcid and lovenox for prophylaxis Discussed with RN and RT. The patient remains critical. Palliative care is on the case to discuss the goals of care, prognosis poor, would not rec trach RICH GREGORY MD May 30, 2018 13:57
[2018-05-30] MEDS ORDERED: FUROSEMIDE 40 MG/4 ML VIAL. IVP ONE (14:00)
[2018-05-30] MEDS ORDERED: POTASSIUM CHLORIDE 20 MEQ/15 ML ORAL LIQUID. PEG ONE (15:00)
--- NOTE | 2018-05-30 15:43 | NUR ---
SS following up with discharge planning. Pt remains on the vent. Palliative Care meeting with family on 05/31/2018 at 1600. SS will await outcome of palliative care meeting with family and will proceed accordingly. Pt is a LTC resident from [facility].
[2018-05-30] MEDS: ACETAMINOPHEN 650 MG/20.3 ML SOLUTION. PEG PRN (20:26)
[2018-05-30] MEDS: ATORVASTATIN CALCIUM 10 MG TABLET. PEG SCH (21:27)
[2018-05-30] MEDS: ENOXAPARIN 40 MG/0.4 ML SYRINGE. SQ SCH (21:28)
[2018-05-31] VITALS (24 sets, daily range): BP systolic 75–121; BP diastolic 48–66
[2018-05-31 05:08] LABS: BASO % 0 % (0-3); EOS % 0 % (0-3); HEMATOCRIT 31.1 % (36.0-47.0); HEMOGLOBIN 10.2 g/dL (12.0-15.5); LYMPH # 1.7 x10^3/uL (1.0-4.8); LYMPH % 23 % (24-48); MEAN CORPUSCULAR HEMOGLOBIN 29 pg (25-35); MEAN CORPUSCULAR HGB CONC 33 g/dL (31-37); MEAN CORPUSCULAR VOLUME 89 fL (79-100); MONO # 0.4 x10^3/uL (0.0-1.1); MONO % 6 % (0-9); NEUT # 5.3 x10^3uL (1.8-7.7); NEUT % 71 % (31-73); PLATELET COUNT 230 x10^3/uL (140-400); RED BLOOD COUNT 3.51 x10^6/uL (3.50-5.40); RED CELL DISTRIBUTION WIDTH 16.7 % (11.5-14.5); WHITE BLOOD COUNT 7.4 x10^3/uL (4.0-11.0)
[2018-05-31] MEDS: PIPERACILLIN/TAZOBACTAM 3.375 GM in IV NORMAL SALINE 50ML 50 ML IV SCH ×3 (06:06)
[2018-05-31] MEDS: IV 1/2 NORMAL SALINE 1,000 ML IV SCH ×2 (06:06→17:02)
[2018-05-31 07:40] LABS: BASE EXCESS ABG 3 mmol/L (-3-3); HCO3 ABG 27 mmol/L (21-28); PCO2 ABG 37 mmHg (35-46); PO2 ABG 68 mmHg (75-108)
--- NOTE | 2018-05-31 07:56 | PDOC ---
Infectious Disease Note Subjective: Subjective Intubated and sedated, Hypotensive, on Levophed Tube feedings 45 ml/hr Diarrhea Fever continues though pattern improved Vital Signs: Vital Signs Vital Signs Date Time Temp Pulse Resp B/P (MAP) Pulse Ox O2 Delivery O2 Flow Rate FiO2 05/31/18 06:00 103 17 102/57 (72) 95 Ventilator 05/31/18 04:00 99.8 99.8 Physical Exam: PHYSICAL EXAM GENERAL: Orally intubated, sedated, not in any distress. HEENT: Pupils small, ETT, OGT LUNGS: Clear anteriorly HEART: S1, S2 regular. No gallop or murmur. ABDOMEN: Obese, soft, + BS. rectal tube out : Tamayo EXTREMITIES: Generalized edema, LE contractures ,RUE edema NEUROLOGIC: Sedated on vent SKIN: No rash PICC line RUE looks OK Medications: Inpatient Meds: Current Medications Medications (Trade) Dose Ordered Sig/Charmaine Start Time Stop Time Status Last Admin Dose Admin Acetaminophen (Tylenol Supp) 650 mg PRN Q6HRS PRN 05/24/18 04:45 05/26/18 02:16 Acetaminophen (Tylenol) 650 mg PRN Q6HRS PRN 05/26/18 10:15 05/30/18 20:26 Albuterol/ Ipratropium (Duoneb) 3 ml RTQID 05/24/18 08:00 05/30/18 19:55 Aspirin (Children'S Aspirin) 81 mg DAILY 05/24/18 12:00 05/30/18 09:02 Atorvastatin Calcium (Lipitor) 10 mg HS 05/24/18 21:00 05/30/18 21:27 Chlorhexidine Gluconate (Peridex) 15 ml BID 05/23/18 21:00 05/24/18 08:09 DC 05/24/18 00:05 Citric Acid/ Sodium Citrate (Bicitra) 10 ml QIDAFTMEAL 05/24/18 13:00 05/30/18 21:27 Dextrose (Dextrose 50%-Water Syringe) 12.5 gm PRN Q15MIN PRN 05/23/18 23:30 Enoxaparin Sodium (Lovenox 40mg Syringe) 40 mg Q24H 05/23/18 23:30 05/30/18 21:28 Etomidate (Amidate) 20 mg STK-MED ONCE 05/23/18 21:32 05/23/18 21:33 DC Famotidine (Pepcid Vial) 20 mg BID 05/26/18 21:00 05/30/18 21:27 Fentanyl Citrate 30 ml @ 0 mls/hr CONT PRN 05/23/18 22:45 Fentanyl Citrate (Fentanyl 2ml Vial) 50 mcg PRN Q1HR PRN 05/23/18 20:00 05/28/18 00:22 Furosemide (Lasix) 40 mg 1X ONCE 05/30/18 14:00 05/30/18 14:01 DC 05/30/18 17:02 Insulin Glargine (Lantus) 22 units DAILY 05/30/18 09:00 05/30/18 09:12 Insulin Human Lispro (HumaLOG) 0-9 UNITS TIDWMEALS 05/24/18 00:00 05/30/18 17:07 Insulin Human Regular (HumuLIN R VIAL) 14 unit 1X ONCE 05/23/18 21:15 05/23/18 21:16 DC 05/23/18 21:46 Levetiracetam (Keppra) 500 mg BID 05/24/18 12:30 05/30/18 21:00 Linezolid/Dextrose 300 ml @ 300 mls/hr Q12HR 05/27/18 10:30 05/30/18 21:27 Lorazepam (Ativan) 2 mg STK-MED ONCE 05/23/18 20:04 05/23/18 20:05 DC Magnesium Hydroxide (Milk Of Magnesia) 2,400 mg PRN DAILY PRN 05/24/18 10:45 Magnesium Sulfate 50 ml @ 25 mls/hr 1X ONCE 05/26/18 08:45 05/26/18 10:44 DC 05/26/18 10:00 Metformin HCl (Glucophage) 500 mg BIDWMEALS 05/24/18 11:30 05/30/18 17:02 Midazolam HCl 100 ml @ 0 mls/hr CONT PRN 05/23/18 22:45 05/29/18 23:09 Midazolam HCl (Versed) 5 mg 1X ONCE 05/23/18 20:15 05/23/18 20:16 DC 05/23/18 20:33 Multivitamins (Thera-Plus Oral Liquid) 5 ml DAILY 05/24/18 11:30 05/30/18 08:59 Norepinephrine Bitartrate 250 ml @ 0 mls/hr CONT PRN 05/23/18 20:30 05/30/18 07:34 Nystatin (Nystop) 1 ron PRN TID PRN 05/24/18 21:00 Piperacillin Sod/ Tazobactam Sod (Zosyn Per Pharmacy) 1 each PRN DAILY PRN 05/23/18 23:30 Piperacillin Sod/ Tazobactam Sod 3.375 gm/Sodium Chloride 50 ml @ 100 mls/hr Q6HRS 05/24/18 06:00 05/31/18 06:06 Piperacillin Sod/ Tazobactam Sod 4.5 gm/Sodium Chloride 100 ml @ 200 mls/hr 1X ONCE 05/23/18 20:00 05/23/18 20:29 DC 05/23/18 20:34 Potassium Chloride (KCl Oral Soln) 80 meq 1X ONCE 05/30/18 15:00 05/30/18 15:01 DC 05/30/18 17:03 Propofol 50 ml @ 1.082 mls/ hr 1X ONCE 05/23/18 21:15 05/25/18 19:27 DC 05/23/18 21:12 Rivastigmine (Exelon 13.3mg) 1 patch DAILY 05/24/18 11:30 05/30/18 09:02 Simvastatin (Zocor) 10 mg DAILY 05/25/18 09:00 UNV Sodium Chloride 1,000 ml @ 125 mls/hr Q8H 05/24/18 23:00 05/31/18 06:06 Sodium Chloride (Normal Saline Flush) 10 ml QSHIFT PRN 05/23/18 20:00 Succinylcholine Chloride (Anectine) 200 mg STK-MED ONCE 05/23/18 21:32 05/23/18 21:33 DC Vancomycin HCl (Vanco Per Pharmacy) 1 each PRN DAILY PRN 05/23/18 23:30 05/26/18 08:58 DC 05/26/18 01:02 Vancomycin HCl (Vancomycin Trough Level) 1 each 1X ONCE 05/27/18 09:30 05/27/18 09:30 DC Vancomycin HCl 1.75 gm/Sodium Chloride 500 ml @ 250 mls/hr 1X ONCE 05/23/18 21:30 05/23/18 23:29 DC 05/23/18 21:23 Vancomycin HCl 1 gm/Sodium Chloride 250 ml @ 250 mls/hr Q12H 05/26/18 10:00 05/26/18 10:00 DC Labs: Lab Laboratory Tests Test 05/30/18 08:55 05/30/18 09:05 05/30/18 12:08 05/30/18 17:05 O2 Saturation 95 % (92-99) Arterial Blood pH 7.46 (7.35-7.45) Arterial Blood pCO2 at Patient Temp 39 mmHg (35-46) Arterial Blood pO2 at Patient Temp 71 mmHg (75-108) Arterial Blood HCO3 27 mmol/L (21-28) Arterial Blood Base Excess 3 mmol/L (-3-3) FiO2 60 Glucose (Fingerstick) 351 mg/dL (70-99) 287 mg/dL (70-99) 273 mg/dL (70-99) Test 05/31/18 05:00 White Blood Count 7.4 x10^3/uL (4.0-11.0) Red Blood Count 3.51 x10^6/uL (3.50-5.40) Hemoglobin 10.2 g/dL (12.0-15.5) Hematocrit 31.1 % (36.0-47.0) Mean Corpuscular Volume 89 fL (79-100) Mean Corpuscular Hemoglobin 29 pg (25-35) Mean Corpuscular Hemoglobin Concent 33 g/dL (31-37) Red Cell Distribution Width 16.7 % (11.5-14.5) Platelet Count 230 x10^3/uL (140-400) Neutrophils (%) (Auto) 71 % (31-73) Lymphocytes (%) (Auto) 23 % (24-48) Monocytes (%) (Auto) 6 % (0-9) Eosinophils (%) (Auto) 0 % (0-3) Basophils (%) (Auto) 0 % (0-3) Neutrophils # (Auto) 5.3 x10^3uL (1.8-7.7) Lymphocytes # (Auto) 1.7 x10^3/uL (1.0-4.8) Monocytes # (Auto) 0.4 x10^3/uL (0.0-1.1) Eosinophils # (Auto) 0.0 x10^3/uL (0.0-0.7) Basophils # (Auto) 0.0 x10^3/uL (0.0-0.2) Objective: Assessment: Aspiration pneumonia. MRSA and group B strep Sepsis with hypotension, lactic acidosis, requiring vasopressor support. Fever. Respiratory failure. Circulatory failure. Down syndrome. Diarrhea Anemia Plan: Plan of Care Zyvox ( 05/27), DC Zosyn ,start merrem BC NGTD Monitor labs/temp Supportive care f/u c. diff Doppler U/S RUE r/o DVT Palliative care in works D/w nursing Critically ill SERINA FLORES MD May 31, 2018 07:56
[2018-05-31] MEDS: IPRATRPIUM/ALBUTEROL 0.5/2.5MG 3 ML NEBU. NEB SCH ×4 (08:26→19:52)
[2018-05-31 08:58] LABS: FIO2 ABG 55; SAT O2 ABG 93 % (92-99)
--- NOTE | 2018-05-31 09:00 | PDOC ---
PROGRESS NOTES Chief Complaint Chief Complaint Septic shock etiology most likely Related to underlying lung process Severe dehydration hypernatremia secondary to the above Down syndrome History of anxiety dementia, diabetes mellitus type II insulin requiring uncontrolled History of PEG tube. Hypernatremia secondary to water deficit Plan: increased lantus insulin and provide correctional with 7 units for her glycemia of over 300 Continue with supportive measures. Continue ventilatory support as per specialty sales consultant Type and screen cont home medications currently still on pressors antibiotics [facility] zosyn Further recommendations based on the clinical course History of Present Illness History of Present Illness No apparent distress. No acute events reported overnight. Fever yesterday, repeated blood cultures over weekend. S/p 1u PRBC on 05/30 with some improvement in vital signs Intubated and sedated, FiO2 down, Hypotensive, Levophed 7 mcg, Tube feedings 45 ml/hr. RUE swelling today Diarrhea less significant, rectal tube in place, however. Versed off. Vitals Vitals Vital Signs Date Time Temp Pulse Resp B/P (MAP) Pulse Ox O2 Delivery O2 Flow Rate FiO2 05/31/18 08:00 Mechanical Ventilator 05/31/18 07:35 94 05/31/18 07:00 98.9 98 17 95/51 (66) 98.9 Physical Exam Physical Exam GENERAL: Orally intubated, sedated, not in any distress. HEENT: Pupils small, ETT, OGT LUNGS: Clear anteriorly HEART: S1, S2 regular. No gallop or murmur. ABDOMEN: Obese, soft, + BS. rectal tube out : Tamayo EXTREMITIES: Generalized edema, LE contractures ,RUE edema NEUROLOGIC: Sedated on vent SKIN: No rash PICC line RUE looks OK Lungs: Other (decrease bs) Labs LABS Laboratory Tests Test 05/30/18 09:05 05/30/18 12:08 05/30/18 17:05 05/31/18 05:00 Glucose (Fingerstick) 351 mg/dL (70-99) 287 mg/dL (70-99) 273 mg/dL (70-99) White Blood Count 7.4 x10^3/uL (4.0-11.0) Red Blood Count 3.51 x10^6/uL (3.50-5.40) Hemoglobin 10.2 g/dL (12.0-15.5) Hematocrit 31.1 % (36.0-47.0) Mean Corpuscular Volume 89 fL (79-100) Mean Corpuscular Hemoglobin 29 pg (25-35) Mean Corpuscular Hemoglobin Concent 33 g/dL (31-37) Red Cell Distribution Width 16.7 % (11.5-14.5) Platelet Count 230 x10^3/uL (140-400) Neutrophils (%) (Auto) 71 % (31-73) Lymphocytes (%) (Auto) 23 % (24-48) Monocytes (%) (Auto) 6 % (0-9) Eosinophils (%) (Auto) 0 % (0-3) Basophils (%) (Auto) 0 % (0-3) Neutrophils # (Auto) 5.3 x10^3uL (1.8-7.7) Lymphocytes # (Auto) 1.7 x10^3/uL (1.0-4.8) Monocytes # (Auto) 0.4 x10^3/uL (0.0-1.1) Eosinophils # (Auto) 0.0 x10^3/uL (0.0-0.7) Basophils # (Auto) 0.0 x10^3/uL (0.0-0.2) Comment Review of Relevant I have reviewed the following items trey (where applicable) has been applied. Labs Laboratory Tests Test 05/29/18 09:20 05/29/18 09:40 05/29/18 12:03 05/29/18 16:31 Glucose (Fingerstick) 317 mg/dL (70-99) 299 mg/dL (70-99) 251 mg/dL (70-99) O2 Saturation 93 % (92-99) Arterial Blood pH 7.49 (7.35-7.45) Arterial Blood pCO2 at Patient Temp 34 mmHg (35-46) Arterial Blood pO2 at Patient Temp 60 mmHg (75-108) Arterial Blood HCO3 25 mmol/L (21-28) Arterial Blood Base Excess 2 mmol/L (-3-3) FiO2 50 Test 05/30/18 00:28 05/30/18 07:45 05/30/18 08:55 05/30/18 09:05 Glucose (Fingerstick) 275 mg/dL (70-99) 351 mg/dL (70-99) White Blood Count 5.1 x10^3/uL (4.0-11.0) Red Blood Count 2.54 x10^6/uL (3.50-5.40) Hemoglobin 7.5 g/dL (12.0-15.5) Hematocrit 22.8 % (36.0-47.0) Mean Corpuscular Volume 90 fL (79-100) Mean Corpuscular Hemoglobin 29 pg (25-35) Mean Corpuscular Hemoglobin Concent 33 g/dL (31-37) Red Cell Distribution Width 17.1 % (11.5-14.5) Platelet Count 172 x10^3/uL (140-400) Neutrophils (%) (Auto) 70 % (31-73) Lymphocytes (%) (Auto) 24 % (24-48) Monocytes (%) (Auto) 6 % (0-9) Eosinophils (%) (Auto) 1 % (0-3) Basophils (%) (Auto) 0 % (0-3) Neutrophils # (Auto) 3.6 x10^3uL (1.8-7.7) Lymphocytes # (Auto) 1.2 x10^3/uL (1.0-4.8) Monocytes # (Auto) 0.3 x10^3/uL (0.0-1.1) Eosinophils # (Auto) 0.0 x10^3/uL (0.0-0.7) Basophils # (Auto) 0.0 x10^3/uL (0.0-0.2) Sodium Level 135 mmol/L (136-145) Potassium Level 3.4 mmol/L (3.5-5.1) Chloride Level 103 mmol/L (98-107) Carbon Dioxide Level 27 mmol/L (21-32) Anion Gap 5 (6-14) Blood Urea Nitrogen 8 mg/dL (7-20) Creatinine 0.7 mg/dL (0.6-1.0) Estimated GFR (Cockcroft-Gault) 104.0 BUN/Creatinine Ratio 11 (6-20) Glucose Level 313 mg/dL (70-99) Calcium Level 6.7 mg/dL (8.5-10.1) Total Bilirubin 0.2 mg/dL (0.2-1.0) Aspartate Amino Transf (AST/SGOT) 56 U/L (15-37) Alanine Aminotransferase (ALT/SGPT) 33 U/L (14-59) Alkaline Phosphatase 95 U/L (46-116) Total Protein 5.2 g/dL (6.4-8.2) Albumin 1.0 g/dL (3.4-5.0) Albumin/Globulin Ratio 0.2 (1.0-1.7) O2 Saturation 95 % (92-99) Arterial Blood pH 7.46 (7.35-7.45) Arterial Blood pCO2 at Patient Temp 39 mmHg (35-46) Arterial Blood pO2 at Patient Temp 71 mmHg (75-108) Arterial Blood HCO3 27 mmol/L (21-28) Arterial Blood Base Excess 3 mmol/L (-3-3) FiO2 60 Test 05/30/18 12:08 05/30/18 17:05 05/31/18 05:00 Glucose (Fingerstick) 287 mg/dL (70-99) 273 mg/dL (70-99) White Blood Count 7.4 x10^3/uL (4.0-11.0) Red Blood Count 3.51 x10^6/uL (3.50-5.40) Hemoglobin 10.2 g/dL (12.0-15.5) Hematocrit 31.1 % (36.0-47.0) Mean Corpuscular Volume 89 fL (79-100) Mean Corpuscular Hemoglobin 29 pg (25-35) Mean Corpuscular Hemoglobin Concent 33 g/dL (31-37) Red Cell Distribution Width 16.7 % (11.5-14.5) Platelet Count 230 x10^3/uL (140-400) Neutrophils (%) (Auto) 71 % (31-73) Lymphocytes (%) (Auto) 23 % (24-48) Monocytes (%) (Auto) 6 % (0-9) Eosinophils (%) (Auto) 0 % (0-3) Basophils (%) (Auto) 0 % (0-3) Neutrophils # (Auto) 5.3 x10^3uL (1.8-7.7) Lymphocytes # (Auto) 1.7 x10^3/uL (1.0-4.8) Monocytes # (Auto) 0.4 x10^3/uL (0.0-1.1) Eosinophils # (Auto) 0.0 x10^3/uL (0.0-0.7) Basophils # (Auto) 0.0 x10^3/uL (0.0-0.2) Laboratory Tests Test 05/30/18 09:05 05/30/18 12:08 05/30/18 17:05 05/31/18 05:00 Glucose (Fingerstick) 351 mg/dL (70-99) 287 mg/dL (70-99) 273 mg/dL (70-99) White Blood Count 7.4 x10^3/uL (4.0-11.0) Red Blood Count 3.51 x10^6/uL (3.50-5.40) Hemoglobin 10.2 g/dL (12.0-15.5) Hematocrit 31.1 % (36.0-47.0) Mean Corpuscular Volume 89 fL (79-100) Mean Corpuscular Hemoglobin 29 pg (25-35) Mean Corpuscular Hemoglobin Concent 33 g/dL (31-37) Red Cell Distribution Width 16.7 % (11.5-14.5) Platelet Count 230 x10^3/uL (140-400) Neutrophils (%) (Auto) 71 % (31-73) Lymphocytes (%) (Auto) 23 % (24-48) Monocytes (%) (Auto) 6 % (0-9) Eosinophils (%) (Auto) 0 % (0-3) Basophils (%) (Auto) 0 % (0-3) Neutrophils # (Auto) 5.3 x10^3uL (1.8-7.7) Lymphocytes # (Auto) 1.7 x10^3/uL (1.0-4.8) Monocytes # (Auto) 0.4 x10^3/uL (0.0-1.1) Eosinophils # (Auto) 0.0 x10^3/uL (0.0-0.7) Basophils # (Auto) 0.0 x10^3/uL (0.0-0.2) Microbiology 05/27/18 Blood Culture - Preliminary, Resulted NO GROWTH AFTER 3 DAYS 05/23/18 Stool Culture - Final, Complete 05/23/18 Stool Culture Result 1 (GRACIE) - Final, Complete 05/23/18 Campylobacter Antigen Assay - Final, Complete 05/23/18 Campylobactor Result 1 - Final, Complete 05/23/18 Shiga Toxin Test - Final, Complete 05/23/18 - Final, Complete 05/23/18 - Final, Complete 05/23/18 - Final, Complete 05/23/18 Gram Stain Evaluation - Final, Complete 05/23/18 Sputum Culture - Final, Complete 05/23/18 Sputum Result 1 - Final, Complete 05/23/18 Sputum Result 2 - Final, Complete 05/23/18 - Final, Complete 05/23/18 Antimicrobic Susceptibility - Final, Complete Medications Current Medications Sodium Chloride (Normal Saline Flush) 10 ml QSHIFT PRN IV AFTER MEDS AND BLOOD DRAWS; Start 05/23/18 at 20:00 Piperacillin Sod/ Tazobactam Sod 4.5 gm/Sodium Chloride 100 ml @ 200 mls/hr 1X ONCE IV Last administered on 05/23/18at 20:34; Start 05/23/18 at 20:00; Stop 05/23/18 at 20:29; Status DC Vancomycin HCl (Vanco Per Pharmacy) 1 each 1X ONCE MC Last administered on 05/23at 20:00; Start 05/23/18 at 20:00; Stop 05/23/18 at 22:03; Status DC Propofol 100 ml @ 0 mls/hr CONT PRN IV SEE PROTOCOL; Start 05/23/18 at 20:00 Fentanyl Citrate (Fentanyl 2ml Vial) 25 mcg PRN Q1HR PRN IV SEE COMMENTS; Start 05/23/18 at 20:00 Fentanyl Citrate (Fentanyl 2ml Vial) 50 mcg PRN Q1HR PRN IV SEE COMMENTS Last administered on 05/28/18at 00:22; Start 05/23/18 at 20:00 Chlorhexidine Gluconate (Peridex) 15 ml BID MM Last administered on 05/24/18at 00 :05; Start 05/23/18 at 21:00; Stop 05/24/18 at 08:09; Status DC Acetaminophen (Tylenol Supp) 650 mg 1X ONCE NM Last administered on 05/23/18at 20:33; Start 05/23/18 at 20:00; Stop 05/23/18 at 20:04; Status DC Sodium Chloride 1,000 ml @ 1,000 mls/hr 1X ONCE IV Last administered on at 20:41; Start 05/23/18 at 20:00; Stop 05/23/18 at 20:59; Status DC Midazolam HCl (Versed) 5 mg 1X ONCE IV Last administered on 05/23/18at 20:33; Start 05/23/18 at 20:15; Stop 05/23/18 at 20:16; Status DC Lorazepam (Ativan) 2 mg STK-MED ONCE .ROUTE ; Start 05/23/18 at 20:04; Stop at 20:05; Status DC Norepinephrine Bitartrate 250 ml @ 0 mls/hr CONT PRN IV PER PROTOCOL Last administered on 05/30/18at 07:34; Start 05/23/18 at 20:30 Sodium Chloride 1,000 ml @ 126 mls/hr Q7H57M IV ; Start 05/23/18 at 20:40; Stop 05/24/18 at 20:39; Status DC Sodium Chloride 1,000 ml @ 1,000 mls/hr 1X ONCE IV Last administered on at 20:50; Start 05/23/18 at 20:45; Stop 05/23/18 at 21:44; Status DC Sodium Chloride 1,000 ml @ 1,000 mls/hr 1X ONCE IV ; Start 05/23/18 at 21:15; Stop 05/23/18 at 21:16; Status DC Propofol 50 ml @ As Directed STK-MED ONCE IV ; Start 05/23/18 at 21:02; Stop 05/23 at 21:03; Status DC Propofol 50 ml @ 1.082 mls/ hr 1X ONCE IV Last administered on 05/23/18at 21:12 ; Start 05/23/18 at 21:15; Stop 05/25/18 at 19:27; Status DC Vancomycin HCl 1.75 gm/Sodium Chloride 500 ml @ 250 mls/hr 1X ONCE IV Last administered on 05/23/18at 21:23; Start 05/23/18 at 21:30; Stop 05/23/18 at 23:29; Status DC Insulin Human Regular (HumuLIN R VIAL) 14 unit 1X ONCE SQ Last administered on 05/23/18at 21:46; Start 05/23/18 at 21:15; Stop 05/23/18 at 21:16; Status DC Sodium Chloride 1,000 ml @ 75 mls/hr 1X ONCE IV Last administered on at 21:23; Start 05/23/18 at 21:15; Stop 05/24/18 at 10:34; Status DC Etomidate (Amidate) 20 mg STK-MED ONCE IV ; Start 05/23/18 at 21:32; Stop at 21:33; Status DC Succinylcholine Chloride (Anectine) 200 mg STK-MED ONCE .ROUTE ; Start 05/23/18 at 21:32; Stop 05/23/18 at 21:33; Status DC Vancomycin HCl 1 gm/Sodium Chloride 250 ml @ 250 mls/hr Q24H IV Last administered on 05/25/18at 21:37; Start 05/24/18 at 21:30; Stop 05/26/18 at 01:00 ; Status DC Vancomycin HCl (Vancomycin Trough Level) 1 each 1X ONCE MC Last administered on 05/25/18at 21:00; Start 05/25/18 at 21:00; Stop 05/26/18 at 08:58; Status DC Sodium Chloride 500 ml @ 500 mls/hr 1X ONCE IV Last administered on 05/23/18at 22:45; Start 05/23/18 at 22:45; Stop 05/23/18 at 23:44; Status DC Albuterol/ Ipratropium (Duoneb) 3 ml RTQID NEB Last administered on 05/31/18at 08:26; Start 05/24/18 at 08:00 Fentanyl Citrate 30 ml @ 0 mls/hr CONT PRN IV SEE PROTOCOL; Start 05/23/18 at 22 :45 Midazolam HCl 100 ml @ 0 mls/hr CONT PRN IV SEE PROTOCOL Last administered on at 23:09; Start 05/23/18 at 22:45 Sodium Chloride 500 ml @ 500 mls/hr 1X ONCE IV Last administered on 05/23/18at 23:33; Start 05/23/18 at 23:00; Stop 05/23/18 at 23:59; Status DC Insulin Human Lispro (HumaLOG) 0-9 UNITS TIDWMEALS SQ Last administered on 05/30at 17:07; Start 05/24/18 at 00:00 Dextrose (Dextrose 50%-Water Syringe) 12.5 gm PRN Q15MIN PRN IV SEE COMMENTS; Start 05/23/18 at 23:30 Enoxaparin Sodium (Lovenox 40mg Syringe) 40 mg Q24H SQ Last administered on 21:28; Start 05/23/18 at 23:30 Piperacillin Sod/ Tazobactam Sod (Zosyn Per Pharmacy) 1 each PRN DAILY PRN MC SEE COMMENTS; Start 05/23/18 at 23:30 Vancomycin HCl (Vanco Per Pharmacy) 1 each PRN DAILY PRN MC SEE COMMENTS Last administered on 05/26/18 01:02; Start 05/23/18 at 23:30; Stop 05/26/18 at 08:58 ; Status DC Piperacillin Sod/ Tazobactam Sod 3.375 gm/Sodium Chloride 50 ml @ 100 mls/hr Q6HRS IV Last administered on 05/31/18 06:06; Start 05/24/18 at 06:00 Acetaminophen (Tylenol Supp) 650 mg PRN Q6HRS PRN NM MILD PAIN / TEMP Last administered on 05/26/18 02:16; Start 05/24/18 at 04:45 Acetaminophen (Tylenol) 650 mg PRN Q8HRS PRN PO MILD PAIN / TEMP Last administered on 05/25/18 00:01; Start 05/24/18 at 10:45 Aspirin (Children'S Aspirin) 81 mg DAILY PO Last administered on 05/30/18 09: 02; Start 05/24/18 at 12:00 Atorvastatin Calcium (Lipitor) 10 mg HS PEG Last administered on 05/30/18 21: 27; Start 05/24/18 at 21:00 Citric Acid/ Sodium Citrate (Bicitra) 10 ml QIDAFTMEAL PEG Last administered on 05/30/18 21:27; Start 05/24/18 at 13:00 Magnesium Hydroxide (Milk Of Magnesia) 2,400 mg PRN DAILY PRN PEG CONSTIPATION ; Start 05/24/18 at 10:45 Rivastigmine (Exelon 13.3mg) 1 patch DAILY TD Last administered on 05/30/18 09 :02; Start 05/24/18 at 11:30 Simvastatin (Zocor) 10 mg DAILY PO ; Start 05/25/18 at 09:00; Status UNV Insulin Glargine (Lantus) 14 units DAILY SQ Last administered on 05/24/18at 12:36 ; Start 05/24/18 at 11:30; Stop 05/25/18 at 07:19; Status DC Metformin HCl (Glucophage) 500 mg BIDWMEALS PO Last administered on 05/30/18at 17:02; Start 05/24/18 at 11:30 Multivitamins (Thera-Plus Oral Liquid) 5 ml DAILY PEG Last administered on 05/30at 08:59; Start 05/24/18 at 11:30 Nystatin (Nystop) 1 ron PRN TID PRN TP REDNESS UNDER BREAST OR ARM; Start at 21:00 Levetiracetam (Keppra) 500 mg BID PO ; Start 05/24/18 at 11:30; Stop 05/24/18 at 12:10; Status DC Sodium Chloride 1,000 ml @ 125 mls/hr 1X ONCE IV Last administered on at 12:03; Start 05/24/18 at 12:30; Stop 05/24/18 at 20:29; Status DC Levetiracetam (Keppra) 500 mg BID PEG Last administered on 05/30/18at 21:00; Start 05/24/18 at 12:30 Sodium Chloride 1,000 ml @ 125 mls/hr Q8H IV Last administered on 05/31/18at 06 :06; Start 05/24/18 at 23:00 Insulin Glargine (Lantus) 18 units DAILY SQ Last administered on 05/29/18at 09: 23; Start 05/25/18 at 09:00; Stop 05/29/18 at 11:53; Status DC Vancomycin HCl 1 gm/Sodium Chloride 250 ml @ 250 mls/hr Q12H IV ; Start at 10:00; Stop 05/26/18 at 10:00; Status DC Vancomycin HCl (Vancomycin Trough Level) 1 each 1X ONCE MC ; Start 05/27/18 at 09:30; Stop 05/27/18 at 09:30; Status DC Magnesium Sulfate 50 ml @ 25 mls/hr 1X ONCE IV Last administered on 05/26/18at 10:00; Start 05/26/18 at 08:45; Stop 05/26/18 at 10:44; Status DC Acetaminophen (Tylenol) 650 mg PRN Q6HRS PRN PEG MILD PAIN / TEMP Last administered on 05/30/18 20:26; Start 05/26/18 at 10:15 Potassium Chloride (KCl Oral Soln) 20 meq 1X ONCE PEG Last administered on 01/03at 10:44; Start 05/26/18 at 10:30; Stop 05/26/18 at 10:36; Status DC Famotidine (Pepcid Vial) 20 mg BID IVP Last administered on 05/30/18at 21:27; Start 05/26/18 at 21:00 Linezolid/Dextrose 300 ml @ 300 mls/hr Q12HR IV Last administered on at 21:27; Start 05/27/18 at 10:30 Insulin Glargine (Lantus) 22 units DAILY SQ Last administered on 05/30/18 09: 12; Start 05/30/18 at 09:00 Furosemide (Lasix) 40 mg 1X ONCE IVP Last administered on 05/30/18at 17:02; Start 05/30/18 at 14:00; Stop 05/30/18 at 14:01; Status DC Potassium Chloride (KCl Oral Soln) 80 meq 1X ONCE PEG Last administered on at 17:03; Start 05/30/18 at 15:00; Stop 05/30/18 at 15:01; Status DC Active Scripts Active Levemir Flextouch (Insulin Detemir) 300 Units/3 Ml Insuln.pen 14 Units SQ DAILY Milk Of Magnesia (Magnesium Hydroxide) 2,400 Mg/30 Ml Oral.susp 2,400 Mg PEG PRN DAILY PRN 30 Days [Levetiracetam] 500 MG/5 ML Solution 500 Mg PEG BID 30 Days Reported Nystatin 1 Each Powder.ea. 1 Each MC PRN PRN Famotidine 20 Mg Tablet 20 Mg PEG HS Atorvastatin Calcium 10 Mg Tablet 10 Mg PEG HS Metformin Hcl 500 Mg Tablet 500 Mg PEG BIDWMEALS Sod Citrate-Citric Acid Soln (Citric Acid/Sodium Citrate) 15 Ml Solution 10 Ml PEG QIDAFTMEAL Lansoprazole 30 Mg Capsule.dr 1 Cap PO DAILY Cipro (Ciprofloxacin Hcl) 500 Mg Tablet 1 Tab PO BID 2 Days Tylenol (Acetaminophen) 325 Mg Tablet 650 Mg PEG PRN Q8HRS PRN Multivitamins (Multivitamin) 1 Each Tablet 1 Tab PEG DAILY EXELON 13.3mg/24hr (Rivastigmine) 1 Each Patch.td24 1 Patch TD DAILY Aspirin 81 Mg Tab.chew 81 Mg PO DAILY Simvastatin 10 Mg Tablet 10 Mg PO DAILY Vitals/I & O Vital Sign - Last 24 Hours 05/30/18 05/30/18 05/30/18 05/30/18 09:00 10:00 10:15 11:11 Temp 99.4 99.4 Pulse 97 98 87 Resp 19 B/P (MAP) 94/47 (63) 84/48 (60) 106/57 (73) Pulse Ox 96 98 95 O2 Delivery Ventilator Ventilator Ventilator Ventilator 05/30/18 05/30/18 05/30/18 05/30/18 11:50 12:00 12:12 13:00 Temp 99.4 99.4 Pulse 88 88 Resp 16 16 B/P (MAP) 110/54 (72) 87/45 (59) Pulse Ox 95 96 96 O2 Delivery Ventilator Mechanical Ventilator Ventilator Ventilator 05/30/18 05/30/18 05/30/18 05/30/18 14:00 15:00 16:00 16:00 Temp 98.0 98.0 Pulse 98 94 90 Resp 17 B/P (MAP) 96/46 (63) 83/41 (55) 100/54 (69) Pulse Ox 95 92 93 O2 Delivery Ventilator Ventilator Mechanical Ventilator Ventilator 05/30/18 05/30/18 05/30/18 05/30/18 16:20 17:00 18:00 19:00 Temp 101.0 101.0 Pulse 98 110 106 Resp 28 B/P (MAP) 93/47 (62) 86/48 (61) 86/53 (64) Pulse Ox 95 93 91 100 O2 Delivery Ventilator Ventilator Ventilator Ventilator 05/30/18 05/30/18 05/30/18 05/30/18 19:56 20:00 20:00 20:32 Temp 101.0 101.0 Pulse 108 101 Resp 18 B/P (MAP) 85/49 (61) 85/49 Pulse Ox 95 94 O2 Delivery Ventilator Ventilator Mechanical Ventilator 05/30/18 05/30/18 05/30/18 05/30/18 21:10 22:00 23:00 23:59 Pulse 108 105 Resp 28 B/P (MAP) 105/77 (86) 119/65 (83) Pulse Ox 95 95 91 O2 Delivery Ventilator Ventilator Ventilator Mechanical Ventilator 05/31/18 05/31/18 05/31/18 05/31/18 00:01 00:15 01:00 02:00 Pulse 103 103 Resp 28 B/P (MAP) 105/58 (74) 121/66 (84) Pulse Ox 94 93 95 97 O2 Delivery Ventilator Ventilator Ventilator Ventilator 05/31/18 05/31/18 05/31/18 05/31/18 02:00 03:00 04:00 04:00 Temp 99.8 99.8 Pulse 98 101 101 Resp 16 16 B/P (MAP) 87/54 (65) 101/56 (71) 94/57 (69) Pulse Ox 96 96 96 O2 Delivery Ventilator Ventilator Mechanical Ventilator Ventilator 05/31/18 05/31/18 05/31/18 05/31/18 05:00 05:15 06:00 07:00 Temp 98.9 98.9 Pulse 103 103 98 Resp 17 B/P (MAP) 104/53 (70) 102/57 (72) 95/51 (66) Pulse Ox 95 97 95 95 O2 Delivery Ventilator Ventilator Ventilator Ventilator 05/31/18 05/31/18 07:35 08:00 Pulse Ox 94 O2 Delivery Ventilator Mechanical Ventilator Intake and Output 05/30/18 05/30/18 05/31/18 14:59 22:59 06:59 Intake Total 2066 ml 662 ml 3714.8 ml Output Total 1150 ml 2150 ml 1350 ml Balance 916 ml -1488 ml 2364.8 ml ARIEL COBB MD May 31, 2018 09:00
--- NOTE | 2018-05-31 09:40 | RAD ---
Clinical indications: Right upper extremity swelling. Findings: Duplex sonography (including crawford scale evaluation and color flow and waveform spectral analysis) of the inferior aspect of the right internal jugular vein was performed. Duplex sonography (including crawford scale evaluation and color flow and waveform spectral analysis) of the right subclavian vein as far as it could be visualized prior to it's descent underneath the medial aspect of the clavicle was performed. Duplex sonography (including crawford scale evaluation and color flow and waveform spectral analysis) of the right axillary, brachial, basilic, ulnar and radial veins was performed. Normal compressibility and augmentation of color Doppler flow after forearm compression is seen. Color-flow completely fills the lumen of these veins. Therefore, there are no sonographic findings of deep venous thrombosis within these veins. Evaluation of the cephalic vein was performed from the upper arm down into the distal forearm. The cephalic vein is compressible and patent within the upper arm. At the level of mid forearm, superficial occlusive thrombophlebitis is seen within this vein extending into the distal forearm. Impression: There are no sonographic findings of deep venous thrombosis within the veins discussed above of the right upper extremity. Superficial occlusive thrombophlebitis of the cephalic vein within the right forearm. Electronically signed by: North Katz MD (05/31/2018 9:37 AM) [id number]
[2018-05-31] MEDS: CITRIC ACID/SODIUM CITRATE 30 ML SOLUTION. PEG SCH ×4 (09:59→21:12)
[2018-05-31] MEDS: RIVASTIGMINE 13.3MG PATCH. TD SCH (09:59)
[2018-05-31] MEDS: FAMOTIDINE 20 MG/2 ML VIAL IVP SCH ×2 (09:59→21:11)
[2018-05-31] MEDS ORDERED: INSULIN LISPRO 300 UNITS/3 ML INSULN.PEN. SQ ONE ×2 (10:00→13:00)
[2018-05-31] MEDS: MULTIVITAMINS,THERAPEUTIC 5 ML ORAL LIQUID. PEG SCH (10:00)
[2018-05-31] MEDS: metFORMIN 500 MG TABLET PO SCH ×2 (10:00→16:58)
[2018-05-31] MEDS: ASPIRIN CHEWABLE 81 MG TABLET. PO SCH (10:00)
[2018-05-31] MEDS: INSULIN LISPRO 300 UNITS/3 ML INSULN.PEN. SQ SCH ×6 (10:07→21:00)
[2018-05-31] MEDS: INSULIN GLARGINE 300 UNITS/3 ML INSULN.PEN. SQ SCH (10:08)
--- NOTE | 2018-05-31 10:36 | PDOC ---
PULMONARY PROGRESS NOTES Subjective on vent, on versed, on levo, on fi02 55%, small ett secretion, Vitals Vital Signs Date Time Temp Pulse Resp B/P (MAP) Pulse Ox O2 Delivery O2 Flow Rate FiO2 05/31/18 09:00 109 16 75/48 (57) 94 Ventilator 05/31/18 07:00 98.9 98.9 Comments ros as mentioned as above discussed w rn, rt, other sys otherwise neg sedated on vent HEENT: Other (nc at perrl nose clear, orally intubated neck no lad, no thyromegaly) Lungs: Other (decrease bs) Cardiovascular: S1, S2 Abdomen: Soft, Non-tender, Other (no mass) Extremities: Other (edema trace) Skin: Warm Labs Laboratory Tests Test 05/29/18 12:03 05/29/18 16:31 05/30/18 00:28 05/30/18 07:45 Glucose (Fingerstick) 299 mg/dL (70-99) 251 mg/dL (70-99) 275 mg/dL (70-99) White Blood Count 5.1 x10^3/uL (4.0-11.0) Red Blood Count 2.54 x10^6/uL (3.50-5.40) Hemoglobin 7.5 g/dL (12.0-15.5) Hematocrit 22.8 % (36.0-47.0) Mean Corpuscular Volume 90 fL (79-100) Mean Corpuscular Hemoglobin 29 pg (25-35) Mean Corpuscular Hemoglobin Concent 33 g/dL (31-37) Red Cell Distribution Width 17.1 % (11.5-14.5) Platelet Count 172 x10^3/uL (140-400) Neutrophils (%) (Auto) 70 % (31-73) Lymphocytes (%) (Auto) 24 % (24-48) Monocytes (%) (Auto) 6 % (0-9) Eosinophils (%) (Auto) 1 % (0-3) Basophils (%) (Auto) 0 % (0-3) Neutrophils # (Auto) 3.6 x10^3uL (1.8-7.7) Lymphocytes # (Auto) 1.2 x10^3/uL (1.0-4.8) Monocytes # (Auto) 0.3 x10^3/uL (0.0-1.1) Eosinophils # (Auto) 0.0 x10^3/uL (0.0-0.7) Basophils # (Auto) 0.0 x10^3/uL (0.0-0.2) Sodium Level 135 mmol/L (136-145) Potassium Level 3.4 mmol/L (3.5-5.1) Chloride Level 103 mmol/L (98-107) Carbon Dioxide Level 27 mmol/L (21-32) Anion Gap 5 (6-14) Blood Urea Nitrogen 8 mg/dL (7-20) Creatinine 0.7 mg/dL (0.6-1.0) Estimated GFR (Cockcroft-Gault) 104.0 BUN/Creatinine Ratio 11 (6-20) Glucose Level 313 mg/dL (70-99) Calcium Level 6.7 mg/dL (8.5-10.1) Total Bilirubin 0.2 mg/dL (0.2-1.0) Aspartate Amino Transf (AST/SGOT) 56 U/L (15-37) Alanine Aminotransferase (ALT/SGPT) 33 U/L (14-59) Alkaline Phosphatase 95 U/L (46-116) Total Protein 5.2 g/dL (6.4-8.2) Albumin 1.0 g/dL (3.4-5.0) Albumin/Globulin Ratio 0.2 (1.0-1.7) Test 05/30/18 08:55 05/30/18 09:05 05/30/18 12:08 05/30/18 17:05 O2 Saturation 95 % (92-99) Arterial Blood pH 7.46 (7.35-7.45) Arterial Blood pCO2 at Patient Temp 39 mmHg (35-46) Arterial Blood pO2 at Patient Temp 71 mmHg (75-108) Arterial Blood HCO3 27 mmol/L (21-28) Arterial Blood Base Excess 3 mmol/L (-3-3) FiO2 60 Glucose (Fingerstick) 351 mg/dL (70-99) 287 mg/dL (70-99) 273 mg/dL (70-99) Test 05/31/18 05:00 05/31/18 07:30 05/31/18 09:49 White Blood Count 7.4 x10^3/uL (4.0-11.0) Red Blood Count 3.51 x10^6/uL (3.50-5.40) Hemoglobin 10.2 g/dL (12.0-15.5) Hematocrit 31.1 % (36.0-47.0) Mean Corpuscular Volume 89 fL (79-100) Mean Corpuscular Hemoglobin 29 pg (25-35) Mean Corpuscular Hemoglobin Concent 33 g/dL (31-37) Red Cell Distribution Width 16.7 % (11.5-14.5) Platelet Count 230 x10^3/uL (140-400) Neutrophils (%) (Auto) 71 % (31-73) Lymphocytes (%) (Auto) 23 % (24-48) Monocytes (%) (Auto) 6 % (0-9) Eosinophils (%) (Auto) 0 % (0-3) Basophils (%) (Auto) 0 % (0-3) Neutrophils # (Auto) 5.3 x10^3uL (1.8-7.7) Lymphocytes # (Auto) 1.7 x10^3/uL (1.0-4.8) Monocytes # (Auto) 0.4 x10^3/uL (0.0-1.1) Eosinophils # (Auto) 0.0 x10^3/uL (0.0-0.7) Basophils # (Auto) 0.0 x10^3/uL (0.0-0.2) O2 Saturation 93 % (92-99) Arterial Blood pH 7.47 (7.35-7.45) Arterial Blood pCO2 at Patient Temp 37 mmHg (35-46) Arterial Blood pO2 at Patient Temp 68 mmHg (75-108) Arterial Blood HCO3 27 mmol/L (21-28) Arterial Blood Base Excess 3 mmol/L (-3-3) FiO2 55 Glucose (Fingerstick) 392 mg/dL (70-99) Laboratory Tests Test 05/30/18 12:08 05/30/18 17:05 05/31/18 05:00 05/31/18 07:30 Glucose (Fingerstick) 287 mg/dL (70-99) 273 mg/dL (70-99) White Blood Count 7.4 x10^3/uL (4.0-11.0) Red Blood Count 3.51 x10^6/uL (3.50-5.40) Hemoglobin 10.2 g/dL (12.0-15.5) Hematocrit 31.1 % (36.0-47.0) Mean Corpuscular Volume 89 fL (79-100) Mean Corpuscular Hemoglobin 29 pg (25-35) Mean Corpuscular Hemoglobin Concent 33 g/dL (31-37) Red Cell Distribution Width 16.7 % (11.5-14.5) Platelet Count 230 x10^3/uL (140-400) Neutrophils (%) (Auto) 71 % (31-73) Lymphocytes (%) (Auto) 23 % (24-48) Monocytes (%) (Auto) 6 % (0-9) Eosinophils (%) (Auto) 0 % (0-3) Basophils (%) (Auto) 0 % (0-3) Neutrophils # (Auto) 5.3 x10^3uL (1.8-7.7) Lymphocytes # (Auto) 1.7 x10^3/uL (1.0-4.8) Monocytes # (Auto) 0.4 x10^3/uL (0.0-1.1) Eosinophils # (Auto) 0.0 x10^3/uL (0.0-0.7) Basophils # (Auto) 0.0 x10^3/uL (0.0-0.2) O2 Saturation 93 % (92-99) Arterial Blood pH 7.47 (7.35-7.45) Arterial Blood pCO2 at Patient Temp 37 mmHg (35-46) Arterial Blood pO2 at Patient Temp 68 mmHg (75-108) Arterial Blood HCO3 27 mmol/L (21-28) Arterial Blood Base Excess 3 mmol/L (-3-3) FiO2 55 Test 05/31/18 09:49 Glucose (Fingerstick) 392 mg/dL (70-99) Medications Active Scripts Medications Dose Route/Sig Max Daily Dose Days Date Category Nystatin 1 Each Powder.ea. 1 Each MC PRN PRN 05/24/18 Reported Famotidine 20 Mg Tablet 20 Mg PEG HS 05/24/18 Reported Atorvastatin Calcium 10 Mg Tablet 10 Mg PEG HS 05/24/18 Reported Metformin Hcl 500 Mg Tablet 500 Mg PEG BIDWMEALS 05/24/18 Reported Sod Citrate-Citric Acid Soln (Citric Acid/Sodium Citrate) 15 Ml Solution 10 Ml PEG QIDAFTMEAL 03/26/17 Reported Lansoprazole 30 Mg Capsule.dr 1 Cap PO DAILY 03/26/17 Reported Cipro (Ciprofloxacin Hcl) 500 Mg Tablet 1 Tab PO BID 2 03/26/17 Reported Tylenol (Acetaminophen) 325 Mg Tablet 650 Mg PEG PRN Q8HRS PRN 03/17/17 Reported Multivitamins (Multivitamin) 1 Each Tablet 1 Tab PEG DAILY 03/17/17 Reported Levemir Flextouch (Insulin Detemir) 300 Units/3 Ml Insuln.pen 14 Units SQ DAILY 09/05/14 Rx Milk Of Magnesia (Magnesium Hydroxide) 2,400 Mg/30 Ml Oral.susp 2,400 Mg PEG PRN DAILY PRN 30 09/05/14 Rx [Levetiracetam] 500 MG/5 ML Solution 500 Mg PEG BID 30 09/05/14 Rx EXELON 13.3mg/24hr (Rivastigmine) 1 Each Patch.td24 1 Patch TD DAILY 08/14/14 Reported Aspirin 81 Mg Tab.chew 81 Mg PO DAILY 03/18/13 Reported Simvastatin 10 Mg Tablet 10 Mg PO DAILY 03/18/13 Reported Comments reviewed, CXR 05/30 b ll infilt atelectasis effusion, worse, ett ok Impression . 1. Acute respiratory failure secondary to septic shock. , increased 02 need, likely superimposed CHF 2. Septic shock likely source aspiration pneumonia. MRSA and group B strep 3. recurrent fever, ? etiology, per id 4. Down's syndrome. 5. Hypernatremia/ improving Plan . 1. cont vent support, setting reviewed, abg reviewed, on 55% fio2, titrate fi02 to keep sat 94%, not ready for sbt, am cxr, abg, extra IV LASIX today 2. Monitor sodium level. 3. Broad-spectrum antibiotics. fever, fu cx, sputum cx, abx per id, zosyn,, zyvox 4. Follow renal function. 5. Wean pressors to keep map >65 6. Monitor urine output. 7. Monitor white cell count. 8. DVT and stress ulcer prophylaxis. 9. elevate hob 10. pepcid and lovenox for prophylaxis Discussed with RN and RT. The patient remains critical. Palliative care is on the case to discuss the goals of care, prognosis poor, would not rec trach RICH GREGORY MD May 31, 2018 10:35
[2018-05-31] MEDS ORDERED: FUROSEMIDE 20 MG/2 ML VIAL. IVP ONE (11:00)
[2018-05-31] MEDS: MEROPENEM 500 MG in IV NORMAL SALINE 50ML 50 ML IV SCH ×2 (13:22→16:58)
--- NOTE | 2018-05-31 16:59 | PDOC2 ---
PALLIATIVE CARE Palliative Care Note Palliative Care Patient remains on Vent 55%. No response to verbal stimuli. Continues on pressor. Versed off x 24 hours. Met with Ayesha-mother; siblings Jan and Deborah Reviewed medical condition; continued need for vent 55%; received 1 unit RBC yesterday. liquid stools. PEG tube feedings continued. Continued need for pressor. Family does not feel that patient has been give enough time to wake up. Mother does not want a tracheostomy. Understands there time limitation for being intubation. eDborah feels that giving her sister until is reasonable time to wake up. Family has had to make decision about Life Support in patient's brother. They are familiar with the process. Will meet again on 4pm to evaluate. LANCE SALAZAR May 31, 2018 16:59
[2018-05-31] MEDS: ACETAMINOPHEN 650 MG/20.3 ML SOLUTION. PEG PRN (21:11)
[2018-05-31] MEDS: ATORVASTATIN CALCIUM 10 MG TABLET. PEG SCH (21:12)
[2018-05-31] MEDS: VITS A & D/LANOLIN TOPICAL OINTMENT 56GM TUBE. TP SCH (21:13)
[2018-06-01] VITALS (23 sets, daily range): BP systolic 80–130; BP diastolic 49–79
[2018-06-01] MEDS: ENOXAPARIN 40 MG/0.4 ML SYRINGE. SQ SCH (00:11)
[2018-06-01] MEDS: MEROPENEM 500 MG in IV NORMAL SALINE 50ML 50 ML IV SCH ×4 (00:12→16:55)
[2018-06-01] MEDS: NOREPINEPHRIN 8MG/250ML PREMIX 250 ML IV PRN (00:34)
[2018-06-01] MEDS: IV 1/2 NORMAL SALINE 1,000 ML IV SCH ×3 (03:49→15:00)
[2018-06-01 06:07] LABS: BASO % 0 % (0-3); EOS % 1 % (0-3); HEMATOCRIT 27.4 % (36.0-47.0); HEMOGLOBIN 9.1 g/dL (12.0-15.5); LYMPH # 1.8 x10^3/uL (1.0-4.8); LYMPH % 21 % (24-48); MEAN CORPUSCULAR HEMOGLOBIN 30 pg (25-35); MEAN CORPUSCULAR HGB CONC 33 g/dL (31-37); MEAN CORPUSCULAR VOLUME 89 fL (79-100); MONO # 0.5 x10^3/uL (0.0-1.1); MONO % 6 % (0-9); NEUT % 72 % (31-73); PLATELET COUNT 232 x10^3/uL (140-400); RED BLOOD COUNT 3.08 x10^6/uL (3.50-5.40); RED CELL DISTRIBUTION WIDTH 16.8 % (11.5-14.5); WHITE BLOOD COUNT 8.3 x10^3/uL (4.0-11.0)
--- NOTE | 2018-06-01 07:21 | PDOC ---
Infectious Disease Note Subjective: Subjective Intubated and sedated, Had Fever again 102 last night Hypotensive, on Levophed Tube feedings Diarrhea Vital Signs: Vital Signs Vital Signs Date Time Temp Pulse Resp B/P (MAP) Pulse Ox O2 Delivery O2 Flow Rate FiO2 06/01/18 06:00 89 16 85/49 (61) 96 Ventilator 06/01/18 04:00 99.9 99.9 Physical Exam: PHYSICAL EXAM GENERAL: Orally intubated, sedated, not in any distress. HEENT: Pupils small, ETT, OGT LUNGS: Clear anteriorly HEART: S1, S2 regular. No gallop or murmur. ABDOMEN: Obese, soft, + BS. rectal tube out : Tamayo EXTREMITIES: Generalized edema, LE contractures ,RUE edema NEUROLOGIC: Sedated on vent SKIN: No rash PICC line RUE looks OK Medications: Inpatient Meds: Current Medications Medications (Trade) Dose Ordered Sig/Charmaine Start Time Stop Time Status Last Admin Dose Admin Acetaminophen (Tylenol Supp) 650 mg PRN Q6HRS PRN 05/24/18 04:45 05/26/18 02:16 650 MG Acetaminophen (Tylenol) 650 mg PRN Q6HRS PRN 05/26/18 10:15 05/31/18 21:11 650 MG Albuterol/ Ipratropium (Duoneb) 3 ml RTQID 05/24/18 08:00 05/31/18 19:52 3 ML Aspirin (Children'S Aspirin) 81 mg DAILY 05/24/18 12:00 05/31/18 10:00 81 MG Atorvastatin Calcium (Lipitor) 10 mg HS 05/24/18 21:00 05/31/18 21:12 10 MG Chlorhexidine Gluconate (Peridex) 15 ml BID 05/23/18 21:00 05/24/18 08:09 DC 05/24/18 00:05 15 ML Citric Acid/ Sodium Citrate (Bicitra) 10 ml QIDAFTMEAL 05/24/18 13:00 05/31/18 21:12 10 ML Dextrose (Dextrose 50%-Water Syringe) 12.5 gm PRN Q15MIN PRN 05/23/18 23:30 Enoxaparin Sodium (Lovenox 40mg Syringe) 40 mg Q24H 05/23/18 23:30 06/01/18 00:11 40 MG Etomidate (Amidate) 20 mg STK-MED ONCE 05/23/18 21:32 05/23/18 21:33 DC Famotidine (Pepcid Vial) 20 mg BID 05/26/18 21:00 05/31/18 21:11 20 MG Fentanyl Citrate 30 ml @ 0 mls/hr CONT PRN 05/23/18 22:45 Fentanyl Citrate (Fentanyl 2ml Vial) 50 mcg PRN Q1HR PRN 05/23/18 20:00 05/28/18 00:22 50 MCG Furosemide (Lasix) 20 mg 1X ONCE 05/31/18 11:00 05/31/18 11:01 DC 05/31/18 10:58 20 MG Insulin Glargine (Lantus) 26 units DAILY 05/31/18 10:15 05/31/18 10:08 26 UNITS Insulin Human Lispro (HumaLOG) 6 units 1X ONCE 05/31/18 13:00 05/31/18 13:01 DC 05/31/18 13:08 6 UNITS Insulin Human Regular (HumuLIN R VIAL) 14 unit 1X ONCE 05/23/18 21:15 05/23/18 21:16 DC 05/23/18 21:46 14 UNIT Levetiracetam (Keppra) 500 mg BID 05/24/18 12:30 05/31/18 21:12 500 MG Linezolid/Dextrose 300 ml @ 300 mls/hr Q12HR 05/27/18 10:30 05/31/18 21:11 300 MLS/HR Lorazepam (Ativan) 2 mg STK-MED ONCE 05/23/18 20:04 05/23/18 20:05 DC Magnesium Hydroxide (Milk Of Magnesia) 2,400 mg PRN DAILY PRN 05/24/18 10:45 Magnesium Sulfate 50 ml @ 25 mls/hr 1X ONCE 05/26/18 08:45 05/26/18 10:44 DC 05/26/18 10:00 25 MLS/HR Meropenem 500 mg/ Sodium Chloride 50 ml @ 100 mls/hr Q6HRS 05/31/18 13:00 06/01/18 05:39 100 MLS/HR Metformin HCl (Glucophage) 500 mg BIDWMEALS 05/24/18 11:30 4/16/19 16:58 500 MG Midazolam HCl 100 ml @ 0 mls/hr CONT PRN 05/23/18 22:45 05/29/18 23:09 6 MLS/HR Midazolam HCl (Versed) 5 mg 1X ONCE 05/23/18 20:15 05/23/18 20:16 DC 05/23/18 20:33 5 MG Multivitamins (Thera-Plus Oral Liquid) 5 ml DAILY 05/24/18 11:30 05/31/18 10:00 5 ML Norepinephrine Bitartrate 250 ml @ 0 mls/hr CONT PRN 05/23/18 20:30 06/01/18 00:34 7.5 MLS/HR Nystatin (Nystop) 1 ron PRN TID PRN 05/24/18 21:00 Piperacillin Sod/ Tazobactam Sod (Zosyn Per Pharmacy) 1 each PRN DAILY PRN 05/23/18 23:30 05/31/18 12:56 DC Piperacillin Sod/ Tazobactam Sod 3.375 gm/Sodium Chloride 50 ml @ 100 mls/hr Q6HRS 05/24/18 06:00 05/31/18 12:53 DC 05/31/18 06:06 100 MLS/HR Piperacillin Sod/ Tazobactam Sod 4.5 gm/Sodium Chloride 100 ml @ 200 mls/hr 1X ONCE 05/23/18 20:00 05/23/18 20:29 DC 05/23/18 20:34 200 MLS/HR Potassium Chloride (KCl Oral Soln) 80 meq 1X ONCE 05/30/18 15:00 05/30/18 15:01 DC 05/30/18 17:03 80 MEQ Propofol 50 ml @ 1.082 mls/ hr 1X ONCE 05/23/18 21:15 05/25/18 19:27 DC 05/23/18 21:12 2.164 MLS/HR Rivastigmine (Exelon 13.3mg) 1 patch DAILY 05/24/18 11:30 05/31/18 09:59 1 PATCH Simvastatin (Zocor) 10 mg DAILY 05/25/18 09:00 UNV Sodium Chloride 1,000 ml @ 125 mls/hr Q8H 05/24/18 23:00 06/01/18 03:49 125 MLS/HR Sodium Chloride (Normal Saline Flush) 10 ml QSHIFT PRN 05/23/18 20:00 Succinylcholine Chloride (Anectine) 200 mg STK-MED ONCE 05/23/18 21:32 05/23/18 21:33 DC Vancomycin HCl (Vanco Per Pharmacy) 1 each PRN DAILY PRN 05/23/18 23:30 05/26/18 08:58 DC 05/26/18 01:02 1 EACH Vancomycin HCl (Vancomycin Trough Level) 1 each 1X ONCE 05/27/18 09:30 05/27/18 09:30 DC Vancomycin HCl 1.75 gm/Sodium Chloride 500 ml @ 250 mls/hr 1X ONCE 05/23/18 21:30 05/23/18 23:29 DC 05/23/18 21:23 250 MLS/HR Vancomycin HCl 1 gm/Sodium Chloride 250 ml @ 250 mls/hr Q12H 05/26/18 10:00 05/26/18 10:00 DC Vitamin A/Vitamin D (Vitamin A & D Ointment) 1 ron BID 05/31/18 21:00 05/31/18 21:13 1 RON Labs: Lab Laboratory Tests Test 05/31/18 07:30 05/31/18 09:49 05/31/18 12:49 05/31/18 16:56 O2 Saturation 93 % (92-99) Arterial Blood pH 7.47 (7.35-7.45) Arterial Blood pCO2 at Patient Temp 37 mmHg (35-46) Arterial Blood pO2 at Patient Temp 68 mmHg (75-108) Arterial Blood HCO3 27 mmol/L (21-28) Arterial Blood Base Excess 3 mmol/L (-3-3) FiO2 55 Glucose (Fingerstick) 392 mg/dL (70-99) 373 mg/dL (70-99) 209 mg/dL (70-99) Test 05/31/18 20:45 05/31/18 21:03 06/01/18 05:30 Lactic Acid Level 2.0 mmol/L (0.4-2.0) Glucose (Fingerstick) 137 mg/dL (70-99) White Blood Count 8.3 x10^3/uL (4.0-11.0) Red Blood Count 3.08 x10^6/uL (3.50-5.40) Hemoglobin 9.1 g/dL (12.0-15.5) Hematocrit 27.4 % (36.0-47.0) Mean Corpuscular Volume 89 fL (79-100) Mean Corpuscular Hemoglobin 30 pg (25-35) Mean Corpuscular Hemoglobin Concent 33 g/dL (31-37) Red Cell Distribution Width 16.8 % (11.5-14.5) Platelet Count 232 x10^3/uL (140-400) Neutrophils (%) (Auto) 72 % (31-73) Lymphocytes (%) (Auto) 21 % (24-48) Monocytes (%) (Auto) 6 % (0-9) Eosinophils (%) (Auto) 1 % (0-3) Basophils (%) (Auto) 0 % (0-3) Neutrophils # (Auto) 6.0 x10^3uL (1.8-7.7) Lymphocytes # (Auto) 1.8 x10^3/uL (1.0-4.8) Monocytes # (Auto) 0.5 x10^3/uL (0.0-1.1) Eosinophils # (Auto) 0.0 x10^3/uL (0.0-0.7) Basophils # (Auto) 0.0 x10^3/uL (0.0-0.2) Objective: Assessment: Aspiration pneumonia. MRSA and group B strep Sepsis with hypotension, lactic acidosis, requiring vasopressor support. Fever. Respiratory failure. Circulatory failure. Down syndrome. Diarrhea Anemia sup cephalic vein thrombosis RUE Plan: Plan of Care Zyvox ( 05/27), merrem ( 05/31), was on zosyn prior add micafungin BC NGTD obtain CT C/A/P repeat BC Monitor labs/temp Supportive care f/u c. diff pcr Palliative care on case D/w nursing Critically ill SERINA FLORES MD Jun 01, 2018 07:21
[2018-06-01] MEDS: IPRATRPIUM/ALBUTEROL 0.5/2.5MG 3 ML NEBU. NEB SCH ×4 (08:07→19:53)
--- NOTE | 2018-06-01 08:41 | PDOC ---
PROGRESS NOTES Chief Complaint Chief Complaint Septic shock etiology most likely Related to underlying lung process Severe dehydration hypernatremia secondary to the above Down syndrome History of anxiety dementia, diabetes mellitus type II insulin requiring uncontrolled History of PEG tube. Hypernatremia secondary to water deficit Plan: increased lantus insulin and provide correctional with 7 units for her glycemia of over 300 Continue with supportive measures. Continue ventilatory support as per rewards consultant Type and screen cont home medications currently still on pressors antibiotics [facility] Further recommendations based on the clinical course History of Present Illness History of Present Illness No apparent distress. No acute events reported overnight. Fever yesterday 102.1F , repeated blood cultures over weekend and again today. Rectal tube removed. Palliative met with family yesterday evening, will readdress goals of care on in the afternoon S/p 1u PRBC on 05/30 with some improvement in vital signs Intubated and sedated, FiO2 down, Hypotensive, Levophed 2.5 mcg, Tube feedings 45 ml/hr. RUE swelling noted without DVT on US Diarrhea less significant, rectal tube in place, however. Versed off. She is moving and opening eyes, not following commands Plan: CT chest today Vitals Vitals Vital Signs Date Time Temp Pulse Resp B/P (MAP) Pulse Ox O2 Delivery O2 Flow Rate FiO2 06/01/18 08:03 94 Ventilator 06/01/18 06:00 89 16 85/49 (61) 06/01/18 04:00 99.9 99.9 Physical Exam Physical Exam GENERAL: Orally intubated, sedated, not in any distress. HEENT: Pupils small, ETT, OGT LUNGS: Clear anteriorly HEART: S1, S2 regular. No gallop or murmur. ABDOMEN: Obese, soft, + BS. rectal tube out : Tamayo EXTREMITIES: Generalized edema, LE contractures ,RUE edema NEUROLOGIC: Sedated on vent SKIN: No rash PICC line RUE looks OK Lungs: Other (decrease bs) Labs LABS Laboratory Tests Test 05/31/18 09:49 05/31/18 12:49 05/31/18 16:56 05/31/18 20:45 Glucose (Fingerstick) 392 mg/dL (70-99) 373 mg/dL (70-99) 209 mg/dL (70-99) Lactic Acid Level 2.0 mmol/L (0.4-2.0) Test 05/31/18 21:03 06/01/18 05:30 Glucose (Fingerstick) 137 mg/dL (70-99) White Blood Count 8.3 x10^3/uL (4.0-11.0) Red Blood Count 3.08 x10^6/uL (3.50-5.40) Hemoglobin 9.1 g/dL (12.0-15.5) Hematocrit 27.4 % (36.0-47.0) Mean Corpuscular Volume 89 fL (79-100) Mean Corpuscular Hemoglobin 30 pg (25-35) Mean Corpuscular Hemoglobin Concent 33 g/dL (31-37) Red Cell Distribution Width 16.8 % (11.5-14.5) Platelet Count 232 x10^3/uL (140-400) Neutrophils (%) (Auto) 72 % (31-73) Lymphocytes (%) (Auto) 21 % (24-48) Monocytes (%) (Auto) 6 % (0-9) Eosinophils (%) (Auto) 1 % (0-3) Basophils (%) (Auto) 0 % (0-3) Neutrophils # (Auto) 6.0 x10^3uL (1.8-7.7) Lymphocytes # (Auto) 1.8 x10^3/uL (1.0-4.8) Monocytes # (Auto) 0.5 x10^3/uL (0.0-1.1) Eosinophils # (Auto) 0.0 x10^3/uL (0.0-0.7) Basophils # (Auto) 0.0 x10^3/uL (0.0-0.2) Comment Review of Relevant I have reviewed the following items trey (where applicable) has been applied. Labs Laboratory Tests Test 05/30/18 08:55 05/30/18 09:05 05/30/18 12:08 05/30/18 17:05 O2 Saturation 95 % (92-99) Arterial Blood pH 7.46 (7.35-7.45) Arterial Blood pCO2 at Patient Temp 39 mmHg (35-46) Arterial Blood pO2 at Patient Temp 71 mmHg (75-108) Arterial Blood HCO3 27 mmol/L (21-28) Arterial Blood Base Excess 3 mmol/L (-3-3) FiO2 60 Glucose (Fingerstick) 351 mg/dL (70-99) 287 mg/dL (70-99) 273 mg/dL (70-99) Test 05/31/18 05:00 05/31/18 07:30 05/31/18 09:49 05/31/18 12:49 White Blood Count 7.4 x10^3/uL (4.0-11.0) Red Blood Count 3.51 x10^6/uL (3.50-5.40) Hemoglobin 10.2 g/dL (12.0-15.5) Hematocrit 31.1 % (36.0-47.0) Mean Corpuscular Volume 89 fL (79-100) Mean Corpuscular Hemoglobin 29 pg (25-35) Mean Corpuscular Hemoglobin Concent 33 g/dL (31-37) Red Cell Distribution Width 16.7 % (11.5-14.5) Platelet Count 230 x10^3/uL (140-400) Neutrophils (%) (Auto) 71 % (31-73) Lymphocytes (%) (Auto) 23 % (24-48) Monocytes (%) (Auto) 6 % (0-9) Eosinophils (%) (Auto) 0 % (0-3) Basophils (%) (Auto) 0 % (0-3) Neutrophils # (Auto) 5.3 x10^3uL (1.8-7.7) Lymphocytes # (Auto) 1.7 x10^3/uL (1.0-4.8) Monocytes # (Auto) 0.4 x10^3/uL (0.0-1.1) Eosinophils # (Auto) 0.0 x10^3/uL (0.0-0.7) Basophils # (Auto) 0.0 x10^3/uL (0.0-0.2) O2 Saturation 93 % (92-99) Arterial Blood pH 7.47 (7.35-7.45) Arterial Blood pCO2 at Patient Temp 37 mmHg (35-46) Arterial Blood pO2 at Patient Temp 68 mmHg (75-108) Arterial Blood HCO3 27 mmol/L (21-28) Arterial Blood Base Excess 3 mmol/L (-3-3) FiO2 55 Glucose (Fingerstick) 392 mg/dL (70-99) 373 mg/dL (70-99) Test 05/31/18 16:56 05/31/18 20:45 05/31/18 21:03 06/01/18 05:30 Glucose (Fingerstick) 209 mg/dL (70-99) 137 mg/dL (70-99) Lactic Acid Level 2.0 mmol/L (0.4-2.0) White Blood Count 8.3 x10^3/uL (4.0-11.0) Red Blood Count 3.08 x10^6/uL (3.50-5.40) Hemoglobin 9.1 g/dL (12.0-15.5) Hematocrit 27.4 % (36.0-47.0) Mean Corpuscular Volume 89 fL (79-100) Mean Corpuscular Hemoglobin 30 pg (25-35) Mean Corpuscular Hemoglobin Concent 33 g/dL (31-37) Red Cell Distribution Width 16.8 % (11.5-14.5) Platelet Count 232 x10^3/uL (140-400) Neutrophils (%) (Auto) 72 % (31-73) Lymphocytes (%) (Auto) 21 % (24-48) Monocytes (%) (Auto) 6 % (0-9) Eosinophils (%) (Auto) 1 % (0-3) Basophils (%) (Auto) 0 % (0-3) Neutrophils # (Auto) 6.0 x10^3uL (1.8-7.7) Lymphocytes # (Auto) 1.8 x10^3/uL (1.0-4.8) Monocytes # (Auto) 0.5 x10^3/uL (0.0-1.1) Eosinophils # (Auto) 0.0 x10^3/uL (0.0-0.7) Basophils # (Auto) 0.0 x10^3/uL (0.0-0.2) Laboratory Tests Test 05/31/18 09:49 05/31/18 12:49 05/31/18 16:56 05/31/18 20:45 Glucose (Fingerstick) 392 mg/dL (70-99) 373 mg/dL (70-99) 209 mg/dL (70-99) Lactic Acid Level 2.0 mmol/L (0.4-2.0) Test 05/31/18 21:03 06/01/18 05:30 Glucose (Fingerstick) 137 mg/dL (70-99) White Blood Count 8.3 x10^3/uL (4.0-11.0) Red Blood Count 3.08 x10^6/uL (3.50-5.40) Hemoglobin 9.1 g/dL (12.0-15.5) Hematocrit 27.4 % (36.0-47.0) Mean Corpuscular Volume 89 fL (79-100) Mean Corpuscular Hemoglobin 30 pg (25-35) Mean Corpuscular Hemoglobin Concent 33 g/dL (31-37) Red Cell Distribution Width 16.8 % (11.5-14.5) Platelet Count 232 x10^3/uL (140-400) Neutrophils (%) (Auto) 72 % (31-73) Lymphocytes (%) (Auto) 21 % (24-48) Monocytes (%) (Auto) 6 % (0-9) Eosinophils (%) (Auto) 1 % (0-3) Basophils (%) (Auto) 0 % (0-3) Neutrophils # (Auto) 6.0 x10^3uL (1.8-7.7) Lymphocytes # (Auto) 1.8 x10^3/uL (1.0-4.8) Monocytes # (Auto) 0.5 x10^3/uL (0.0-1.1) Eosinophils # (Auto) 0.0 x10^3/uL (0.0-0.7) Basophils # (Auto) 0.0 x10^3/uL (0.0-0.2) Microbiology 05/27/18 Blood Culture - Preliminary, Resulted NO GROWTH AFTER 4 DAYS 05/23/18 Stool Culture - Final, Complete 05/23/18 Stool Culture Result 1 (GRACIE) - Final, Complete 05/23/18 Campylobacter Antigen Assay - Final, Complete 05/23/18 Campylobactor Result 1 - Final, Complete 05/23/18 Shiga Toxin Test - Final, Complete 05/23/18 - Final, Complete 05/23/18 - Final, Complete 05/23/18 - Final, Complete 05/23/18 Gram Stain Evaluation - Final, Complete 05/23/18 Sputum Culture - Final, Complete 05/23/18 Sputum Result 1 - Final, Complete 05/23/18 Sputum Result 2 - Final, Complete 05/23/18 - Final, Complete 05/23/18 Antimicrobic Susceptibility - Final, Complete Medications Current Medications Sodium Chloride (Normal Saline Flush) 10 ml QSHIFT PRN IV AFTER MEDS AND BLOOD DRAWS; Start 05/23/18 at 20:00 Piperacillin Sod/ Tazobactam Sod 4.5 gm/Sodium Chloride 100 ml @ 200 mls/hr 1X ONCE IV Last administered on 05/23/18at 20:34; Start 05/23/18 at 20:00; Stop 05/23/18 at 20:29; Status DC Vancomycin HCl (Vanco Per Pharmacy) 1 each 1X ONCE MC Last administered on 05/23at 20:00; Start 05/23/18 at 20:00; Stop 05/23/18 at 22:03; Status DC Propofol 100 ml @ 0 mls/hr CONT PRN IV SEE PROTOCOL; Start 05/23/18 at 20:00 Fentanyl Citrate (Fentanyl 2ml Vial) 25 mcg PRN Q1HR PRN IV SEE COMMENTS; Start 05/23/18 at 20:00 Fentanyl Citrate (Fentanyl 2ml Vial) 50 mcg PRN Q1HR PRN IV SEE COMMENTS Last administered on 05/28/18at 00:22; Start 05/23/18 at 20:00 Chlorhexidine Gluconate (Peridex) 15 ml BID MM Last administered on 05/24/18at 00 :05; Start 05/23/18 at 21:00; Stop 05/24/18 at 08:09; Status DC Acetaminophen (Tylenol Supp) 650 mg 1X ONCE [place] Last administered on 05/23/18at 20:33; Start 05/23/18 at 20:00; Stop 05/23/18 at 20:04; Status DC Sodium Chloride 1,000 ml @ 1,000 mls/hr 1X ONCE IV Last administered on 20:41; Start 05/23/18 at 20:00; Stop 05/23/18 at 20:59; Status DC Midazolam HCl (Versed) 5 mg 1X ONCE IV Last administered on 05/23/18at 20:33; Start 05/23/18 at 20:15; Stop 05/23/18 at 20:16; Status DC Lorazepam (Ativan) 2 mg STK-MED ONCE .ROUTE ; Start 05/23/18 at 20:04; Stop at 20:05; Status DC Norepinephrine Bitartrate 250 ml @ 0 mls/hr CONT PRN IV PER PROTOCOL Last administered on 06/01/18at 00:34; Start 05/23/18 at 20:30 Sodium Chloride 1,000 ml @ 126 mls/hr Q7H57M IV ; Start 05/23/18 at 20:40; Stop 05/24/18 at 20:39; Status DC Sodium Chloride 1,000 ml @ 1,000 mls/hr 1X ONCE IV Last administered on at 20:50; Start 05/23/18 at 20:45; Stop 05/23/18 at 21:44; Status DC Sodium Chloride 1,000 ml @ 1,000 mls/hr 1X ONCE IV ; Start 05/23/18 at 21:15; Stop 05/23/18 at 21:16; Status DC Propofol 50 ml @ As Directed STK-MED ONCE IV ; Start 05/23/18 at 21:02; Stop 05/23 at 21:03; Status DC Propofol 50 ml @ 1.082 mls/ hr 1X ONCE IV Last administered on 05/23/18at 21:12 ; Start 05/23/18 at 21:15; Stop 05/25/18 at 19:27; Status DC Vancomycin HCl 1.75 gm/Sodium Chloride 500 ml @ 250 mls/hr 1X ONCE IV Last administered on 05/23/18at 21:23; Start 05/23/18 at 21:30; Stop 05/23/18 at 23:29; Status DC Insulin Human Regular (HumuLIN R VIAL) 14 unit 1X ONCE SQ Last administered on 05/23/18at 21:46; Start 05/23/18 at 21:15; Stop 05/23/18 at 21:16; Status DC Sodium Chloride 1,000 ml @ 75 mls/hr 1X ONCE IV Last administered on at 21:23; Start 05/23/18 at 21:15; Stop 05/24/18 at 10:34; Status DC Etomidate (Amidate) 20 mg STK-MED ONCE IV ; Start 05/23/18 at 21:32; Stop at 21:33; Status DC Succinylcholine Chloride (Anectine) 200 mg STK-MED ONCE .ROUTE ; Start 05/23/18 at 21:32; Stop 05/23/18 at 21:33; Status DC Vancomycin HCl 1 gm/Sodium Chloride 250 ml @ 250 mls/hr Q24H IV Last administered on 05/25/18at 21:37; Start 05/24/18 at 21:30; Stop 05/26/18 at 01:00 ; Status DC Vancomycin HCl (Vancomycin Trough Level) 1 each 1X ONCE MC Last administered on 05/25/18at 21:00; Start 05/25/18 at 21:00; Stop 05/26/18 at 08:58; Status DC Sodium Chloride 500 ml @ 500 mls/hr 1X ONCE IV Last administered on 05/23/18at 22:45; Start 05/23/18 at 22:45; Stop 05/23/18 at 23:44; Status DC Albuterol/ Ipratropium (Duoneb) 3 ml RTQID NEB Last administered on 06/01/18at 08:07; Start 05/24/18 at 08:00 Fentanyl Citrate 30 ml @ 0 mls/hr CONT PRN IV SEE PROTOCOL; Start 05/23/18 at 22 :45 Midazolam HCl 100 ml @ 0 mls/hr CONT PRN IV SEE PROTOCOL Last administered on at 23:09; Start 05/23/18 at 22:45 Sodium Chloride 500 ml @ 500 mls/hr 1X ONCE IV Last administered on 05/23/18at 23:33; Start 05/23/18 at 23:00; Stop 05/23/18 at 23:59; Status DC Insulin Human Lispro (HumaLOG) 0-9 UNITS TIDWMEALS SQ Last administered on 05/31at 17:00; Start 05/24/18 at 00:00 Dextrose (Dextrose 50%-Water Syringe) 12.5 gm PRN Q15MIN PRN IV SEE COMMENTS; Start 05/23/18 at 23:30 Enoxaparin Sodium (Lovenox 40mg Syringe) 40 mg Q24H SQ Last administered on at 00:11; Start 05/23/18 at 23:30 Piperacillin Sod/ Tazobactam Sod (Zosyn Per Pharmacy) 1 each PRN DAILY PRN MC SEE COMMENTS; Start 05/23/18 at 23:30; Stop 05/31/18 at 12:56; Status DC Vancomycin HCl (Vanco Per Pharmacy) 1 each PRN DAILY PRN MC SEE COMMENTS Last administered on 05/26/18at 01:02; Start 05/23/18 at 23:30; Stop 05/26/18 at 08:58 ; Status DC Piperacillin Sod/ Tazobactam Sod 3.375 gm/Sodium Chloride 50 ml @ 100 mls/hr Q6HRS IV Last administered on 05/31/18at 06:06; Start 05/24/18 at 06:00; Stop at 12:53; Status DC Acetaminophen (Tylenol Supp) 650 mg PRN Q6HRS PRN [place] MILD PAIN / TEMP Last administered on 05/26/18at 02:16; Start 05/24/18 at 04:45 Acetaminophen (Tylenol) 650 mg PRN Q8HRS PRN PO MILD PAIN / TEMP Last administered on 05/25/18at 00:01; Start 05/24/18 at 10:45 Aspirin (Children'S Aspirin) 81 mg DAILY PO Last administered on 05/31/18at 10: 00; Start 05/24/18 at 12:00 Atorvastatin Calcium (Lipitor) 10 mg HS PEG Last administered on 05/31/18 21: 12; Start 05/24/18 at 21:00 Citric Acid/ Sodium Citrate (Bicitra) 10 ml QIDAFTMEAL PEG Last administered on 05/31/18at 21:12; Start 05/24/18 at 13:00 Magnesium Hydroxide (Milk Of Magnesia) 2,400 mg PRN DAILY PRN PEG CONSTIPATION ; Start 05/24/18 at 10:45 Rivastigmine (Exelon 13.3mg) 1 patch DAILY TD Last administered on 05/31/18at 09 :59; Start 05/24/18 at 11:30 Simvastatin (Zocor) 10 mg DAILY PO ; Start 05/25/18 at 09:00; Status UNV Insulin Glargine (Lantus) 14 units DAILY SQ Last administered on 05/24/18at 12:36 ; Start 05/24/18 at 11:30; Stop 05/25/18 at 07:19; Status DC Metformin HCl (Glucophage) 500 mg BIDWMEALS PO Last administered on 05/31/18at 16:58; Start 05/24/18 at 11:30 Multivitamins (Thera-Plus Oral Liquid) 5 ml DAILY PEG Last administered on 05/31at 10:00; Start 05/24/18 at 11:30 Nystatin (Nystop) 1 ron PRN TID PRN TP REDNESS UNDER BREAST OR ARM; Start at 21:00 Levetiracetam (Keppra) 500 mg BID PO ; Start 05/24/18 at 11:30; Stop 05/24/18 at 12:10; Status DC Sodium Chloride 1,000 ml @ 125 mls/hr 1X ONCE IV Last administered on at 12:03; Start 05/24/18 at 12:30; Stop 05/24/18 at 20:29; Status DC Levetiracetam (Keppra) 500 mg BID PEG Last administered on 05/31/18at 21:12; Start 05/24/18 at 12:30 Sodium Chloride 1,000 ml @ 125 mls/hr Q8H IV Last administered on 06/01/18at 03 :49; Start 05/24/18 at 23:00 Insulin Glargine (Lantus) 18 units DAILY SQ Last administered on 05/29/18at 09: 23; Start 05/25/18 at 09:00; Stop 05/29/18 at 11:53; Status DC Vancomycin HCl 1 gm/Sodium Chloride 250 ml @ 250 mls/hr Q12H IV ; Start at 10:00; Stop 05/26/18 at 10:00; Status DC Vancomycin HCl (Vancomycin Trough Level) 1 each 1X ONCE MC ; Start 05/27/18 at 09:30; Stop 05/27/18 at 09:30; Status DC Magnesium Sulfate 50 ml @ 25 mls/hr 1X ONCE IV Last administered on 05/26/18at 10:00; Start 05/26/18 at 08:45; Stop 05/26/18 at 10:44; Status DC Acetaminophen (Tylenol) 650 mg PRN Q6HRS PRN PEG MILD PAIN / TEMP Last administered on 05/31/18at 21:11; Start 05/26/18 at 10:15 Potassium Chloride (KCl Oral Soln) 20 meq 1X ONCE PEG Last administered on 01/03at 10:44; Start 05/26/18 at 10:30; Stop 05/26/18 at 10:36; Status DC Famotidine (Pepcid Vial) 20 mg BID IVP Last administered on 05/31/18at 21:11; Start 05/26/18 at 21:00 Linezolid/Dextrose 300 ml @ 300 mls/hr Q12HR IV Last administered on 21:11; Start 05/27/18 at 10:30 Insulin Glargine (Lantus) 22 units DAILY SQ Last administered on 05/30/18 09: 12; Start 05/30/18 at 09:00; Stop 05/31/18 at 09:57; Status DC Furosemide (Lasix) 40 mg 1X ONCE IVP Last administered on 05/30/18at 17:02; Start 05/30/18 at 14:00; Stop 05/30/18 at 14:01; Status DC Potassium Chloride (KCl Oral Soln) 80 meq 1X ONCE PEG Last administered on 17:03; Start 05/30/18 at 15:00; Stop 05/30/18 at 15:01; Status DC Insulin Glargine (Lantus) 26 units DAILY SQ ; Start 06/01/18 at 09:00; Stop at 09:00; Status DC Insulin Human Lispro (HumaLOG) 3 units QIDACHS SQ Last administered on at 17:00; Start 05/31/18 at 11:30 Insulin Human Lispro (HumaLOG) 3 units 1X ONCE SQ Last administered on at 10:07; Start 05/31/18 at 10:00; Stop 05/31/18 at 10:01; Status DC Insulin Glargine (Lantus) 26 units DAILY SQ Last administered on 05/31/18 10: 08; Start 05/31/18 at 10:15 Furosemide (Lasix) 20 mg 1X ONCE IVP Last administered on 05/31/18at 10:58; Start 05/31/18 at 11:00; Stop 05/31/18 at 11:01; Status DC Meropenem 500 mg/ Sodium Chloride 50 ml @ 100 mls/hr Q6HRS IV Last administered on 06/01/18at 05:39; Start 05/31/18 at 13:00 Insulin Human Lispro (HumaLOG) 6 units 1X ONCE SQ Last administered on at 13:08; Start 05/31/18 at 13:00; Stop 05/31/18 at 13:01; Status DC Vitamin A/Vitamin D (Vitamin A & D Ointment) 1 ron BID TP Last administered on 05/31/18at 21:13; Start 05/31/18 at 21:00 Micafungin Sodium 100 mg/Dextrose 100 ml @ 100 mls/hr Q24H IV ; Start 06/01/18 at 08:00 Doxycycline Hyclate 100 mg/ Dextrose 100 ml @ 50 mls/hr Q12HR IV ; Start at 09:00 Active Scripts Active Levemir Flextouch (Insulin Detemir) 300 Units/3 Ml Insuln.pen 14 Units SQ DAILY Milk Of Magnesia (Magnesium Hydroxide) 2,400 Mg/30 Ml Oral.susp 2,400 Mg PEG PRN DAILY PRN 30 Days [Levetiracetam] 500 MG/5 ML Solution 500 Mg PEG BID 30 Days Reported Nystatin 1 Each Powder.ea. 1 Each MC PRN PRN Famotidine 20 Mg Tablet 20 Mg PEG HS Atorvastatin Calcium 10 Mg Tablet 10 Mg PEG HS Metformin Hcl 500 Mg Tablet 500 Mg PEG BIDWMEALS Sod Citrate-Citric Acid Soln (Citric Acid/Sodium Citrate) 15 Ml Solution 10 Ml PEG QIDAFTMEAL Lansoprazole 30 Mg Capsule.dr 1 Cap PO DAILY Cipro (Ciprofloxacin Hcl) 500 Mg Tablet 1 Tab PO BID 2 Days Tylenol (Acetaminophen) 325 Mg Tablet 650 Mg PEG PRN Q8HRS PRN Multivitamins (Multivitamin) 1 Each Tablet 1 Tab PEG DAILY EXELON 13.3mg/24hr (Rivastigmine) 1 Each Patch.td24 1 Patch TD DAILY Aspirin 81 Mg Tab.chew 81 Mg PO DAILY Simvastatin 10 Mg Tablet 10 Mg PO DAILY Vitals/I & O Vital Sign - Last 24 Hours 05/31/18 05/31/18 05/31/18 05/31/18 09:00 10:00 11:00 11:25 Temp 99.2 99.2 Pulse 109 104 101 Resp 16 24 25 B/P (MAP) 75/48 (57) 104/62 (76) 110/65 (80) Pulse Ox 94 92 96 94 O2 Delivery Ventilator Ventilator Ventilator Ventilator 05/31/18 05/31/18 05/31/18 05/31/18 12:00 12:00 13:00 13:45 Pulse 111 113 Resp 25 19 B/P (MAP) 81/48 (59) 89/54 (66) Pulse Ox 93 95 93 O2 Delivery Ventilator Mechanical Ventilator Ventilator Ventilator 05/31/18 05/31/18 05/31/18 05/31/18 14:00 15:00 15:20 16:00 Pulse 113 104 Resp 21 19 B/P (MAP) 95/56 (69) 92/56 (68) Pulse Ox 94 96 98 O2 Delivery Ventilator Ventilator Ventilator Mechanical Ventilator 05/31/18 05/31/18 05/31/18 05/31/18 16:00 17:00 17:39 18:00 Temp 99.4 99.4 Pulse 101 111 114 Resp 16 20 20 B/P (MAP) 87/52 (64) 109/63 (78) 111/64 (80) Pulse Ox 97 99 95 95 O2 Delivery Ventilator Ventilator Ventilator Ventilator 05/31/18 05/31/18 05/31/18 05/31/18 19:00 19:53 20:00 20:00 Temp 102.1 102.1 Pulse 114 114 Resp 20 20 B/P (MAP) 102/58 (73) 98/55 (69) Pulse Ox 95 95 95 O2 Delivery Ventilator Ventilator Ventilator Mechanical Ventilator 05/31/18 05/31/18 05/31/18 05/31/18 21:00 22:00 23:00 23:00 Pulse 114 114 114 Resp 20 20 20 B/P (MAP) 83/54 (64) 84/50 (61) 104/55 (71) Pulse Ox 95 95 95 95 O2 Delivery Ventilator Ventilator Ventilator Ventilator 05/31/18 06/01/18 06/01/18 06/01/18 23:59 00:01 01:00 02:00 Temp 97.9 97.9 Pulse 97 102 87 Resp 19 22 16 B/P (MAP) 97/52 (67) 97/53 (68) 105/64 (78) Pulse Ox 95 97 95 O2 Delivery Mechanical Ventilator Ventilator Ventilator Ventilator 06/01/18 06/01/18 06/01/18 06/01/18 02:30 03:00 04:00 04:00 Temp 99.9 99.9 Pulse 85 95 Resp 16 17 B/P (MAP) 106/55 (72) 98/59 (72) Pulse Ox 97 99 96 O2 Delivery Ventilator Ventilator Ventilator Mechanical Ventilator 06/01/18 06/01/18 06/01/18 06/01/18 05:00 05:10 06:00 08:03 Pulse 85 89 Resp 16 16 B/P (MAP) 102/61 (75) 85/49 (61) Pulse Ox 99 94 96 94 O2 Delivery Ventilator Ventilator Ventilator Ventilator Intake and Output 05/31/18 05/31/18 06/01/18 14:59 22:59 06:59 Intake Total 650 ml 1085 ml 2362 ml Output Total 1825 ml 970 ml 980 ml Balance -1175 ml 115 ml 1382 ml ARIEL COBB MD Jun 01, 2018 08:41
[2018-06-01] MEDS: MICAFUNGIN 100 MG in IV DEXTROSE 5% 100ML 100 ML IV SCH (08:53)
[2018-06-01] MEDS: DOXYCYCLINE HYCLATE 100 MG in IV DEXTROSE 5% 100ML 100 ML IV SCH ×2 (08:54→21:24)
[2018-06-01] MEDS ORDERED: INSULIN GLARGINE 300 UNITS/3 ML INSULN.PEN. SQ SCH (09:00)
[2018-06-01] MEDS: MULTIVITAMINS,THERAPEUTIC 5 ML ORAL LIQUID. PEG SCH (09:00)
[2018-06-01] MEDS: RIVASTIGMINE 13.3MG PATCH. TD SCH (09:00)
[2018-06-01] MEDS: FAMOTIDINE 20 MG/2 ML VIAL IVP SCH ×2 (09:00→21:24)
[2018-06-01] MEDS: metFORMIN 500 MG TABLET PO SCH ×2 (09:01→16:52)
[2018-06-01] MEDS: ASPIRIN CHEWABLE 81 MG TABLET. PO SCH (09:01)
[2018-06-01] MEDS: CITRIC ACID/SODIUM CITRATE 30 ML SOLUTION. PEG SCH ×4 (09:04→21:32)
[2018-06-01] MEDS: INSULIN LISPRO 300 UNITS/3 ML INSULN.PEN. SQ SCH ×7 (09:20→21:50)
[2018-06-01] MEDS: INSULIN GLARGINE 300 UNITS/3 ML INSULN.PEN. SQ SCH (09:30)
[2018-06-01] MEDS: VITS A & D/LANOLIN TOPICAL OINTMENT 56GM TUBE. TP SCH ×2 (09:31→21:33)
[2018-06-01 10:35] LABS: BASE EXCESS ABG 1 mmol/L (-3-3); HCO3 ABG 24 mmol/L (21-28); PCO2 ABG 33 mmHg (35-46); PO2 ABG 83 mmHg (75-108); SAT O2 ABG 97 % (92-99)
[2018-06-01 10:36] LABS: FIO2 ABG 55
--- NOTE | 2018-06-01 14:55 | RAD ---
Examination: CT CHEST ABDOMEN PELVIS WO History: FEVER, PRIORS SENT, PT WITH DOWNS SYNDROME AND DEMENTIA, CONTRACTED Comparison/Correlation: 03/17/2017 CT abdomen and pelvis with contrast Findings: Axial images of chest, abdomen, and pelvis were obtained without intravenous or oral contrast. This may limit detection for mass lesions and inflammatory processes. Endotracheal tube terminates 2.9 cm from the gayathri. Right-sided PICC is present. Dual-lead left-sided pacemaker is present. Small moderate-sized right pleural effusion is present. Small left pleural effusion noted. Patchy infiltrates noted. Right lower lobe atelectatic consolidation noted. Pulmonary vasculature is congested. G-tube is in place. Unenhanced liver and spleen are unremarkable. Pancreas is normal. Adrenal glands are unremarkable. Kidneys are unremarkable with no radiopaque collecting system calculi. There is no ascites. Small amount of presacral fluid is present. No loculated pelvic collection. No bowel obstruction. Edema involving the right flank subjacent abdominal wall region is notable. Edema of the left lower flank abdominal wall region and left back subcutaneous fat noted. Right hip joint degenerative remodeling is notable with spurring. Tamayo catheter is present in the urinary bladder. Rectal tube is present. Linear scarring involving the medial right buttock region is present extending to the right iliac ala. Intermediate density region which is ill-defined noted involving the medial left lower buttock subcutaneous fat. This measures 4.5 cm anteroposterior by 4 cm transverse by 3.4 cm longitudinal and extends to the gluteus musculature., L4-5 and L5-S1 disc space narrowing is present. These are similar or decreased compared to the previous CT exam. Impression: Bilateral pleural effusions of moderate to large size. Extensive patchy consolidations involving the lung padilla and right lower lobe atelectatic consolidation. Minimal presacral edema. No loculated collection. PQRS Compliance Statement: One or more of the following individualized dose reduction techniques were utilized for this examination: 1. Automated exposure control 2. Adjustment of the mA and/or kV according to patient size 3. Use of iterative reconstruction technique Electronically signed by: Franco Penny MD (06/01/2018 2:52 PM) [id number]
--- NOTE | 2018-06-01 14:55 | PDOC ---
PULMONARY PROGRESS NOTES Subjective on vent, on versed, on levo, on fi02 55%, small ett secretion, Vitals Vital Signs Date Time Temp Pulse Resp B/P (MAP) Pulse Ox O2 Delivery O2 Flow Rate FiO2 06/01/18 13:10 98 Ventilator 06/01/18 11:00 102 20 93/57 (69) 06/01/18 08:00 99.0 99.0 Comments ros as mentioned as above discussed w rn, rt, other sys otherwise neg sedated on vent HEENT: Other (nc at perrl nose clear, orally intubated neck no lad, no thyromegaly) Lungs: Other (decrease bs) Cardiovascular: S1, S2 Abdomen: Soft, Non-tender, Other (no mass) Extremities: Other (edema trace) Skin: Warm Labs Laboratory Tests Test 05/30/18 17:05 05/31/18 05:00 05/31/18 07:30 05/31/18 09:49 Glucose (Fingerstick) 273 mg/dL (70-99) 392 mg/dL (70-99) White Blood Count 7.4 x10^3/uL (4.0-11.0) Red Blood Count 3.51 x10^6/uL (3.50-5.40) Hemoglobin 10.2 g/dL (12.0-15.5) Hematocrit 31.1 % (36.0-47.0) Mean Corpuscular Volume 89 fL (79-100) Mean Corpuscular Hemoglobin 29 pg (25-35) Mean Corpuscular Hemoglobin Concent 33 g/dL (31-37) Red Cell Distribution Width 16.7 % (11.5-14.5) Platelet Count 230 x10^3/uL (140-400) Neutrophils (%) (Auto) 71 % (31-73) Lymphocytes (%) (Auto) 23 % (24-48) Monocytes (%) (Auto) 6 % (0-9) Eosinophils (%) (Auto) 0 % (0-3) Basophils (%) (Auto) 0 % (0-3) Neutrophils # (Auto) 5.3 x10^3uL (1.8-7.7) Lymphocytes # (Auto) 1.7 x10^3/uL (1.0-4.8) Monocytes # (Auto) 0.4 x10^3/uL (0.0-1.1) Eosinophils # (Auto) 0.0 x10^3/uL (0.0-0.7) Basophils # (Auto) 0.0 x10^3/uL (0.0-0.2) O2 Saturation 93 % (92-99) Arterial Blood pH 7.47 (7.35-7.45) Arterial Blood pCO2 at Patient Temp 37 mmHg (35-46) Arterial Blood pO2 at Patient Temp 68 mmHg (75-108) Arterial Blood HCO3 27 mmol/L (21-28) Arterial Blood Base Excess 3 mmol/L (-3-3) FiO2 55 Test 05/31/18 12:49 05/31/18 16:56 05/31/18 20:45 05/31/18 21:03 Glucose (Fingerstick) 373 mg/dL (70-99) 209 mg/dL (70-99) 137 mg/dL (70-99) Lactic Acid Level 2.0 mmol/L (0.4-2.0) Test 06/01/18 05:30 06/01/18 09:15 06/01/18 10:20 06/01/18 11:52 White Blood Count 8.3 x10^3/uL (4.0-11.0) Red Blood Count 3.08 x10^6/uL (3.50-5.40) Hemoglobin 9.1 g/dL (12.0-15.5) Hematocrit 27.4 % (36.0-47.0) Mean Corpuscular Volume 89 fL (79-100) Mean Corpuscular Hemoglobin 30 pg (25-35) Mean Corpuscular Hemoglobin Concent 33 g/dL (31-37) Red Cell Distribution Width 16.8 % (11.5-14.5) Platelet Count 232 x10^3/uL (140-400) Neutrophils (%) (Auto) 72 % (31-73) Lymphocytes (%) (Auto) 21 % (24-48) Monocytes (%) (Auto) 6 % (0-9) Eosinophils (%) (Auto) 1 % (0-3) Basophils (%) (Auto) 0 % (0-3) Neutrophils # (Auto) 6.0 x10^3uL (1.8-7.7) Lymphocytes # (Auto) 1.8 x10^3/uL (1.0-4.8) Monocytes # (Auto) 0.5 x10^3/uL (0.0-1.1) Eosinophils # (Auto) 0.0 x10^3/uL (0.0-0.7) Basophils # (Auto) 0.0 x10^3/uL (0.0-0.2) Glucose (Fingerstick) 288 mg/dL (70-99) 266 mg/dL (70-99) O2 Saturation 97 % (92-99) Arterial Blood pH 7.49 (7.35-7.45) Arterial Blood pCO2 at Patient Temp 33 mmHg (35-46) Arterial Blood pO2 at Patient Temp 83 mmHg (75-108) Arterial Blood HCO3 24 mmol/L (21-28) Arterial Blood Base Excess 1 mmol/L (-3-3) FiO2 55 Laboratory Tests Test 05/31/18 16:56 05/31/18 20:45 05/31/18 21:03 06/01/18 05:30 Glucose (Fingerstick) 209 mg/dL (70-99) 137 mg/dL (70-99) Lactic Acid Level 2.0 mmol/L (0.4-2.0) White Blood Count 8.3 x10^3/uL (4.0-11.0) Red Blood Count 3.08 x10^6/uL (3.50-5.40) Hemoglobin 9.1 g/dL (12.0-15.5) Hematocrit 27.4 % (36.0-47.0) Mean Corpuscular Volume 89 fL (79-100) Mean Corpuscular Hemoglobin 30 pg (25-35) Mean Corpuscular Hemoglobin Concent 33 g/dL (31-37) Red Cell Distribution Width 16.8 % (11.5-14.5) Platelet Count 232 x10^3/uL (140-400) Neutrophils (%) (Auto) 72 % (31-73) Lymphocytes (%) (Auto) 21 % (24-48) Monocytes (%) (Auto) 6 % (0-9) Eosinophils (%) (Auto) 1 % (0-3) Basophils (%) (Auto) 0 % (0-3) Neutrophils # (Auto) 6.0 x10^3uL (1.8-7.7) Lymphocytes # (Auto) 1.8 x10^3/uL (1.0-4.8) Monocytes # (Auto) 0.5 x10^3/uL (0.0-1.1) Eosinophils # (Auto) 0.0 x10^3/uL (0.0-0.7) Basophils # (Auto) 0.0 x10^3/uL (0.0-0.2) Test 06/01/18 09:15 06/01/18 10:20 06/01/18 11:52 Glucose (Fingerstick) 288 mg/dL (70-99) 266 mg/dL (70-99) O2 Saturation 97 % (92-99) Arterial Blood pH 7.49 (7.35-7.45) Arterial Blood pCO2 at Patient Temp 33 mmHg (35-46) Arterial Blood pO2 at Patient Temp 83 mmHg (75-108) Arterial Blood HCO3 24 mmol/L (21-28) Arterial Blood Base Excess 1 mmol/L (-3-3) FiO2 55 Medications Active Scripts Medications Dose Route/Sig Max Daily Dose Days Date Category Nystatin 1 Each Powder.ea. 1 Each MC PRN PRN 05/24/18 Reported Famotidine 20 Mg Tablet 20 Mg PEG HS 05/24/18 Reported Atorvastatin Calcium 10 Mg Tablet 10 Mg PEG HS 05/24/18 Reported Metformin Hcl 500 Mg Tablet 500 Mg PEG BIDWMEALS 05/24/18 Reported Sod Citrate-Citric Acid Soln (Citric Acid/Sodium Citrate) 15 Ml Solution 10 Ml PEG QIDAFTMEAL 03/26/17 Reported Lansoprazole 30 Mg Capsule.dr 1 Cap PO DAILY 03/26/17 Reported Cipro (Ciprofloxacin Hcl) 500 Mg Tablet 1 Tab PO BID 2 03/26/17 Reported Tylenol (Acetaminophen) 325 Mg Tablet 650 Mg PEG PRN Q8HRS PRN 03/17/17 Reported Multivitamins (Multivitamin) 1 Each Tablet 1 Tab PEG DAILY 03/17/17 Reported Levemir Flextouch (Insulin Detemir) 300 Units/3 Ml Insuln.pen 14 Units SQ DAILY 09/05/14 Rx Milk Of Magnesia (Magnesium Hydroxide) 2,400 Mg/30 Ml Oral.susp 2,400 Mg PEG PRN DAILY PRN 30 09/05/14 Rx [Levetiracetam] 500 MG/5 ML Solution 500 Mg PEG BID 30 09/05/14 Rx EXELON 13.3mg/24hr (Rivastigmine) 1 Each Patch.td24 1 Patch TD DAILY 08/14/14 Reported Aspirin 81 Mg Tab.chew 81 Mg PO DAILY 03/18/13 Reported Simvastatin 10 Mg Tablet 10 Mg PO DAILY 03/18/13 Reported Comments reviewed, CXR 05/30 b ll infilt atelectasis effusion, worse, ett ok CT CHEST reviewed 06/01 Impression . 1. Acute respiratory failure secondary to septic shock. , increased 02 need, likely superimposed CHF 2. Septic shock likely source aspiration pneumonia. MRSA and group B strep 3. recurrent fever, ? etiology, per id, ct chest reviewed, bilateral infiltrates, basal effusions 4. Down's syndrome. 5. Hypernatremia/ improving Plan . 1. cont vent support, setting reviewed, abg reviewed, on 55% fio2, titrate fi02 to keep sat 94%, not ready for sbt, am cxr, abg, 2. Monitor fever 3. Broad-spectrum antibiotics. , fu cx, sputum cx, abx per id, zosyn,, zyvox 4. Follow renal function. 5. Wean pressors to keep map >65 6. Monitor urine output. 7. Monitor white cell count. 8. DVT and stress ulcer prophylaxis. 9. elevate hob 10. pepcid and lovenox for prophylaxis Discussed with RN and RT. The patient remains critically ill. Palliative care is on the case to discuss the goals of care, prognosis poor, would not rec trach RICH GREGORY MD Jun 01, 2018 14:55
--- NOTE | 2018-06-01 15:17 | NUR ---
SS following up with discharge planning. Palliative Care in contact with pt's family. Second family meeting scheduled for 06/02/2018 at 1600. SS will continue to follow for discharge planning.
[2018-06-01] MEDS: fentaNYL PF VIAL 100 MCG/2 ML VIAL IV PRN ×2 (16:52→20:44)
[2018-06-01] MEDS: ATORVASTATIN CALCIUM 10 MG TABLET. PEG SCH (21:24)
[2018-06-02] VITALS (25 sets, daily range): BP systolic 63–130; BP diastolic 31–84
[2018-06-02] MEDS: IV 1/2 NORMAL SALINE 1,000 ML IV SCH ×4 (00:34→22:33)
[2018-06-02] MEDS: MEROPENEM 500 MG in IV NORMAL SALINE 50ML 50 ML IV SCH ×5 (00:35→23:32)
[2018-06-02] MEDS: ENOXAPARIN 40 MG/0.4 ML SYRINGE. SQ SCH ×2 (00:35→23:00)
[2018-06-02 06:38] LABS: BASO % 0 % (0-3); EOS # 0.1 x10^3/uL (0.0-0.7); EOS % 1 % (0-3); HEMATOCRIT 29.1 % (36.0-47.0); HEMOGLOBIN 9.6 g/dL (12.0-15.5); LYMPH # 1.4 x10^3/uL (1.0-4.8); LYMPH % 17 % (24-48); MEAN CORPUSCULAR HEMOGLOBIN 30 pg (25-35); MEAN CORPUSCULAR HGB CONC 33 g/dL (31-37); MEAN CORPUSCULAR VOLUME 89 fL (79-100); MONO # 0.5 x10^3/uL (0.0-1.1); MONO % 6 % (0-9); NEUT # 6.4 x10^3uL (1.8-7.7); NEUT % 76 % (31-73); PLATELET COUNT 249 x10^3/uL (140-400); RED BLOOD COUNT 3.26 x10^6/uL (3.50-5.40); RED CELL DISTRIBUTION WIDTH 16.4 % (11.5-14.5); WHITE BLOOD COUNT 8.5 x10^3/uL (4.0-11.0)
[2018-06-02] MEDS: IPRATRPIUM/ALBUTEROL 0.5/2.5MG 3 ML NEBU. NEB SCH ×4 (07:18→20:05)
--- NOTE | 2018-06-02 07:44 | PDOC ---
PROGRESS NOTES Chief Complaint Chief Complaint Septic shock etiology most likely Related to underlying lung process Severe dehydration hypernatremia secondary to the above Down syndrome History of anxiety dementia, diabetes mellitus type II insulin requiring uncontrolled History of PEG tube. Hypernatremia secondary to water deficit Plan: increased lantus insulin and provide correctional with 7 units for her glycemia of over 300 Continue with supportive measures. Continue ventilatory support as per solar sales consultant Type and screen cont home medications currently still on pressors antibiotics [facility] Further recommendations based on the clinical course History of Present Illness History of Present Illness No apparent distress. No acute events reported overnight. Fever 05/31/18 102.1F, repeated blood cultures over weekend and again today. Rectal tube removed. Palliative met with family yesterday evening, will readdress goals of care on in the afternoon S/p 1u PRBC on 05/30 with some improvement in vital signs Intubated and sedated, FiO2 down to 55%, Hypotensive, Levophed 4 mcg, Tube feedings 45 ml/hr. RUE swelling noted without DVT on US Diarrhea less significant, rectal tube dislodged, however. Versed off. She is moving and opening eyes, not following commands Plan: Family meeting to address goals of care today CT shows Bilateral pleural effusions of moderate to large size. Extensive patchy consolidations involving the lung padilla and right lower lobe atelectatic consolidation. Vitals Vitals Vital Signs Date Time Temp Pulse Resp B/P (MAP) Pulse Ox O2 Delivery O2 Flow Rate FiO2 06/02/18 07:18 99 Ventilator 06/02/18 07:00 98.0 101 21 107/65 (79) 98.0 Physical Exam Physical Exam GENERAL: Orally intubated, sedated, not in any distress. HEENT: Pupils small, ETT, OGT LUNGS: Clear anteriorly HEART: S1, S2 regular. No gallop or murmur. ABDOMEN: Obese, soft, + BS. rectal tube out : Tamayo EXTREMITIES: Generalized edema, LE contractures ,RUE edema NEUROLOGIC: Sedated on vent SKIN: No rash PICC line RUE looks OK Lungs: Other (decrease bs) Labs LABS Laboratory Tests Test 06/01/18 09:15 06/01/18 10:20 06/01/18 11:52 06/01/18 16:59 Glucose (Fingerstick) 288 mg/dL (70-99) 266 mg/dL (70-99) 122 mg/dL (70-99) O2 Saturation 97 % (92-99) Arterial Blood pH 7.49 (7.35-7.45) Arterial Blood pCO2 at Patient Temp 33 mmHg (35-46) Arterial Blood pO2 at Patient Temp 83 mmHg (75-108) Arterial Blood HCO3 24 mmol/L (21-28) Arterial Blood Base Excess 1 mmol/L (-3-3) FiO2 55 Test 06/01/18 21:47 06/02/18 06:20 Glucose (Fingerstick) 101 mg/dL (70-99) White Blood Count 8.5 x10^3/uL (4.0-11.0) Red Blood Count 3.26 x10^6/uL (3.50-5.40) Hemoglobin 9.6 g/dL (12.0-15.5) Hematocrit 29.1 % (36.0-47.0) Mean Corpuscular Volume 89 fL (79-100) Mean Corpuscular Hemoglobin 30 pg (25-35) Mean Corpuscular Hemoglobin Concent 33 g/dL (31-37) Red Cell Distribution Width 16.4 % (11.5-14.5) Platelet Count 249 x10^3/uL (140-400) Neutrophils (%) (Auto) 76 % (31-73) Lymphocytes (%) (Auto) 17 % (24-48) Monocytes (%) (Auto) 6 % (0-9) Eosinophils (%) (Auto) 1 % (0-3) Basophils (%) (Auto) 0 % (0-3) Neutrophils # (Auto) 6.4 x10^3uL (1.8-7.7) Lymphocytes # (Auto) 1.4 x10^3/uL (1.0-4.8) Monocytes # (Auto) 0.5 x10^3/uL (0.0-1.1) Eosinophils # (Auto) 0.1 x10^3/uL (0.0-0.7) Basophils # (Auto) 0.0 x10^3/uL (0.0-0.2) Comment Review of Relevant I have reviewed the following items trey (where applicable) has been applied. Labs Laboratory Tests Test 05/31/18 09:49 4/16/19 12:49 05/31/18 16:56 05/31/18 20:45 Glucose (Fingerstick) 392 mg/dL (70-99) 373 mg/dL (70-99) 209 mg/dL (70-99) Lactic Acid Level 2.0 mmol/L (0.4-2.0) Test 05/31/18 21:03 06/01/18 02:00 06/01/18 05:30 06/01/18 09:15 Glucose (Fingerstick) 137 mg/dL (70-99) 288 mg/dL (70-99) Clostridium difficile Toxin B Gene Negative (Negative) White Blood Count 8.3 x10^3/uL (4.0-11.0) Red Blood Count 3.08 x10^6/uL (3.50-5.40) Hemoglobin 9.1 g/dL (12.0-15.5) Hematocrit 27.4 % (36.0-47.0) Mean Corpuscular Volume 89 fL (79-100) Mean Corpuscular Hemoglobin 30 pg (25-35) Mean Corpuscular Hemoglobin Concent 33 g/dL (31-37) Red Cell Distribution Width 16.8 % (11.5-14.5) Platelet Count 232 x10^3/uL (140-400) Neutrophils (%) (Auto) 72 % (31-73) Lymphocytes (%) (Auto) 21 % (24-48) Monocytes (%) (Auto) 6 % (0-9) Eosinophils (%) (Auto) 1 % (0-3) Basophils (%) (Auto) 0 % (0-3) Neutrophils # (Auto) 6.0 x10^3uL (1.8-7.7) Lymphocytes # (Auto) 1.8 x10^3/uL (1.0-4.8) Monocytes # (Auto) 0.5 x10^3/uL (0.0-1.1) Eosinophils # (Auto) 0.0 x10^3/uL (0.0-0.7) Basophils # (Auto) 0.0 x10^3/uL (0.0-0.2) Test 06/01/18 10:20 06/01/18 11:52 06/01/18 16:59 06/01/18 21:47 O2 Saturation 97 % (92-99) Arterial Blood pH 7.49 (7.35-7.45) Arterial Blood pCO2 at Patient Temp 33 mmHg (35-46) Arterial Blood pO2 at Patient Temp 83 mmHg (75-108) Arterial Blood HCO3 24 mmol/L (21-28) Arterial Blood Base Excess 1 mmol/L (-3-3) FiO2 55 Glucose (Fingerstick) 266 mg/dL (70-99) 122 mg/dL (70-99) 101 mg/dL (70-99) Test 06/02/18 06:20 White Blood Count 8.5 x10^3/uL (4.0-11.0) Red Blood Count 3.26 x10^6/uL (3.50-5.40) Hemoglobin 9.6 g/dL (12.0-15.5) Hematocrit 29.1 % (36.0-47.0) Mean Corpuscular Volume 89 fL (79-100) Mean Corpuscular Hemoglobin 30 pg (25-35) Mean Corpuscular Hemoglobin Concent 33 g/dL (31-37) Red Cell Distribution Width 16.4 % (11.5-14.5) Platelet Count 249 x10^3/uL (140-400) Neutrophils (%) (Auto) 76 % (31-73) Lymphocytes (%) (Auto) 17 % (24-48) Monocytes (%) (Auto) 6 % (0-9) Eosinophils (%) (Auto) 1 % (0-3) Basophils (%) (Auto) 0 % (0-3) Neutrophils # (Auto) 6.4 x10^3uL (1.8-7.7) Lymphocytes # (Auto) 1.4 x10^3/uL (1.0-4.8) Monocytes # (Auto) 0.5 x10^3/uL (0.0-1.1) Eosinophils # (Auto) 0.1 x10^3/uL (0.0-0.7) Basophils # (Auto) 0.0 x10^3/uL (0.0-0.2) Laboratory Tests Test 06/01/18 09:15 06/01/18 10:20 06/01/18 11:52 06/01/18 16:59 Glucose (Fingerstick) 288 mg/dL (70-99) 266 mg/dL (70-99) 122 mg/dL (70-99) O2 Saturation 97 % (92-99) Arterial Blood pH 7.49 (7.35-7.45) Arterial Blood pCO2 at Patient Temp 33 mmHg (35-46) Arterial Blood pO2 at Patient Temp 83 mmHg (75-108) Arterial Blood HCO3 24 mmol/L (21-28) Arterial Blood Base Excess 1 mmol/L (-3-3) FiO2 55 Test 06/01/18 21:47 06/02/18 06:20 Glucose (Fingerstick) 101 mg/dL (70-99) White Blood Count 8.5 x10^3/uL (4.0-11.0) Red Blood Count 3.26 x10^6/uL (3.50-5.40) Hemoglobin 9.6 g/dL (12.0-15.5) Hematocrit 29.1 % (36.0-47.0) Mean Corpuscular Volume 89 fL (79-100) Mean Corpuscular Hemoglobin 30 pg (25-35) Mean Corpuscular Hemoglobin Concent 33 g/dL (31-37) Red Cell Distribution Width 16.4 % (11.5-14.5) Platelet Count 249 x10^3/uL (140-400) Neutrophils (%) (Auto) 76 % (31-73) Lymphocytes (%) (Auto) 17 % (24-48) Monocytes (%) (Auto) 6 % (0-9) Eosinophils (%) (Auto) 1 % (0-3) Basophils (%) (Auto) 0 % (0-3) Neutrophils # (Auto) 6.4 x10^3uL (1.8-7.7) Lymphocytes # (Auto) 1.4 x10^3/uL (1.0-4.8) Monocytes # (Auto) 0.5 x10^3/uL (0.0-1.1) Eosinophils # (Auto) 0.1 x10^3/uL (0.0-0.7) Basophils # (Auto) 0.0 x10^3/uL (0.0-0.2) Microbiology 05/31/18 Blood Culture - Preliminary, Resulted NO GROWTH AFTER 1 DAY 05/23/18 Stool Culture - Final, Complete 05/23/18 Stool Culture Result 1 (GRACIE) - Final, Complete 05/23/18 Campylobacter Antigen Assay - Final, Complete 05/23/18 Campylobactor Result 1 - Final, Complete 05/23/18 Shiga Toxin Test - Final, Complete 05/31/18 - Final, Resulted 05/31/18 - Final, Resulted 05/31/18 - Final, Resulted 05/31/18 Gram Stain Evaluation - Final, Resulted 05/31/18 Sputum Culture, Resulted Pending Medications Current Medications Sodium Chloride (Normal Saline Flush) 10 ml QSHIFT PRN IV AFTER MEDS AND BLOOD DRAWS; Start 05/23/18 at 20:00 Piperacillin Sod/ Tazobactam Sod 4.5 gm/Sodium Chloride 100 ml @ 200 mls/hr 1X ONCE IV Last administered on 05/23/18at 20:34; Start 05/23/18 at 20:00; Stop 05/23/18 at 20:29; Status DC Vancomycin HCl (Vanco Per Pharmacy) 1 each 1X ONCE MC Last administered on 05/23at 20:00; Start 05/23/18 at 20:00; Stop 05/23/18 at 22:03; Status DC Propofol 100 ml @ 0 mls/hr CONT PRN IV SEE PROTOCOL; Start 05/23/18 at 20:00 Fentanyl Citrate (Fentanyl 2ml Vial) 25 mcg PRN Q1HR PRN IV SEE COMMENTS Last administered on 06/01/18at 16:52; Start 05/23/18 at 20:00 Fentanyl Citrate (Fentanyl 2ml Vial) 50 mcg PRN Q1HR PRN IV SEE COMMENTS Last administered on 06/01/18at 20:44; Start 05/23/18 at 20:00 Chlorhexidine Gluconate (Peridex) 15 ml BID MM Last administered on 05/24/18at 00 :05; Start 05/23/18 at 21:00; Stop 05/24/18 at 08:09; Status DC Acetaminophen (Tylenol Supp) 650 mg 1X ONCE NC Last administered on 05/23/18at 20:33; Start 05/23/18 at 20:00; Stop 05/23/18 at 20:04; Status DC Sodium Chloride 1,000 ml @ 1,000 mls/hr 1X ONCE IV Last administered on at 20:41; Start 05/23/18 at 20:00; Stop 05/23/18 at 20:59; Status DC Midazolam HCl (Versed) 5 mg 1X ONCE IV Last administered on 05/23/18at 20:33; Start 05/23/18 at 20:15; Stop 05/23/18 at 20:16; Status DC Lorazepam (Ativan) 2 mg STK-MED ONCE .ROUTE ; Start 05/23/18 at 20:04; Stop at 20:05; Status DC Norepinephrine Bitartrate 250 ml @ 0 mls/hr CONT PRN IV PER PROTOCOL Last administered on 06/01/18at 00:34; Start 05/23/18 at 20:30 Sodium Chloride 1,000 ml @ 126 mls/hr Q7H57M IV ; Start 05/23/18 at 20:40; Stop 05/24/18 at 20:39; Status DC Sodium Chloride 1,000 ml @ 1,000 mls/hr 1X ONCE IV Last administered on at 20:50; Start 05/23/18 at 20:45; Stop 05/23/18 at 21:44; Status DC Sodium Chloride 1,000 ml @ 1,000 mls/hr 1X ONCE IV ; Start 05/23/18 at 21:15; Stop 05/23/18 at 21:16; Status DC Propofol 50 ml @ As Directed STK-MED ONCE IV ; Start 05/23/18 at 21:02; Stop 05/23 at 21:03; Status DC Propofol 50 ml @ 1.082 mls/ hr 1X ONCE IV Last administered on 05/23/18at 21:12 ; Start 05/23/18 at 21:15; Stop 05/25/18 at 19:27; Status DC Vancomycin HCl 1.75 gm/Sodium Chloride 500 ml @ 250 mls/hr 1X ONCE IV Last administered on 05/23/18at 21:23; Start 05/23/18 at 21:30; Stop 05/23/18 at 23:29; Status DC Insulin Human Regular (HumuLIN R VIAL) 14 unit 1X ONCE SQ Last administered on 05/23/18at 21:46; Start 05/23/18 at 21:15; Stop 05/23/18 at 21:16; Status DC Sodium Chloride 1,000 ml @ 75 mls/hr 1X ONCE IV Last administered on at 21:23; Start 05/23/18 at 21:15; Stop 05/24/18 at 10:34; Status DC Etomidate (Amidate) 20 mg STK-MED ONCE IV ; Start 05/23/18 at 21:32; Stop at 21:33; Status DC Succinylcholine Chloride (Anectine) 200 mg STK-MED ONCE .ROUTE ; Start 05/23/18 at 21:32; Stop 05/23/18 at 21:33; Status DC Vancomycin HCl 1 gm/Sodium Chloride 250 ml @ 250 mls/hr Q24H IV Last administered on 05/25/18at 21:37; Start 05/24/18 at 21:30; Stop 05/26/18 at 01:00 ; Status DC Vancomycin HCl (Vancomycin Trough Level) 1 each 1X ONCE MC Last administered on 05/25/18at 21:00; Start 05/25/18 at 21:00; Stop 05/26/18 at 08:58; Status DC Sodium Chloride 500 ml @ 500 mls/hr 1X ONCE IV Last administered on 05/23/18at 22:45; Start 05/23/18 at 22:45; Stop 05/23/18 at 23:44; Status DC Albuterol/ Ipratropium (Duoneb) 3 ml RTQID NEB Last administered on 06/02/18at 07:18; Start 05/24/18 at 08:00 Fentanyl Citrate 30 ml @ 0 mls/hr CONT PRN IV SEE PROTOCOL; Start 05/23/18 at 22 :45 Midazolam HCl 100 ml @ 0 mls/hr CONT PRN IV SEE PROTOCOL Last administered on at 23:09; Start 05/23/18 at 22:45 Sodium Chloride 500 ml @ 500 mls/hr 1X ONCE IV Last administered on 05/23/18at 23:33; Start 05/23/18 at 23:00; Stop 05/23/18 at 23:59; Status DC Insulin Human Lispro (HumaLOG) 0-9 UNITS TIDWMEALS SQ Last administered on 06/01at 12:11; Start 05/24/18 at 00:00 Dextrose (Dextrose 50%-Water Syringe) 12.5 gm PRN Q15MIN PRN IV SEE COMMENTS; Start 05/23/18 at 23:30 Enoxaparin Sodium (Lovenox 40mg Syringe) 40 mg Q24H SQ Last administered on at 00:35; Start 05/23/18 at 23:30 Piperacillin Sod/ Tazobactam Sod (Zosyn Per Pharmacy) 1 each PRN DAILY PRN MC SEE COMMENTS; Start 05/23/18 at 23:30; Stop 05/31/18 at 12:56; Status DC Vancomycin HCl (Vanco Per Pharmacy) 1 each PRN DAILY PRN MC SEE COMMENTS Last administered on 05/26/18at 01:02; Start 05/23/18 at 23:30; Stop 05/26/18 at 08:58 ; Status DC Piperacillin Sod/ Tazobactam Sod 3.375 gm/Sodium Chloride 50 ml @ 100 mls/hr Q6HRS IV Last administered on 05/31/18at 06:06; Start 05/24/18 at 06:00; Stop at 12:53; Status DC Acetaminophen (Tylenol Supp) 650 mg PRN Q6HRS PRN NC MILD PAIN / TEMP Last administered on 05/26/18at 02:16; Start 05/24/18 at 04:45 Acetaminophen (Tylenol) 650 mg PRN Q8HRS PRN PO MILD PAIN / TEMP Last administered on 05/25/18at 00:01; Start 05/24/18 at 10:45 Aspirin (Children'S Aspirin) 81 mg DAILY PO Last administered on 06/01/18at 09: 01; Start 05/24/18 at 12:00 Atorvastatin Calcium (Lipitor) 10 mg HS PEG Last administered on 06/01/18at 21: 24; Start 05/24/18 at 21:00 Citric Acid/ Sodium Citrate (Bicitra) 10 ml QIDAFTMEAL PEG Last administered on 06/01/18at 21:32; Start 05/24/18 at 13:00 Magnesium Hydroxide (Milk Of Magnesia) 2,400 mg PRN DAILY PRN PEG CONSTIPATION ; Start 05/24/18 at 10:45 Rivastigmine (Exelon 13.3mg) 1 patch DAILY TD Last administered on 06/01/18at 09 :00; Start 05/24/18 at 11:30 Simvastatin (Zocor) 10 mg DAILY PO ; Start 05/25/18 at 09:00; Status UNV Insulin Glargine (Lantus) 14 units DAILY SQ Last administered on 05/24/18at 12:36 ; Start 05/24/18 at 11:30; Stop 05/25/18 at 07:19; Status DC Metformin HCl (Glucophage) 500 mg BIDWMEALS PO Last administered on 06/01/18at 16:52; Start 05/24/18 at 11:30 Multivitamins (Thera-Plus Oral Liquid) 5 ml DAILY PEG Last administered on 06/01at 09:00; Start 05/24/18 at 11:30 Nystatin (Nystop) 1 ron PRN TID PRN TP REDNESS UNDER BREAST OR ARM; Start at 21:00 Levetiracetam (Keppra) 500 mg BID PO ; Start 05/24/18 at 11:30; Stop 05/24/18 at 12:10; Status DC Sodium Chloride 1,000 ml @ 125 mls/hr 1X ONCE IV Last administered on at 12:03; Start 05/24/18 at 12:30; Stop 05/24/18 at 20:29; Status DC Levetiracetam (Keppra) 500 mg BID PEG Last administered on 06/01/18at 21:24; Start 05/24/18 at 12:30 Sodium Chloride 1,000 ml @ 125 mls/hr Q8H IV Last administered on 06/02/18at 00 :34; Start 05/24/18 at 23:00 Insulin Glargine (Lantus) 18 units DAILY SQ Last administered on 05/29/18at 09: 23; Start 05/25/18 at 09:00; Stop 05/29/18 at 11:53; Status DC Vancomycin HCl 1 gm/Sodium Chloride 250 ml @ 250 mls/hr Q12H IV ; Start at 10:00; Stop 05/26/18 at 10:00; Status DC Vancomycin HCl (Vancomycin Trough Level) 1 each 1X ONCE MC ; Start 05/27/18 at 09:30; Stop 05/27/18 at 09:30; Status DC Magnesium Sulfate 50 ml @ 25 mls/hr 1X ONCE IV Last administered on 05/26/18at 10:00; Start 05/26/18 at 08:45; Stop 05/26/18 at 10:44; Status DC Acetaminophen (Tylenol) 650 mg PRN Q6HRS PRN PEG MILD PAIN / TEMP Last administered on 05/31/18 21:11; Start 05/26/18 at 10:15 Potassium Chloride (KCl Oral Soln) 20 meq 1X ONCE PEG Last administered on 01/03at 10:44; Start 05/26/18 at 10:30; Stop 05/26/18 at 10:36; Status DC Famotidine (Pepcid Vial) 20 mg BID IVP Last administered on 06/01/18at 21:24; Start 05/26/18 at 21:00 Linezolid/Dextrose 300 ml @ 300 mls/hr Q12HR IV Last administered on at 21:24; Start 05/27/18 at 10:30 Insulin Glargine (Lantus) 22 units DAILY SQ Last administered on 05/30/18 09: 12; Start 05/30/18 at 09:00; Stop 05/31/18 at 09:57; Status DC Furosemide (Lasix) 40 mg 1X ONCE IVP Last administered on 05/30/18at 17:02; Start 05/30/18 at 14:00; Stop 05/30/18 at 14:01; Status DC Potassium Chloride (KCl Oral Soln) 80 meq 1X ONCE PEG Last administered on 17:03; Start 05/30/18 at 15:00; Stop 05/30/18 at 15:01; Status DC Insulin Glargine (Lantus) 26 units DAILY SQ ; Start 06/01/18 at 09:00; Stop at 09:00; Status DC Insulin Human Lispro (HumaLOG) 3 units QIDACHS SQ Last administered on at 21:50; Start 05/31/18 at 11:30 Insulin Human Lispro (HumaLOG) 3 units 1X ONCE SQ Last administered on at 10:07; Start 05/31/18 at 10:00; Stop 05/31/18 at 10:01; Status DC Insulin Glargine (Lantus) 26 units DAILY SQ Last administered on 06/01/18at 09: 30; Start 05/31/18 at 10:15 Furosemide (Lasix) 20 mg 1X ONCE IVP Last administered on 05/31/18at 10:58; Start 05/31/18 at 11:00; Stop 05/31/18 at 11:01; Status DC Meropenem 500 mg/ Sodium Chloride 50 ml @ 100 mls/hr Q6HRS IV Last administered on 06/02/18at 06:13; Start 05/31/18 at 13:00 Insulin Human Lispro (HumaLOG) 6 units 1X ONCE SQ Last administered on at 13:08; Start 05/31/18 at 13:00; Stop 05/31/18 at 13:01; Status DC Vitamin A/Vitamin D (Vitamin A & D Ointment) 1 ron BID TP Last administered on 06/01/18at 21:33; Start 05/31/18 at 21:00 Micafungin Sodium 100 mg/Dextrose 100 ml @ 100 mls/hr Q24H IV Last administered on 06/01/18at 08:53; Start 06/01/18 at 08:00 Doxycycline Hyclate 100 mg/ Dextrose 100 ml @ 50 mls/hr Q12HR IV Last administered on 06/01/18at 21:24; Start 06/01/18 at 09:00 Active Scripts Active Levemir Flextouch (Insulin Detemir) 300 Units/3 Ml Insuln.pen 14 Units SQ DAILY Milk Of Magnesia (Magnesium Hydroxide) 2,400 Mg/30 Ml Oral.susp 2,400 Mg PEG PRN DAILY PRN 30 Days [Levetiracetam] 500 MG/5 ML Solution 500 Mg PEG BID 30 Days Reported Nystatin 1 Each Powder.ea. 1 Each MC PRN PRN Famotidine 20 Mg Tablet 20 Mg PEG HS Atorvastatin Calcium 10 Mg Tablet 10 Mg PEG HS Metformin Hcl 500 Mg Tablet 500 Mg PEG BIDWMEALS Sod Citrate-Citric Acid Soln (Citric Acid/Sodium Citrate) 15 Ml Solution 10 Ml PEG QIDAFTMEAL Lansoprazole 30 Mg Capsule.dr 1 Cap PO DAILY Cipro (Ciprofloxacin Hcl) 500 Mg Tablet 1 Tab PO BID 2 Days Tylenol (Acetaminophen) 325 Mg Tablet 650 Mg PEG PRN Q8HRS PRN Multivitamins (Multivitamin) 1 Each Tablet 1 Tab PEG DAILY EXELON 13.3mg/24hr (Rivastigmine) 1 Each Patch.td24 1 Patch TD DAILY Aspirin 81 Mg Tab.chew 81 Mg PO DAILY Simvastatin 10 Mg Tablet 10 Mg PO DAILY Vitals/I & O Vital Sign - Last 24 Hours 06/01/18 06/01/18 06/01/18 06/01/18 08:00 08:00 08:03 09:00 Temp 99.0 99.0 Pulse 92 100 Resp 21 20 B/P (MAP) 90/49 (63) 130/69 (89) Pulse Ox 96 94 96 O2 Delivery Mechanical Ventilator Ventilator Ventilator Ventilator 06/01/18 06/01/18 06/01/18 06/01/18 10:00 10:38 11:00 12:00 Pulse 114 102 Resp 18 20 B/P (MAP) 106/74 (85) 93/57 (69) Pulse Ox 96 97 96 O2 Delivery Ventilator Ventilator Ventilator Mechanical Ventilator 06/01/18 06/01/18 06/01/18 06/01/18 12:00 12:12 13:00 13:10 Temp 98.7 98.7 Pulse 98 100 Resp 20 18 B/P (MAP) 92/57 (69) 104/68 (80) Pulse Ox 95 94 98 98 O2 Delivery Ventilator Ventilator Ventilator 06/01/18 06/01/18 06/01/18 06/01/18 14:00 15:00 16:00 16:00 Temp 98.8 98.8 Pulse 102 98 102 Resp 23 25 22 B/P (MAP) 80/65 (70) 119/69 (86) 127/72 (90) Pulse Ox 94 96 96 O2 Delivery Ventilator Ventilator Mechanical Ventilator Ventilator 06/01/18 06/01/18 06/01/18 06/01/18 16:04 16:52 17:14 18:15 Pulse 94 Resp 22 B/P (MAP) 96/50 (65) Pulse Ox 97 97 95 98 O2 Delivery Ventilator Ventilator Ventilator Ventilator 06/01/18 06/01/18 06/01/18 06/01/18 19:00 19:53 20:00 20:00 Temp 99.6 99.6 Pulse 104 97 Resp 22 18 B/P (MAP) 96/66 (76) 100/60 (73) Pulse Ox 100 97 100 O2 Delivery Ventilator Ventilator Ventilator Mechanical Ventilator 06/01/18 06/01/18 06/01/18 06/01/18 20:44 21:00 21:14 22:00 Pulse 105 104 Resp 24 20 18 18 B/P (MAP) 87/52 (64) 95/65 (75) Pulse Ox 95 98 98 99 O2 Delivery Ventilator Ventilator Ventilator Ventilator 06/01/18 06/01/18 06/01/18 06/02/18 23:00 23:28 23:59 00:00 Temp 99.3 99.3 Pulse 96 104 Resp 18 21 B/P (MAP) 117/79 (92) 109/63 (78) Pulse Ox 98 99 99 O2 Delivery Ventilator Ventilator Mechanical Ventilator Ventilator 06/02/18 06/02/18 06/02/18 06/02/18 01:00 02:00 02:25 03:00 Pulse 107 104 101 Resp B/P (MAP) 105/55 (72) 103/55 (71) 93/54 (67) Pulse Ox 100 100 99 98 O2 Delivery Ventilator Ventilator Ventilator Ventilator 06/02/18 06/02/18 06/02/18 06/02/18 04:00 04:00 04:50 05:00 Temp 99.8 99.8 Pulse 101 Resp 18 B/P (MAP) 101/65 (77) 115/61 (79) Pulse Ox 100 99 100 O2 Delivery Ventilator Mechanical Ventilator Ventilator Ventilator 06/02/18 06/02/18 06/02/18 06/02/18 05:00 06:00 07:00 07:18 Temp 98.0 98.0 Pulse 98 96 101 Resp 21 B/P (MAP) 100/58 (72) 107/65 (79) Pulse Ox 100 100 99 O2 Delivery Ventilator Ventilator Ventilator Intake and Output 06/01/18 06/01/18 06/02/18 14:59 22:59 06:59 Intake Total 310 ml 2978 ml 2801.92 ml Output Total 1260 ml 860 ml 455 ml Balance -950 ml 2118 ml 2346.92 ml ARIEL COBB MD Jun 02, 2018 07:44
--- NOTE | 2018-06-02 07:56 | PDOC ---
Infectious Disease Note Subjective: Subjective Intubated and sedated, Fever pattern is improving Hypotensive, on Levophed Tube feedings remains FiO2 55 % awaiting family meeting with palliative care D/W RN Vital Signs: Vital Signs Vital Signs Date Time Temp Pulse Resp B/P (MAP) Pulse Ox O2 Delivery O2 Flow Rate FiO2 06/02/18 07:46 Mechanical Ventilator 06/02/18 07:18 99 06/02/18 07:00 98.0 101 21 107/65 (79) 98.0 Physical Exam: PHYSICAL EXAM GENERAL: Orally intubated, sedated, not in any distress. HEENT: Pupils small, ETT, OGT LUNGS: Clear anteriorly HEART: S1, S2 regular. No gallop or murmur. ABDOMEN: Obese, soft, + BS. rectal tube out : Tamayo EXTREMITIES: Generalized edema, LE contractures ,RUE edema NEUROLOGIC: Sedated on vent SKIN: No rash PICC line RUE looks OK Medications: Inpatient Meds: Current Medications Medications (Trade) Dose Ordered Sig/Charmaine Start Time Stop Time Status Last Admin Dose Admin Acetaminophen (Tylenol Supp) 650 mg PRN Q6HRS PRN 05/24/18 04:45 05/26/18 02:16 650 MG Acetaminophen (Tylenol) 650 mg PRN Q6HRS PRN 05/26/18 10:15 05/31/18 21:11 650 MG Albuterol/ Ipratropium (Duoneb) 3 ml RTQID 05/24/18 08:00 06/02/18 07:18 3 ML Aspirin (Children'S Aspirin) 81 mg DAILY 05/24/18 12:00 06/01/18 09:01 81 MG Atorvastatin Calcium (Lipitor) 10 mg HS 05/24/18 21:00 06/01/18 21:24 10 MG Chlorhexidine Gluconate (Peridex) 15 ml BID 05/23/18 21:00 05/24/18 08:09 DC 05/24/18 00:05 15 ML Citric Acid/ Sodium Citrate (Bicitra) 10 ml QIDAFTMEAL 05/24/18 13:00 06/01/18 21:32 10 ML Dextrose (Dextrose 50%-Water Syringe) 12.5 gm PRN Q15MIN PRN 05/23/18 23:30 Doxycycline Hyclate 100 mg/ Dextrose 100 ml @ 50 mls/hr Q12HR 06/01/18 09:00 06/01/18 21:24 50 MLS/HR Enoxaparin Sodium (Lovenox 40mg Syringe) 40 mg Q24H 05/23/18 23:30 06/02/18 00:35 40 MG Etomidate (Amidate) 20 mg STK-MED ONCE 05/23/18 21:32 05/23/18 21:33 DC Famotidine (Pepcid Vial) 20 mg BID 05/26/18 21:00 06/01/18 21:24 20 MG Fentanyl Citrate 30 ml @ 0 mls/hr CONT PRN 05/23/18 22:45 Fentanyl Citrate (Fentanyl 2ml Vial) 50 mcg PRN Q1HR PRN 05/23/18 20:00 06/01/18 20:44 50 MCG Furosemide (Lasix) 20 mg 1X ONCE 05/31/18 11:00 05/31/18 11:01 DC 05/31/18 10:58 20 MG Insulin Glargine (Lantus) 26 units DAILY 05/31/18 10:15 06/01/18 09:30 26 UNITS Insulin Human Lispro (HumaLOG) 6 units 1X ONCE 05/31/18 13:00 05/31/18 13:01 DC 05/31/18 13:08 6 UNITS Insulin Human Regular (HumuLIN R VIAL) 14 unit 1X ONCE 05/23/18 21:15 05/23/18 21:16 DC 05/23/18 21:46 14 UNIT Levetiracetam (Keppra) 500 mg BID 05/24/18 12:30 06/01/18 21:24 500 MG Linezolid/Dextrose 300 ml @ 300 mls/hr Q12HR 05/27/18 10:30 06/01/18 21:24 300 MLS/HR Lorazepam (Ativan) 2 mg STK-MED ONCE 05/23/18 20:04 05/23/18 20:05 DC Magnesium Hydroxide (Milk Of Magnesia) 2,400 mg PRN DAILY PRN 05/24/18 10:45 Magnesium Sulfate 50 ml @ 25 mls/hr 1X ONCE 05/26/18 08:45 05/26/18 10:44 DC 05/26/18 10:00 25 MLS/HR Meropenem 500 mg/ Sodium Chloride 50 ml @ 100 mls/hr Q6HRS 05/31/18 13:00 06/02/18 06:13 100 MLS/HR Metformin HCl (Glucophage) 500 mg BIDWMEALS 05/24/18 11:30 06/01/18 16:52 500 MG Micafungin Sodium 100 mg/Dextrose 100 ml @ 100 mls/hr Q24H 06/01/18 08:00 06/01/18 08:53 100 MLS/HR Midazolam HCl 100 ml @ 0 mls/hr CONT PRN 05/23/18 22:45 05/29/18 23:09 6 MLS/HR Midazolam HCl (Versed) 5 mg 1X ONCE 05/23/18 20:15 05/23/18 20:16 DC 05/23/18 20:33 5 MG Multivitamins (Thera-Plus Oral Liquid) 5 ml DAILY 05/24/18 11:30 06/01/18 09:00 5 ML Norepinephrine Bitartrate 250 ml @ 0 mls/hr CONT PRN 05/23/18 20:30 06/01/18 00:34 7.5 MLS/HR Nystatin (Nystop) 1 ron PRN TID PRN 05/24/18 21:00 Piperacillin Sod/ Tazobactam Sod (Zosyn Per Pharmacy) 1 each PRN DAILY PRN 05/23/18 23:30 05/31/18 12:56 DC Piperacillin Sod/ Tazobactam Sod 3.375 gm/Sodium Chloride 50 ml @ 100 mls/hr Q6HRS 05/24/18 06:00 05/31/18 12:53 DC 05/31/18 06:06 100 MLS/HR Piperacillin Sod/ Tazobactam Sod 4.5 gm/Sodium Chloride 100 ml @ 200 mls/hr 1X ONCE 05/23/18 20:00 05/23/18 20:29 DC 05/23/18 20:34 200 MLS/HR Potassium Chloride (KCl Oral Soln) 80 meq 1X ONCE 05/30/18 15:00 05/30/18 15:01 DC 05/30/18 17:03 80 MEQ Propofol 50 ml @ 1.082 mls/ hr 1X ONCE 05/23/18 21:15 05/25/18 19:27 DC 05/23/18 21:12 2.164 MLS/HR Rivastigmine (Exelon 13.3mg) 1 patch DAILY 05/24/18 11:30 06/01/18 09:00 1 PATCH Simvastatin (Zocor) 10 mg DAILY 05/25/18 09:00 UNV Sodium Chloride 1,000 ml @ 125 mls/hr Q8H 05/24/18 23:00 06/02/18 00:34 125 MLS/HR Sodium Chloride (Normal Saline Flush) 10 ml QSHIFT PRN 05/23/18 20:00 Succinylcholine Chloride (Anectine) 200 mg STK-MED ONCE 05/23/18 21:32 05/23/18 21:33 DC Vancomycin HCl (Vanco Per Pharmacy) 1 each PRN DAILY PRN 05/23/18 23:30 05/26/18 08:58 DC 05/26/18 01:02 1 EACH Vancomycin HCl (Vancomycin Trough Level) 1 each 1X ONCE 05/27/18 09:30 05/27/18 09:30 DC Vancomycin HCl 1.75 gm/Sodium Chloride 500 ml @ 250 mls/hr 1X ONCE 05/23/18 21:30 05/23/18 23:29 DC 05/23/18 21:23 250 MLS/HR Vancomycin HCl 1 gm/Sodium Chloride 250 ml @ 250 mls/hr Q12H 05/26/18 10:00 05/26/18 10:00 DC Vitamin A/Vitamin D (Vitamin A & D Ointment) 1 ron BID 05/31/18 21:00 06/01/18 21:33 1 RON Labs: Lab Laboratory Tests Test 06/01/18 09:15 06/01/18 10:20 06/01/18 11:52 06/01/18 16:59 Glucose (Fingerstick) 288 mg/dL (70-99) 266 mg/dL (70-99) 122 mg/dL (70-99) O2 Saturation 97 % (92-99) Arterial Blood pH 7.49 (7.35-7.45) Arterial Blood pCO2 at Patient Temp 33 mmHg (35-46) Arterial Blood pO2 at Patient Temp 83 mmHg (75-108) Arterial Blood HCO3 24 mmol/L (21-28) Arterial Blood Base Excess 1 mmol/L (-3-3) FiO2 55 Test 06/01/18 21:47 06/02/18 06:20 Glucose (Fingerstick) 101 mg/dL (70-99) White Blood Count 8.5 x10^3/uL (4.0-11.0) Red Blood Count 3.26 x10^6/uL (3.50-5.40) Hemoglobin 9.6 g/dL (12.0-15.5) Hematocrit 29.1 % (36.0-47.0) Mean Corpuscular Volume 89 fL (79-100) Mean Corpuscular Hemoglobin 30 pg (25-35) Mean Corpuscular Hemoglobin Concent 33 g/dL (31-37) Red Cell Distribution Width 16.4 % (11.5-14.5) Platelet Count 249 x10^3/uL (140-400) Neutrophils (%) (Auto) 76 % (31-73) Lymphocytes (%) (Auto) 17 % (24-48) Monocytes (%) (Auto) 6 % (0-9) Eosinophils (%) (Auto) 1 % (0-3) Basophils (%) (Auto) 0 % (0-3) Neutrophils # (Auto) 6.4 x10^3uL (1.8-7.7) Lymphocytes # (Auto) 1.4 x10^3/uL (1.0-4.8) Monocytes # (Auto) 0.5 x10^3/uL (0.0-1.1) Eosinophils # (Auto) 0.1 x10^3/uL (0.0-0.7) Basophils # (Auto) 0.0 x10^3/uL (0.0-0.2) Objective: Assessment: Aspiration pneumonia. MRSA and group B strep Sepsis with hypotension, lactic acidosis, requiring vasopressor support. Fever. Respiratory failure. Circulatory failure. Down syndrome. Diarrhea C diff negative Anemia superficial cephalic vein thrombosis RUE Plan: Plan of Care Zyvox ( 05/27), merrem ( 05/31), was on zosyn prior micafungin 06/01 BC NGTD Monitor labs/temp Supportive care Palliative care on case D/W nursing Critically ill SERINA FLORES MD Jun 02, 2018 07:56
[2018-06-02] MEDS: MULTIVITAMINS,THERAPEUTIC 5 ML ORAL LIQUID. PEG SCH (08:05)
[2018-06-02] MEDS: CITRIC ACID/SODIUM CITRATE 30 ML SOLUTION. PEG SCH ×4 (08:05→21:07)
[2018-06-02] MEDS: metFORMIN 500 MG TABLET PO SCH ×2 (08:05→16:43)
[2018-06-02] MEDS: FAMOTIDINE 20 MG/2 ML VIAL IVP SCH ×2 (08:05→21:07)
[2018-06-02] MEDS: ASPIRIN CHEWABLE 81 MG TABLET. PO SCH (08:06)
[2018-06-02] MEDS: RIVASTIGMINE 13.3MG PATCH. TD SCH (08:06)
[2018-06-02] MEDS: ACETAMINOPHEN 325 MG TABLET. PO PRN (08:06)
[2018-06-02] MEDS: MICAFUNGIN 100 MG in IV DEXTROSE 5% 100ML 100 ML IV SCH (08:07)
[2018-06-02] MEDS: DOXYCYCLINE HYCLATE 100 MG in IV DEXTROSE 5% 100ML 100 ML IV SCH ×2 (08:08→21:07)
[2018-06-02] MEDS: NOREPINEPHRIN 8MG/250ML PREMIX 250 ML IV PRN (08:12)
[2018-06-02] MEDS: VITS A & D/LANOLIN TOPICAL OINTMENT 56GM TUBE. TP SCH ×2 (08:14→21:08)
[2018-06-02] MEDS: INSULIN LISPRO 300 UNITS/3 ML INSULN.PEN. SQ SCH ×7 (08:19→21:28)
[2018-06-02] MEDS: INSULIN GLARGINE 300 UNITS/3 ML INSULN.PEN. SQ SCH (08:20)
--- NOTE | 2018-06-02 10:18 | PDOC ---
PULMONARY PROGRESS NOTES Subjective on vent, off versed, on levo, on fi02 55%, small ett secretion, more awake Vitals Vital Signs Date Time Temp Pulse Resp B/P (MAP) Pulse Ox O2 Delivery O2 Flow Rate FiO2 06/02/18 09:00 100 21 100/64 (76) 100 Ventilator 06/02/18 07:00 98.0 98.0 HEENT: Other (nc at perrl nose clear, orally intubated neck no lad, no thyromegaly) Lungs: Other (decrease bs) Cardiovascular: S1, S2 Abdomen: Soft, Non-tender, Other (no mass) Extremities: Other (edema trace) Skin: Warm Labs Laboratory Tests Test 05/31/18 12:49 05/31/18 16:56 05/31/18 20:45 05/31/18 21:03 Glucose (Fingerstick) 373 mg/dL (70-99) 209 mg/dL (70-99) 137 mg/dL (70-99) Lactic Acid Level 2.0 mmol/L (0.4-2.0) Test 06/01/18 02:00 06/01/18 05:30 06/01/18 09:15 06/01/18 10:20 Clostridium difficile Toxin B Gene Negative (Negative) White Blood Count 8.3 x10^3/uL (4.0-11.0) Red Blood Count 3.08 x10^6/uL (3.50-5.40) Hemoglobin 9.1 g/dL (12.0-15.5) Hematocrit 27.4 % (36.0-47.0) Mean Corpuscular Volume 89 fL (79-100) Mean Corpuscular Hemoglobin 30 pg (25-35) Mean Corpuscular Hemoglobin Concent 33 g/dL (31-37) Red Cell Distribution Width 16.8 % (11.5-14.5) Platelet Count 232 x10^3/uL (140-400) Neutrophils (%) (Auto) 72 % (31-73) Lymphocytes (%) (Auto) 21 % (24-48) Monocytes (%) (Auto) 6 % (0-9) Eosinophils (%) (Auto) 1 % (0-3) Basophils (%) (Auto) 0 % (0-3) Neutrophils # (Auto) 6.0 x10^3uL (1.8-7.7) Lymphocytes # (Auto) 1.8 x10^3/uL (1.0-4.8) Monocytes # (Auto) 0.5 x10^3/uL (0.0-1.1) Eosinophils # (Auto) 0.0 x10^3/uL (0.0-0.7) Basophils # (Auto) 0.0 x10^3/uL (0.0-0.2) Glucose (Fingerstick) 288 mg/dL (70-99) O2 Saturation 97 % (92-99) Arterial Blood pH 7.49 (7.35-7.45) Arterial Blood pCO2 at Patient Temp 33 mmHg (35-46) Arterial Blood pO2 at Patient Temp 83 mmHg (75-108) Arterial Blood HCO3 24 mmol/L (21-28) Arterial Blood Base Excess 1 mmol/L (-3-3) FiO2 55 Test 06/01/18 11:52 06/01/18 16:59 06/01/18 21:47 06/02/18 06:20 Glucose (Fingerstick) 266 mg/dL (70-99) 122 mg/dL (70-99) 101 mg/dL (70-99) White Blood Count 8.5 x10^3/uL (4.0-11.0) Red Blood Count 3.26 x10^6/uL (3.50-5.40) Hemoglobin 9.6 g/dL (12.0-15.5) Hematocrit 29.1 % (36.0-47.0) Mean Corpuscular Volume 89 fL (79-100) Mean Corpuscular Hemoglobin 30 pg (25-35) Mean Corpuscular Hemoglobin Concent 33 g/dL (31-37) Red Cell Distribution Width 16.4 % (11.5-14.5) Platelet Count 249 x10^3/uL (140-400) Neutrophils (%) (Auto) 76 % (31-73) Lymphocytes (%) (Auto) 17 % (24-48) Monocytes (%) (Auto) 6 % (0-9) Eosinophils (%) (Auto) 1 % (0-3) Basophils (%) (Auto) 0 % (0-3) Neutrophils # (Auto) 6.4 x10^3uL (1.8-7.7) Lymphocytes # (Auto) 1.4 x10^3/uL (1.0-4.8) Monocytes # (Auto) 0.5 x10^3/uL (0.0-1.1) Eosinophils # (Auto) 0.1 x10^3/uL (0.0-0.7) Basophils # (Auto) 0.0 x10^3/uL (0.0-0.2) Test 06/02/18 08:17 Glucose (Fingerstick) 243 mg/dL (70-99) Laboratory Tests Test 06/01/18 10:20 06/01/18 11:52 06/01/18 16:59 06/01/18 21:47 O2 Saturation 97 % (92-99) Arterial Blood pH 7.49 (7.35-7.45) Arterial Blood pCO2 at Patient Temp 33 mmHg (35-46) Arterial Blood pO2 at Patient Temp 83 mmHg (75-108) Arterial Blood HCO3 24 mmol/L (21-28) Arterial Blood Base Excess 1 mmol/L (-3-3) FiO2 55 Glucose (Fingerstick) 266 mg/dL (70-99) 122 mg/dL (70-99) 101 mg/dL (70-99) Test 06/02/18 06:20 06/02/18 08:17 White Blood Count 8.5 x10^3/uL (4.0-11.0) Red Blood Count 3.26 x10^6/uL (3.50-5.40) Hemoglobin 9.6 g/dL (12.0-15.5) Hematocrit 29.1 % (36.0-47.0) Mean Corpuscular Volume 89 fL (79-100) Mean Corpuscular Hemoglobin 30 pg (25-35) Mean Corpuscular Hemoglobin Concent 33 g/dL (31-37) Red Cell Distribution Width 16.4 % (11.5-14.5) Platelet Count 249 x10^3/uL (140-400) Neutrophils (%) (Auto) 76 % (31-73) Lymphocytes (%) (Auto) 17 % (24-48) Monocytes (%) (Auto) 6 % (0-9) Eosinophils (%) (Auto) 1 % (0-3) Basophils (%) (Auto) 0 % (0-3) Neutrophils # (Auto) 6.4 x10^3uL (1.8-7.7) Lymphocytes # (Auto) 1.4 x10^3/uL (1.0-4.8) Monocytes # (Auto) 0.5 x10^3/uL (0.0-1.1) Eosinophils # (Auto) 0.1 x10^3/uL (0.0-0.7) Basophils # (Auto) 0.0 x10^3/uL (0.0-0.2) Glucose (Fingerstick) 243 mg/dL (70-99) Medications Active Scripts Medications Dose Route/Sig Max Daily Dose Days Date Category Nystatin 1 Each Powder.ea. 1 Each MC PRN PRN 05/24/18 Reported Famotidine 20 Mg Tablet 20 Mg PEG HS 05/24/18 Reported Atorvastatin Calcium 10 Mg Tablet 10 Mg PEG HS 05/24/18 Reported Metformin Hcl 500 Mg Tablet 500 Mg PEG BIDWMEALS 05/24/18 Reported Sod Citrate-Citric Acid Soln (Citric Acid/Sodium Citrate) 15 Ml Solution 10 Ml PEG QIDAFTMEAL 03/26/17 Reported Lansoprazole 30 Mg Capsule.dr 1 Cap PO DAILY 03/26/17 Reported Cipro (Ciprofloxacin Hcl) 500 Mg Tablet 1 Tab PO BID 2 03/26/17 Reported Tylenol (Acetaminophen) 325 Mg Tablet 650 Mg PEG PRN Q8HRS PRN 03/17/17 Reported Multivitamins (Multivitamin) 1 Each Tablet 1 Tab PEG DAILY 03/17/17 Reported Levemir Flextouch (Insulin Detemir) 300 Units/3 Ml Insuln.pen 14 Units SQ DAILY 09/05/14 Rx Milk Of Magnesia (Magnesium Hydroxide) 2,400 Mg/30 Ml Oral.susp 2,400 Mg PEG PRN DAILY PRN 30 09/05/14 Rx [Levetiracetam] 500 MG/5 ML Solution 500 Mg PEG BID 30 09/05/14 Rx EXELON 13.3mg/24hr (Rivastigmine) 1 Each Patch.td24 1 Patch TD DAILY 08/14/14 Reported Aspirin 81 Mg Tab.chew 81 Mg PO DAILY 03/18/13 Reported Simvastatin 10 Mg Tablet 10 Mg PO DAILY 03/18/13 Reported Comments reviewed, CXR 05/30 b ll infilt atelectasis effusion, worse, ett ok CT CHEST reviewed 06/01 bilateral effusions/ infiltrates Impression . 1. Acute respiratory failure secondary to septic shock. , likely superimposed CHF/ effusions 2. Septic shock likely source aspiration pneumonia. MRSA and group B strep 3. recurrent fever, ? etiology, per id, ct chest reviewed, bilateral infiltrates, basal effusions, improving fever 4. Down's syndrome. 5. Hypernatremia/ improving Plan . 1. cont vent support, setting reviewed, abg reviewed, on 55% fio2, titrate fi02 to keep sat 94%, not ready for sbt, wean FIO2 2. Monitor fever 3. Broad-spectrum antibiotics. , fu cx, sputum cx, abx per id, 4. Follow renal function. 5. Wean pressors to keep map >65 6. Monitor urine output. 7. Monitor white cell count. 8. DVT and stress ulcer prophylaxis. 9. elevate hob 10. pepcid and lovenox for prophylaxis Discussed with RN and RT. Palliative care is on the case to discuss the goals of care today, prognosis poor, would not rec trach/ would not rec re-intubation once extubated RICH GREGORY MD Jun 02, 2018 10:17
[2018-06-02] MEDS: fentaNYL PF VIAL 100 MCG/2 ML VIAL IV PRN (14:07)
--- NOTE | 2018-06-02 16:49 | PDOC2 ---
PALLIATIVE CARE Palliative Care Note Palliative Care Patient remains on Vent 50%. Levophed. off sedation. requiring prn medication for restlessness and discomfort. Met with Ayesha-mother; sister Deborah and brother Jan. Reviewed above medical condition. Family states patient is suffering--has suffered long enough but not ready to change to comfort care. Family understands risk of ET tube remaining in place. Request extubation on Wednesday at 12noon. No re-intubation. Discussed Hospice support as IP if patient requires aggressive symptom management. Hospice is patient returns to custodial. Family appreciate of care. LANCE SALAZAR Jun 02, 2018 16:49
[2018-06-02] MEDS: ATORVASTATIN CALCIUM 10 MG TABLET. PEG SCH (21:07)
--- NOTE | 2018-06-02 23:27 | NUR ---
RN received call from Dr. Poe at approx 2000 this shift. updated on pts planned extubation 06/06/18 at 1200.
[2018-06-03] VITALS (23 sets, daily range): BP systolic 74–115; BP diastolic 43–70
[2018-06-03] MEDS: MEROPENEM 500 MG in IV NORMAL SALINE 50ML 50 ML IV SCH ×3 (06:04→16:43)
[2018-06-03 06:34] LABS: BASO % 0 % (0-3); EOS % 1 % (0-3); HEMATOCRIT 27.1 % (36.0-47.0); HEMOGLOBIN 8.9 g/dL (12.0-15.5); LYMPH # 1.7 x10^3/uL (1.0-4.8); LYMPH % 26 % (24-48); MEAN CORPUSCULAR HEMOGLOBIN 29 pg (25-35); MEAN CORPUSCULAR HGB CONC 33 g/dL (31-37); MEAN CORPUSCULAR VOLUME 89 fL (79-100); MONO # 0.4 x10^3/uL (0.0-1.1); MONO % 6 % (0-9); NEUT # 4.4 x10^3uL (1.8-7.7); NEUT % 66 % (31-73); PLATELET COUNT 274 x10^3/uL (140-400); RED BLOOD COUNT 3.04 x10^6/uL (3.50-5.40); RED CELL DISTRIBUTION WIDTH 16.6 % (11.5-14.5); WHITE BLOOD COUNT 6.6 x10^3/uL (4.0-11.0)
[2018-06-03 06:45] LABS: ALBUMIN 1.2 g/dL (3.4-5.0); ALBUMIN/GLOBULIN RATIO 0.3 (1.0-1.7); CALCIUM 7.6 mg/dL (8.5-10.1); CREATININE 0.8 mg/dL (0.6-1.0); GFR 89.1; POTASSIUM 3.2 mmol/L (3.5-5.1); TOTAL BILIRUBIN 0.2 mg/dL (0.2-1.0); TOTAL PROTEIN 5.8 g/dL (6.4-8.2)
[2018-06-03] MEDS: IV 1/2 NORMAL SALINE 1,000 ML IV SCH ×2 (07:00→19:00)
--- NOTE | 2018-06-03 07:20 | PDOC ---
Infectious Disease Note Subjective: Subjective Intubated and sedated, Fever resolved Hypotensive, on Levophed Tube feedings remains FiO2 55 % D/W RN Vital Signs: Vital Signs Vital Signs Date Time Temp Pulse Resp B/P (MAP) Pulse Ox O2 Delivery O2 Flow Rate FiO2 06/03/18 06:00 98 20 82/51 (61) 100 Ventilator 06/03/18 04:00 98.4 98.4 Physical Exam: PHYSICAL EXAM GENERAL: Orally intubated, sedated, not in any distress.opens eyes HEENT: Pupils small, ETT, OGT LUNGS: Clear anteriorly HEART: S1, S2 regular. No gallop or murmur. ABDOMEN: Obese, soft, + BS. rectal tube out : Tamayo EXTREMITIES: Generalized edema, LE contractures ,RUE edema NEUROLOGIC: Sedated on vent SKIN: No rash PICC line RUE looks OK Medications: Inpatient Meds: Current Medications Medications (Trade) Dose Ordered Sig/Charmaine Start Time Stop Time Status Last Admin Dose Admin Acetaminophen (Tylenol Supp) 650 mg PRN Q6HRS PRN 05/24/18 04:45 05/26/18 02:16 650 MG Acetaminophen (Tylenol) 650 mg PRN Q6HRS PRN 05/26/18 10:15 05/31/18 21:11 650 MG Albuterol/ Ipratropium (Duoneb) 3 ml RTQID 05/24/18 08:00 06/02/18 20:05 3 ML Aspirin (Children'S Aspirin) 81 mg DAILY 05/24/18 12:00 06/02/18 08:06 81 MG Atorvastatin Calcium (Lipitor) 10 mg HS 05/24/18 21:00 06/02/18 21:07 10 MG Chlorhexidine Gluconate (Peridex) 15 ml BID 05/23/18 21:00 05/24/18 08:09 DC 05/24/18 00:05 15 ML Citric Acid/ Sodium Citrate (Bicitra) 10 ml QIDAFTMEAL 05/24/18 13:00 06/02/18 21:07 10 ML Dextrose (Dextrose 50%-Water Syringe) 12.5 gm PRN Q15MIN PRN 05/23/18 23:30 Doxycycline Hyclate 100 mg/ Dextrose 100 ml @ 50 mls/hr Q12HR 06/01/18 09:00 06/02/18 21:07 50 MLS/HR Enoxaparin Sodium (Lovenox 40mg Syringe) 40 mg Q24H 05/23/18 23:30 06/02/18 23:00 40 MG Etomidate (Amidate) 20 mg STK-MED ONCE 05/23/18 21:32 05/23/18 21:33 DC Famotidine (Pepcid Vial) 20 mg BID 05/26/18 21:00 06/02/18 21:07 20 MG Fentanyl Citrate 30 ml @ 0 mls/hr CONT PRN 05/23/18 22:45 Fentanyl Citrate (Fentanyl 2ml Vial) 50 mcg PRN Q1HR PRN 05/23/18 20:00 06/02/18 14:07 50 MCG Furosemide (Lasix) 20 mg 1X ONCE 05/31/18 11:00 05/31/18 11:01 DC 05/31/18 10:58 20 MG Insulin Glargine (Lantus) 26 units DAILY 05/31/18 10:15 06/02/18 08:20 26 UNITS Insulin Human Lispro (HumaLOG) 6 units 1X ONCE 05/31/18 13:00 05/31/18 13:01 DC 05/31/18 13:08 6 UNITS Insulin Human Regular (HumuLIN R VIAL) 14 unit 1X ONCE 05/23/18 21:15 05/23/18 21:16 DC 05/23/18 21:46 14 UNIT Levetiracetam (Keppra) 500 mg BID 05/24/18 12:30 06/02/18 21:07 500 MG Linezolid/Dextrose 300 ml @ 300 mls/hr Q12HR 05/27/18 10:30 06/02/18 21:07 300 MLS/HR Lorazepam (Ativan) 2 mg STK-MED ONCE 05/23/18 20:04 05/23/18 20:05 DC Magnesium Hydroxide (Milk Of Magnesia) 2,400 mg PRN DAILY PRN 05/24/18 10:45 Magnesium Sulfate 50 ml @ 25 mls/hr 1X ONCE 05/26/18 08:45 05/26/18 10:44 DC 05/26/18 10:00 25 MLS/HR Meropenem 500 mg/ Sodium Chloride 50 ml @ 100 mls/hr Q6HRS 05/31/18 13:00 06/03/18 06:04 100 MLS/HR Metformin HCl (Glucophage) 500 mg BIDWMEALS 05/24/18 11:30 06/02/18 16:43 500 MG Micafungin Sodium 100 mg/Dextrose 100 ml @ 100 mls/hr Q24H 06/01/18 08:00 06/02/18 08:07 100 MLS/HR Midazolam HCl 100 ml @ 0 mls/hr CONT PRN 05/23/18 22:45 05/29/18 23:09 6 MLS/HR Midazolam HCl (Versed) 5 mg 1X ONCE 05/23/18 20:15 05/23/18 20:16 DC 05/23/18 20:33 5 MG Multivitamins (Thera-Plus Oral Liquid) 5 ml DAILY 05/24/18 11:30 06/02/18 08:05 5 ML Norepinephrine Bitartrate 250 ml @ 0 mls/hr CONT PRN 05/23/18 20:30 06/02/18 08:12 5.6 MLS/HR Nystatin (Nystop) 1 ron PRN TID PRN 05/24/18 21:00 Piperacillin Sod/ Tazobactam Sod (Zosyn Per Pharmacy) 1 each PRN DAILY PRN 05/23/18 23:30 05/31/18 12:56 DC Piperacillin Sod/ Tazobactam Sod 3.375 gm/Sodium Chloride 50 ml @ 100 mls/hr Q6HRS 05/24/18 06:00 05/31/18 12:53 DC 05/31/18 06:06 100 MLS/HR Piperacillin Sod/ Tazobactam Sod 4.5 gm/Sodium Chloride 100 ml @ 200 mls/hr 1X ONCE 05/23/18 20:00 05/23/18 20:29 DC 05/23/18 20:34 200 MLS/HR Potassium Chloride (KCl Oral Soln) 80 meq 1X ONCE 05/30/18 15:00 05/30/18 15:01 DC 05/30/18 17:03 80 MEQ Propofol 50 ml @ 1.082 mls/ hr 1X ONCE 05/23/18 21:15 05/25/18 19:27 DC 05/23/18 21:12 2.164 MLS/HR Rivastigmine (Exelon 13.3mg) 1 patch DAILY 05/24/18 11:30 06/02/18 08:06 1 PATCH Simvastatin (Zocor) 10 mg DAILY 05/25/18 09:00 UNV Sodium Chloride 1,000 ml @ 125 mls/hr Q8H 05/24/18 23:00 06/02/18 22:33 125 MLS/HR Sodium Chloride (Normal Saline Flush) 10 ml QSHIFT PRN 05/23/18 20:00 Succinylcholine Chloride (Anectine) 200 mg STK-MED ONCE 05/23/18 21:32 05/23/18 21:33 DC Vancomycin HCl (Vanco Per Pharmacy) 1 each PRN DAILY PRN 05/23/18 23:30 05/26/18 08:58 DC 05/26/18 01:02 1 EACH Vancomycin HCl (Vancomycin Trough Level) 1 each 1X ONCE 05/27/18 09:30 05/27/18 09:30 DC Vancomycin HCl 1.75 gm/Sodium Chloride 500 ml @ 250 mls/hr 1X ONCE 05/23/18 21:30 05/23/18 23:29 DC 05/23/18 21:23 250 MLS/HR Vancomycin HCl 1 gm/Sodium Chloride 250 ml @ 250 mls/hr Q12H 05/26/18 10:00 05/26/18 10:00 DC Vitamin A/Vitamin D (Vitamin A & D Ointment) 1 ron BID 05/31/18 21:00 06/02/18 21:08 1 RON Labs: Lab Laboratory Tests Test 06/02/18 08:17 06/02/18 12:33 06/02/18 16:47 06/02/18 21:26 Glucose (Fingerstick) 243 mg/dL (70-99) 172 mg/dL (70-99) 124 mg/dL (70-99) 139 mg/dL (70-99) Test 06/03/18 06:00 Sodium Level 140 mmol/L (136-145) Potassium Level 3.2 mmol/L (3.5-5.1) Chloride Level 106 mmol/L (98-107) Carbon Dioxide Level 28 mmol/L (21-32) Anion Gap 6 (6-14) Blood Urea Nitrogen 7 mg/dL (7-20) Creatinine 0.8 mg/dL (0.6-1.0) Estimated GFR (Cockcroft-Gault) 89.1 BUN/Creatinine Ratio 9 (6-20) Glucose Level 178 mg/dL (70-99) Calcium Level 7.6 mg/dL (8.5-10.1) Total Bilirubin 0.2 mg/dL (0.2-1.0) Aspartate Amino Transf (AST/SGOT) 30 U/L (15-37) Alanine Aminotransferase (ALT/SGPT) 25 U/L (14-59) Alkaline Phosphatase 81 U/L (46-116) Total Protein 5.8 g/dL (6.4-8.2) Albumin 1.2 g/dL (3.4-5.0) Albumin/Globulin Ratio 0.3 (1.0-1.7) Objective: Assessment: Aspiration pneumonia. MRSA and group B strep Sepsis with hypotension, lactic acidosis, requiring vasopressor support. Fever. Respiratory failure. Circulatory failure. Down syndrome. Diarrhea C diff negative Anemia superficial cephalic vein thrombosis RUE Plan: Plan of Care Zyvox ( 05/27), merrem ( 05/31), was on zosyn prior,micafungin 06/01 NGTD Monitor labs/temp Supportive care Palliative care on case D/W nursing Critically ill SERINA FLORES MD Jun 03, 2018 07:20
[2018-06-03] MEDS: IPRATRPIUM/ALBUTEROL 0.5/2.5MG 3 ML NEBU. NEB SCH ×4 (08:16→19:56)
--- NOTE | 2018-06-03 08:36 | PDOC ---
PROGRESS NOTES Chief Complaint Chief Complaint Septic shock etiology most likely Related to underlying lung process Severe dehydration hypernatremia secondary to the above Down syndrome History of anxiety dementia, diabetes mellitus type II insulin requiring uncontrolled History of PEG tube. Hypernatremia secondary to water deficit Plan: increased lantus insulin and provide correctional with 7 units for her glycemia of over 300 Continue with supportive measures. Continue ventilatory support as per integration consultant Type and screen cont home medications currently still on pressors antibiotics [facility] tomás Further recommendations based on the clinical course History of Present Illness History of Present Illness No apparent distress. No acute events reported overnight. Fever 05/31/18 102.1F, repeated blood cultures over weekend and again today. Rectal tube removed. Palliative met with family yesterday evening, will readdress goals of care on in the afternoon S/p 1u PRBC on 05/30 with some improvement in vital signs. MRSA and GBS pneumonia. Intubated and sedated, FiO2 down to 55%, Hypotensive, Levophed 2.5 mcg, Tube feedings 45 ml/hr. RUE swelling noted without DVT on US Diarrhea less significant, rectal tube dislodged, however. Versed off. She is moving and opening eyes, not following commands Plan: Family meeting to address goals of care yesterday, family wishes for extubation on 06/06/[address] shows Bilateral pleural effusions of moderate to large size. Extensive patchy consolidations involving the lung padilla and right lower lobe atelectatic consolidation. Vitals Vitals Vital Signs Date Time Temp Pulse Resp B/P (MAP) Pulse Ox O2 Delivery O2 Flow Rate FiO2 06/03/18 08:16 100 Ventilator 06/03/18 07:00 97.6 97 16 74/43 (53) 97.6 Physical Exam Physical Exam GENERAL: Orally intubated, sedated, not in any distress.opens eyes HEENT: Pupils small, ETT, OGT LUNGS: Clear anteriorly HEART: S1, S2 regular. No gallop or murmur. ABDOMEN: Obese, soft, + BS. rectal tube out : Tamayo EXTREMITIES: Generalized edema, LE contractures ,RUE edema NEUROLOGIC: Sedated on vent SKIN: No rash PICC line RUE looks OK Lungs: Other (decrease bs) Labs LABS Laboratory Tests Test 06/02/18 12:33 06/02/18 16:47 06/02/18 21:26 06/03/18 06:00 Glucose (Fingerstick) 172 mg/dL (70-99) 124 mg/dL (70-99) 139 mg/dL (70-99) White Blood Count 6.6 x10^3/uL (4.0-11.0) Red Blood Count 3.04 x10^6/uL (3.50-5.40) Hemoglobin 8.9 g/dL (12.0-15.5) Hematocrit 27.1 % (36.0-47.0) Mean Corpuscular Volume 89 fL (79-100) Mean Corpuscular Hemoglobin 29 pg (25-35) Mean Corpuscular Hemoglobin Concent 33 g/dL (31-37) Red Cell Distribution Width 16.6 % (11.5-14.5) Platelet Count 274 x10^3/uL (140-400) Neutrophils (%) (Auto) 66 % (31-73) Lymphocytes (%) (Auto) 26 % (24-48) Monocytes (%) (Auto) 6 % (0-9) Eosinophils (%) (Auto) 1 % (0-3) Basophils (%) (Auto) 0 % (0-3) Neutrophils # (Auto) 4.4 x10^3uL (1.8-7.7) Lymphocytes # (Auto) 1.7 x10^3/uL (1.0-4.8) Monocytes # (Auto) 0.4 x10^3/uL (0.0-1.1) Eosinophils # (Auto) 0.0 x10^3/uL (0.0-0.7) Basophils # (Auto) 0.0 x10^3/uL (0.0-0.2) Sodium Level 140 mmol/L (136-145) Potassium Level 3.2 mmol/L (3.5-5.1) Chloride Level 106 mmol/L (98-107) Carbon Dioxide Level 28 mmol/L (21-32) Anion Gap 6 (6-14) Blood Urea Nitrogen 7 mg/dL (7-20) Creatinine 0.8 mg/dL (0.6-1.0) Estimated GFR (Cockcroft-Gault) 89.1 BUN/Creatinine Ratio 9 (6-20) Glucose Level 178 mg/dL (70-99) Calcium Level 7.6 mg/dL (8.5-10.1) Total Bilirubin 0.2 mg/dL (0.2-1.0) Aspartate Amino Transf (AST/SGOT) 30 U/L (15-37) Alanine Aminotransferase (ALT/SGPT) 25 U/L (14-59) Alkaline Phosphatase 81 U/L (46-116) Total Protein 5.8 g/dL (6.4-8.2) Albumin 1.2 g/dL (3.4-5.0) Albumin/Globulin Ratio 0.3 (1.0-1.7) Comment Review of Relevant I have reviewed the following items trey (where applicable) has been applied. Labs Laboratory Tests Test 06/01/18 09:15 06/01/18 10:20 06/01/18 11:52 06/01/18 16:59 Glucose (Fingerstick) 288 mg/dL (70-99) 266 mg/dL (70-99) 122 mg/dL (70-99) O2 Saturation 97 % (92-99) Arterial Blood pH 7.49 (7.35-7.45) Arterial Blood pCO2 at Patient Temp 33 mmHg (35-46) Arterial Blood pO2 at Patient Temp 83 mmHg (75-108) Arterial Blood HCO3 24 mmol/L (21-28) Arterial Blood Base Excess 1 mmol/L (-3-3) FiO2 55 Test 06/01/18 21:47 06/02/18 06:20 06/02/18 08:17 06/02/18 12:33 Glucose (Fingerstick) 101 mg/dL (70-99) 243 mg/dL (70-99) 172 mg/dL (70-99) White Blood Count 8.5 x10^3/uL (4.0-11.0) Red Blood Count 3.26 x10^6/uL (3.50-5.40) Hemoglobin 9.6 g/dL (12.0-15.5) Hematocrit 29.1 % (36.0-47.0) Mean Corpuscular Volume 89 fL (79-100) Mean Corpuscular Hemoglobin 30 pg (25-35) Mean Corpuscular Hemoglobin Concent 33 g/dL (31-37) Red Cell Distribution Width 16.4 % (11.5-14.5) Platelet Count 249 x10^3/uL (140-400) Neutrophils (%) (Auto) 76 % (31-73) Lymphocytes (%) (Auto) 17 % (24-48) Monocytes (%) (Auto) 6 % (0-9) Eosinophils (%) (Auto) 1 % (0-3) Basophils (%) (Auto) 0 % (0-3) Neutrophils # (Auto) 6.4 x10^3uL (1.8-7.7) Lymphocytes # (Auto) 1.4 x10^3/uL (1.0-4.8) Monocytes # (Auto) 0.5 x10^3/uL (0.0-1.1) Eosinophils # (Auto) 0.1 x10^3/uL (0.0-0.7) Basophils # (Auto) 0.0 x10^3/uL (0.0-0.2) Test 06/02/18 16:47 06/02/18 21:26 06/03/18 06:00 Glucose (Fingerstick) 124 mg/dL (70-99) 139 mg/dL (70-99) White Blood Count 6.6 x10^3/uL (4.0-11.0) Red Blood Count 3.04 x10^6/uL (3.50-5.40) Hemoglobin 8.9 g/dL (12.0-15.5) Hematocrit 27.1 % (36.0-47.0) Mean Corpuscular Volume 89 fL (79-100) Mean Corpuscular Hemoglobin 29 pg (25-35) Mean Corpuscular Hemoglobin Concent 33 g/dL (31-37) Red Cell Distribution Width 16.6 % (11.5-14.5) Platelet Count 274 x10^3/uL (140-400) Neutrophils (%) (Auto) 66 % (31-73) Lymphocytes (%) (Auto) 26 % (24-48) Monocytes (%) (Auto) 6 % (0-9) Eosinophils (%) (Auto) 1 % (0-3) Basophils (%) (Auto) 0 % (0-3) Neutrophils # (Auto) 4.4 x10^3uL (1.8-7.7) Lymphocytes # (Auto) 1.7 x10^3/uL (1.0-4.8) Monocytes # (Auto) 0.4 x10^3/uL (0.0-1.1) Eosinophils # (Auto) 0.0 x10^3/uL (0.0-0.7) Basophils # (Auto) 0.0 x10^3/uL (0.0-0.2) Sodium Level 140 mmol/L (136-145) Potassium Level 3.2 mmol/L (3.5-5.1) Chloride Level 106 mmol/L (98-107) Carbon Dioxide Level 28 mmol/L (21-32) Anion Gap 6 (6-14) Blood Urea Nitrogen 7 mg/dL (7-20) Creatinine 0.8 mg/dL (0.6-1.0) Estimated GFR (Cockcroft-Gault) 89.1 BUN/Creatinine Ratio 9 (6-20) Glucose Level 178 mg/dL (70-99) Calcium Level 7.6 mg/dL (8.5-10.1) Total Bilirubin 0.2 mg/dL (0.2-1.0) Aspartate Amino Transf (AST/SGOT) 30 U/L (15-37) Alanine Aminotransferase (ALT/SGPT) 25 U/L (14-59) Alkaline Phosphatase 81 U/L (46-116) Total Protein 5.8 g/dL (6.4-8.2) Albumin 1.2 g/dL (3.4-5.0) Albumin/Globulin Ratio 0.3 (1.0-1.7) Laboratory Tests Test 06/02/18 12:33 06/02/18 16:47 06/02/18 21:26 06/03/18 06:00 Glucose (Fingerstick) 172 mg/dL (70-99) 124 mg/dL (70-99) 139 mg/dL (70-99) White Blood Count 6.6 x10^3/uL (4.0-11.0) Red Blood Count 3.04 x10^6/uL (3.50-5.40) Hemoglobin 8.9 g/dL (12.0-15.5) Hematocrit 27.1 % (36.0-47.0) Mean Corpuscular Volume 89 fL (79-100) Mean Corpuscular Hemoglobin 29 pg (25-35) Mean Corpuscular Hemoglobin Concent 33 g/dL (31-37) Red Cell Distribution Width 16.6 % (11.5-14.5) Platelet Count 274 x10^3/uL (140-400) Neutrophils (%) (Auto) 66 % (31-73) Lymphocytes (%) (Auto) 26 % (24-48) Monocytes (%) (Auto) 6 % (0-9) Eosinophils (%) (Auto) 1 % (0-3) Basophils (%) (Auto) 0 % (0-3) Neutrophils # (Auto) 4.4 x10^3uL (1.8-7.7) Lymphocytes # (Auto) 1.7 x10^3/uL (1.0-4.8) Monocytes # (Auto) 0.4 x10^3/uL (0.0-1.1) Eosinophils # (Auto) 0.0 x10^3/uL (0.0-0.7) Basophils # (Auto) 0.0 x10^3/uL (0.0-0.2) Sodium Level 140 mmol/L (136-145) Potassium Level 3.2 mmol/L (3.5-5.1) Chloride Level 106 mmol/L (98-107) Carbon Dioxide Level 28 mmol/L (21-32) Anion Gap 6 (6-14) Blood Urea Nitrogen 7 mg/dL (7-20) Creatinine 0.8 mg/dL (0.6-1.0) Estimated GFR (Cockcroft-Gault) 89.1 BUN/Creatinine Ratio 9 (6-20) Glucose Level 178 mg/dL (70-99) Calcium Level 7.6 mg/dL (8.5-10.1) Total Bilirubin 0.2 mg/dL (0.2-1.0) Aspartate Amino Transf (AST/SGOT) 30 U/L (15-37) Alanine Aminotransferase (ALT/SGPT) 25 U/L (14-59) Alkaline Phosphatase 81 U/L (46-116) Total Protein 5.8 g/dL (6.4-8.2) Albumin 1.2 g/dL (3.4-5.0) Albumin/Globulin Ratio 0.3 (1.0-1.7) Microbiology 06/01/18 Blood Culture - Preliminary, Resulted NO GROWTH AFTER 1 DAY 05/23/18 Stool Culture - Final, Complete 05/23/18 Stool Culture Result 1 (GRACIE) - Final, Complete 05/23/18 Campylobacter Antigen Assay - Final, Complete 05/23/18 Campylobactor Result 1 - Final, Complete 05/23/18 Shiga Toxin Test - Final, Complete 05/31/18 - Final, Resulted 05/31/18 - Final, Resulted 05/31/18 - Final, Resulted 05/31/18 Gram Stain Evaluation - Final, Resulted 05/31/18 Sputum Culture - Preliminary, Resulted 05/31/18 Sputum Result 1 - Final, Resulted Medications Current Medications Sodium Chloride (Normal Saline Flush) 10 ml QSHIFT PRN IV AFTER MEDS AND BLOOD DRAWS; Start 05/23/18 at 20:00 Piperacillin Sod/ Tazobactam Sod 4.5 gm/Sodium Chloride 100 ml @ 200 mls/hr 1X ONCE IV Last administered on 05/23/18at 20:34; Start 05/23/18 at 20:00; Stop 05/23/18 at 20:29; Status DC Vancomycin HCl (Vanco Per Pharmacy) 1 each 1X ONCE MC Last administered on 05/23at 20:00; Start 05/23/18 at 20:00; Stop 05/23/18 at 22:03; Status DC Propofol 100 ml @ 0 mls/hr CONT PRN IV SEE PROTOCOL; Start 05/23/18 at 20:00 Fentanyl Citrate (Fentanyl 2ml Vial) 25 mcg PRN Q1HR PRN IV SEE COMMENTS Last administered on 06/01/18at 16:52; Start 05/23/18 at 20:00 Fentanyl Citrate (Fentanyl 2ml Vial) 50 mcg PRN Q1HR PRN IV SEE COMMENTS Last administered on 06/02/18at 14:07; Start 05/23/18 at 20:00 Chlorhexidine Gluconate (Peridex) 15 ml BID MM Last administered on 05/24/18at 00 :05; Start 05/23/18 at 21:00; Stop 05/24/18 at 08:09; Status DC Acetaminophen (Tylenol Supp) 650 mg 1X ONCE GA Last administered on 05/23/18at 20:33; Start 05/23/18 at 20:00; Stop 05/23/18 at 20:04; Status DC Sodium Chloride 1,000 ml @ 1,000 mls/hr 1X ONCE IV Last administered on at 20:41; Start 05/23/18 at 20:00; Stop 05/23/18 at 20:59; Status DC Midazolam HCl (Versed) 5 mg 1X ONCE IV Last administered on 05/23/18at 20:33; Start 05/23/18 at 20:15; Stop 05/23/18 at 20:16; Status DC Lorazepam (Ativan) 2 mg STK-MED ONCE .ROUTE ; Start 05/23/18 at 20:04; Stop at 20:05; Status DC Norepinephrine Bitartrate 250 ml @ 0 mls/hr CONT PRN IV PER PROTOCOL Last administered on 06/02/18at 08:12; Start 05/23/18 at 20:30 Sodium Chloride 1,000 ml @ 126 mls/hr Q7H57M IV ; Start 05/23/18 at 20:40; Stop 05/24/18 at 20:39; Status DC Sodium Chloride 1,000 ml @ 1,000 mls/hr 1X ONCE IV Last administered on at 20:50; Start 05/23/18 at 20:45; Stop 05/23/18 at 21:44; Status DC Sodium Chloride 1,000 ml @ 1,000 mls/hr 1X ONCE IV ; Start 05/23/18 at 21:15; Stop 05/23/18 at 21:16; Status DC Propofol 50 ml @ As Directed STK-MED ONCE IV ; Start 05/23/18 at 21:02; Stop 05/23 at 21:03; Status DC Propofol 50 ml @ 1.082 mls/ hr 1X ONCE IV Last administered on 05/23/18at 21:12 ; Start 05/23/18 at 21:15; Stop 05/25/18 at 19:27; Status DC Vancomycin HCl 1.75 gm/Sodium Chloride 500 ml @ 250 mls/hr 1X ONCE IV Last administered on 05/23/18at 21:23; Start 05/23/18 at 21:30; Stop 05/23/18 at 23:29; Status DC Insulin Human Regular (HumuLIN R VIAL) 14 unit 1X ONCE SQ Last administered on 05/23/18at 21:46; Start 05/23/18 at 21:15; Stop 05/23/18 at 21:16; Status DC Sodium Chloride 1,000 ml @ 75 mls/hr 1X ONCE IV Last administered on at 21:23; Start 05/23/18 at 21:15; Stop 05/24/18 at 10:34; Status DC Etomidate (Amidate) 20 mg STK-MED ONCE IV ; Start 05/23/18 at 21:32; Stop at 21:33; Status DC Succinylcholine Chloride (Anectine) 200 mg STK-MED ONCE .ROUTE ; Start 05/23/18 at 21:32; Stop 05/23/18 at 21:33; Status DC Vancomycin HCl 1 gm/Sodium Chloride 250 ml @ 250 mls/hr Q24H IV Last administered on 05/25/18at 21:37; Start 05/24/18 at 21:30; Stop 05/26/18 at 01:00 ; Status DC Vancomycin HCl (Vancomycin Trough Level) 1 each 1X ONCE MC Last administered on 05/25/18at 21:00; Start 05/25/18 at 21:00; Stop 05/26/18 at 08:58; Status DC Sodium Chloride 500 ml @ 500 mls/hr 1X ONCE IV Last administered on 05/23/18at 22:45; Start 05/23/18 at 22:45; Stop 05/23/18 at 23:44; Status DC Albuterol/ Ipratropium (Duoneb) 3 ml RTQID NEB Last administered on 06/03/18at 08:16; Start 05/24/18 at 08:00 Fentanyl Citrate 30 ml @ 0 mls/hr CONT PRN IV SEE PROTOCOL; Start 05/23/18 at 22 :45 Midazolam HCl 100 ml @ 0 mls/hr CONT PRN IV SEE PROTOCOL Last administered on at 23:09; Start 05/23/18 at 22:45 Sodium Chloride 500 ml @ 500 mls/hr 1X ONCE IV Last administered on 05/23/18at 23:33; Start 05/23/18 at 23:00; Stop 05/23/18 at 23:59; Status DC Insulin Human Lispro (HumaLOG) 0-9 UNITS TIDWMEALS SQ Last administered on 06/02at 12:38; Start 05/24/18 at 00:00 Dextrose (Dextrose 50%-Water Syringe) 12.5 gm PRN Q15MIN PRN IV SEE COMMENTS; Start 05/23/18 at 23:30 Enoxaparin Sodium (Lovenox 40mg Syringe) 40 mg Q24H SQ Last administered on at 23:00; Start 05/23/18 at 23:30 Piperacillin Sod/ Tazobactam Sod (Zosyn Per Pharmacy) 1 each PRN DAILY PRN MC SEE COMMENTS; Start 05/23/18 at 23:30; Stop 05/31/18 at 12:56; Status DC Vancomycin HCl (Vanco Per Pharmacy) 1 each PRN DAILY PRN MC SEE COMMENTS Last administered on 05/26/18at 01:02; Start 05/23/18 at 23:30; Stop 05/26/18 at 08:58 ; Status DC Piperacillin Sod/ Tazobactam Sod 3.375 gm/Sodium Chloride 50 ml @ 100 mls/hr Q6HRS IV Last administered on 05/31/18 06:06; Start 05/24/18 at 06:00; Stop at 12:53; Status DC Acetaminophen (Tylenol Supp) 650 mg PRN Q6HRS PRN GA MILD PAIN / TEMP Last administered on 05/26/18at 02:16; Start 05/24/18 at 04:45 Acetaminophen (Tylenol) 650 mg PRN Q8HRS PRN PO MILD PAIN / TEMP Last administered on 06/02/18at 08:06; Start 05/24/18 at 10:45 Aspirin (Children'S Aspirin) 81 mg DAILY PO Last administered on 06/02/18 08: 06; Start 05/24/18 at 12:00 Atorvastatin Calcium (Lipitor) 10 mg HS PEG Last administered on 06/02/18at 21: 07; Start 05/24/18 at 21:00 Citric Acid/ Sodium Citrate (Bicitra) 10 ml QIDAFTMEAL PEG Last administered on 06/02/18at 21:07; Start 05/24/18 at 13:00 Magnesium Hydroxide (Milk Of Magnesia) 2,400 mg PRN DAILY PRN PEG CONSTIPATION ; Start 05/24/18 at 10:45 Rivastigmine (Exelon 13.3mg) 1 patch DAILY TD Last administered on 06/02/18at 08 :06; Start 05/24/18 at 11:30 Simvastatin (Zocor) 10 mg DAILY PO ; Start 05/25/18 at 09:00; Status UNV Insulin Glargine (Lantus) 14 units DAILY SQ Last administered on 05/24/18at 12:36 ; Start 05/24/18 at 11:30; Stop 05/25/18 at 07:19; Status DC Metformin HCl (Glucophage) 500 mg BIDWMEALS PO Last administered on 06/02/18at 16:43; Start 05/24/18 at 11:30 Multivitamins (Thera-Plus Oral Liquid) 5 ml DAILY PEG Last administered on 06/02at 08:05; Start 05/24/18 at 11:30 Nystatin (Nystop) 1 ron PRN TID PRN TP REDNESS UNDER BREAST OR ARM; Start at 21:00 Levetiracetam (Keppra) 500 mg BID PO ; Start 05/24/18 at 11:30; Stop 05/24/18 at 12:10; Status DC Sodium Chloride 1,000 ml @ 125 mls/hr 1X ONCE IV Last administered on at 12:03; Start 05/24/18 at 12:30; Stop 05/24/18 at 20:29; Status DC Levetiracetam (Keppra) 500 mg BID PEG Last administered on 06/02/18at 21:07; Start 05/24/18 at 12:30 Sodium Chloride 1,000 ml @ 125 mls/hr Q8H IV Last administered on 06/02/18at 22 :33; Start 05/24/18 at 23:00 Insulin Glargine (Lantus) 18 units DAILY SQ Last administered on 05/29/18at 09: 23; Start 05/25/18 at 09:00; Stop 05/29/18 at 11:53; Status DC Vancomycin HCl 1 gm/Sodium Chloride 250 ml @ 250 mls/hr Q12H IV ; Start at 10:00; Stop 05/26/18 at 10:00; Status DC Vancomycin HCl (Vancomycin Trough Level) 1 each 1X ONCE MC ; Start 05/27/18 at 09:30; Stop 05/27/18 at 09:30; Status DC Magnesium Sulfate 50 ml @ 25 mls/hr 1X ONCE IV Last administered on 05/26/18at 10:00; Start 05/26/18 at 08:45; Stop 05/26/18 at 10:44; Status DC Acetaminophen (Tylenol) 650 mg PRN Q6HRS PRN PEG MILD PAIN / TEMP Last administered on 05/31/18at 21:11; Start 05/26/18 at 10:15 Potassium Chloride (KCl Oral Soln) 20 meq 1X ONCE PEG Last administered on 01/03at 10:44; Start 05/26/18 at 10:30; Stop 05/26/18 at 10:36; Status DC Famotidine (Pepcid Vial) 20 mg BID IVP Last administered on 06/02/18 21:07; Start 05/26/18 at 21:00 Linezolid/Dextrose 300 ml @ 300 mls/hr Q12HR IV Last administered on 21:07; Start 05/27/18 at 10:30 Insulin Glargine (Lantus) 22 units DAILY SQ Last administered on 05/30/18 09: 12; Start 05/30/18 at 09:00; Stop 05/31/18 at 09:57; Status DC Furosemide (Lasix) 40 mg 1X ONCE IVP Last administered on 05/30/18 17:02; Start 05/30/18 at 14:00; Stop 05/30/18 at 14:01; Status DC Potassium Chloride (KCl Oral Soln) 80 meq 1X ONCE PEG Last administered on 17:03; Start 05/30/18 at 15:00; Stop 05/30/18 at 15:01; Status DC Insulin Glargine (Lantus) 26 units DAILY SQ ; Start 06/01/18 at 09:00; Stop at 09:00; Status DC Insulin Human Lispro (HumaLOG) 3 units QIDACHS SQ Last administered on 21:28; Start 05/31/18 at 11:30 Insulin Human Lispro (HumaLOG) 3 units 1X ONCE SQ Last administered on 10:07; Start 05/31/18 at 10:00; Stop 05/31/18 at 10:01; Status DC Insulin Glargine (Lantus) 26 units DAILY SQ Last administered on 4/18/19at 08: 20; Start 05/31/18 at 10:15 Furosemide (Lasix) 20 mg 1X ONCE IVP Last administered on 05/31/18at 10:58; Start 05/31/18 at 11:00; Stop 05/31/18 at 11:01; Status DC Meropenem 500 mg/ Sodium Chloride 50 ml @ 100 mls/hr Q6HRS IV Last administered on 06/03/18at 06:04; Start 05/31/18 at 13:00 Insulin Human Lispro (HumaLOG) 6 units 1X ONCE SQ Last administered on at 13:08; Start 05/31/18 at 13:00; Stop 05/31/18 at 13:01; Status DC Vitamin A/Vitamin D (Vitamin A & D Ointment) 1 ron BID TP Last administered on 06/02/18at 21:08; Start 05/31/18 at 21:00 Micafungin Sodium 100 mg/Dextrose 100 ml @ 100 mls/hr Q24H IV Last administered on 06/02/18at 08:07; Start 06/01/18 at 08:00 Doxycycline Hyclate 100 mg/ Dextrose 100 ml @ 50 mls/hr Q12HR IV Last administered on 06/02/18at 21:07; Start 06/01/18 at 09:00 Active Scripts Active Levemir Flextouch (Insulin Detemir) 300 Units/3 Ml Insuln.pen 14 Units SQ DAILY Milk Of Magnesia (Magnesium Hydroxide) 2,400 Mg/30 Ml Oral.susp 2,400 Mg PEG PRN DAILY PRN 30 Days [Levetiracetam] 500 MG/5 ML Solution 500 Mg PEG BID 30 Days Reported Nystatin 1 Each Powder.ea. 1 Each MC PRN PRN Famotidine 20 Mg Tablet 20 Mg PEG HS Atorvastatin Calcium 10 Mg Tablet 10 Mg PEG HS Metformin Hcl 500 Mg Tablet 500 Mg PEG BIDWMEALS Sod Citrate-Citric Acid Soln (Citric Acid/Sodium Citrate) 15 Ml Solution 10 Ml PEG QIDAFTMEAL Lansoprazole 30 Mg Capsule.dr 1 Cap PO DAILY Cipro (Ciprofloxacin Hcl) 500 Mg Tablet 1 Tab PO BID 2 Days Tylenol (Acetaminophen) 325 Mg Tablet 650 Mg PEG PRN Q8HRS PRN Multivitamins (Multivitamin) 1 Each Tablet 1 Tab PEG DAILY EXELON 13.3mg/24hr (Rivastigmine) 1 Each Patch.td24 1 Patch TD DAILY Aspirin 81 Mg Tab.chew 81 Mg PO DAILY Simvastatin 10 Mg Tablet 10 Mg PO DAILY Vitals/I & O Vital Sign - Last 24 Hours 06/02/18 06/02/18 06/02/18 06/02/18 09:00 10:00 11:00 12:00 Temp 98.8 98.8 Pulse 100 107 104 Resp 21 23 25 B/P (MAP) 100/64 (76) 130/73 (92) 98/59 (72) Pulse Ox 100 99 99 O2 Delivery Ventilator Ventilator Ventilator Mechanical Ventilator 06/02/18 06/02/18 06/02/18 06/02/18 12:00 12:15 12:22 13:00 Pulse 98 97 97 Resp 16 16 16 B/P (MAP) 63/31 (42) 85/55 (65) 96/58 (71) Pulse Ox 96 99 99 99 O2 Delivery Ventilator Ventilator Ventilator Ventilator 06/02/18 06/02/18 06/02/18 06/02/18 14:01 14:07 14:40 15:00 Temp 98.6 98.6 Pulse 99 92 Resp 20 22 16 17 B/P (MAP) 80/44 (56) 85/52 (63) Pulse Ox 100 100 100 99 O2 Delivery Ventilator Ventilator Ventilator 06/02/18 06/02/18 06/02/18 06/02/18 16:00 16:00 16:06 17:00 Pulse 100 97 Resp 19 16 B/P (MAP) 88/47 (61) 81/55 (64) Pulse Ox 100 100 95 O2 Delivery Mechanical Ventilator Ventilator Ventilator Ventilator 06/02/18 06/02/18 06/02/18 06/02/18 17:30 18:01 19:00 19:47 Pulse 100 100 Resp 16 20 B/P (MAP) 82/61 (68) 101/84 (90) Pulse Ox 97 100 100 100 O2 Delivery Ventilator Ventilator Ventilator Ventilator 06/02/18 06/02/18 06/02/18 06/02/18 20:00 20:00 21:00 22:00 Temp 99.7 99.7 Pulse 108 105 105 Resp 21 18 20 B/P (MAP) 86/64 (71) 83/62 (69) 87/62 (70) Pulse Ox 100 100 100 O2 Delivery Ventilator Mechanical Ventilator Ventilator Ventilator 06/02/18 06/02/18 06/02/18 06/03/18 23:00 23:23 23:59 00:00 Temp 99.4 99.4 Pulse 103 102 Resp B/P (MAP) 89/47 (61) 86/62 (70) Pulse Ox 100 100 100 O2 Delivery Ventilator Ventilator Mechanical Ventilator Ventilator 06/03/18 06/03/18 06/03/18 06/03/18 01:00 01:10 02:00 03:00 Pulse 100 100 99 Resp 18 B/P (MAP) 81/50 (60) 109/65 (80) 96/52 (67) Pulse Ox 100 100 100 100 O2 Delivery Ventilator Ventilator Ventilator Ventilator 06/03/18 06/03/18 06/03/18 06/03/18 03:28 04:00 04:00 05:00 Temp 98.4 98.4 Pulse 96 94 Resp B/P (MAP) 98/58 (71) 92/52 (65) Pulse Ox 100 100 100 O2 Delivery Ventilator Mechanical Ventilator Ventilator Ventilator 06/03/18 06/03/18 06/03/18 06/03/18 05:24 06:00 07:00 07:54 Temp 97.6 97.6 Pulse 98 97 Resp B/P (MAP) 82/51 (61) 74/43 (53) Pulse Ox 100 100 100 O2 Delivery Ventilator Ventilator Ventilator Mechanical Ventilator 06/03/18 08:16 Pulse Ox 100 O2 Delivery Ventilator Intake and Output 06/02/18 06/02/18 06/03/18 15:00 23:00 07:00 Intake Total 850 ml 2518 ml 2182.55 ml Output Total 520 ml 580 ml 440 ml Balance 330 ml 1938 ml 1742.55 ml ARIEL COBB MD Jun 03, 2018 08:36
[2018-06-03 08:39] LABS: BASE EXCESS ABG 2 mmol/L (-3-3); HCO3 ABG 26 mmol/L (21-28); PCO2 ABG 36 mmHg (35-46); PO2 ABG 105 mmHg (75-108); SAT O2 ABG 98 % (92-99)
[2018-06-03] MEDS ORDERED: POTASSIUM CHLORIDE 20 MEQ/15 ML ORAL LIQUID. PEG ONE (08:45)
[2018-06-03] MEDS: MULTIVITAMINS,THERAPEUTIC 5 ML ORAL LIQUID. PEG SCH (09:40)
[2018-06-03] MEDS: metFORMIN 500 MG TABLET PO SCH ×2 (09:40→16:42)
[2018-06-03] MEDS: FAMOTIDINE 20 MG/2 ML VIAL IVP SCH ×2 (09:40→21:38)
[2018-06-03] MEDS: CITRIC ACID/SODIUM CITRATE 30 ML SOLUTION. PEG SCH ×4 (09:41→21:38)
[2018-06-03] MEDS: RIVASTIGMINE 13.3MG PATCH. TD SCH (09:41)
[2018-06-03] MEDS: ASPIRIN CHEWABLE 81 MG TABLET. PO SCH (09:41)
[2018-06-03] MEDS: MICAFUNGIN 100 MG in IV DEXTROSE 5% 100ML 100 ML IV SCH (09:42)
--- NOTE | 2018-06-03 09:43 | CARD ---
MR#: [id number] Date of Study: 06/03/2018 Ordering Physician: ARIEL COBB, Referring Physician: DARCI ALICEA Tech: Dariana Naranjo TEREZA APPROVED REPORT EXAM: Two-dimensional and M-mode echocardiogram with Doppler and color Doppler. Other Information Quality : AverageHR: 88bpm Rhythm : NSR INDICATION Congestive Heart Failure 2D DIMENSIONS RVDd2.6 (2.9-3.5cm)Left Atrium(2D)3.0 (1.6-4.0cm) IVSd0.6 (0.7-1.1cm)Aortic Root(2D)2.5 (2.0-3.7cm) LVDd3.8 (3.9-5.9cm)LVOT Diameter1.9 (1.8-2.4cm) PWd0.7 (0.7-1.1cm)LVDs2.2 (2.5-4.0cm) FS (%) 41.5 %SV46.2 ml LVEF(%)70.0 (>50%) M-Mode DIMENSIONS Left Atrium(MM)2.97 (2.5-4.0cm)Aortic Root2.52 (2.2-3.7cm) Aortic Valve AoV Peak Carlito.135.7cm/sAoV VTI21.1cm AO Peak GR.7.4mmHgLVOT Peak Carlito.99.6cm/s AO Mean GR.4mmHgAVA (VMAX)1.98cm2 CHEPE (VTI)2.00cm2 Mitral Valve MV E Kwucwzsm175.8cm/sMV E Peak Gr.6mmHg MV DECEL [id number] A Jersirxv179.9cm/s MV E Mean Gr.3mmHgE/A Ratio1.2 Pulmonary Valve PV Peak Gzezekgb210.3cm/s Tricuspid Valve TR P. Ospcaazs062al/sRAP OWKPCMMZ2zdLr TR Peak Gr.44nxIlWDYK04tiIg LEFT VENTRICLE The left ventricle is normal size. There is normal left ventricular wall thickness. The left ventricu lar systolic function is normal and the ejection fraction is within normal range. The Ejection Fracti on is 65-70%. There is normal LV segmental wall motion. Transmitral Doppler flow pattern is Grade II- pseudonormal filling dynamics. RIGHT VENTRICLE The right ventricle is normal size. There is normal right ventricular wall thickness. The right ventr icular systolic function is normal. ATRIA The left atrium size is normal. The right atrium size is normal. The interatrial septum is intact wit h no evidence for an atrial septal defect or patent foramen ovale as noted on 2-D or Doppler imaging. AORTIC VALVE The aortic valve is normal in structure and function. The aortic valve is trileaflet. Doppler and Col or Flow revealed no significant aortic regurgitation. There is no significant aortic valvular stenosi s. There is no aortic valvular vegetation. MITRAL VALVE The mitral valve is normal in structure and function. There is no evidence of mitral valve prolapse. There is no mitral valve stenosis. Doppler and Color Flow revealed no mitral valve regurgitation note d. TRICUSPID VALVE The tricuspid valve is normal in structure and function. Doppler and Color Flow revealed trace tricus pid regurgitation. The PA pressure was estimated at 27 mmHg. There is no tricuspid valve prolapse or vegetation. There is no tricuspid valve stenosis. PULMONIC VALVE The pulmonic valve is not well visualized. GREAT VESSELS The aortic root is normal in size. The ascending aorta is normal in size. The IVC is normal in size a nd collapses >50% with inspiration. PERICARDIAL EFFUSION There is no evidence of significant pericardial effusion. Critical Notification Critical Value: No <Conclusion> The left ventricular systolic function is normal and the ejection fraction is within normal range. Th e Ejection Fraction is 65-70%. There is normal LV segmental wall motion. Signed by : Suresh Galdamez, Electronically Approved : 06/03/2018 09:42:51
[2018-06-03] MEDS: DOXYCYCLINE HYCLATE 100 MG in IV DEXTROSE 5% 100ML 100 ML IV SCH ×2 (09:46→21:39)
[2018-06-03] MEDS: POTASSIUM CHLORIDE 10MEQ 100 ML IV SCH ×2 (09:46→11:05)
[2018-06-03] MEDS: INSULIN GLARGINE 300 UNITS/3 ML INSULN.PEN. SQ SCH (09:52)
[2018-06-03] MEDS: INSULIN LISPRO 300 UNITS/3 ML INSULN.PEN. SQ SCH ×7 (09:52→22:04)
[2018-06-03] MEDS: VITS A & D/LANOLIN TOPICAL OINTMENT 56GM TUBE. TP SCH ×2 (09:53→21:38)
[2018-06-03 10:10] LABS: FIO2 ABG 50
--- NOTE | 2018-06-03 10:11 | PDOC ---
PULMONARY PROGRESS NOTES Subjective on vent, off versed, on 3 mics levo, on fi02 40%, small ett secretion, Vitals Vital Signs Date Time Temp Pulse Resp B/P (MAP) Pulse Ox O2 Delivery O2 Flow Rate FiO2 06/03/18 08:16 100 Ventilator 06/03/18 07:00 97.6 97 16 74/43 (53) 97.6 HEENT: Other (nc at perrl nose clear, orally intubated neck no lad, no thyromegaly) Lungs: Other (decrease bs) Cardiovascular: S1, S2 Abdomen: Soft, Non-tender, Other (no mass) Extremities: Other (edema trace) Skin: Warm Labs Laboratory Tests Test 06/01/18 10:20 06/01/18 11:52 06/01/18 16:59 06/01/18 21:47 O2 Saturation 97 % (92-99) Arterial Blood pH 7.49 (7.35-7.45) Arterial Blood pCO2 at Patient Temp 33 mmHg (35-46) Arterial Blood pO2 at Patient Temp 83 mmHg (75-108) Arterial Blood HCO3 24 mmol/L (21-28) Arterial Blood Base Excess 1 mmol/L (-3-3) FiO2 55 Glucose (Fingerstick) 266 mg/dL (70-99) 122 mg/dL (70-99) 101 mg/dL (70-99) Test 06/02/18 06:20 06/02/18 08:17 06/02/18 12:33 06/02/18 16:47 White Blood Count 8.5 x10^3/uL (4.0-11.0) Red Blood Count 3.26 x10^6/uL (3.50-5.40) Hemoglobin 9.6 g/dL (12.0-15.5) Hematocrit 29.1 % (36.0-47.0) Mean Corpuscular Volume 89 fL (79-100) Mean Corpuscular Hemoglobin 30 pg (25-35) Mean Corpuscular Hemoglobin Concent 33 g/dL (31-37) Red Cell Distribution Width 16.4 % (11.5-14.5) Platelet Count 249 x10^3/uL (140-400) Neutrophils (%) (Auto) 76 % (31-73) Lymphocytes (%) (Auto) 17 % (24-48) Monocytes (%) (Auto) 6 % (0-9) Eosinophils (%) (Auto) 1 % (0-3) Basophils (%) (Auto) 0 % (0-3) Neutrophils # (Auto) 6.4 x10^3uL (1.8-7.7) Lymphocytes # (Auto) 1.4 x10^3/uL (1.0-4.8) Monocytes # (Auto) 0.5 x10^3/uL (0.0-1.1) Eosinophils # (Auto) 0.1 x10^3/uL (0.0-0.7) Basophils # (Auto) 0.0 x10^3/uL (0.0-0.2) Glucose (Fingerstick) 243 mg/dL (70-99) 172 mg/dL (70-99) 124 mg/dL (70-99) Test 06/02/18 21:26 06/03/18 06:00 06/03/18 09:04 Glucose (Fingerstick) 139 mg/dL (70-99) 195 mg/dL (70-99) White Blood Count 6.6 x10^3/uL (4.0-11.0) Red Blood Count 3.04 x10^6/uL (3.50-5.40) Hemoglobin 8.9 g/dL (12.0-15.5) Hematocrit 27.1 % (36.0-47.0) Mean Corpuscular Volume 89 fL (79-100) Mean Corpuscular Hemoglobin 29 pg (25-35) Mean Corpuscular Hemoglobin Concent 33 g/dL (31-37) Red Cell Distribution Width 16.6 % (11.5-14.5) Platelet Count 274 x10^3/uL (140-400) Neutrophils (%) (Auto) 66 % (31-73) Lymphocytes (%) (Auto) 26 % (24-48) Monocytes (%) (Auto) 6 % (0-9) Eosinophils (%) (Auto) 1 % (0-3) Basophils (%) (Auto) 0 % (0-3) Neutrophils # (Auto) 4.4 x10^3uL (1.8-7.7) Lymphocytes # (Auto) 1.7 x10^3/uL (1.0-4.8) Monocytes # (Auto) 0.4 x10^3/uL (0.0-1.1) Eosinophils # (Auto) 0.0 x10^3/uL (0.0-0.7) Basophils # (Auto) 0.0 x10^3/uL (0.0-0.2) Sodium Level 140 mmol/L (136-145) Potassium Level 3.2 mmol/L (3.5-5.1) Chloride Level 106 mmol/L (98-107) Carbon Dioxide Level 28 mmol/L (21-32) Anion Gap 6 (6-14) Blood Urea Nitrogen 7 mg/dL (7-20) Creatinine 0.8 mg/dL (0.6-1.0) Estimated GFR (Cockcroft-Gault) 89.1 BUN/Creatinine Ratio 9 (6-20) Glucose Level 178 mg/dL (70-99) Calcium Level 7.6 mg/dL (8.5-10.1) Magnesium Level 1.8 mg/dL (1.8-2.4) Total Bilirubin 0.2 mg/dL (0.2-1.0) Aspartate Amino Transf (AST/SGOT) 30 U/L (15-37) Alanine Aminotransferase (ALT/SGPT) 25 U/L (14-59) Alkaline Phosphatase 81 U/L (46-116) Total Protein 5.8 g/dL (6.4-8.2) Albumin 1.2 g/dL (3.4-5.0) Albumin/Globulin Ratio 0.3 (1.0-1.7) Laboratory Tests Test 06/02/18 12:33 06/02/18 16:47 06/02/18 21:26 06/03/18 06:00 Glucose (Fingerstick) 172 mg/dL (70-99) 124 mg/dL (70-99) 139 mg/dL (70-99) White Blood Count 6.6 x10^3/uL (4.0-11.0) Red Blood Count 3.04 x10^6/uL (3.50-5.40) Hemoglobin 8.9 g/dL (12.0-15.5) Hematocrit 27.1 % (36.0-47.0) Mean Corpuscular Volume 89 fL (79-100) Mean Corpuscular Hemoglobin 29 pg (25-35) Mean Corpuscular Hemoglobin Concent 33 g/dL (31-37) Red Cell Distribution Width 16.6 % (11.5-14.5) Platelet Count 274 x10^3/uL (140-400) Neutrophils (%) (Auto) 66 % (31-73) Lymphocytes (%) (Auto) 26 % (24-48) Monocytes (%) (Auto) 6 % (0-9) Eosinophils (%) (Auto) 1 % (0-3) Basophils (%) (Auto) 0 % (0-3) Neutrophils # (Auto) 4.4 x10^3uL (1.8-7.7) Lymphocytes # (Auto) 1.7 x10^3/uL (1.0-4.8) Monocytes # (Auto) 0.4 x10^3/uL (0.0-1.1) Eosinophils # (Auto) 0.0 x10^3/uL (0.0-0.7) Basophils # (Auto) 0.0 x10^3/uL (0.0-0.2) Sodium Level 140 mmol/L (136-145) Potassium Level 3.2 mmol/L (3.5-5.1) Chloride Level 106 mmol/L (98-107) Carbon Dioxide Level 28 mmol/L (21-32) Anion Gap 6 (6-14) Blood Urea Nitrogen 7 mg/dL (7-20) Creatinine 0.8 mg/dL (0.6-1.0) Estimated GFR (Cockcroft-Gault) 89.1 BUN/Creatinine Ratio 9 (6-20) Glucose Level 178 mg/dL (70-99) Calcium Level 7.6 mg/dL (8.5-10.1) Magnesium Level 1.8 mg/dL (1.8-2.4) Total Bilirubin 0.2 mg/dL (0.2-1.0) Aspartate Amino Transf (AST/SGOT) 30 U/L (15-37) Alanine Aminotransferase (ALT/SGPT) 25 U/L (14-59) Alkaline Phosphatase 81 U/L (46-116) Total Protein 5.8 g/dL (6.4-8.2) Albumin 1.2 g/dL (3.4-5.0) Albumin/Globulin Ratio 0.3 (1.0-1.7) Test 06/03/18 09:04 Glucose (Fingerstick) 195 mg/dL (70-99) Medications Active Scripts Medications Dose Route/Sig Max Daily Dose Days Date Category Nystatin 1 Each Powder.ea. 1 Each MC PRN PRN 05/24/18 Reported Famotidine 20 Mg Tablet 20 Mg PEG HS 05/24/18 Reported Atorvastatin Calcium 10 Mg Tablet 10 Mg PEG HS 05/24/18 Reported Metformin Hcl 500 Mg Tablet 500 Mg PEG BIDWMEALS 05/24/18 Reported Sod Citrate-Citric Acid Soln (Citric Acid/Sodium Citrate) 15 Ml Solution 10 Ml PEG QIDAFTMEAL 03/26/17 Reported Lansoprazole 30 Mg Capsule.dr 1 Cap PO DAILY 03/26/17 Reported Cipro (Ciprofloxacin Hcl) 500 Mg Tablet 1 Tab PO BID 2 03/26/17 Reported Tylenol (Acetaminophen) 325 Mg Tablet 650 Mg PEG PRN Q8HRS PRN 03/17/17 Reported Multivitamins (Multivitamin) 1 Each Tablet 1 Tab PEG DAILY 03/17/17 Reported Levemir Flextouch (Insulin Detemir) 300 Units/3 Ml Insuln.pen 14 Units SQ DAILY 09/05/14 Rx Milk Of Magnesia (Magnesium Hydroxide) 2,400 Mg/30 Ml Oral.susp 2,400 Mg PEG PRN DAILY PRN 30 09/05/14 Rx [Levetiracetam] 500 MG/5 ML Solution 500 Mg PEG BID 30 09/05/14 Rx EXELON 13.3mg/24hr (Rivastigmine) 1 Each Patch.td24 1 Patch TD DAILY 08/14/14 Reported Aspirin 81 Mg Tab.chew 81 Mg PO DAILY 03/18/13 Reported Simvastatin 10 Mg Tablet 10 Mg PO DAILY 03/18/13 Reported Comments reviewed, CXR 05/30 b ll infilt atelectasis effusion, worse, ett ok CT CHEST reviewed 06/01 bilateral effusions/ infiltrates Impression . 1. Acute respiratory failure secondary to septic shock. , likely superimposed CHF/ effusions 2. Septic shock likely source aspiration pneumonia. MRSA and group B strep , low dose levo 3. recurrent fever, ? etiology, per id, ct chest reviewed, bilateral infiltrates, basal effusions, improving fever 4. Down's syndrome. 5. Hypernatremia/ improving Plan . 1. cont vent support, setting reviewed, abg reviewed, down to 40% fio2, 2. will proceed with CPAP trial, possible extubation if does well 3. Broad-spectrum antibiotics. , fu cx, sputum cx, abx per id, 4. Follow renal function. 5. Wean pressors to keep map >65 6. Monitor urine output. 7. Monitor white cell count. 8. DVT and stress ulcer prophylaxis. 9. elevate hob 10. pepcid and lovenox for prophylaxis Discussed with RN and RT. Mother. prognosis poor, would not rec trach/ would not rec re-intubation once extubated/ Mother agrees If she does well today on CPAP, extubate today. RICH GREGORY MD Jun 03, 2018 10:11
--- NOTE | 2018-06-03 11:19 | PDOC2 ---
PALLIATIVE CARE Palliative Care Note Palliative Care Patient ABG's improved. Weaning trials per Dr. Esme Victoria spoke with patient's mother. Plan to extubate today if weaning trials allow. Dr. Victoria spoke with mother also about no re-intubation and she is in agreement Continue on Levophed 3mcg. LANCE SALAZAR Jun 03, 2018 11:19
[2018-06-03 14:21] LABS: BASE EXCESS ABG 3 mmol/L (-3-3); HCO3 ABG 27 mmol/L (21-28); PCO2 ABG 37 mmHg (35-46); PO2 ABG 107 mmHg (75-108); SAT O2 ABG 98 % (92-99)
[2018-06-03 14:22] LABS: FIO2 ABG 50
[2018-06-03] MEDS: fentaNYL PF VIAL 100 MCG/2 ML VIAL IV PRN ×3 (16:01→21:37)
[2018-06-03] MEDS: ATORVASTATIN CALCIUM 10 MG TABLET. PEG SCH (21:39)
[2018-06-03] MEDS: NOREPINEPHRIN 8MG/250ML PREMIX 250 ML IV PRN (23:24)
[2018-06-03] MEDS: ENOXAPARIN 40 MG/0.4 ML SYRINGE. SQ SCH (23:24)
[2018-06-04] VITALS (25 sets, daily range): BP systolic 60–152; BP diastolic 32–83
[2018-06-04] MEDS: MEROPENEM 500 MG in IV NORMAL SALINE 50ML 50 ML IV SCH ×4 (00:25→17:40)
[2018-06-04] MEDS: fentaNYL PF VIAL 100 MCG/2 ML VIAL IV PRN ×6 (00:26→23:52)
[2018-06-04 05:55] LABS: BASO % 0 % (0-3); EOS % 0 % (0-3); HEMATOCRIT 29.3 % (36.0-47.0); HEMOGLOBIN 9.8 g/dL (12.0-15.5); LYMPH # 1.8 x10^3/uL (1.0-4.8); LYMPH % 26 % (24-48); MEAN CORPUSCULAR HEMOGLOBIN 30 pg (25-35); MEAN CORPUSCULAR HGB CONC 33 g/dL (31-37); MEAN CORPUSCULAR VOLUME 90 fL (79-100); MONO # 0.5 x10^3/uL (0.0-1.1); MONO % 8 % (0-9); NEUT # 4.5 x10^3uL (1.8-7.7); NEUT % 65 % (31-73); PLATELET COUNT 330 x10^3/uL (140-400); RED BLOOD COUNT 3.28 x10^6/uL (3.50-5.40); RED CELL DISTRIBUTION WIDTH 16.2 % (11.5-14.5); WHITE BLOOD COUNT 6.9 x10^3/uL (4.0-11.0)
--- NOTE | 2018-06-04 06:56 | PDOC ---
PULMONARY PROGRESS NOTES Subjective extubated, on vm 50%, appears tachypneac Vitals Vital Signs Date Time Temp Pulse Resp B/P (MAP) Pulse Ox O2 Delivery O2 Flow Rate FiO2 06/04/18 05:59 99.4 121 40 108/81 (90) 95 Venturi Mask 99.4 06/04/18 04:00 15.0 Comments ros as mentioned as above, discussed w rn, rt, other sys otherwise neg General: Confused, Mild Distress HEENT: Other (nc at perrl nose clear neck no lad, no thyromegaly, +jvd) Lungs: Wheezing, Crackles, Other (decrease bs) Cardiovascular: S1, S2 Abdomen: Soft, Non-tender, Other (no mass) Extremities: Other (edema trace) Skin: Warm Labs Laboratory Tests Test 06/02/18 08:17 06/02/18 12:33 06/02/18 16:47 06/02/18 21:26 Glucose (Fingerstick) 243 mg/dL (70-99) 172 mg/dL (70-99) 124 mg/dL (70-99) 139 mg/dL (70-99) Test 06/03/18 06:00 06/03/18 08:00 06/03/18 09:04 06/03/18 14:10 White Blood Count 6.6 x10^3/uL (4.0-11.0) Red Blood Count 3.04 x10^6/uL (3.50-5.40) Hemoglobin 8.9 g/dL (12.0-15.5) Hematocrit 27.1 % (36.0-47.0) Mean Corpuscular Volume 89 fL (79-100) Mean Corpuscular Hemoglobin 29 pg (25-35) Mean Corpuscular Hemoglobin Concent 33 g/dL (31-37) Red Cell Distribution Width 16.6 % (11.5-14.5) Platelet Count 274 x10^3/uL (140-400) Neutrophils (%) (Auto) 66 % (31-73) Lymphocytes (%) (Auto) 26 % (24-48) Monocytes (%) (Auto) 6 % (0-9) Eosinophils (%) (Auto) 1 % (0-3) Basophils (%) (Auto) 0 % (0-3) Neutrophils # (Auto) 4.4 x10^3uL (1.8-7.7) Lymphocytes # (Auto) 1.7 x10^3/uL (1.0-4.8) Monocytes # (Auto) 0.4 x10^3/uL (0.0-1.1) Eosinophils # (Auto) 0.0 x10^3/uL (0.0-0.7) Basophils # (Auto) 0.0 x10^3/uL (0.0-0.2) Sodium Level 140 mmol/L (136-145) Potassium Level 3.2 mmol/L (3.5-5.1) Chloride Level 106 mmol/L (98-107) Carbon Dioxide Level 28 mmol/L (21-32) Anion Gap 6 (6-14) Blood Urea Nitrogen 7 mg/dL (7-20) Creatinine 0.8 mg/dL (0.6-1.0) Estimated GFR (Cockcroft-Gault) 89.1 BUN/Creatinine Ratio 9 (6-20) Glucose Level 178 mg/dL (70-99) Calcium Level 7.6 mg/dL (8.5-10.1) Magnesium Level 1.8 mg/dL (1.8-2.4) Total Bilirubin 0.2 mg/dL (0.2-1.0) Aspartate Amino Transf (AST/SGOT) 30 U/L (15-37) Alanine Aminotransferase (ALT/SGPT) 25 U/L (14-59) Alkaline Phosphatase 81 U/L (46-116) Total Protein 5.8 g/dL (6.4-8.2) Albumin 1.2 g/dL (3.4-5.0) Albumin/Globulin Ratio 0.3 (1.0-1.7) O2 Saturation 98 % (92-99) 98 % (92-99) Arterial Blood pH 7.47 (7.35-7.45) 7.48 (7.35-7.45) Arterial Blood pCO2 at Patient Temp 36 mmHg (35-46) 37 mmHg (35-46) Arterial Blood pO2 at Patient Temp 105 mmHg (75-108) 107 mmHg (75-108) Arterial Blood HCO3 26 mmol/L (21-28) 27 mmol/L (21-28) Arterial Blood Base Excess 2 mmol/L (-3-3) 3 mmol/L (-3-3) FiO2 50 50 Glucose (Fingerstick) 195 mg/dL (70-99) Test 06/03/18 15:10 06/03/18 22:01 06/04/18 05:00 Glucose (Fingerstick) 170 mg/dL (70-99) 123 mg/dL (70-99) White Blood Count 6.9 x10^3/uL (4.0-11.0) Red Blood Count 3.28 x10^6/uL (3.50-5.40) Hemoglobin 9.8 g/dL (12.0-15.5) Hematocrit 29.3 % (36.0-47.0) Mean Corpuscular Volume 90 fL (79-100) Mean Corpuscular Hemoglobin 30 pg (25-35) Mean Corpuscular Hemoglobin Concent 33 g/dL (31-37) Red Cell Distribution Width 16.2 % (11.5-14.5) Platelet Count 330 x10^3/uL (140-400) Neutrophils (%) (Auto) 65 % (31-73) Lymphocytes (%) (Auto) 26 % (24-48) Monocytes (%) (Auto) 8 % (0-9) Eosinophils (%) (Auto) 0 % (0-3) Basophils (%) (Auto) 0 % (0-3) Neutrophils # (Auto) 4.5 x10^3uL (1.8-7.7) Lymphocytes # (Auto) 1.8 x10^3/uL (1.0-4.8) Monocytes # (Auto) 0.5 x10^3/uL (0.0-1.1) Eosinophils # (Auto) 0.0 x10^3/uL (0.0-0.7) Basophils # (Auto) 0.0 x10^3/uL (0.0-0.2) Laboratory Tests Test 06/03/18 08:00 06/03/18 09:04 06/03/18 14:10 06/03/18 15:10 O2 Saturation 98 % (92-99) 98 % (92-99) Arterial Blood pH 7.47 (7.35-7.45) 7.48 (7.35-7.45) Arterial Blood pCO2 at Patient Temp 36 mmHg (35-46) 37 mmHg (35-46) Arterial Blood pO2 at Patient Temp 105 mmHg (75-108) 107 mmHg (75-108) Arterial Blood HCO3 26 mmol/L (21-28) 27 mmol/L (21-28) Arterial Blood Base Excess 2 mmol/L (-3-3) 3 mmol/L (-3-3) FiO2 50 50 Glucose (Fingerstick) 195 mg/dL (70-99) 170 mg/dL (70-99) Test 06/03/18 22:01 06/04/18 05:00 Glucose (Fingerstick) 123 mg/dL (70-99) White Blood Count 6.9 x10^3/uL (4.0-11.0) Red Blood Count 3.28 x10^6/uL (3.50-5.40) Hemoglobin 9.8 g/dL (12.0-15.5) Hematocrit 29.3 % (36.0-47.0) Mean Corpuscular Volume 90 fL (79-100) Mean Corpuscular Hemoglobin 30 pg (25-35) Mean Corpuscular Hemoglobin Concent 33 g/dL (31-37) Red Cell Distribution Width 16.2 % (11.5-14.5) Platelet Count 330 x10^3/uL (140-400) Neutrophils (%) (Auto) 65 % (31-73) Lymphocytes (%) (Auto) 26 % (24-48) Monocytes (%) (Auto) 8 % (0-9) Eosinophils (%) (Auto) 0 % (0-3) Basophils (%) (Auto) 0 % (0-3) Neutrophils # (Auto) 4.5 x10^3uL (1.8-7.7) Lymphocytes # (Auto) 1.8 x10^3/uL (1.0-4.8) Monocytes # (Auto) 0.5 x10^3/uL (0.0-1.1) Eosinophils # (Auto) 0.0 x10^3/uL (0.0-0.7) Basophils # (Auto) 0.0 x10^3/uL (0.0-0.2) Medications Active Scripts Medications Dose Route/Sig Max Daily Dose Days Date Category Nystatin 1 Each Powder.ea. 1 Each MC PRN PRN 05/24/18 Reported Famotidine 20 Mg Tablet 20 Mg PEG HS 05/24/18 Reported Atorvastatin Calcium 10 Mg Tablet 10 Mg PEG HS 05/24/18 Reported Metformin Hcl 500 Mg Tablet 500 Mg PEG BIDWMEALS 05/24/18 Reported Sod Citrate-Citric Acid Soln (Citric Acid/Sodium Citrate) 15 Ml Solution 10 Ml PEG QIDAFTMEAL 03/26/17 Reported Lansoprazole 30 Mg Capsule.dr Gonzales Cap PO DAILY 03/26/17 Reported Cipro (Ciprofloxacin Hcl) 500 Mg Tablet 1 Tab PO BID 2 03/26/17 Reported Tylenol (Acetaminophen) 325 Mg Tablet 650 Mg PEG PRN Q8HRS PRN 03/17/17 Reported Multivitamins (Multivitamin) 1 Each Tablet 1 Tab PEG DAILY 03/17/17 Reported Levemir Flextouch (Insulin Detemir) 300 Units/3 Ml Insuln.pen 14 Units SQ DAILY 09/05/14 Rx Milk Of Magnesia (Magnesium Hydroxide) 2,400 Mg/30 Ml Oral.susp 2,400 Mg PEG PRN DAILY PRN 30 09/05/14 Rx [Levetiracetam] 500 MG/5 ML Solution 500 Mg PEG BID 30 09/05/14 Rx EXELON 13.3mg/24hr (Rivastigmine) 1 Each Patch.td24 1 Patch TD DAILY 08/14/14 Reported Aspirin 81 Mg Tab.chew 81 Mg PO DAILY 03/18/13 Reported Simvastatin 10 Mg Tablet 10 Mg PO DAILY 03/18/13 Reported Comments reviewed, CXR 05/30 b ll infilt atelectasis effusion, worse, ett ok CT CHEST reviewed 06/01 bilateral effusions/ infiltrates Impression . 1. Acute respiratory failure secondary to septic shock. , likely superimposed CHF/ effusions 2. Septic shock likely source aspiration pneumonia. MRSA and group B strep , low dose levo 3. recurrent fever, ? etiology, per id, ct chest reviewed, bilateral infiltrates, basal effusions, improving fever 4. Down's syndrome. 5. Hypernatremia/ improving Plan . 1. 02 titration 2. wheezing, add ics, may need sys steroid 3. Broad-spectrum antibiotics. Zyvox ( 05/27), Merrem ( 05/31), was on Zosyn prior, micafungin (06/01) Await GNR ID /susceptibilities 4. Follow renal function. lasix 20 mg iv now 5. Wean pressors to keep map >65 6. Monitor urine output. 7. Monitor white cell count. 8. DVT and stress ulcer prophylaxis. 9. elevate hob 10. pepcid and lovenox for prophylaxis Discussed with RN and RT. dr newell discussed w Mother. prognosis very poor, would not rec trach/ would not rec re-intubation once extubated/ Mother agrees KWESI PIPER MD Jun 04, 2018 06:56
[2018-06-04] MEDS ORDERED: FUROSEMIDE 20 MG/2 ML VIAL. IVP ONE (07:00)
[2018-06-04] MEDS: IV 1/2 NORMAL SALINE 1,000 ML IV SCH ×4 (07:00→21:12)
[2018-06-04] MEDS: IPRATRPIUM/ALBUTEROL 0.5/2.5MG 3 ML NEBU. NEB SCH ×4 (07:58→20:00)
[2018-06-04] MEDS: ASPIRIN CHEWABLE 81 MG TABLET. PO SCH (08:10)
[2018-06-04] MEDS: metFORMIN 500 MG TABLET PO SCH ×2 (08:10→17:39)
[2018-06-04] MEDS: MULTIVITAMINS,THERAPEUTIC 5 ML ORAL LIQUID. PEG SCH (08:12)
[2018-06-04] MEDS: FAMOTIDINE 20 MG/2 ML VIAL IVP SCH ×2 (08:12→21:12)
[2018-06-04] MEDS: MICAFUNGIN 100 MG in IV DEXTROSE 5% 100ML 100 ML IV SCH (08:12)
--- NOTE | 2018-06-04 08:29 | PDOC ---
Infectious Disease Note Subjective Subjective Extubated, nonrebreather Hypotensive, on Levophed 5 mcg Tube feedings at 50 ml/hr ROS ROS unobtainable Vital Sign Vital Signs Vital Signs Date Time Temp Pulse Resp B/P (MAP) Pulse Ox O2 Delivery O2 Flow Rate FiO2 06/04/18 08:11 58 06/04/18 07:58 95 Venturi Mask 15.0 06/04/18 05:59 99.4 121 108/81 (90) 99.4 Physical Exam PHYSICAL EXAM GENERAL: weak-appearing, + mitts HEENT: Pupils equal, NRB LUNGS: Diminished aeration HEART: S1, S2 tachy/reg. ABDOMEN: Obese, soft, + BS. PEG : Tamayo EXTREMITIES: Generalized edema, LE contractures, RUE edema NEUROLOGIC: Opens eyes to neftali stimuli, nonverbal SKIN: No rash RUE-PICC clean Labs Lab Laboratory Tests Test 06/03/18 09:04 06/03/18 14:10 06/03/18 15:10 06/03/18 22:01 Glucose (Fingerstick) 195 mg/dL (70-99) 170 mg/dL (70-99) 123 mg/dL (70-99) O2 Saturation 98 % (92-99) Arterial Blood pH 7.48 (7.35-7.45) Arterial Blood pCO2 at Patient Temp 37 mmHg (35-46) Arterial Blood pO2 at Patient Temp 107 mmHg (75-108) Arterial Blood HCO3 27 mmol/L (21-28) Arterial Blood Base Excess 3 mmol/L (-3-3) FiO2 50 Test 06/04/18 05:00 White Blood Count 6.9 x10^3/uL (4.0-11.0) Red Blood Count 3.28 x10^6/uL (3.50-5.40) Hemoglobin 9.8 g/dL (12.0-15.5) Hematocrit 29.3 % (36.0-47.0) Mean Corpuscular Volume 90 fL (79-100) Mean Corpuscular Hemoglobin 30 pg (25-35) Mean Corpuscular Hemoglobin Concent 33 g/dL (31-37) Red Cell Distribution Width 16.2 % (11.5-14.5) Platelet Count 330 x10^3/uL (140-400) Neutrophils (%) (Auto) 65 % (31-73) Lymphocytes (%) (Auto) 26 % (24-48) Monocytes (%) (Auto) 8 % (0-9) Eosinophils (%) (Auto) 0 % (0-3) Basophils (%) (Auto) 0 % (0-3) Neutrophils # (Auto) 4.5 x10^3uL (1.8-7.7) Lymphocytes # (Auto) 1.8 x10^3/uL (1.0-4.8) Monocytes # (Auto) 0.5 x10^3/uL (0.0-1.1) Eosinophils # (Auto) 0.0 x10^3/uL (0.0-0.7) Basophils # (Auto) 0.0 x10^3/uL (0.0-0.2) Impression: Bilateral pleural effusions of moderate to large size. Extensive patchy consolidations involving the lung padilla and right lower lobe atelectatic consolidation. Minimal presacral edema. No loculated collection. Micro 05/31-. BLOOD CULTURE Preliminary NGTD 05/31. SPUTUM CULT RES 1 Final Gram negative rods Objective Assessment Aspiration pneumonia. MRSA and group B strep from 05/23. GNR 05/31 Sepsis with hypotension, lactic acidosis, requiring vasopressor support. currently on 4 Fever - better Respiratory failure s/p extubation Circulatory failure. Down syndrome. Diarrhea C diff negative, 06/01 Anemia Superficial cephalic vein thrombosis RUE Plan Plan of Care Zyvox ( 05/27), Merrem ( 05/31), was on Zosyn prior, micafungin (06/01) Await GNR ID /susceptibilities Monitor labs/temp Palliative care on case D/w nursing - no reintubation Critically ill Attending Co-Sign Attending Co-Sign The patient was seen and interviewed as well as examined at the bedside. The chart was reviewed. The case was discussed. Agree with the plan of care. LOUISA MEDINA APRN Jun 04, 2018 08:29 MARANDA OH MD Jun 04, 2018 12:35
[2018-06-04] MEDS: INSULIN LISPRO 300 UNITS/3 ML INSULN.PEN. SQ SCH ×9 (08:30→23:59)
[2018-06-04] MEDS: DOXYCYCLINE HYCLATE 100 MG in IV DEXTROSE 5% 100ML 100 ML IV SCH ×2 (08:33→21:13)
[2018-06-04] MEDS: VITS A & D/LANOLIN TOPICAL OINTMENT 56GM TUBE. TP SCH ×2 (08:37→21:13)
[2018-06-04] MEDS: CITRIC ACID/SODIUM CITRATE 30 ML SOLUTION. PEG SCH ×4 (08:37→21:17)
[2018-06-04] MEDS: INSULIN GLARGINE 300 UNITS/3 ML INSULN.PEN. SQ SCH (08:39)
[2018-06-04] MEDS: RIVASTIGMINE 13.3MG PATCH. TD SCH (09:00)
--- NOTE | 2018-06-04 09:04 | PDOC ---
PROGRESS NOTES Chief Complaint Chief Complaint Septic shock etiology most likely Related to underlying lung process Severe dehydration hypernatremia secondary to the above Down syndrome History of anxiety dementia, diabetes mellitus type II insulin requiring uncontrolled History of PEG tube. Hypernatremia secondary to water deficit Plan: increased lantus insulin and provide correctional with 7 units for her glycemia of over 300 Continue with supportive measures. Continue ventilatory support as per senior recruitment consultant Type and screen cont home medications currently still on [facility] zosyn Further recommendations based on the clinical course History of Present Illness History of Present Illness Fever 05/31/18 102.1F, repeated blood cultures over weekend and again today. Rectal tube removed. Palliative met with family, cont DNR/DNI status S/p 1u PRBC on 05/30 with some improvement in vital signs. MRSA and GBS pneumonia. Extubated yesterday successfully, Hypotensive, Levophed 6 mcg, Tube feedings 45 ml/hr. RUE swelling noted without DVT on US Diarrhea less significant, rectal tube dislodged, however. She is moving and opening eyes, not following commands, in very obvious respiratory distress best mitigated by fentanyl Echo with no valvular abnormalities Plan: Cont micafungin Family meeting to address goals of care yesterday, family wishes for downgrade of care on 06/06/[address] shows Bilateral pleural effusions of moderate to large size. Extensive patchy consolidations involving the lung padilla and right lower lobe atelectatic consolidation. Vitals Vitals Vital Signs Date Time Temp Pulse Resp B/P (MAP) Pulse Ox O2 Delivery O2 Flow Rate FiO2 06/04/18 08:34 38 06/04/18 07:58 95 Venturi Mask 15.0 06/04/18 05:59 99.4 121 108/81 (90) 99.4 Physical Exam Physical Exam RUE-PICC clean General: Alert, Cooperative, moderate distress Heart: Regular rate, Normal S1, Normal S2 Lungs: Wheezing, Crackles, Other (decrease bs) Abdomen: Normal bowel sounds, Other (PEG Site clean) Extremities: Other (Generalized edema, LE contractures, RUE edema) Labs LABS Laboratory Tests Test 06/03/18 09:04 06/03/18 14:10 06/03/18 15:10 06/03/18 22:01 Glucose (Fingerstick) 195 mg/dL (70-99) 170 mg/dL (70-99) 123 mg/dL (70-99) O2 Saturation 98 % (92-99) Arterial Blood pH 7.48 (7.35-7.45) Arterial Blood pCO2 at Patient Temp 37 mmHg (35-46) Arterial Blood pO2 at Patient Temp 107 mmHg (75-108) Arterial Blood HCO3 27 mmol/L (21-28) Arterial Blood Base Excess 3 mmol/L (-3-3) FiO2 50 Test 06/04/18 05:00 06/04/18 08:28 White Blood Count 6.9 x10^3/uL (4.0-11.0) Red Blood Count 3.28 x10^6/uL (3.50-5.40) Hemoglobin 9.8 g/dL (12.0-15.5) Hematocrit 29.3 % (36.0-47.0) Mean Corpuscular Volume 90 fL (79-100) Mean Corpuscular Hemoglobin 30 pg (25-35) Mean Corpuscular Hemoglobin Concent 33 g/dL (31-37) Red Cell Distribution Width 16.2 % (11.5-14.5) Platelet Count 330 x10^3/uL (140-400) Neutrophils (%) (Auto) 65 % (31-73) Lymphocytes (%) (Auto) 26 % (24-48) Monocytes (%) (Auto) 8 % (0-9) Eosinophils (%) (Auto) 0 % (0-3) Basophils (%) (Auto) 0 % (0-3) Neutrophils # (Auto) 4.5 x10^3uL (1.8-7.7) Lymphocytes # (Auto) 1.8 x10^3/uL (1.0-4.8) Monocytes # (Auto) 0.5 x10^3/uL (0.0-1.1) Eosinophils # (Auto) 0.0 x10^3/uL (0.0-0.7) Basophils # (Auto) 0.0 x10^3/uL (0.0-0.2) Glucose (Fingerstick) 189 mg/dL (70-99) Comment Review of Relevant I have reviewed the following items trey (where applicable) has been applied. Labs Laboratory Tests Test 06/02/18 12:33 06/02/18 16:47 06/02/18 21:26 06/03/18 06:00 Glucose (Fingerstick) 172 mg/dL (70-99) 124 mg/dL (70-99) 139 mg/dL (70-99) White Blood Count 6.6 x10^3/uL (4.0-11.0) Red Blood Count 3.04 x10^6/uL (3.50-5.40) Hemoglobin 8.9 g/dL (12.0-15.5) Hematocrit 27.1 % (36.0-47.0) Mean Corpuscular Volume 89 fL (79-100) Mean Corpuscular Hemoglobin 29 pg (25-35) Mean Corpuscular Hemoglobin Concent 33 g/dL (31-37) Red Cell Distribution Width 16.6 % (11.5-14.5) Platelet Count 274 x10^3/uL (140-400) Neutrophils (%) (Auto) 66 % (31-73) Lymphocytes (%) (Auto) 26 % (24-48) Monocytes (%) (Auto) 6 % (0-9) Eosinophils (%) (Auto) 1 % (0-3) Basophils (%) (Auto) 0 % (0-3) Neutrophils # (Auto) 4.4 x10^3uL (1.8-7.7) Lymphocytes # (Auto) 1.7 x10^3/uL (1.0-4.8) Monocytes # (Auto) 0.4 x10^3/uL (0.0-1.1) Eosinophils # (Auto) 0.0 x10^3/uL (0.0-0.7) Basophils # (Auto) 0.0 x10^3/uL (0.0-0.2) Sodium Level 140 mmol/L (136-145) Potassium Level 3.2 mmol/L (3.5-5.1) Chloride Level 106 mmol/L (98-107) Carbon Dioxide Level 28 mmol/L (21-32) Anion Gap 6 (6-14) Blood Urea Nitrogen 7 mg/dL (7-20) Creatinine 0.8 mg/dL (0.6-1.0) Estimated GFR (Cockcroft-Gault) 89.1 BUN/Creatinine Ratio 9 (6-20) Glucose Level 178 mg/dL (70-99) Calcium Level 7.6 mg/dL (8.5-10.1) Magnesium Level 1.8 mg/dL (1.8-2.4) Total Bilirubin 0.2 mg/dL (0.2-1.0) Aspartate Amino Transf (AST/SGOT) 30 U/L (15-37) Alanine Aminotransferase (ALT/SGPT) 25 U/L (14-59) Alkaline Phosphatase 81 U/L (46-116) Total Protein 5.8 g/dL (6.4-8.2) Albumin 1.2 g/dL (3.4-5.0) Albumin/Globulin Ratio 0.3 (1.0-1.7) Test 06/03/18 08:00 06/03/18 09:04 06/03/18 14:10 06/03/18 15:10 O2 Saturation 98 % (92-99) 98 % (92-99) Arterial Blood pH 7.47 (7.35-7.45) 7.48 (7.35-7.45) Arterial Blood pCO2 at Patient Temp 36 mmHg (35-46) 37 mmHg (35-46) Arterial Blood pO2 at Patient Temp 105 mmHg (75-108) 107 mmHg (75-108) Arterial Blood HCO3 26 mmol/L (21-28) 27 mmol/L (21-28) Arterial Blood Base Excess 2 mmol/L (-3-3) 3 mmol/L (-3-3) FiO2 50 50 Glucose (Fingerstick) 195 mg/dL (70-99) 170 mg/dL (70-99) Test 06/03/18 22:01 06/04/18 05:00 06/04/18 08:28 Glucose (Fingerstick) 123 mg/dL (70-99) 189 mg/dL (70-99) White Blood Count 6.9 x10^3/uL (4.0-11.0) Red Blood Count 3.28 x10^6/uL (3.50-5.40) Hemoglobin 9.8 g/dL (12.0-15.5) Hematocrit 29.3 % (36.0-47.0) Mean Corpuscular Volume 90 fL (79-100) Mean Corpuscular Hemoglobin 30 pg (25-35) Mean Corpuscular Hemoglobin Concent 33 g/dL (31-37) Red Cell Distribution Width 16.2 % (11.5-14.5) Platelet Count 330 x10^3/uL (140-400) Neutrophils (%) (Auto) 65 % (31-73) Lymphocytes (%) (Auto) 26 % (24-48) Monocytes (%) (Auto) 8 % (0-9) Eosinophils (%) (Auto) 0 % (0-3) Basophils (%) (Auto) 0 % (0-3) Neutrophils # (Auto) 4.5 x10^3uL (1.8-7.7) Lymphocytes # (Auto) 1.8 x10^3/uL (1.0-4.8) Monocytes # (Auto) 0.5 x10^3/uL (0.0-1.1) Eosinophils # (Auto) 0.0 x10^3/uL (0.0-0.7) Basophils # (Auto) 0.0 x10^3/uL (0.0-0.2) Laboratory Tests Test 06/03/18 09:04 06/03/18 14:10 06/03/18 15:10 06/03/18 22:01 Glucose (Fingerstick) 195 mg/dL (70-99) 170 mg/dL (70-99) 123 mg/dL (70-99) O2 Saturation 98 % (92-99) Arterial Blood pH 7.48 (7.35-7.45) Arterial Blood pCO2 at Patient Temp 37 mmHg (35-46) Arterial Blood pO2 at Patient Temp 107 mmHg (75-108) Arterial Blood HCO3 27 mmol/L (21-28) Arterial Blood Base Excess 3 mmol/L (-3-3) FiO2 50 Test 06/04/18 05:00 06/04/18 08:28 White Blood Count 6.9 x10^3/uL (4.0-11.0) Red Blood Count 3.28 x10^6/uL (3.50-5.40) Hemoglobin 9.8 g/dL (12.0-15.5) Hematocrit 29.3 % (36.0-47.0) Mean Corpuscular Volume 90 fL (79-100) Mean Corpuscular Hemoglobin 30 pg (25-35) Mean Corpuscular Hemoglobin Concent 33 g/dL (31-37) Red Cell Distribution Width 16.2 % (11.5-14.5) Platelet Count 330 x10^3/uL (140-400) Neutrophils (%) (Auto) 65 % (31-73) Lymphocytes (%) (Auto) 26 % (24-48) Monocytes (%) (Auto) 8 % (0-9) Eosinophils (%) (Auto) 0 % (0-3) Basophils (%) (Auto) 0 % (0-3) Neutrophils # (Auto) 4.5 x10^3uL (1.8-7.7) Lymphocytes # (Auto) 1.8 x10^3/uL (1.0-4.8) Monocytes # (Auto) 0.5 x10^3/uL (0.0-1.1) Eosinophils # (Auto) 0.0 x10^3/uL (0.0-0.7) Basophils # (Auto) 0.0 x10^3/uL (0.0-0.2) Glucose (Fingerstick) 189 mg/dL (70-99) Microbiology 06/01/18 Blood Culture - Preliminary, Resulted NO GROWTH AFTER 2 DAYS 05/23/18 Stool Culture - Final, Complete 05/23/18 Stool Culture Result 1 (GRACIE) - Final, Complete 05/23/18 Campylobacter Antigen Assay - Final, Complete 05/23/18 Campylobactor Result 1 - Final, Complete 05/23/18 Shiga Toxin Test - Final, Complete 05/31/18 - Final, Resulted 05/31/18 - Final, Resulted 05/31/18 - Final, Resulted 05/31/18 Gram Stain Evaluation - Final, Resulted 05/31/18 Sputum Culture - Preliminary, Resulted 05/31/18 Sputum Result 1 - Final, Resulted Medications Current Medications Sodium Chloride (Normal Saline Flush) 10 ml QSHIFT PRN IV AFTER MEDS AND BLOOD DRAWS; Start 05/23/18 at 20:00 Piperacillin Sod/ Tazobactam Sod 4.5 gm/Sodium Chloride 100 ml @ 200 mls/hr 1X ONCE IV Last administered on 05/23/18at 20:34; Start 05/23/18 at 20:00; Stop 05/23/18 at 20:29; Status DC Vancomycin HCl (Vanco Per Pharmacy) 1 each 1X ONCE MC Last administered on 05/23at 20:00; Start 05/23/18 at 20:00; Stop 05/23/18 at 22:03; Status DC Propofol 100 ml @ 0 mls/hr CONT PRN IV SEE PROTOCOL; Start 05/23/18 at 20:00 Fentanyl Citrate (Fentanyl 2ml Vial) 25 mcg PRN Q1HR PRN IV SEE COMMENTS Last administered on 06/03/18at 17:44; Start 05/23/18 at 20:00 Fentanyl Citrate (Fentanyl 2ml Vial) 50 mcg PRN Q1HR PRN IV SEE COMMENTS Last administered on 06/04/18at 08:11; Start 05/23/18 at 20:00 Chlorhexidine Gluconate (Peridex) 15 ml BID MM Last administered on 05/24/18at 00 :05; Start 05/23/18 at 21:00; Stop 05/24/18 at 08:09; Status DC Acetaminophen (Tylenol Supp) 650 mg 1X ONCE GA Last administered on 05/23/18 20:33; Start 05/23/18 at 20:00; Stop 05/23/18 at 20:04; Status DC Sodium Chloride 1,000 ml @ 1,000 mls/hr 1X ONCE IV Last administered on at 20:41; Start 05/23/18 at 20:00; Stop 05/23/18 at 20:59; Status DC Midazolam HCl (Versed) 5 mg 1X ONCE IV Last administered on 05/23/18 20:33; Start 05/23/18 at 20:15; Stop 05/23/18 at 20:16; Status DC Lorazepam (Ativan) 2 mg STK-MED ONCE .ROUTE ; Start 05/23/18 at 20:04; Stop at 20:05; Status DC Norepinephrine Bitartrate 250 ml @ 0 mls/hr CONT PRN IV PER PROTOCOL Last administered on 06/03/18at 23:24; Start 05/23/18 at 20:30 Sodium Chloride 1,000 ml @ 126 mls/hr Q7H57M IV ; Start 05/23/18 at 20:40; Stop 05/24/18 at 20:39; Status DC Sodium Chloride 1,000 ml @ 1,000 mls/hr 1X ONCE IV Last administered on at 20:50; Start 05/23/18 at 20:45; Stop 05/23/18 at 21:44; Status DC Sodium Chloride 1,000 ml @ 1,000 mls/hr 1X ONCE IV ; Start 05/23/18 at 21:15; Stop 05/23/18 at 21:16; Status DC Propofol 50 ml @ As Directed STK-MED ONCE IV ; Start 05/23/18 at 21:02; Stop 05/23 at 21:03; Status DC Propofol 50 ml @ 1.082 mls/ hr 1X ONCE IV Last administered on 05/23/18at 21:12 ; Start 05/23/18 at 21:15; Stop 05/25/18 at 19:27; Status DC Vancomycin HCl 1.75 gm/Sodium Chloride 500 ml @ 250 mls/hr 1X ONCE IV Last administered on 05/23/18at 21:23; Start 05/23/18 at 21:30; Stop 05/23/18 at 23:29; Status DC Insulin Human Regular (HumuLIN R VIAL) 14 unit 1X ONCE SQ Last administered on 05/23/18at 21:46; Start 05/23/18 at 21:15; Stop 05/23/18 at 21:16; Status DC Sodium Chloride 1,000 ml @ 75 mls/hr 1X ONCE IV Last administered on at 21:23; Start 05/23/18 at 21:15; Stop 05/24/18 at 10:34; Status DC Etomidate (Amidate) 20 mg STK-MED ONCE IV ; Start 05/23/18 at 21:32; Stop at 21:33; Status DC Succinylcholine Chloride (Anectine) 200 mg STK-MED ONCE .ROUTE ; Start 05/23/18 at 21:32; Stop 05/23/18 at 21:33; Status DC Vancomycin HCl 1 gm/Sodium Chloride 250 ml @ 250 mls/hr Q24H IV Last administered on 05/25/18at 21:37; Start 05/24/18 at 21:30; Stop 05/26/18 at 01:00 ; Status DC Vancomycin HCl (Vancomycin Trough Level) 1 each 1X ONCE MC Last administered on 05/25/18at 21:00; Start 05/25/18 at 21:00; Stop 05/26/18 at 08:58; Status DC Sodium Chloride 500 ml @ 500 mls/hr 1X ONCE IV Last administered on 05/23/18at 22:45; Start 05/23/18 at 22:45; Stop 05/23/18 at 23:44; Status DC Albuterol/ Ipratropium (Duoneb) 3 ml RTQID NEB Last administered on 06/04/18at 07:58; Start 05/24/18 at 08:00 Fentanyl Citrate 30 ml @ 0 mls/hr CONT PRN IV SEE PROTOCOL; Start 05/23/18 at 22 :45 Midazolam HCl 100 ml @ 0 mls/hr CONT PRN IV SEE PROTOCOL Last administered on at 23:09; Start 05/23/18 at 22:45 Sodium Chloride 500 ml @ 500 mls/hr 1X ONCE IV Last administered on 05/23/18at 23:33; Start 05/23/18 at 23:00; Stop 05/23/18 at 23:59; Status DC Insulin Human Lispro (HumaLOG) 0-9 UNITS TIDWMEALS SQ Last administered on 06/04at 08:31; Start 05/24/18 at 00:00 Dextrose (Dextrose 50%-Water Syringe) 12.5 gm PRN Q15MIN PRN IV SEE COMMENTS; Start 05/23/18 at 23:30 Enoxaparin Sodium (Lovenox 40mg Syringe) 40 mg Q24H SQ Last administered on at 23:24; Start 05/23/18 at 23:30 Piperacillin Sod/ Tazobactam Sod (Zosyn Per Pharmacy) 1 each PRN DAILY PRN MC SEE COMMENTS; Start 05/23/18 at 23:30; Stop 05/31/18 at 12:56; Status DC Vancomycin HCl (Vanco Per Pharmacy) 1 each PRN DAILY PRN MC SEE COMMENTS Last administered on 05/26/18at 01:02; Start 05/23/18 at 23:30; Stop 05/26/18 at 08:58 ; Status DC Piperacillin Sod/ Tazobactam Sod 3.375 gm/Sodium Chloride 50 ml @ 100 mls/hr Q6HRS IV Last administered on 05/31/18at 06:06; Start 05/24/18 at 06:00; Stop at 12:53; Status DC Acetaminophen (Tylenol Supp) 650 mg PRN Q6HRS PRN GA MILD PAIN / TEMP Last administered on 05/26/18 02:16; Start 05/24/18 at 04:45 Acetaminophen (Tylenol) 650 mg PRN Q8HRS PRN PO MILD PAIN / TEMP Last administered on 06/02/18 08:06; Start 05/24/18 at 10:45 Aspirin (Children'S Aspirin) 81 mg DAILY PO Last administered on 06/04/18 08: 10; Start 05/24/18 at 12:00 Atorvastatin Calcium (Lipitor) 10 mg HS PEG Last administered on 06/03/18 21: 39; Start 05/24/18 at 21:00 Citric Acid/ Sodium Citrate (Bicitra) 10 ml QIDAFTMEAL PEG Last administered on 06/04/18 08:37; Start 05/24/18 at 13:00 Magnesium Hydroxide (Milk Of Magnesia) 2,400 mg PRN DAILY PRN PEG CONSTIPATION ; Start 05/24/18 at 10:45 Rivastigmine (Exelon 13.3mg) 1 patch DAILY TD Last administered on 06/03/18 09 :41; Start 05/24/18 at 11:30 Simvastatin (Zocor) 10 mg DAILY PO ; Start 05/25/18 at 09:00; Status UNV Insulin Glargine (Lantus) 14 units DAILY SQ Last administered on 05/24/18 12:36 ; Start 05/24/18 at 11:30; Stop 05/25/18 at 07:19; Status DC Metformin HCl (Glucophage) 500 mg BIDWMEALS PO Last administered on 06/04/18 08:10; Start 05/24/18 at 11:30 Multivitamins (Thera-Plus Oral Liquid) 5 ml DAILY PEG Last administered on 06/04 08:12; Start 05/24/18 at 11:30 Nystatin (Nystop) 1 ron PRN TID PRN TP REDNESS UNDER BREAST OR ARM; Start at 21:00 Levetiracetam (Keppra) 500 mg BID PO ; Start 05/24/18 at 11:30; Stop 05/24/18 at 12:10; Status DC Sodium Chloride 1,000 ml @ 125 mls/hr 1X ONCE IV Last administered on at 12:03; Start 05/24/18 at 12:30; Stop 05/24/18 at 20:29; Status DC Levetiracetam (Keppra) 500 mg BID PEG Last administered on 06/04/18at 08:12; Start 05/24/18 at 12:30 Sodium Chloride 1,000 ml @ 125 mls/hr Q8H IV Last administered on 06/04/18at 08 :10; Start 05/24/18 at 23:00 Insulin Glargine (Lantus) 18 units DAILY SQ Last administered on 05/29/18at 09: 23; Start 05/25/18 at 09:00; Stop 05/29/18 at 11:53; Status DC Vancomycin HCl 1 gm/Sodium Chloride 250 ml @ 250 mls/hr Q12H IV ; Start at 10:00; Stop 05/26/18 at 10:00; Status DC Vancomycin HCl (Vancomycin Trough Level) 1 each 1X ONCE MC ; Start 05/27/18 at 09:30; Stop 05/27/18 at 09:30; Status DC Magnesium Sulfate 50 ml @ 25 mls/hr 1X ONCE IV Last administered on 05/26/18at 10:00; Start 05/26/18 at 08:45; Stop 05/26/18 at 10:44; Status DC Acetaminophen (Tylenol) 650 mg PRN Q6HRS PRN PEG MILD PAIN / TEMP Last administered on 05/31/18at 21:11; Start 05/26/18 at 10:15 Potassium Chloride (KCl Oral Soln) 20 meq 1X ONCE PEG Last administered on 01/03at 10:44; Start 05/26/18 at 10:30; Stop 05/26/18 at 10:36; Status DC Famotidine (Pepcid Vial) 20 mg BID IVP Last administered on 06/04/18at 08:12; Start 05/26/18 at 21:00 Linezolid/Dextrose 300 ml @ 300 mls/hr Q12HR IV Last administered on at 21:39; Start 05/27/18 at 10:30 Insulin Glargine (Lantus) 22 units DAILY SQ Last administered on 05/30/18at 09: 12; Start 05/30/18 at 09:00; Stop 05/31/18 at 09:57; Status DC Furosemide (Lasix) 40 mg 1X ONCE IVP Last administered on 05/30/18at 17:02; Start 05/30/18 at 14:00; Stop 05/30/18 at 14:01; Status DC Potassium Chloride (KCl Oral Soln) 80 meq 1X ONCE PEG Last administered on at 17:03; Start 05/30/18 at 15:00; Stop 05/30/18 at 15:01; Status DC Insulin Glargine (Lantus) 26 units DAILY SQ ; Start 06/01/18 at 09:00; Stop at 09:00; Status DC Insulin Human Lispro (HumaLOG) 3 units QIDACHS SQ Last administered on at 08:30; Start 05/31/18 at 11:30 Insulin Human Lispro (HumaLOG) 3 units 1X ONCE SQ Last administered on at 10:07; Start 05/31/18 at 10:00; Stop 05/31/18 at 10:01; Status DC Insulin Glargine (Lantus) 26 units DAILY SQ Last administered on 06/04/18at 08: 39; Start 05/31/18 at 10:15 Furosemide (Lasix) 20 mg 1X ONCE IVP Last administered on 05/31/18at 10:58; Start 05/31/18 at 11:00; Stop 05/31/18 at 11:01; Status DC Meropenem 500 mg/ Sodium Chloride 50 ml @ 100 mls/hr Q6HRS IV Last administered on 06/04/18at 05:48; Start 05/31/18 at 13:00 Insulin Human Lispro (HumaLOG) 6 units 1X ONCE SQ Last administered on at 13:08; Start 05/31/18 at 13:00; Stop 05/31/18 at 13:01; Status DC Vitamin A/Vitamin D (Vitamin A & D Ointment) 1 ron BID TP Last administered on 06/04/18at 08:37; Start 05/31/18 at 21:00 Micafungin Sodium 100 mg/Dextrose 100 ml @ 100 mls/hr Q24H IV Last administered on 06/04/18at 08:12; Start 06/01/18 at 08:00 Doxycycline Hyclate 100 mg/ Dextrose 100 ml @ 50 mls/hr Q12HR IV Last administered on 06/04/18at 08:33; Start 06/01/18 at 09:00 Potassium Chloride (KCl Oral Soln) 40 meq 1X ONCE PEG Last administered on at 09:50; Start 06/03/18 at 08:45; Stop 06/03/18 at 08:46; Status DC Potassium Chloride/Water 100 ml @ 100 mls/hr Q1H IV Last administered on at 11:05; Start 06/03/18 at 09:00; Stop 06/03/18 at 10:59; Status DC Lorazepam (Ativan) 1 mg PRN Q6HRS PRN IV ANXIETY / AGITATION Last administered on 06/03/18at 23:23; Start 06/03/18 at 09:00 Furosemide (Lasix) 20 mg 1X ONCE IVP Last administered on 06/04/18at 08:10; Start 06/04/18 at 07:00; Stop 06/04/18 at 07:01; Status DC Budesonide (Pulmicort) 0.5 mg RTBID NEB ; Start 06/04/18 at 08:00 Active Scripts Active Levemir Flextouch (Insulin Detemir) 300 Units/3 Ml Insuln.pen 14 Units SQ DAILY Milk Of Magnesia (Magnesium Hydroxide) 2,400 Mg/30 Ml Oral.susp 2,400 Mg PEG PRN DAILY PRN 30 Days [Levetiracetam] 500 MG/5 ML Solution 500 Mg PEG BID 30 Days Reported Nystatin 1 Each Powder.ea. 1 Each MC PRN PRN Famotidine 20 Mg Tablet 20 Mg PEG HS Atorvastatin Calcium 10 Mg Tablet 10 Mg PEG HS Metformin Hcl 500 Mg Tablet 500 Mg PEG BIDWMEALS Sod Citrate-Citric Acid Soln (Citric Acid/Sodium Citrate) 15 Ml Solution 10 Ml PEG QIDAFTMEAL Lansoprazole 30 Mg Capsule.dr 1 Cap PO DAILY Cipro (Ciprofloxacin Hcl) 500 Mg Tablet 1 Tab PO BID 2 Days Tylenol (Acetaminophen) 325 Mg Tablet 650 Mg PEG PRN Q8HRS PRN Multivitamins (Multivitamin) 1 Each Tablet 1 Tab PEG DAILY EXELON 13.3mg/24hr (Rivastigmine) 1 Each Patch.td24 1 Patch TD DAILY Aspirin 81 Mg Tab.chew 81 Mg PO DAILY Simvastatin 10 Mg Tablet 10 Mg PO DAILY Vitals/I & O Vital Sign - Last 24 Hours 06/03/18 06/03/18 06/03/18 06/03/18 09:00 10:00 10:30 11:00 Pulse 95 97 101 Resp 17 25 32 B/P (MAP) 94/68 (77) 94/61 (72) 100/49 (66) Pulse Ox 100 100 100 O2 Delivery Ventilator Ventilator Ventilator Ventilator 06/03/18 06/03/18 06/03/18 06/03/18 12:00 12:00 12:25 13:00 Temp 98.3 98.3 Pulse 96 102 Resp 27 16 B/P (MAP) 91/47 (62) 84/50 (61) Pulse Ox 100 100 100 O2 Delivery Mechanical Ventilator Ventilator Ventilator Ventilator 06/03/18 06/03/18 06/03/18 06/03/18 14:00 15:00 15:15 16:00 Temp 99.2 99.2 Pulse 102 96 105 Resp 16 16 30 B/P (MAP) 85/55 (65) 91/45 (60) 85/54 (64) Pulse Ox 100 99 100 99 O2 Delivery Ventilator Ventilator Venturi Mask Venturi Mask O2 Flow Rate 15.0 06/03/18 06/03/18 06/03/18 06/03/18 16:00 16:01 17:04 17:44 Pulse 109 Resp 27 45 41 B/P (MAP) 83/57 (66) Pulse Ox 98 99 98 O2 Delivery Venturi Mask Venturi Mask Venturi Mask O2 Flow Rate 50.0 50.0 06/03/18 06/03/18 06/03/18 06/03/18 18:14 18:22 19:37 20:00 Pulse 106 118 Resp 32 36 30 B/P (MAP) 85/49 (61) 115/50 (71) Pulse Ox 99 99 98 98 O2 Delivery Venturi Mask Venturi Mask Venturi Mask Venturi Mask O2 Flow Rate 50.0 15.0 06/03/18 06/03/18 06/03/18 06/03/18 20:00 21:00 21:37 22:00 Temp 99.2 99.2 Pulse 110 116 Resp 41 36 38 B/P (MAP) 107/70 (82) 101/55 (70) Pulse Ox 98 95 O2 Delivery Venturi Mask Venturi Mask Venturi Mask O2 Flow Rate 15.0 06/03/18 06/04/18 06/04/18 06/04/18 23:00 00:01 00:01 00:26 Pulse 114 115 Resp 44 45 B/P (MAP) 110/48 (68) 106/83 (91) Pulse Ox 97 94 95 O2 Delivery Venturi Mask Venturi Mask Venturi Mask Venturi Mask O2 Flow Rate 15.0 15.0 06/04/18 06/04/18 06/04/18 06/04/18 01:00 01:00 02:07 03:00 Pulse 115 114 112 Resp 36 45 40 B/P (MAP) 105/54 (71) 91/53 (66) 88/50 (63) Pulse Ox 94 98 95 99 O2 Delivery Venturi Mask Venturi Mask Venturi Mask Venturi Mask O2 Flow Rate 15.0 06/04/18 06/04/18 06/04/18 06/04/18 04:00 04:00 05:05 05:59 Temp 99.4 99.4 Pulse 115 116 121 Resp 44 44 40 B/P (MAP) 86/66 (73) 82/50 (61) 108/81 (90) Pulse Ox 98 98 95 O2 Delivery Venturi Mask Venturi Mask Venturi Mask Venturi Mask O2 Flow Rate 15.0 06/04/18 06/04/18 06/04/18 07:58 08:11 08:34 Resp 58 38 Pulse Ox 95 O2 Delivery Venturi Mask O2 Flow Rate 15.0 Intake and Output 06/03/18 06/03/18 06/04/18 15:00 23:00 07:00 Intake Total 500 ml 2642 ml 1450 ml Output Total 1600 ml 1425 ml 1150 ml Balance -1100 ml 1217 ml 300 ml Images ECHO - The left ventricular systolic function is normal and the ejection fraction is within normal range. The Ejection Fraction is 65-70%. There is normal LV segmental wall motion. ARIEL COBB MD Jun 04, 2018 09:04
[2018-06-04] MEDS: MIDODRINE 2.5 MG TABLET PEG SCH ×3 (11:05→17:40)
[2018-06-04] MEDS: BUDESONIDE 0.5 MG/2 ML NEBU. NEB SCH ×2 (11:26→20:00)
--- NOTE | 2018-06-04 13:32 | NUR ---
Patient's mother is at bedside. She is concerned about patient's RR, which is still rapid but is improved after pain medication. Discussed plan of care, need for levophed gtt.
[2018-06-04] MEDS: ATORVASTATIN CALCIUM 10 MG TABLET. PEG SCH (21:12)
[2018-06-04] MEDS: NOREPINEPHRIN 8MG/250ML PREMIX 250 ML IV PRN (23:53)
[2018-06-04] MEDS: ENOXAPARIN 40 MG/0.4 ML SYRINGE. SQ SCH (23:57)
[2018-06-05] VITALS (23 sets, daily range): BP systolic 78–122; BP diastolic 47–76
[2018-06-05] MEDS: ACETAMINOPHEN 650 MG/20.3 ML SOLUTION. PEG PRN (00:02)
[2018-06-05] MEDS: MEROPENEM 500 MG in IV NORMAL SALINE 50ML 50 ML IV SCH ×5 (00:02→22:42)
[2018-06-05] MEDS: fentaNYL PF VIAL 100 MCG/2 ML VIAL IV PRN ×4 (05:07→21:06)
[2018-06-05] MEDS: INSULIN LISPRO 300 UNITS/3 ML INSULN.PEN. SQ SCH ×8 (06:00→22:48)
--- NOTE | 2018-06-05 06:50 | PDOC ---
PULMONARY PROGRESS NOTES Subjective on vm 50%, appears tachypneac, on levo Vitals Vital Signs Date Time Temp Pulse Resp B/P (MAP) Pulse Ox O2 Delivery O2 Flow Rate FiO2 06/05/18 06:00 115 35 99/59 (72) 96 Venturi Mask 15.0 06/05/18 04:00 99.2 99.2 Comments ros as mentioned as above, discussed w rn, rt, other sys otherwise neg General: Confused, Mild Distress HEENT: Other (nc at perrl nose clear neck no lad, no thyromegaly, ) Lungs: Crackles, Other (decrease bs) Cardiovascular: S1, S2 Abdomen: Soft, Non-tender, Other (no mass) Extremities: Other (edema trace) Skin: Warm Labs Laboratory Tests Test 06/03/18 08:00 06/03/18 09:04 06/03/18 14:10 06/03/18 15:10 O2 Saturation 98 % (92-99) 98 % (92-99) Arterial Blood pH 7.47 (7.35-7.45) 7.48 (7.35-7.45) Arterial Blood pCO2 at Patient Temp 36 mmHg (35-46) 37 mmHg (35-46) Arterial Blood pO2 at Patient Temp 105 mmHg (75-108) 107 mmHg (75-108) Arterial Blood HCO3 26 mmol/L (21-28) 27 mmol/L (21-28) Arterial Blood Base Excess 2 mmol/L (-3-3) 3 mmol/L (-3-3) FiO2 50 50 Glucose (Fingerstick) 195 mg/dL (70-99) 170 mg/dL (70-99) Test 06/03/18 22:01 06/04/18 05:00 06/04/18 08:28 06/04/18 11:31 Glucose (Fingerstick) 123 mg/dL (70-99) 189 mg/dL (70-99) 175 mg/dL (70-99) White Blood Count 6.9 x10^3/uL (4.0-11.0) Red Blood Count 3.28 x10^6/uL (3.50-5.40) Hemoglobin 9.8 g/dL (12.0-15.5) Hematocrit 29.3 % (36.0-47.0) Mean Corpuscular Volume 90 fL (79-100) Mean Corpuscular Hemoglobin 30 pg (25-35) Mean Corpuscular Hemoglobin Concent 33 g/dL (31-37) Red Cell Distribution Width 16.2 % (11.5-14.5) Platelet Count 330 x10^3/uL (140-400) Neutrophils (%) (Auto) 65 % (31-73) Lymphocytes (%) (Auto) 26 % (24-48) Monocytes (%) (Auto) 8 % (0-9) Eosinophils (%) (Auto) 0 % (0-3) Basophils (%) (Auto) 0 % (0-3) Neutrophils # (Auto) 4.5 x10^3uL (1.8-7.7) Lymphocytes # (Auto) 1.8 x10^3/uL (1.0-4.8) Monocytes # (Auto) 0.5 x10^3/uL (0.0-1.1) Eosinophils # (Auto) 0.0 x10^3/uL (0.0-0.7) Basophils # (Auto) 0.0 x10^3/uL (0.0-0.2) Test 06/04/18 17:50 06/04/18 21:21 06/04/18 23:57 06/05/18 06:08 Glucose (Fingerstick) 103 mg/dL (70-99) 91 mg/dL (70-99) 170 mg/dL (70-99) 111 mg/dL (70-99) Laboratory Tests Test 06/04/18 08:28 06/04/18 11:31 06/04/18 17:50 06/04/18 21:21 Glucose (Fingerstick) 189 mg/dL (70-99) 175 mg/dL (70-99) 103 mg/dL (70-99) 91 mg/dL (70-99) Test 06/04/18 23:57 06/05/18 06:08 Glucose (Fingerstick) 170 mg/dL (70-99) 111 mg/dL (70-99) Medications Active Scripts Medications Dose Route/Sig Max Daily Dose Days Date Category Nystatin 1 Each Powder.ea. 1 Each MC PRN PRN 05/24/18 Reported Famotidine 20 Mg Tablet 20 Mg PEG HS 05/24/18 Reported Atorvastatin Calcium 10 Mg Tablet 10 Mg PEG HS 05/24/18 Reported Metformin Hcl 500 Mg Tablet 500 Mg PEG BIDWMEALS 05/24/18 Reported Sod Citrate-Citric Acid Soln (Citric Acid/Sodium Citrate) 15 Ml Solution 10 Ml PEG QIDAFTMEAL 03/26/17 Reported Lansoprazole 30 Mg Capsule. 1 Cap PO DAILY 03/26/17 Reported Cipro (Ciprofloxacin Hcl) 500 Mg Tablet 1 Tab PO BID 2 03/26/17 Reported Tylenol (Acetaminophen) 325 Mg Tablet 650 Mg PEG PRN Q8HRS PRN 03/17/17 Reported Multivitamins (Multivitamin) 1 Each Tablet 1 Tab PEG DAILY 03/17/17 Reported Levemir Flextouch (Insulin Detemir) 300 Units/3 Ml Insuln.pen 14 Units SQ DAILY 09/05/14 Rx Milk Of Magnesia (Magnesium Hydroxide) 2,400 Mg/30 Ml Oral.susp 2,400 Mg PEG PRN DAILY PRN 30 09/05/14 Rx [Levetiracetam] 500 MG/5 ML Solution 500 Mg PEG BID 30 09/05/14 Rx EXELON 13.3mg/24hr (Rivastigmine) 1 Each Patch.td24 1 Patch TD DAILY 08/14/14 Reported Aspirin 81 Mg Tab.chew 81 Mg PO DAILY 03/18/13 Reported Simvastatin 10 Mg Tablet 10 Mg PO DAILY 03/18/13 Reported Comments reviewed, CXR 05/30 b ll infilt atelectasis effusion, worse, ett ok CT CHEST reviewed 06/01 bilateral effusions/ infiltrates Impression . 1. Acute respiratory failure secondary to septic shock. , likely superimposed CHF/ effusions 2. Septic shock likely source aspiration pneumonia. MRSA and group B strep , low dose levo 3. recurrent fever, ? etiology, per id, ct chest reviewed, bilateral infiltrates, basal effusions, improving fever 4. Down's syndrome. 5. Hypernatremia/ resolved, hypo k Plan . 1. 02 titration 2. ics, may need sys steroid 3. Broad-spectrum antibiotics. Zyvox ( 05/27), Merrem ( 05/31), was on Zosyn prior, micafungin (06/01) Await GNR ID /susceptibilities 4. Follow renal function. 5. Wean pressors to keep map >65 6. Monitor urine output. replace k 7. Monitor white cell count. 8. DVT and stress ulcer prophylaxis. 9. elevate hob 10. pepcid and lovenox for prophylaxis Discussed with RN and RT. dr newell discussed w Mother. prognosis very poor, would not rec trach/ would not rec re-intubation once extubated/ Mother agrees, ? comfort care KWESI PIPER MD Jun 05, 2018 06:50
[2018-06-05] MEDS: MULTIVITAMINS,THERAPEUTIC 5 ML ORAL LIQUID. PEG SCH (07:35)
[2018-06-05] MEDS: CITRIC ACID/SODIUM CITRATE 30 ML SOLUTION. PEG SCH ×4 (07:36→21:09)
[2018-06-05] MEDS: MIDODRINE 2.5 MG TABLET PEG SCH ×3 (07:36→18:10)
[2018-06-05] MEDS: ASPIRIN CHEWABLE 81 MG TABLET. PO SCH (07:36)
[2018-06-05] MEDS: metFORMIN 500 MG TABLET PO SCH ×2 (07:36→18:11)
[2018-06-05] MEDS: FAMOTIDINE 20 MG/2 ML VIAL IVP SCH ×2 (07:37→21:09)
[2018-06-05] MEDS: RIVASTIGMINE 13.3MG PATCH. TD SCH (07:37)
[2018-06-05] MEDS: MICAFUNGIN 100 MG in IV DEXTROSE 5% 100ML 100 ML IV SCH (07:38)
[2018-06-05] MEDS: IV 1/2 NORMAL SALINE 1,000 ML IV SCH ×3 (07:38→22:37)
[2018-06-05] MEDS: VITS A & D/LANOLIN TOPICAL OINTMENT 56GM TUBE. TP SCH ×2 (07:38→21:09)
[2018-06-05] MEDS: IPRATRPIUM/ALBUTEROL 0.5/2.5MG 3 ML NEBU. NEB SCH ×4 (07:46→20:25)
[2018-06-05] MEDS: BUDESONIDE 0.5 MG/2 ML NEBU. NEB SCH ×2 (07:46→20:25)
[2018-06-05] MEDS: DOXYCYCLINE HYCLATE 100 MG in IV DEXTROSE 5% 100ML 100 ML IV SCH ×2 (08:30→21:07)
[2018-06-05] MEDS: INSULIN GLARGINE 300 UNITS/3 ML INSULN.PEN. SQ SCH (08:34)
--- NOTE | 2018-06-05 08:58 | PDOC ---
PROGRESS NOTES Chief Complaint Chief Complaint Septic shock etiology most likely Related to underlying lung process Severe dehydration hypernatremia secondary to the above Down syndrome History of anxiety dementia, diabetes mellitus type II insulin requiring uncontrolled History of PEG tube. Hypernatremia secondary to water deficit Plan: increased lantus insulin and provide correctional with 7 units for her glycemia of over 300 Continue with supportive measures. Continue ventilatory support as per audit consultant Type and screen cont home medications currently still on pressors antibiotics [facility] zosyn Further recommendations based on the clinical course History of Present Illness History of Present Illness Fever 05/31/18 102.1F, repeated blood cultures over weekend and again today. Rectal tube removed. Palliative met with family, cont DNR/DNI status S/p 1u PRBC on 05/30 with some improvement in vital signs. MRSA and GBS pneumonia. RUE swelling noted without DVT on US Extubated 06/04 successfully, Echo with no valvular abnormalities Hypotensive, Levophed 2 mcg now, Tube feedings 45 ml/hr. RR 45-50 currently, O2 sats ok. Diarrhea less significant, rectal tube dislodged, however. She is moving and opening eyes, not following commands, in very obvious respiratory distress best mitigated by fentanyl Plan: Cont micafungin Will add morphine for her air hunger today, breathing 50/min Family meeting to address goals of care yesterday, family wishes for downgrade of care on 06/06/[address] shows Bilateral pleural effusions of moderate to large size. Extensive patchy consolidations involving the lung padilla and right lower lobe atelectatic consolidation. Vitals Vitals Vital Signs Date Time Temp Pulse Resp B/P (MAP) Pulse Ox O2 Delivery O2 Flow Rate FiO2 06/05/18 08:00 Venturi Mask 15.0 06/05/18 07:47 96 06/05/18 07:36 117 111/54 06/05/18 07:00 39 06/05/18 04:00 99.2 99.2 Physical Exam Physical Exam RUE-PICC clean General: Alert, Cooperative, moderate distress Heart: Regular rate, Normal S1, Normal S2 Lungs: Wheezing, Crackles, Other (decrease bs) Abdomen: Normal bowel sounds, Other (PEG Site clean) Extremities: Other (Generalized edema, LE contractures, RUE edema) Labs LABS Laboratory Tests Test 06/04/18 11:31 06/04/18 17:50 06/04/18 21:21 06/04/18 23:57 Glucose (Fingerstick) 175 mg/dL (70-99) 103 mg/dL (70-99) 91 mg/dL (70-99) 170 mg/dL (70-99) Test 06/05/18 06:08 06/05/18 08:33 Glucose (Fingerstick) 111 mg/dL (70-99) 239 mg/dL (70-99) Comment Review of Relevant I have reviewed the following items trey (where applicable) has been applied. Labs Laboratory Tests Test 06/03/18 09:04 06/03/18 14:10 06/03/18 15:10 06/03/18 22:01 Glucose (Fingerstick) 195 mg/dL (70-99) 170 mg/dL (70-99) 123 mg/dL (70-99) O2 Saturation 98 % (92-99) Arterial Blood pH 7.48 (7.35-7.45) Arterial Blood pCO2 at Patient Temp 37 mmHg (35-46) Arterial Blood pO2 at Patient Temp 107 mmHg (75-108) Arterial Blood HCO3 27 mmol/L (21-28) Arterial Blood Base Excess 3 mmol/L (-3-3) FiO2 50 Test 06/04/18 05:00 06/04/18 08:28 06/04/18 11:31 06/04/18 17:50 White Blood Count 6.9 x10^3/uL (4.0-11.0) Red Blood Count 3.28 x10^6/uL (3.50-5.40) Hemoglobin 9.8 g/dL (12.0-15.5) Hematocrit 29.3 % (36.0-47.0) Mean Corpuscular Volume 90 fL (79-100) Mean Corpuscular Hemoglobin 30 pg (25-35) Mean Corpuscular Hemoglobin Concent 33 g/dL (31-37) Red Cell Distribution Width 16.2 % (11.5-14.5) Platelet Count 330 x10^3/uL (140-400) Neutrophils (%) (Auto) 65 % (31-73) Lymphocytes (%) (Auto) 26 % (24-48) Monocytes (%) (Auto) 8 % (0-9) Eosinophils (%) (Auto) 0 % (0-3) Basophils (%) (Auto) 0 % (0-3) Neutrophils # (Auto) 4.5 x10^3uL (1.8-7.7) Lymphocytes # (Auto) 1.8 x10^3/uL (1.0-4.8) Monocytes # (Auto) 0.5 x10^3/uL (0.0-1.1) Eosinophils # (Auto) 0.0 x10^3/uL (0.0-0.7) Basophils # (Auto) 0.0 x10^3/uL (0.0-0.2) Glucose (Fingerstick) 189 mg/dL (70-99) 175 mg/dL (70-99) 103 mg/dL (70-99) Test 06/04/18 21:21 06/04/18 23:57 06/05/18 06:08 06/05/18 08:33 Glucose (Fingerstick) 91 mg/dL (70-99) 170 mg/dL (70-99) 111 mg/dL (70-99) 239 mg/dL (70-99) Laboratory Tests Test 06/04/18 11:31 06/04/18 17:50 06/04/18 21:21 06/04/18 23:57 Glucose (Fingerstick) 175 mg/dL (70-99) 103 mg/dL (70-99) 91 mg/dL (70-99) 170 mg/dL (70-99) Test 06/05/18 06:08 06/05/18 08:33 Glucose (Fingerstick) 111 mg/dL (70-99) 239 mg/dL (70-99) Microbiology 06/01/18 Blood Culture - Preliminary, Resulted NO GROWTH AFTER 3 DAYS 05/23/18 Stool Culture - Final, Complete 05/23/18 Stool Culture Result 1 (GRACIE) - Final, Complete 05/23/18 Campylobacter Antigen Assay - Final, Complete 05/23/18 Campylobactor Result 1 - Final, Complete 05/23/18 Shiga Toxin Test - Final, Complete 05/31/18 - Final, Complete 05/31/18 - Final, Complete 05/31/18 - Final, Complete 05/31/18 Gram Stain Evaluation - Final, Complete 05/31/18 Sputum Culture - Final, Complete 05/31/18 Sputum Result 1 - Final, Complete 05/31/18 Antimicrobic Susceptibility - Final, Complete Medications Current Medications Sodium Chloride (Normal Saline Flush) 10 ml QSHIFT PRN IV AFTER MEDS AND BLOOD DRAWS; Start 05/23/18 at 20:00 Piperacillin Sod/ Tazobactam Sod 4.5 gm/Sodium Chloride 100 ml @ 200 mls/hr 1X ONCE IV Last administered on 05/23/18at 20:34; Start 05/23/18 at 20:00; Stop 05/23/18 at 20:29; Status DC Vancomycin HCl (Vanco Per Pharmacy) 1 each 1X ONCE MC Last administered on 05/23at 20:00; Start 05/23/18 at 20:00; Stop 05/23/18 at 22:03; Status DC Propofol 100 ml @ 0 mls/hr CONT PRN IV SEE PROTOCOL; Start 05/23/18 at 20:00; Stop 06/04/18 at 09:06; Status DC Fentanyl Citrate (Fentanyl 2ml Vial) 25 mcg PRN Q1HR PRN IV SEE COMMENTS Last administered on 06/04/18at 11:05; Start 05/23/18 at 20:00 Fentanyl Citrate (Fentanyl 2ml Vial) 50 mcg PRN Q1HR PRN IV SEE COMMENTS Last administered on 06/05/18at 05:07; Start 05/23/18 at 20:00 Chlorhexidine Gluconate (Peridex) 15 ml BID MM Last administered on 05/24/18at 00 :05; Start 05/23/18 at 21:00; Stop 05/24/18 at 08:09; Status DC Acetaminophen (Tylenol Supp) 650 mg 1X ONCE CA Last administered on 05/23/18at 20:33; Start 05/23/18 at 20:00; Stop 05/23/18 at 20:04; Status DC Sodium Chloride 1,000 ml @ 1,000 mls/hr 1X ONCE IV Last administered on 20:41; Start 05/23/18 at 20:00; Stop 05/23/18 at 20:59; Status DC Midazolam HCl (Versed) 5 mg 1X ONCE IV Last administered on 05/23/18 20:33; Start 05/23/18 at 20:15; Stop 05/23/18 at 20:16; Status DC Lorazepam (Ativan) 2 mg STK-MED ONCE .ROUTE ; Start 05/23/18 at 20:04; Stop at 20:05; Status DC Norepinephrine Bitartrate 250 ml @ 0 mls/hr CONT PRN IV PER PROTOCOL Last administered on 06/04/18at 23:53; Start 05/23/18 at 20:30 Sodium Chloride 1,000 ml @ 126 mls/hr Q7H57M IV ; Start 05/23/18 at 20:40; Stop 05/24/18 at 20:39; Status DC Sodium Chloride 1,000 ml @ 1,000 mls/hr 1X ONCE IV Last administered on at 20:50; Start 05/23/18 at 20:45; Stop 05/23/18 at 21:44; Status DC Sodium Chloride 1,000 ml @ 1,000 mls/hr 1X ONCE IV ; Start 05/23/18 at 21:15; Stop 05/23/18 at 21:16; Status DC Propofol 50 ml @ As Directed STK-MED ONCE IV ; Start 05/23/18 at 21:02; Stop 05/23 at 21:03; Status DC Propofol 50 ml @ 1.082 mls/ hr 1X ONCE IV Last administered on 05/23/18at 21:12 ; Start 05/23/18 at 21:15; Stop 05/25/18 at 19:27; Status DC Vancomycin HCl 1.75 gm/Sodium Chloride 500 ml @ 250 mls/hr 1X ONCE IV Last administered on 05/23/18at 21:23; Start 05/23/18 at 21:30; Stop 05/23/18 at 23:29; Status DC Insulin Human Regular (HumuLIN R VIAL) 14 unit 1X ONCE SQ Last administered on 05/23/18at 21:46; Start 05/23/18 at 21:15; Stop 05/23/18 at 21:16; Status DC Sodium Chloride 1,000 ml @ 75 mls/hr 1X ONCE IV Last administered on at 21:23; Start 05/23/18 at 21:15; Stop 05/24/18 at 10:34; Status DC Etomidate (Amidate) 20 mg STK-MED ONCE IV ; Start 05/23/18 at 21:32; Stop at 21:33; Status DC Succinylcholine Chloride (Anectine) 200 mg STK-MED ONCE .ROUTE ; Start 05/23/18 at 21:32; Stop 05/23/18 at 21:33; Status DC Vancomycin HCl 1 gm/Sodium Chloride 250 ml @ 250 mls/hr Q24H IV Last administered on 05/25/18at 21:37; Start 05/24/18 at 21:30; Stop 05/26/18 at 01:00 ; Status DC Vancomycin HCl (Vancomycin Trough Level) 1 each 1X ONCE MC Last administered on 05/25/18at 21:00; Start 05/25/18 at 21:00; Stop 05/26/18 at 08:58; Status DC Sodium Chloride 500 ml @ 500 mls/hr 1X ONCE IV Last administered on 05/23/18at 22:45; Start 05/23/18 at 22:45; Stop 05/23/18 at 23:44; Status DC Albuterol/ Ipratropium (Duoneb) 3 ml RTQID NEB Last administered on 06/05/18at 07:46; Start 05/24/18 at 08:00 Fentanyl Citrate 30 ml @ 0 mls/hr CONT PRN IV SEE PROTOCOL; Start 05/23/18 at 22 :45; Stop 06/04/18 at 09:06; Status DC Midazolam HCl 100 ml @ 0 mls/hr CONT PRN IV SEE PROTOCOL Last administered on at 23:09; Start 05/23/18 at 22:45; Stop 06/04/18 at 09:06; Status DC Sodium Chloride 500 ml @ 500 mls/hr 1X ONCE IV Last administered on 05/23/18at 23:33; Start 05/23/18 at 23:00; Stop 05/23/18 at 23:59; Status DC Insulin Human Lispro (HumaLOG) 0-9 UNITS TIDWMEALS SQ Last administered on 06/04 11:34; Start 05/24/18 at 00:00; Stop 06/04/18 at 21:50; Status DC Dextrose (Dextrose 50%-Water Syringe) 12.5 gm PRN Q15MIN PRN IV SEE COMMENTS; Start 05/23/18 at 23:30 Enoxaparin Sodium (Lovenox 40mg Syringe) 40 mg Q24H SQ Last administered on at 23:57; Start 05/23/18 at 23:30 Piperacillin Sod/ Tazobactam Sod (Zosyn Per Pharmacy) 1 each PRN DAILY PRN MC SEE COMMENTS; Start 05/23/18 at 23:30; Stop 05/31/18 at 12:56; Status DC Vancomycin HCl (Vanco Per Pharmacy) 1 each PRN DAILY PRN MC SEE COMMENTS Last administered on 05/26/18at 01:02; Start 05/23/18 at 23:30; Stop 05/26/18 at 08:58 ; Status DC Piperacillin Sod/ Tazobactam Sod 3.375 gm/Sodium Chloride 50 ml @ 100 mls/hr Q6HRS IV Last administered on 05/31/18at 06:06; Start 05/24/18 at 06:00; Stop at 12:53; Status DC Acetaminophen (Tylenol Supp) 650 mg PRN Q6HRS PRN CA MILD PAIN / TEMP Last administered on 05/26/18at 02:16; Start 05/24/18 at 04:45 Acetaminophen (Tylenol) 650 mg PRN Q8HRS PRN PO MILD PAIN / TEMP Last administered on 06/02/18at 08:06; Start 05/24/18 at 10:45 Aspirin (Children'S Aspirin) 81 mg DAILY PO Last administered on 06/05/18at 07: 36; Start 05/24/18 at 12:00 Atorvastatin Calcium (Lipitor) 10 mg HS PEG Last administered on 06/04/18at 21: 12; Start 05/24/18 at 21:00 Citric Acid/ Sodium Citrate (Bicitra) 10 ml QIDAFTMEAL PEG Last administered on 06/05/18at 07:36; Start 05/24/18 at 13:00 Magnesium Hydroxide (Milk Of Magnesia) 2,400 mg PRN DAILY PRN PEG CONSTIPATION ; Start 05/24/18 at 10:45 Rivastigmine (Exelon 13.3mg) 1 patch DAILY TD Last administered on 06/05/18at 07 :37; Start 05/24/18 at 11:30 Simvastatin (Zocor) 10 mg DAILY PO ; Start 05/25/18 at 09:00; Status UNV Insulin Glargine (Lantus) 14 units DAILY SQ Last administered on 05/24/18at 12:36 ; Start 05/24/18 at 11:30; Stop 05/25/18 at 07:19; Status DC Metformin HCl (Glucophage) 500 mg BIDWMEALS PO Last administered on 06/05/18at 07:36; Start 05/24/18 at 11:30 Multivitamins (Thera-Plus Oral Liquid) 5 ml DAILY PEG Last administered on 06/05at 07:35; Start 05/24/18 at 11:30 Nystatin (Nystop) 1 ron PRN TID PRN TP REDNESS UNDER BREAST OR ARM; Start at 21:00 Levetiracetam (Keppra) 500 mg BID PO ; Start 05/24/18 at 11:30; Stop 05/24/18 at 12:10; Status DC Sodium Chloride 1,000 ml @ 125 mls/hr 1X ONCE IV Last administered on at 12:03; Start 05/24/18 at 12:30; Stop 05/24/18 at 20:29; Status DC Levetiracetam (Keppra) 500 mg BID PEG Last administered on 06/04/18at 21:12; Start 05/24/18 at 12:30 Sodium Chloride 1,000 ml @ 125 mls/hr Q8H IV Last administered on 06/05/18at 07 :38; Start 05/24/18 at 23:00 Insulin Glargine (Lantus) 18 units DAILY SQ Last administered on 05/29/18at 09: 23; Start 05/25/18 at 09:00; Stop 05/29/18 at 11:53; Status DC Vancomycin HCl 1 gm/Sodium Chloride 250 ml @ 250 mls/hr Q12H IV ; Start at 10:00; Stop 05/26/18 at 10:00; Status DC Vancomycin HCl (Vancomycin Trough Level) 1 each 1X ONCE MC ; Start 05/27/18 at 09:30; Stop 05/27/18 at 09:30; Status DC Magnesium Sulfate 50 ml @ 25 mls/hr 1X ONCE IV Last administered on 05/26/18at 10:00; Start 05/26/18 at 08:45; Stop 05/26/18 at 10:44; Status DC Acetaminophen (Tylenol) 650 mg PRN Q6HRS PRN PEG MILD PAIN / TEMP Last administered on 06/05/18at 00:02; Start 05/26/18 at 10:15 Potassium Chloride (KCl Oral Soln) 20 meq 1X ONCE PEG Last administered on 01/03at 10:44; Start 05/26/18 at 10:30; Stop 05/26/18 at 10:36; Status DC Famotidine (Pepcid Vial) 20 mg BID IVP Last administered on 06/05/18at 07:37; Start 05/26/18 at 21:00 Linezolid/Dextrose 300 ml @ 300 mls/hr Q12HR IV Last administered on at 07:41; Start 05/27/18 at 10:30 Insulin Glargine (Lantus) 22 units DAILY SQ Last administered on 05/30/18 09: 12; Start 05/30/18 at 09:00; Stop 05/31/18 at 09:57; Status DC Furosemide (Lasix) 40 mg 1X ONCE IVP Last administered on 05/30/18at 17:02; Start 05/30/18 at 14:00; Stop 05/30/18 at 14:01; Status DC Potassium Chloride (KCl Oral Soln) 80 meq 1X ONCE PEG Last administered on at 17:03; Start 05/30/18 at 15:00; Stop 05/30/18 at 15:01; Status DC Insulin Glargine (Lantus) 26 units DAILY SQ ; Start 06/01/18 at 09:00; Stop at 09:00; Status DC Insulin Human Lispro (HumaLOG) 3 units QIDACHS SQ Last administered on at 17:52; Start 05/31/18 at 11:30; Stop 06/04/18 at 21:50; Status DC Insulin Human Lispro (HumaLOG) 3 units 1X ONCE SQ Last administered on at 10:07; Start 05/31/18 at 10:00; Stop 05/31/18 at 10:01; Status DC Insulin Glargine (Lantus) 26 units DAILY SQ Last administered on 06/05/18at 08: 34; Start 05/31/18 at 10:15 Furosemide (Lasix) 20 mg 1X ONCE IVP Last administered on 05/31/18 10:58; Start 05/31/18 at 11:00; Stop 05/31/18 at 11:01; Status DC Meropenem 500 mg/ Sodium Chloride 50 ml @ 100 mls/hr Q6HRS IV Last administered on 06/05/18at 06:03; Start 05/31/18 at 13:00 Insulin Human Lispro (HumaLOG) 6 units 1X ONCE SQ Last administered on 13:08; Start 05/31/18 at 13:00; Stop 05/31/18 at 13:01; Status DC Vitamin A/Vitamin D (Vitamin A & D Ointment) 1 ron BID TP Last administered on 06/05/18 07:38; Start 05/31/18 at 21:00 Micafungin Sodium 100 mg/Dextrose 100 ml @ 100 mls/hr Q24H IV Last administered on 06/05/18 07:38; Start 06/01/18 at 08:00 Doxycycline Hyclate 100 mg/ Dextrose 100 ml @ 50 mls/hr Q12HR IV Last administered on 06/05/18 08:30; Start 06/01/18 at 09:00 Potassium Chloride (KCl Oral Soln) 40 meq 1X ONCE PEG Last administered on at 09:50; Start 06/03/18 at 08:45; Stop 06/03/18 at 08:46; Status DC Potassium Chloride/Water 100 ml @ 100 mls/hr Q1H IV Last administered on 11:05; Start 06/03/18 at 09:00; Stop 06/03/18 at 10:59; Status DC Lorazepam (Ativan) 1 mg PRN Q6HRS PRN IV ANXIETY / AGITATION Last administered on 06/03/18 23:23; Start 06/03/18 at 09:00; Stop 06/04/18 at 09:06; Status DC Furosemide (Lasix) 20 mg 1X ONCE IVP Last administered on 06/04/18 08:10; Start 06/04/18 at 07:00; Stop 06/04/18 at 07:01; Status DC Budesonide (Pulmicort) 0.5 mg RTBID NEB Last administered on 06/05/18at 07:46; Start 06/04/18 at 08:00 Lorazepam (Ativan) 0.5 mg PRN Q6HRS PRN IV ANXIETY / AGITATION Last administered on 06/04/18at 21:13; Start 06/04/18 at 09:15 Midodrine (Proamatine) 2.5 mg [id number] PEG Last administered on 06/05/18at 07:36; Start 06/04/18 at 09:15 Insulin Human Lispro (HumaLOG) 0-9 UNITS Q6HRS SQ Last administered on at 23:58; Start 06/05/18 at 00:00 Insulin Human Lispro (HumaLOG) 3 units Q6HRS SQ Last administered on 06/04/18at 23:59; Start 06/05/18 at 00:00 Active Scripts Active Levemir Flextouch (Insulin Detemir) 300 Units/3 Ml Insuln.pen 14 Units SQ DAILY Milk Of Magnesia (Magnesium Hydroxide) 2,400 Mg/30 Ml Oral.susp 2,400 Mg PEG PRN DAILY PRN 30 Days [Levetiracetam] 500 MG/5 ML Solution 500 Mg PEG BID 30 Days Reported Nystatin 1 Each Powder.ea. 1 Each MC PRN PRN Famotidine 20 Mg Tablet 20 Mg PEG HS Atorvastatin Calcium 10 Mg Tablet 10 Mg PEG HS Metformin Hcl 500 Mg Tablet 500 Mg PEG BIDWMEALS Sod Citrate-Citric Acid Soln (Citric Acid/Sodium Citrate) 15 Ml Solution 10 Ml PEG QIDAFTMEAL Lansoprazole 30 Mg Capsule.dr 1 Cap PO DAILY Cipro (Ciprofloxacin Hcl) 500 Mg Tablet 1 Tab PO BID 2 Days Tylenol (Acetaminophen) 325 Mg Tablet 650 Mg PEG PRN Q8HRS PRN Multivitamins (Multivitamin) 1 Each Tablet 1 Tab PEG DAILY EXELON 13.3mg/24hr (Rivastigmine) 1 Each Patch.td24 1 Patch TD DAILY Aspirin 81 Mg Tab.chew 81 Mg PO DAILY Simvastatin 10 Mg Tablet 10 Mg PO DAILY Vitals/I & O Vital Sign - Last 24 Hours 06/04/18 06/04/18 06/04/18 06/04/18 09:00 10:00 11:00 11:05 Pulse 120 112 112 Resp 48 50 50 42 B/P (MAP) 113/63 (80) 90/54 (66) 97/71 (80) Pulse Ox 95 96 96 O2 Delivery Venturi Mask Venturi Mask Venturi Mask 06/04/18 06/04/18 06/04/18 06/04/18 11:05 11:26 11:27 12:00 Pulse 120 Resp 32 B/P (MAP) 90/54 Pulse Ox 96 O2 Delivery Venturi Mask Venturi Mask O2 Flow Rate 15.0 15.0 06/04/18 06/04/18/06/04/18 12:00 12:30 12:34 14:00 Pulse 111 116 110 106 Resp 36 34 40 B/P (MAP) 78/57 (64) 102/61 (75) 102/61 128/73 (91) Pulse Ox 96 97 97 O2 Delivery Venturi Mask Venturi Mask Venturi Mask 06/04/18 06/04/18 06/04/18 06/04/18 14:01 15:00 15:31 16:00 Pulse 106 122 Resp 40 24 33 B/P (MAP) 144/54 (84) 60/47 (51) Pulse Ox 97 97 97 O2 Delivery Venturi Mask Venturi Mask Venturi Mask O2 Flow Rate 15.0 06/04/18 06/04/18 4/ 4 16:00 17:00 17:30 17:40 Pulse 116 102 122 Resp 33 33 B/P (MAP) 86/32 (50) 91/51 (64) 91/51 Pulse Ox 97 97 O2 Delivery Venturi Mask Venturi Mask Venturi Mask O2 Flow Rate 15.0 06/04/18 06/04/18/06/04/18 17:42 18:00 19:00 20:00 Temp 98.3 98.3 Pulse 104 121 118 Resp 42 33 42 43 B/P (MAP) 95/53 (67) 84/44 (57) 75/57 (63) Pulse Ox 97 97 97 O2 Delivery Venturi Mask Venturi Mask Venturi Mask O2 Flow Rate 15.0 15.0 06/04/1806/04/03 06/ 06/04/ 20:00 20:52 20:52 21:00 Pulse 117 Resp 40 B/P (MAP) 114/62 (79) Pulse Ox 97 97 95 O2 Delivery Venturi Mask Venturi Mask Venturi Mask Venturi Mask O2 Flow Rate 15.0 15.0 15.0 15.0 06/04/18 06/04/18 06/04/18 06/05/18 22:00 23:00 23:52 00:00 Pulse 117 121 Resp 40 43 41 B/P (MAP) 81/73 (76) 80/47 (58) Pulse Ox 94 93 91 O2 Delivery Venturi Mask Venturi Mask Venturi Mask Venturi Mask O2 Flow Rate 15.0 15.0 15.0 06/05/18 06/05/18 06/05/18 06/05/18 00:00 01:00 02:00 03:00 Temp 100.3 100.3 Pulse 125 121 114 112 Resp 34 35 40 36 B/P (MAP) 121/75 (90) 93/52 (66) 89/47 (61) 91/55 (67) Pulse Ox 91 94 96 94 O2 Delivery Venturi Mask Venturi Mask Venturi Mask Venturi Mask O2 Flow Rate 15.0 15.0 15.0 15.0 06/05/18 06/05/18 06/05/18 06/05/18 04:00 04:00 05:00 05:07 Temp 99.2 99.2 Pulse 116 116 Resp 43 29 45 B/P (MAP) 104/52 (69) 106/68 (81) Pulse Ox 93 92 95 O2 Delivery Venturi Mask Venturi Mask Venturi Mask Venturi Mask O2 Flow Rate 15.0 15.0 15.0 06/05/18 06/05/18 06/05/18 06/05/18 05:49 06:00 07:00 07:36 Pulse 115 120 117 Resp 55 35 39 B/P (MAP) 99/59 (72) 108/62 (77) 111/54 Pulse Ox 93 96 93 O2 Delivery Venturi Mask Venturi Mask Venturi Mask O2 Flow Rate 15.0 15.0 06/05/18 06/05/18 07:47 08:00 Pulse Ox 96 O2 Delivery Venturi Mask Venturi Mask O2 Flow Rate 15.0 15.0 Intake and Output 06/04/18 06/04/18 06/05/18 15:00 23:00 07:00 Intake Total 1874 ml 1910 ml 3507.6 ml Output Total 2225 ml 800 ml 1080 ml Balance -351 ml 1110 ml 2427.6 ml ARIEL COBB MD Jun 05, 2018 08:57
--- NOTE | 2018-06-05 11:00 | NUR ---
NURSING NOTE PATIENTS CONDITION DISCUSSED WITH FAMILY. PATIENTS MOTHER([id number]) CHICHI STATED "SHE JUST WANTED TO MAKE PATIENT COMFORTABLE". THIS RN AND CHICHI DISCUSSED THE BIPAP MACHINE AND IF SHE HAD ANY DESIRE TO START THAT RELATED TO PATIENTS HIGH RESPIRATORY RATE WHICH SHE DECLINED AT THIS TIME AND AGAIN MADE HER WISHES OF JUST WANTING PATIENT TO BE COMFORTABLE. WE DISCUSSED OUR OPTIONS OF PAIN MEDS TO HELP RELAX AND HELP WITH AIR HUNGER, TO WHICH SHE AGREED WAS THE BEST PLAN AT THIS TIME TO HELP PATIENT RELAX AND HELP WITH HER AIR HUNGER.
--- NOTE | 2018-06-05 11:04 | PDOC ---
Infectious Disease Note Subjective Subjective Nonverbal, nonrebreather Hypotensive, on Levophed 2 mcg Tube feedings at 50 ml/hr ROS ROS unobtainable Vital Sign Vital Signs Vital Signs Date Time Temp Pulse Resp B/P (MAP) Pulse Ox O2 Delivery O2 Flow Rate FiO2 06/05/18 09:00 123 45 122/66 (84) 92 Venturi Mask 15.0 06/05/18 04:00 99.2 99.2 Physical Exam PHYSICAL EXAM GENERAL: weak-appearing, + mitts HEENT: Pupils equal, NRB LUNGS: Diminished aeration - mild wheeze HEART: S1, S2 tachy/reg. ABDOMEN: Obese, soft, + BS. PEG : Tamayo EXTREMITIES: Generalized edema, LE contractures, RUE edema NEUROLOGIC: Opens eyes to neftali stimuli, nonverbal SKIN: No rash RUE-PICC clean Labs Lab Laboratory Tests Test 06/04/18 11:31 06/04/18 17:50 06/04/18 21:21 06/04/18 23:57 Glucose (Fingerstick) 175 mg/dL (70-99) 103 mg/dL (70-99) 91 mg/dL (70-99) 170 mg/dL (70-99) Test 06/05/18 06:08 06/05/18 08:33 Glucose (Fingerstick) 111 mg/dL (70-99) 239 mg/dL (70-99) Micro Serratia marcescens Scant growth * This is a corrected result. * A prior result that was reported as final has been changed. ANTIMICROBIAL SUSCEPTIBILITY Final Comment CONTINUED ON NEXT PAGE RUN DATE: 06/04/18 PAGE 2 RUN TIME: 913 [facility] [address] [place] [address] Og Magallanes M.D., Substitute School Nurse SPEC: [id number] PATIENT: CORNELIO SMITH V [id number] ( Continued) Procedure Result ANTIMICROBIAL SUSCEPTIBILITY Final (continued) S = Susceptible; I = Intermediate; R = Resistant P = Positive; N = Negative MICS are expressed in micrograms per mL Antibiotic RSLT#1 RSLT#2 RSLT#3 RSLT#4 Amoxicillin/Clavulanic Acid R>=32 Cefazolin R>=64 Cefepime S<=0.12 Ceftriaxone S<=0.25 Cefuroxime R>=64 Ciprofloxacin S<=0.25 Ertapenem S<=0.12 Gentamicin S<=1 Levofloxacin S =0.25 Meropenem S<=0.25 Tetracycline S =4 Tobramycin S<=1 Trimethoprim/Sulfa S<=20 Microbiology 06/01/18 Blood Culture - Preliminary, Resulted NO GROWTH AFTER 3 DAYS 05/23/18 Stool Culture - Final, Complete 05/23/18 Stool Culture Result 1 (GRACIE) - Final, Complete 05/23/18 Campylobacter Antigen Assay - Final, Complete 05/23/18 Campylobactor Result 1 - Final, Complete 05/23/18 Shiga Toxin Test - Final, Complete 05/31/18 - Final, Complete 05/31/18 - Final, Complete 05/31/18 - Final, Complete 05/31/18 Gram Stain Evaluation - Final, Complete 05/31/18 Sputum Culture - Final, Complete 05/31/18 Sputum Result 1 - Final, Complete 05/31/18 Antimicrobic Susceptibility - Final, Complete Objective Assessment Aspiration pneumonia. MRSA and group B strep from 05/23. Serratia 05/31 Sepsis with hypotension, lactic acidosis, requiring vasopressor support. currently on 4 Fever - better Respiratory failure s/p extubation Circulatory failure. Down syndrome. Diarrhea C diff negative, 06/01 Anemia Superficial cephalic vein thrombosis RUE Plan Plan of Care Zyvox ( 05/27), Merrem ( 05/31), was on Zosyn prior, micafungin (06/01) Monitor labs/temp Palliative care on case Awaiting family decisions D/w nursing - no reintubation Critically ill MARANDA OH MD Jun 05, 2018 11:04
[2018-06-05] MEDS: MORPHINE SULFATE 4 MG/ML VIAL. IV PRN ×3 (15:32→20:13)
[2018-06-05 20:18] LABS: CALCIUM 7.9 mg/dL (8.5-10.1); CREATININE 0.8 mg/dL (0.6-1.0); GFR 89.1; POTASSIUM 3.9 mmol/L (3.5-5.1)
[2018-06-05] MEDS: ATORVASTATIN CALCIUM 10 MG TABLET. PEG SCH (21:09)
[2018-06-05] MEDS: ENOXAPARIN 40 MG/0.4 ML SYRINGE. SQ SCH (22:37)
[2018-06-06] VITALS (14 sets, daily range): BP systolic 65–112; BP diastolic 42–64
[2018-06-06] MEDS: MORPHINE SULFATE 4 MG/ML VIAL. IV PRN ×4 (00:33→10:30)
[2018-06-06] MEDS: fentaNYL PF VIAL 100 MCG/2 ML VIAL IV PRN ×3 (03:25→12:39)
[2018-06-06] MEDS: INSULIN LISPRO 300 UNITS/3 ML INSULN.PEN. SQ SCH ×4 (05:28→12:00)
[2018-06-06] MEDS: MEROPENEM 500 MG in IV NORMAL SALINE 50ML 50 ML IV SCH ×2 (05:30→12:00)
[2018-06-06 06:51] LABS: CALCIUM 7.7 mg/dL (8.5-10.1); CREATININE 0.7 mg/dL (0.6-1.0); POTASSIUM 4.4 mmol/L (3.5-5.1)
--- NOTE | 2018-06-06 07:08 | PDOC ---
Infectious Disease Note Subjective Subjective Nonverbal, nonrebreather Off Levophed 2 mcg Tube feedings at 50 ml/hr ROS ROS unobtainable Vital Sign Vital Signs Vital Signs Date Time Temp Pulse Resp B/P (MAP) Pulse Ox O2 Delivery O2 Flow Rate FiO2 06/06/18 06:26 98 Venturi Mask 15.0 06/06/18 06:00 117 28 97/57 (70) 06/06/18 04:00 98.4 98.4 Physical Exam PHYSICAL EXAM GENERAL: NAD, looks comfortable HEENT: Pupils equal, NRB LUNGS: CTA HEART: S1, S2 tachy/reg. ABDOMEN: Obese, soft, + BS. PEG : Tamayo EXTREMITIES: Generalized edema, LE contractures, RUE edema NEUROLOGIC: Opens eyes to neftali stimuli, nonverbal SKIN: No rash RUE-PICC clean Labs Lab Laboratory Tests Test 06/05/18 08:33 06/05/18 12:08 06/05/18 18:12 06/05/18 20:05 Glucose (Fingerstick) 239 mg/dL (70-99) 190 mg/dL (70-99) 166 mg/dL (70-99) 138 mg/dL (70-99) Sodium Level 139 mmol/L (136-145) Potassium Level 3.9 mmol/L (3.5-5.1) Chloride Level 107 mmol/L (98-107) Carbon Dioxide Level 31 mmol/L (21-32) Anion Gap 1 (6-14) Blood Urea Nitrogen 10 mg/dL (7-20) Creatinine 0.8 mg/dL (0.6-1.0) Estimated GFR (Cockcroft-Gault) 89.1 Glucose Level 145 mg/dL (70-99) Calcium Level 7.9 mg/dL (8.5-10.1) Test 06/05/18 22:46 06/06/18 05:28 06/06/18 06:17 Glucose (Fingerstick) 115 mg/dL (70-99) 103 mg/dL (70-99) Sodium Level 140 mmol/L (136-145) Potassium Level 4.4 mmol/L (3.5-5.1) Chloride Level 104 mmol/L (98-107) Carbon Dioxide Level 29 mmol/L (21-32) Anion Gap 7 (6-14) Blood Urea Nitrogen 9 mg/dL (7-20) Creatinine 0.7 mg/dL (0.6-1.0) Estimated GFR (Cockcroft-Gault) 104.0 Glucose Level 117 mg/dL (70-99) Calcium Level 7.7 mg/dL (8.5-10.1) Micro Serratia marcescens Scant growth * This is a corrected result. * A prior result that was reported as final has been changed. ANTIMICROBIAL SUSCEPTIBILITY Final Comment CONTINUED ON NEXT PAGE RUN DATE: 06/04/18 PAGE 2 RUN TIME: 913 [facility] [address] [place] [address] Og Magallanes M.D., Health And Wellness Manager SPEC: [id number] PATIENT: LUISCORNELIO V [id number] ( Continued) Procedure Result ANTIMICROBIAL SUSCEPTIBILITY Final (continued) S = Susceptible; I = Intermediate; R = Resistant P = Positive; N = Negative MICS are expressed in micrograms per mL Antibiotic RSLT#1 RSLT#2 RSLT#3 RSLT#4 Amoxicillin/Clavulanic Acid R>=32 Cefazolin R>=64 Cefepime S<=0.12 Ceftriaxone S<=0.25 Cefuroxime R>=64 Ciprofloxacin S<=0.25 Ertapenem S<=0.12 Gentamicin S<=1 Levofloxacin S =0.25 Meropenem S<=0.25 Tetracycline S =4 Tobramycin S<=1 Trimethoprim/Sulfa S<=20 Microbiology 06/01/18 Blood Culture - Preliminary, Resulted NO GROWTH AFTER 3 DAYS 05/23/18 Stool Culture - Final, Complete 05/23/18 Stool Culture Result 1 (GRACIE) - Final, Complete 05/23/18 Campylobacter Antigen Assay - Final, Complete 05/23/18 Campylobactor Result 1 - Final, Complete 05/23/18 Shiga Toxin Test - Final, Complete 05/31/18 - Final, Complete 05/31/18 - Final, Complete 05/31/18 - Final, Complete 05/31/18 Gram Stain Evaluation - Final, Complete 05/31/18 Sputum Culture - Final, Complete 05/31/18 Sputum Result 1 - Final, Complete 05/31/18 Antimicrobic Susceptibility - Final, Complete Objective Assessment Aspiration pneumonia. MRSA and group B strep from 05/23. Serratia 05/31 Sepsis with hypotension, lactic acidosis, requiring vasopressor support. currently on 4 Fever - better Respiratory failure s/p extubation Circulatory failure. Down syndrome. Diarrhea C diff negative, 06/01 Anemia Superficial cephalic vein thrombosis RUE Plan Plan of Care Cont Zyvox ( 05/27), Merrem ( 05/31), was on Zosyn prior, micafungin (06/01) Monitor labs/temp Palliative care on case Awaiting family decisions D/w nursing - no reintubation Critically ill but looks comfortable now on Morphine MARANDA OH MD Jun 06, 2018 07:08
[2018-06-06] MEDS: metFORMIN 500 MG TABLET PO SCH (07:35)
[2018-06-06] MEDS: MICAFUNGIN 100 MG in IV DEXTROSE 5% 100ML 100 ML IV SCH (07:37)
[2018-06-06] MEDS: MIDODRINE 2.5 MG TABLET PEG SCH ×2 (07:37→12:46)
[2018-06-06] MEDS: BUDESONIDE 0.5 MG/2 ML NEBU. NEB SCH (08:15)
[2018-06-06] MEDS: IPRATRPIUM/ALBUTEROL 0.5/2.5MG 3 ML NEBU. NEB SCH ×2 (08:15→11:44)
[2018-06-06] MEDS: ASPIRIN CHEWABLE 81 MG TABLET. PO SCH (09:24)
[2018-06-06] MEDS: MULTIVITAMINS,THERAPEUTIC 5 ML ORAL LIQUID. PEG SCH (09:24)
[2018-06-06] MEDS: CITRIC ACID/SODIUM CITRATE 30 ML SOLUTION. PEG SCH ×2 (09:24→12:46)
[2018-06-06] MEDS: RIVASTIGMINE 13.3MG PATCH. TD SCH (09:25)
[2018-06-06] MEDS: VITS A & D/LANOLIN TOPICAL OINTMENT 56GM TUBE. TP SCH (09:25)
[2018-06-06] MEDS: DOXYCYCLINE HYCLATE 100 MG in IV DEXTROSE 5% 100ML 100 ML IV SCH (09:25)
[2018-06-06] MEDS: FAMOTIDINE 20 MG/2 ML VIAL IVP SCH (09:25)
[2018-06-06] MEDS: INSULIN GLARGINE 300 UNITS/3 ML INSULN.PEN. SQ SCH (09:26)
--- NOTE | 2018-06-06 09:59 | PDOC ---
PULMONARY PROGRESS NOTES Subjective on vm 50%, appears tachypneic, off Levophed continues Tube feeding Family is wanting comfort care at this time Vitals Laboratory Tests Test 06/05/18 12:08 06/05/18 18:12 06/05/18 20:05 06/05/18 22:46 Glucose (Fingerstick) 190 mg/dL 166 mg/dL 138 mg/dL 115 mg/dL Sodium Level 139 mmol/L Potassium Level 3.9 mmol/L Chloride Level 107 mmol/L Carbon Dioxide Level 31 mmol/L Anion Gap 1 Blood Urea Nitrogen 10 mg/dL Creatinine 0.8 mg/dL Estimated GFR (Cockcroft-Gault) 89.1 Glucose Level 145 mg/dL Calcium Level 7.9 mg/dL Test 06/06/18 05:28 06/06/18 06:17 06/06/18 09:22 Glucose (Fingerstick) 103 mg/dL 156 mg/dL Sodium Level 140 mmol/L Potassium Level 4.4 mmol/L Chloride Level 104 mmol/L Carbon Dioxide Level 29 mmol/L Anion Gap 7 Blood Urea Nitrogen 9 mg/dL Creatinine 0.7 mg/dL Estimated GFR (Cockcroft-Gault) 104.0 Glucose Level 117 mg/dL Calcium Level 7.7 mg/dL Current Medications Medications (Trade) Dose Ordered Sig/Charmaine Route PRN Reason Start Time Stop Time Status Last Admin Dose Admin Sodium Chloride (Normal Saline Flush) 10 ml QSHIFT PRN IV AFTER MEDS AND BLOOD DRAWS 05/23/18 20:00 Piperacillin Sod/ Tazobactam Sod 4.5 gm/Sodium Chloride 100 ml @ 200 mls/hr 1X ONCE IV 05/23/18 20:00 05/23/18 20:29 DC 05/23/18 20:34 Vancomycin HCl (Vanco Per Pharmacy) 1 each 1X ONCE MC 05/23/18 20:00 05/23/18 22:03 DC 05/23/18 20:00 Propofol 100 ml @ 0 mls/hr CONT PRN IV SEE PROTOCOL 05/23/18 20:00 06/04/18 09:06 DC Fentanyl Citrate (Fentanyl 2ml Vial) 25 mcg PRN Q1HR PRN IV SEE COMMENTS 05/23/18 20:00 06/04/18 11:05 Fentanyl Citrate (Fentanyl 2ml Vial) 50 mcg PRN Q1HR PRN IV SEE COMMENTS 05/23/18 20:00 06/06/18 06:26 Chlorhexidine Gluconate (Peridex) 15 ml BID MM 05/23/18 21:00 05/24/18 08:09 DC 05/24/18 00:05 Acetaminophen (Tylenol Supp) 650 mg 1X ONCE VT 05/23/18 20:00 05/23/18 20:04 DC 05/23/18 20:33 Sodium Chloride 1,000 ml @ 1,000 mls/hr 1X ONCE IV 05/23/18 20:00 05/23/18 20:59 DC 05/23/18 20:41 Midazolam HCl (Versed) 5 mg 1X ONCE IV 05/23/18 20:15 05/23/18 20:16 DC 05/23/18 20:33 Lorazepam (Ativan) 2 mg STK-MED ONCE .ROUTE 05/23/18 20:04 05/23/18 20:05 DC Norepinephrine Bitartrate 250 ml @ 0 mls/hr CONT PRN IV PER PROTOCOL 05/23/18 20:30 06/04/18 23:53 Sodium Chloride 1,000 ml @ 126 mls/hr [id number] IV 05/23/18 20:40 05/24/18 20:39 DC Sodium Chloride 1,000 ml @ 1,000 mls/hr 1X ONCE IV 05/23/18 20:45 05/23/18 21:44 DC 05/23/18 20:50 Sodium Chloride 1,000 ml @ 1,000 mls/hr 1X ONCE IV 05/23/18 21:15 05/23/18 21:16 DC Propofol 50 ml @ As Directed STK-MED ONCE IV 05/23/18 21:02 05/23/18 21:03 DC Propofol 50 ml @ 1.082 mls/ hr 1X ONCE IV 05/23/18 21:15 05/25/18 19:27 DC 05/23/18 21:12 Vancomycin HCl 1.75 gm/Sodium Chloride 500 ml @ 250 mls/hr 1X ONCE IV 05/23/18 21:30 05/23/18 23:29 DC 05/23/18 21:23 Insulin Human Regular (HumuLIN R VIAL) 14 unit 1X ONCE SQ 05/23/18 21:15 05/23/18 21:16 DC 05/23/18 21:46 Sodium Chloride 1,000 ml @ 75 mls/hr 1X ONCE IV 05/23/18 21:15 05/24/18 10:34 DC 05/23/18 21:23 Etomidate (Amidate) 20 mg STK-MED ONCE IV 05/23/18 21:32 05/23/18 21:33 DC Succinylcholine Chloride (Anectine) 200 mg STK-MED ONCE .ROUTE 05/23/18 21:32 05/23/18 21:33 DC Vancomycin HCl 1 gm/Sodium Chloride 250 ml @ 250 mls/hr Q24H IV 05/24/18 21:30 05/26/18 01:00 DC 05/25/18 21:37 Vancomycin HCl (Vancomycin Trough Level) 1 each 1X ONCE 05/25/18 21:00 05/26/18 08:58 DC 05/25/18 21:00 Sodium Chloride 500 ml @ 500 mls/hr 1X ONCE IV 05/23/18 22:45 05/23/18 23:44 DC 05/23/18 22:45 Albuterol/ Ipratropium (Duoneb) 3 ml RTQID NEB 05/24/18 08:00 06/06/18 08:15 Fentanyl Citrate 30 ml @ 0 mls/hr CONT PRN IV SEE PROTOCOL 05/23/18 22:45 06/04/18 09:06 DC Midazolam HCl 100 ml @ 0 mls/hr CONT PRN IV SEE PROTOCOL 05/23/18 22:45 06/04/18 09:06 DC 05/29/18 23:09 Sodium Chloride 500 ml @ 500 mls/hr 1X ONCE IV 05/23/18 23:00 05/23/18 23:59 DC 05/23/18 23:33 Insulin Human Lispro (HumaLOG) 0-9 UNITS TIDWMEALS SQ 05/24/18 00:00 06/04/18 21:50 DC 06/04/18 11:34 Dextrose (Dextrose 50%-Water Syringe) 12.5 gm PRN Q15MIN PRN IV SEE COMMENTS 05/23/18 23:30 Enoxaparin Sodium (Lovenox 40mg Syringe) 40 mg Q24H SQ 05/23/18 23:30 06/05/18 22:37 Piperacillin Sod/ Tazobactam Sod (Zosyn Per Pharmacy) 1 each PRN DAILY PRN MC SEE COMMENTS 05/23/18 23:30 05/31/18 12:56 DC Vancomycin HCl (Vanco Per Pharmacy) 1 each PRN DAILY PRN MC SEE COMMENTS 05/23/18 23:30 05/26/18 08:58 DC 05/26/18 01:02 Piperacillin Sod/ Tazobactam Sod 3.375 gm/Sodium Chloride 50 ml @ 100 mls/hr Q6HRS IV 05/24/18 06:00 05/31/18 12:53 DC 05/31/18 06:06 Acetaminophen (Tylenol Supp) 650 mg PRN Q6HRS PRN VT MILD PAIN / TEMP 05/24/18 04:45 05/26/18 02:16 Acetaminophen (Tylenol) 650 mg PRN Q8HRS PRN PO MILD PAIN / TEMP 05/24/18 10:45 06/02/18 08:06 Aspirin (Children'S Aspirin) 81 mg DAILY PO 05/24/18 12:00 06/06/18 09:24 Atorvastatin Calcium (Lipitor) 10 mg HS PEG 05/24/18 21:00 06/05/18 21:09 Citric Acid/ Sodium Citrate (Bicitra) 10 ml QIDAFTMEAL PEG 05/24/18 13:00 06/06/18 09:24 Magnesium Hydroxide (Milk Of Magnesia) 2,400 mg PRN DAILY PRN PEG CONSTIPATION 05/24/18 10:45 Rivastigmine (Exelon 13.3mg) 1 patch DAILY TD 05/24/18 11:30 06/06/18 09:25 Simvastatin (Zocor) 10 mg DAILY PO 05/25/18 09:00 UNV Insulin Glargine (Lantus) 14 units DAILY SQ 05/24/18 11:30 05/25/18 07:19 DC 05/24/18 12:36 Metformin HCl (Glucophage) 500 mg BIDWMEALS PO 05/24/18 11:30 06/06/18 07:35 Multivitamins (Thera-Plus Oral Liquid) 5 ml DAILY PEG 05/24/18 11:30 06/06/18 09:24 Nystatin (Nystop) 1 ron PRN TID PRN TP REDNESS UNDER BREAST OR ARM 05/24/18 21:00 Levetiracetam (Keppra) 500 mg BID PO 4/9/19 11:30 05/24/18 12:10 DC Sodium Chloride 1,000 ml @ 125 mls/hr 1X ONCE IV 05/24/18 12:30 05/24/18 20:29 DC 05/24/18 12:03 Levetiracetam (Keppra) 500 mg BID PEG 05/24/18 12:30 06/06/18 09:24 Sodium Chloride 1,000 ml @ 80 mls/hr [id number] IV 05/24/18 23:00 06/05/18 22:37 Insulin Glargine (Lantus) 18 units DAILY SQ 05/25/18 09:00 05/29/18 11:53 DC 05/29/18 09:23 Vancomycin HCl 1 gm/Sodium Chloride 250 ml @ 250 mls/hr Q12H IV 05/26/18 10:00 05/26/18 10:00 DC Vancomycin HCl (Vancomycin Trough Level) 1 each 1X ONCE MC 05/27/18 09:30 05/27/18 09:30 DC Magnesium Sulfate 50 ml @ 25 mls/hr 1X ONCE IV 05/26/18 08:45 05/26/18 10:44 DC 05/26/18 10:00 Acetaminophen (Tylenol) 650 mg PRN Q6HRS PRN PEG MILD PAIN / TEMP 05/26/18 10:15 06/05/18 00:02 Potassium Chloride (KCl Oral Soln) 20 meq 1X ONCE PEG 05/26/18 10:30 05/26/18 10:36 DC 05/26/18 10:44 Famotidine (Pepcid Vial) 20 mg BID IVP 05/26/18 21:00 06/06/18 09:25 Linezolid/Dextrose 300 ml @ 300 mls/hr Q12HR IV 05/27/18 10:30 06/06/18 09:25 Insulin Glargine (Lantus) 22 units DAILY SQ 05/30/18 09:00 05/31/18 09:57 DC 05/30/18 09:12 Furosemide (Lasix) 40 mg 1X ONCE IVP 05/30/18 14:00 05/30/18 14:01 DC 05/30/18 17:02 Potassium Chloride (KCl Oral Soln) 80 meq 1X ONCE PEG 05/30/18 15:00 05/30/18 15:01 DC 05/30/18 17:03 Insulin Glargine (Lantus) 26 units DAILY SQ 06/01/18 09:00 06/01/18 09:00 DC Insulin Human Lispro (HumaLOG) 3 units QIDACHS SQ 05/31/18 11:30 06/04/18 21:50 DC 06/04/18 17:52 Insulin Human Lispro (HumaLOG) 3 units 1X ONCE SQ 05/31/18 10:00 05/31/18 10:01 DC 05/31/18 10:07 Insulin Glargine (Lantus) 26 units DAILY SQ 05/31/18 10:15 06/06/18 09:26 Furosemide (Lasix) 20 mg 1X ONCE IVP 05/31/18 11:00 05/31/18 11:01 DC 05/31/18 10:58 Meropenem 500 mg/ Sodium Chloride 50 ml @ 100 mls/hr Q6HRS IV 05/31/18 13:00 06/06/18 05:30 Insulin Human Lispro (HumaLOG) 6 units 1X ONCE SQ 05/31/18 13:00 05/31/18 13:01 DC 05/31/18 13:08 Vitamin A/Vitamin D (Vitamin A & D Ointment) 1 ron BID TP 05/31/18 21:00 06/06/18 09:25 Micafungin Sodium 100 mg/Dextrose 100 ml @ 100 mls/hr Q24H IV 06/01/18 08:00 06/06/18 07:37 Doxycycline Hyclate 100 mg/ Dextrose 100 ml @ 50 mls/hr Q12HR IV 06/01/18 09:00 06/06/18 09:25 Potassium Chloride (KCl Oral Soln) 40 meq 1X ONCE PEG 06/03/18 08:45 06/03/18 08:46 DC 06/03/18 09:50 Potassium Chloride/Water 100 ml @ 100 mls/hr Q1H IV 06/03/18 09:00 06/03/18 10:59 DC 06/03/18 11:05 Lorazepam (Ativan) 1 mg PRN Q6HRS PRN IV ANXIETY / AGITATION 06/03/18 09:00 06/04/18 09:06 DC 06/03/18 23:23 Furosemide (Lasix) 20 mg 1X ONCE IVP 06/04/18 07:00 06/04/18 07:01 DC 06/04/18 08:10 Budesonide (Pulmicort) 0.5 mg RTBID NEB 06/04/18 08:00 06/06/18 08:15 Lorazepam (Ativan) 0.5 mg PRN Q6HRS PRN IV ANXIETY / AGITATION 06/04/18 09:15 06/04/18 21:13 Midodrine (Proamatine) 2.5 mg [id number] PEG 06/04/18 09:15 06/06/18 07:37 Insulin Human Lispro (HumaLOG) 0-9 UNITS Q6HRS SQ 06/05/18 00:00 06/05/18 18:13 Insulin Human Lispro (HumaLOG) 3 units Q6HRS SQ 06/05/18 00:00 06/05/18 22:48 Morphine Sulfate (Morphine Sulfate) 4 mg PRN Q2HR PRN IV PAIN 06/05/18 12:30 06/06/18 07:50 Vital Signs Date Time Temp Pulse Resp B/P (MAP) Pulse Ox O2 Delivery O2 Flow Rate FiO2 06/06/18 09:00 117 22 84/64 (71) 100 Venturi Mask 15.0 06/06/18 08:00 98.9 98.9 Comments ROS unable to obtain, pt. is non-verbal General: Confused, Mild Distress HEENT: Other (nc at perrl nose clear neck no lad, no thyromegaly, ) Lungs: Crackles, Other (BLL decreased, course/rhonci/tachapena) Cardiovascular: S1, S2, Other (tachy ) Abdomen: Soft, Non-tender, Other (no mass) Extremities: Other (BLE +2) Skin: Warm, Dry Labs Laboratory Tests Test 06/05/18 12:08 06/05/18 18:12 06/05/18 20:05 06/05/18 22:46 Glucose (Fingerstick) 190 mg/dL 166 mg/dL 138 mg/dL 115 mg/dL Sodium Level 139 mmol/L Potassium Level 3.9 mmol/L Chloride Level 107 mmol/L Carbon Dioxide Level 31 mmol/L Anion Gap 1 Blood Urea Nitrogen 10 mg/dL Creatinine 0.8 mg/dL Estimated GFR (Cockcroft-Gault) 89.1 Glucose Level 145 mg/dL Calcium Level 7.9 mg/dL Test 06/06/18 05:28 06/06/18 06:17 06/06/18 09:22 Glucose (Fingerstick) 103 mg/dL 156 mg/dL Sodium Level 140 mmol/L Potassium Level 4.4 mmol/L Chloride Level 104 mmol/L Carbon Dioxide Level 29 mmol/L Anion Gap 7 Blood Urea Nitrogen 9 mg/dL Creatinine 0.7 mg/dL Estimated GFR (Cockcroft-Gault) 104.0 Glucose Level 117 mg/dL Calcium Level 7.7 mg/dL Current Medications Medications (Trade) Dose Ordered Sig/Charmaine Route PRN Reason Start Time Stop Time Status Last Admin Dose Admin Sodium Chloride (Normal Saline Flush) 10 ml QSHIFT PRN IV AFTER MEDS AND BLOOD DRAWS 05/23/18 20:00 Piperacillin Sod/ Tazobactam Sod 4.5 gm/Sodium Chloride 100 ml @ 200 mls/hr 1X ONCE IV 05/23/18 20:00 05/23/18 20:29 DC 05/23/18 20:34 Vancomycin HCl (Vanco Per Pharmacy) 1 each 1X ONCE MC 05/23/18 20:00 05/23/18 22:03 DC 05/23/18 20:00 Propofol 100 ml @ 0 mls/hr CONT PRN IV SEE PROTOCOL 05/23/18 20:00 06/04/18 09:06 DC Fentanyl Citrate (Fentanyl 2ml Vial) 25 mcg PRN Q1HR PRN IV SEE COMMENTS 05/23/18 20:00 06/04/18 11:05 Fentanyl Citrate (Fentanyl 2ml Vial) 50 mcg PRN Q1HR PRN IV SEE COMMENTS 05/23/18 20:00 06/06/18 06:26 Chlorhexidine Gluconate (Peridex) 15 ml BID MM 05/23/18 21:00 05/24/18 08:09 DC 05/24/18 00:05 Acetaminophen (Tylenol Supp) 650 mg 1X ONCE VT 05/23/18 20:00 05/23/18 20:04 DC 05/23/18 20:33 Sodium Chloride 1,000 ml @ 1,000 mls/hr 1X ONCE IV 05/23/18 20:00 05/23/18 20:59 DC 05/23/18 20:41 Midazolam HCl (Versed) 5 mg 1X ONCE IV 05/23/18 20:15 05/23/18 20:16 DC 05/23/18 20:33 Lorazepam (Ativan) 2 mg STK-MED ONCE .ROUTE 05/23/18 20:04 05/23/18 20:05 DC Norepinephrine Bitartrate 250 ml @ 0 mls/hr CONT PRN IV PER PROTOCOL 05/23/18 20:30 06/04/18 23:53 Sodium Chloride 1,000 ml @ 126 mls/hr [id number] IV 05/23/18 20:40 05/24/18 20:39 DC Sodium Chloride 1,000 ml @ 1,000 mls/hr 1X ONCE IV 05/23/18 20:45 05/23/18 21:44 DC 05/23/18 20:50 Sodium Chloride 1,000 ml @ 1,000 mls/hr 1X ONCE IV 05/23/18 21:15 05/23/18 21:16 DC Propofol 50 ml @ As Directed STK-MED ONCE IV 05/23/18 21:02 05/23/18 21:03 DC Propofol 50 ml @ 1.082 mls/ hr 1X ONCE IV 05/23/18 21:15 05/25/18 19:27 DC 05/23/18 21:12 Vancomycin HCl 1.75 gm/Sodium Chloride 500 ml @ 250 mls/hr 1X ONCE IV 05/23/18 21:30 05/23/18 23:29 DC 05/23/18 21:23 Insulin Human Regular (HumuLIN R VIAL) 14 unit 1X ONCE SQ 05/23/18 21:15 05/23/18 21:16 DC 05/23/18 21:46 Sodium Chloride 1,000 ml @ 75 mls/hr 1X ONCE IV 05/23/18 21:15 05/24/18 10:34 DC 05/23/18 21:23 Etomidate (Amidate) 20 mg STK-MED ONCE IV 05/23/18 21:32 05/23/18 21:33 DC Succinylcholine Chloride (Anectine) 200 mg STK-MED ONCE .ROUTE 05/23/18 21:32 05/23/18 21:33 DC Vancomycin HCl 1 gm/Sodium Chloride 250 ml @ 250 mls/hr Q24H IV 05/24/18 21:30 05/26/18 01:00 DC 05/25/18 21:37 Vancomycin HCl (Vancomycin Trough Level) 1 each 1X ONCE MC 05/25/18 21:00 05/26/18 08:58 DC 05/25/18 21:00 Sodium Chloride 500 ml @ 500 mls/hr 1X ONCE IV 05/23/18 22:45 05/23/18 23:44 DC 05/23/18 22:45 Albuterol/ Ipratropium (Duoneb) 3 ml RTQID NEB 05/24/18 08:00 06/06/18 08:15 Fentanyl Citrate 30 ml @ 0 mls/hr CONT PRN IV SEE PROTOCOL 05/23/18 22:45 06/04/18 09:06 DC Midazolam HCl 100 ml @ 0 mls/hr CONT PRN IV SEE PROTOCOL 05/23/18 22:45 06/04/18 09:06 DC 05/29/18 23:09 Sodium Chloride 500 ml @ 500 mls/hr 1X ONCE IV 05/23/18 23:00 05/23/18 23:59 DC 05/23/18 23:33 Insulin Human Lispro (HumaLOG) 0-9 UNITS TIDWMEALS SQ 05/24/18 00:00 06/04/18 21:50 DC 06/04/18 11:34 Dextrose (Dextrose 50%-Water Syringe) 12.5 gm PRN Q15MIN PRN IV SEE COMMENTS 05/23/18 23:30 Enoxaparin Sodium (Lovenox 40mg Syringe) 40 mg Q24H SQ 05/23/18 23:30 06/05/18 22:37 Piperacillin Sod/ Tazobactam Sod (Zosyn Per Pharmacy) 1 each PRN DAILY PRN MC SEE COMMENTS 05/23/18 23:30 05/31/18 12:56 DC Vancomycin HCl (Vanco Per Pharmacy) 1 each PRN DAILY PRN MC SEE COMMENTS 05/23/18 23:30 05/26/18 08:58 DC 05/26/18 01:02 Piperacillin Sod/ Tazobactam Sod 3.375 gm/Sodium Chloride 50 ml @ 100 mls/hr Q6HRS IV 05/24/18 06:00 05/31/18 12:53 DC 05/31/18 06:06 Acetaminophen (Tylenol Supp) 650 mg PRN Q6HRS PRN VT MILD PAIN / TEMP 05/24/18 04:45 05/26/18 02:16 Acetaminophen (Tylenol) 650 mg PRN Q8HRS PRN PO MILD PAIN / TEMP 05/24/18 10:45 06/02/18 08:06 Aspirin (Children'S Aspirin) 81 mg DAILY PO 05/24/18 12:00 06/06/18 09:24 Atorvastatin Calcium (Lipitor) 10 mg HS PEG 05/24/18 21:00 06/05/18 21:09 Citric Acid/ Sodium Citrate (Bicitra) 10 ml QIDAFTMEAL PEG 05/24/18 13:00 06/06/18 09:24 Magnesium Hydroxide (Milk Of Magnesia) 2,400 mg PRN DAILY PRN PEG CONSTIPATION 05/24/18 10:45 Rivastigmine (Exelon 13.3mg) 1 patch DAILY TD 05/24/18 11:30 06/06/18 09:25 Simvastatin (Zocor) 10 mg DAILY PO 05/25/18 09:00 UNV Insulin Glargine (Lantus) 14 units DAILY SQ 05/24/18 11:30 05/25/18 07:19 DC 05/24/18 12:36 Metformin HCl (Glucophage) 500 mg BIDWMEALS PO 05/24/18 11:30 06/06/18 07:35 Multivitamins (Thera-Plus Oral Liquid) 5 ml DAILY PEG 05/24/18 11:30 06/06/18 09:24 Nystatin (Nystop) 1 ron PRN TID PRN TP REDNESS UNDER BREAST OR ARM 05/24/18 21:00 Levetiracetam (Keppra) 500 mg BID PO 05/24/18 11:30 05/24/18 12:10 DC Sodium Chloride 1,000 ml @ 125 mls/hr 1X ONCE IV 05/24/18 12:30 05/24/18 20:29 DC 05/24/18 12:03 Levetiracetam (Keppra) 500 mg BID PEG 05/24/18 12:30 06/06/18 09:24 Sodium Chloride 1,000 ml @ 80 mls/hr [id number] IV 05/24/18 23:00 06/05/18 22:37 Insulin Glargine (Lantus) 18 units DAILY SQ 05/25/18 09:00 05/29/18 11:53 DC 05/29/18 09:23 Vancomycin HCl 1 gm/Sodium Chloride 250 ml @ 250 mls/hr Q12H IV 05/26/18 10:00 05/26/18 10:00 DC Vancomycin HCl (Vancomycin Trough Level) 1 each 1X ONCE MC 05/27/18 09:30 05/27/18 09:30 DC Magnesium Sulfate 50 ml @ 25 mls/hr 1X ONCE IV 05/26/18 08:45 05/26/18 10:44 DC 05/26/18 10:00 Acetaminophen (Tylenol) 650 mg PRN Q6HRS PRN PEG MILD PAIN / TEMP 05/26/18 10:15 06/05/18 00:02 Potassium Chloride (KCl Oral Soln) 20 meq 1X ONCE PEG 05/26/18 10:30 05/26/18 10:36 DC 05/26/18 10:44 Famotidine (Pepcid Vial) 20 mg BID IVP 05/26/18 21:00 06/06/18 09:25 Linezolid/Dextrose 300 ml @ 300 mls/hr Q12HR IV 05/27/18 10:30 06/06/18 09:25 Insulin Glargine (Lantus) 22 units DAILY SQ 05/30/18 09:00 05/31/18 09:57 DC 05/30/18 09:12 Furosemide (Lasix) 40 mg 1X ONCE IVP 05/30/18 14:00 05/30/18 14:01 DC 05/30/18 17:02 Potassium Chloride (KCl Oral Soln) 80 meq 1X ONCE PEG 05/30/18 15:00 05/30/18 15:01 DC 05/30/18 17:03 Insulin Glargine (Lantus) 26 units DAILY SQ 06/01/18 09:00 06/01/18 09:00 DC Insulin Human Lispro (HumaLOG) 3 units QIDACHS SQ 05/31/18 11:30 06/04/18 21:50 DC 06/04/18 17:52 Insulin Human Lispro (HumaLOG) 3 units 1X ONCE SQ 05/31/18 10:00 05/31/18 10:01 DC 05/31/18 10:07 Insulin Glargine (Lantus) 26 units DAILY SQ 05/31/18 10:15 06/06/18 09:26 Furosemide (Lasix) 20 mg 1X ONCE IVP 05/31/18 11:00 05/31/18 11:01 DC 05/31/18 10:58 Meropenem 500 mg/ Sodium Chloride 50 ml @ 100 mls/hr Q6HRS IV 05/31/18 13:00 06/06/18 05:30 Insulin Human Lispro (HumaLOG) 6 units 1X ONCE SQ 05/31/18 13:00 05/31/18 13:01 DC 05/31/18 13:08 Vitamin A/Vitamin D (Vitamin A & D Ointment) 1 ron BID TP 05/31/18 21:00 06/06/18 09:25 Micafungin Sodium 100 mg/Dextrose 100 ml @ 100 mls/hr Q24H IV 06/01/18 08:00 06/06/18 07:37 Doxycycline Hyclate 100 mg/ Dextrose 100 ml @ 50 mls/hr Q12HR IV 06/01/18 09:00 06/06/18 09:25 Potassium Chloride (KCl Oral Soln) 40 meq 1X ONCE PEG 06/03/18 08:45 06/03/18 08:46 DC 06/03/18 09:50 Potassium Chloride/Water 100 ml @ 100 mls/hr Q1H IV 06/03/18 09:00 06/03/18 10:59 DC 06/03/18 11:05 Lorazepam (Ativan) 1 mg PRN Q6HRS PRN IV ANXIETY / AGITATION 06/03/18 09:00 06/04/18 09:06 DC 06/03/18 23:23 Furosemide (Lasix) 20 mg 1X ONCE IVP 06/04/18 07:00 06/04/18 07:01 DC 06/04/18 08:10 Budesonide (Pulmicort) 0.5 mg RTBID NEB 06/04/18 08:00 06/06/18 08:15 Lorazepam (Ativan) 0.5 mg PRN Q6HRS PRN IV ANXIETY / AGITATION 06/04/18 09:15 06/04/18 21:13 Midodrine (Proamatine) 2.5 mg [id number] PEG 06/04/18 09:15 06/06/18 07:37 Insulin Human Lispro (HumaLOG) 0-9 UNITS Q6HRS SQ 06/05/18 00:00 06/05/18 18:13 Insulin Human Lispro (HumaLOG) 3 units Q6HRS SQ 06/05/18 00:00 06/05/18 22:48 Morphine Sulfate (Morphine Sulfate) 4 mg PRN Q2HR PRN IV PAIN 06/05/18 12:30 06/06/18 07:50 Laboratory Tests Test 06/04/18 11:31 06/04/18 17:50 06/04/18 21:21 06/04/18 23:57 Glucose (Fingerstick) 175 mg/dL (70-99) 103 mg/dL (70-99) 91 mg/dL (70-99) 170 mg/dL (70-99) Test 06/05/18 06:08 06/05/18 08:33 06/05/18 12:08 06/05/18 18:12 Glucose (Fingerstick) 111 mg/dL (70-99) 239 mg/dL (70-99) 190 mg/dL (70-99) 166 mg/dL (70-99) Test 06/05/18 20:05 06/05/18 22:46 06/06/18 05:28 06/06/18 06:17 Sodium Level 139 mmol/L (136-145) 140 mmol/L (136-145) Potassium Level 3.9 mmol/L (3.5-5.1) 4.4 mmol/L (3.5-5.1) Chloride Level 107 mmol/L (98-107) 104 mmol/L (98-107) Carbon Dioxide Level 31 mmol/L (21-32) 29 mmol/L (21-32) Anion Gap 1 (6-14) 7 (6-14) Blood Urea Nitrogen 10 mg/dL (7-20) 9 mg/dL (7-20) Creatinine 0.8 mg/dL (0.6-1.0) 0.7 mg/dL (0.6-1.0) Estimated GFR (Cockcroft-Gault) 89.1 104.0 Glucose Level 145 mg/dL (70-99) 117 mg/dL (70-99) Glucose (Fingerstick) 138 mg/dL (70-99) 115 mg/dL (70-99) 103 mg/dL (70-99) Calcium Level 7.9 mg/dL (8.5-10.1) 7.7 mg/dL (8.5-10.1) Test 06/06/18 09:22 Glucose (Fingerstick) 156 mg/dL (70-99) Laboratory Tests Test 06/05/18 12:08 06/05/18 18:12 06/05/18 20:05 06/05/18 22:46 Glucose (Fingerstick) 190 mg/dL (70-99) 166 mg/dL (70-99) 138 mg/dL (70-99) 115 mg/dL (70-99) Sodium Level 139 mmol/L (136-145) Potassium Level 3.9 mmol/L (3.5-5.1) Chloride Level 107 mmol/L (98-107) Carbon Dioxide Level 31 mmol/L (21-32) Anion Gap 1 (6-14) Blood Urea Nitrogen 10 mg/dL (7-20) Creatinine 0.8 mg/dL (0.6-1.0) Estimated GFR (Cockcroft-Gault) 89.1 Glucose Level 145 mg/dL (70-99) Calcium Level 7.9 mg/dL (8.5-10.1) Test 06/06/18 05:28 06/06/18 06:17 06/06/18 09:22 Glucose (Fingerstick) 103 mg/dL (70-99) 156 mg/dL (70-99) Sodium Level 140 mmol/L (136-145) Potassium Level 4.4 mmol/L (3.5-5.1) Chloride Level 104 mmol/L (98-107) Carbon Dioxide Level 29 mmol/L (21-32) Anion Gap 7 (6-14) Blood Urea Nitrogen 9 mg/dL (7-20) Creatinine 0.7 mg/dL (0.6-1.0) Estimated GFR (Cockcroft-Gault) 104.0 Glucose Level 117 mg/dL (70-99) Calcium Level 7.7 mg/dL (8.5-10.1) Medications Active Scripts Medications Dose Route/Sig Max Daily Dose Days Date Category Nystatin 1 Each Powder.ea. 1 Each MC PRN PRN 05/24/18 Reported Famotidine 20 Mg Tablet 20 Mg PEG HS 05/24/18 Reported Atorvastatin Calcium 10 Mg Tablet 10 Mg PEG HS 05/24/18 Reported Metformin Hcl 500 Mg Tablet 500 Mg PEG BIDWMEALS 05/24/18 Reported Sod Citrate-Citric Acid Soln (Citric Acid/Sodium Citrate) 15 Ml Solution 10 Ml PEG QIDAFTMEAL 03/26/17 Reported Lansoprazole 30 Mg Capsule.dr Gonzales Cap PO DAILY 03/26/17 Reported Cipro (Ciprofloxacin Hcl) 500 Mg Tablet 1 Tab PO BID 2 03/26/17 Reported Tylenol (Acetaminophen) 325 Mg Tablet 650 Mg PEG PRN Q8HRS PRN 03/17/17 Reported Multivitamins (Multivitamin) 1 Each Tablet 1 Tab PEG DAILY 03/17/17 Reported Levemir Flextouch (Insulin Detemir) 300 Units/3 Ml Insuln.pen 14 Units SQ DAILY 09/05/14 Rx Milk Of Magnesia (Magnesium Hydroxide) 2,400 Mg/30 Ml Oral.susp 2,400 Mg PEG PRN DAILY PRN 30 09/05/14 Rx [Levetiracetam] 500 MG/5 ML Solution 500 Mg PEG BID 30 09/05/14 Rx EXELON 13.3mg/24hr (Rivastigmine) 1 Each Patch.td24 1 Patch TD DAILY 08/14/14 Reported Aspirin 81 Mg Tab.chew 81 Mg PO DAILY 03/18/13 Reported Simvastatin 10 Mg Tablet 10 Mg PO DAILY 03/18/13 Reported Active Scripts Medications Dose Route/Sig Max Daily Dose Days Date Category Nystatin 1 Each Powder.ea. 1 Each MC PRN PRN 05/24/18 Reported Famotidine 20 Mg Tablet 20 Mg PEG HS 05/24/18 Reported Atorvastatin Calcium 10 Mg Tablet 10 Mg PEG HS 05/24/18 Reported Metformin Hcl 500 Mg Tablet 500 Mg PEG BIDWMEALS 05/24/18 Reported Sod Citrate-Citric Acid Soln (Citric Acid/Sodium Citrate) 15 Ml Solution 10 Ml PEG QIDAFTMEAL 03/26/17 Reported Lansoprazole 30 Mg Capsule. 1 Cap PO DAILY 03/26/17 Reported Cipro (Ciprofloxacin Hcl) 500 Mg Tablet 1 Tab PO BID 2 03/26/17 Reported Tylenol (Acetaminophen) 325 Mg Tablet 650 Mg PEG PRN Q8HRS PRN 03/17/17 Reported Multivitamins (Multivitamin) 1 Each Tablet 1 Tab PEG DAILY 03/17/17 Reported Levemir Flextouch (Insulin Detemir) 300 Units/3 Ml Insuln.pen 14 Units SQ DAILY 09/05/14 Rx Milk Of Magnesia (Magnesium Hydroxide) 2,400 Mg/30 Ml Oral.susp 2,400 Mg PEG PRN DAILY PRN 30 09/05/14 Rx [Levetiracetam] 500 MG/5 ML Solution 500 Mg PEG BID 30 09/05/14 Rx EXELON 13.3mg/24hr (Rivastigmine) 1 Each Patch.td24 1 Patch TD DAILY 08/14/14 Reported Aspirin 81 Mg Tab.chew 81 Mg PO DAILY 03/18/13 Reported Simvastatin 10 Mg Tablet 10 Mg PO DAILY 03/18/13 Reported Impression . Acute Hypoxic respiratory failure Aspiration pneumonia: MRSA and group B strep Serratia Septic Shock CHF/Effusions Hypotension Down's syndrome. Plan . Family very conceerced multiple questions Pt had period of emesis while I was in room Family informed not much else to offer I concur wtih possible withdrawal of aggressive measures, spoke with Palliative care Family meet planned for noon today with palliative care: on scheduled morphine appears comfortable Supplemental oxygen, Pt. is DNR/DNI Continue antibiotics per ID Follow cultures Off pressors at this time, family doesn't want pressors restarted cont. TF on hold for now HOB 30 degrees DVT/GI PPX: pepcid and lovenox Discussed with RN will follow up after family meeting today. GENI LOPEZ MD Jun 06, 2018 09:59
--- NOTE | 2018-06-06 10:24 | PDOC ---
PROGRESS NOTES Chief Complaint Chief Complaint Septic shock etiology most likely Related to underlying lung process Severe dehydration hypernatremia secondary to the above Down syndrome History of anxiety dementia, diabetes mellitus type II insulin requiring uncontrolled History of PEG tube. Hypernatremia secondary to water deficit Right upper extremity swelling-sided PICC-negative DVT 05/31/18 DNR History of Present Illness History of Present Illness In ICU She has Down's facies Also on dementia meds Indwelling PEG She is tachypneic On low dose morphine Right arm is swollen but I have reviewed chart on 05/31 it was negative for DVT Palliative on board We'll need hospice Tube feeds running with no issues Sometimes on nonrebreather mask Appropriately DNR Plan Await palliative meet Needs to be on hospice Vitals Vitals Vital Signs Date Time Temp Pulse Resp B/P (MAP) Pulse Ox O2 Delivery O2 Flow Rate FiO2 06/06/18 09:00 117 22 84/64 (71) 100 Venturi Mask 15.0 06/06/18 08:00 98.9 98.9 Physical Exam Physical Exam GENERAL: NAD, looks comfortable HEENT: Pupils equal, NRB LUNGS: CTA HEART: S1, S2 tachy/reg. ABDOMEN: Obese, soft, + BS. PEG : Tamayo EXTREMITIES: Generalized edema, LE contractures, RUE edema NEUROLOGIC: Opens eyes to neftali stimuli, nonverbal SKIN: No rash RUE-PICC clean General: Alert, Cooperative, moderate distress Heart: Regular rate, Normal S1, Normal S2 Lungs: Crackles, Other (BLL decreased, course/rhonci/tachapena) Abdomen: Normal bowel sounds, Other (PEG Site clean) Extremities: Other (Generalized edema, LE contractures, RUE edema) Labs LABS Laboratory Tests Test 06/05/18 12:08 06/05/18 18:12 06/05/18 20:05 06/05/18 22:46 Glucose (Fingerstick) 190 mg/dL (70-99) 166 mg/dL (70-99) 138 mg/dL (70-99) 115 mg/dL (70-99) Sodium Level 139 mmol/L (136-145) Potassium Level 3.9 mmol/L (3.5-5.1) Chloride Level 107 mmol/L (98-107) Carbon Dioxide Level 31 mmol/L (21-32) Anion Gap 1 (6-14) Blood Urea Nitrogen 10 mg/dL (7-20) Creatinine 0.8 mg/dL (0.6-1.0) Estimated GFR (Cockcroft-Gault) 89.1 Glucose Level 145 mg/dL (70-99) Calcium Level 7.9 mg/dL (8.5-10.1) Test 06/06/18 05:28 06/06/18 06:17 06/06/18 09:22 Glucose (Fingerstick) 103 mg/dL (70-99) 156 mg/dL (70-99) Sodium Level 140 mmol/L (136-145) Potassium Level 4.4 mmol/L (3.5-5.1) Chloride Level 104 mmol/L (98-107) Carbon Dioxide Level 29 mmol/L (21-32) Anion Gap 7 (6-14) Blood Urea Nitrogen 9 mg/dL (7-20) Creatinine 0.7 mg/dL (0.6-1.0) Estimated GFR (Cockcroft-Gault) 104.0 Glucose Level 117 mg/dL (70-99) Calcium Level 7.7 mg/dL (8.5-10.1) Review of Systems Review of Systems dementia and Downs hence limited ROS Comment Review of Relevant I have reviewed the following items trey (where applicable) has been applied. Labs Laboratory Tests Test 06/04/18 11:31 06/04/18 17:50 06/04/18 21:21 06/04/18 23:57 Glucose (Fingerstick) 175 mg/dL (70-99) 103 mg/dL (70-99) 91 mg/dL (70-99) 170 mg/dL (70-99) Test 06/05/18 06:08 06/05/18 08:33 06/05/18 12:08 06/05/18 18:12 Glucose (Fingerstick) 111 mg/dL (70-99) 239 mg/dL (70-99) 190 mg/dL (70-99) 166 mg/dL (70-99) Test 06/05/18 20:05 06/05/18 22:46 06/06/18 05:28 06/06/18 06:17 Sodium Level 139 mmol/L (136-145) 140 mmol/L (136-145) Potassium Level 3.9 mmol/L (3.5-5.1) 4.4 mmol/L (3.5-5.1) Chloride Level 107 mmol/L (98-107) 104 mmol/L (98-107) Carbon Dioxide Level 31 mmol/L (21-32) 29 mmol/L (21-32) Anion Gap 1 (6-14) 7 (6-14) Blood Urea Nitrogen 10 mg/dL (7-20) 9 mg/dL (7-20) Creatinine 0.8 mg/dL (0.6-1.0) 0.7 mg/dL (0.6-1.0) Estimated GFR (Cockcroft-Gault) 89.1 104.0 Glucose Level 145 mg/dL (70-99) 117 mg/dL (70-99) Glucose (Fingerstick) 138 mg/dL (70-99) 115 mg/dL (70-99) 103 mg/dL (70-99) Calcium Level 7.9 mg/dL (8.5-10.1) 7.7 mg/dL (8.5-10.1) Test 06/06/18 09:22 Glucose (Fingerstick) 156 mg/dL (70-99) Laboratory Tests Test 06/05/18 12:08 06/05/18 18:12 06/05/18 20:05 06/05/18 22:46 Glucose (Fingerstick) 190 mg/dL (70-99) 166 mg/dL (70-99) 138 mg/dL (70-99) 115 mg/dL (70-99) Sodium Level 139 mmol/L (136-145) Potassium Level 3.9 mmol/L (3.5-5.1) Chloride Level 107 mmol/L (98-107) Carbon Dioxide Level 31 mmol/L (21-32) Anion Gap 1 (6-14) Blood Urea Nitrogen 10 mg/dL (7-20) Creatinine 0.8 mg/dL (0.6-1.0) Estimated GFR (Cockcroft-Gault) 89.1 Glucose Level 145 mg/dL (70-99) Calcium Level 7.9 mg/dL (8.5-10.1) Test 06/06/18 05:28 06/06/18 06:17 06/06/18 09:22 Glucose (Fingerstick) 103 mg/dL (70-99) 156 mg/dL (70-99) Sodium Level 140 mmol/L (136-145) Potassium Level 4.4 mmol/L (3.5-5.1) Chloride Level 104 mmol/L (98-107) Carbon Dioxide Level 29 mmol/L (21-32) Anion Gap 7 (6-14) Blood Urea Nitrogen 9 mg/dL (7-20) Creatinine 0.7 mg/dL (0.6-1.0) Estimated GFR (Cockcroft-Gault) 104.0 Glucose Level 117 mg/dL (70-99) Calcium Level 7.7 mg/dL (8.5-10.1) Microbiology 06/01/18 Blood Culture - Preliminary, Resulted NO GROWTH AFTER 4 DAYS 05/23/18 Stool Culture - Final, Complete 05/23/18 Stool Culture Result 1 (GRACIE) - Final, Complete 05/23/18 Campylobacter Antigen Assay - Final, Complete 05/23/18 Campylobactor Result 1 - Final, Complete 05/23/18 Shiga Toxin Test - Final, Complete 05/31/18 - Final, Complete 05/31/18 - Final, Complete 05/31/18 - Final, Complete 05/31/18 Gram Stain Evaluation - Final, Complete 05/31/18 Sputum Culture - Final, Complete 05/31/18 Sputum Result 1 - Final, Complete 05/31/18 Antimicrobic Susceptibility - Final, Complete Medications Current Medications Sodium Chloride (Normal Saline Flush) 10 ml QSHIFT PRN IV AFTER MEDS AND BLOOD DRAWS; Start 05/23/18 at 20:00 Piperacillin Sod/ Tazobactam Sod 4.5 gm/Sodium Chloride 100 ml @ 200 mls/hr 1X ONCE IV Last administered on 05/23/18at 20:34; Start 05/23/18 at 20:00; Stop 05/23/18 at 20:29; Status DC Vancomycin HCl (Vanco Per Pharmacy) 1 each 1X ONCE MC Last administered on 05/23at 20:00; Start 05/23/18 at 20:00; Stop 05/23/18 at 22:03; Status DC Propofol 100 ml @ 0 mls/hr CONT PRN IV SEE PROTOCOL; Start 05/23/18 at 20:00; Stop 06/04/18 at 09:06; Status DC Fentanyl Citrate (Fentanyl 2ml Vial) 25 mcg PRN Q1HR PRN IV SEE COMMENTS Last administered on 06/04/18at 11:05; Start 05/23/18 at 20:00 Fentanyl Citrate (Fentanyl 2ml Vial) 50 mcg PRN Q1HR PRN IV SEE COMMENTS Last administered on 06/06/18at 06:26; Start 05/23/18 at 20:00 Chlorhexidine Gluconate (Peridex) 15 ml BID MM Last administered on 05/24/18at 00 :05; Start 05/23/18 at 21:00; Stop 05/24/18 at 08:09; Status DC Acetaminophen (Tylenol Supp) 650 mg 1X ONCE [place] Last administered on 05/23/18 20:33; Start 05/23/18 at 20:00; Stop 05/23/18 at 20:04; Status DC Sodium Chloride 1,000 ml @ 1,000 mls/hr 1X ONCE IV Last administered on 20:41; Start 05/23/18 at 20:00; Stop 05/23/18 at 20:59; Status DC Midazolam HCl (Versed) 5 mg 1X ONCE IV Last administered on 05/23/18 20:33; Start 05/23/18 at 20:15; Stop 05/23/18 at 20:16; Status DC Lorazepam (Ativan) 2 mg STK-MED ONCE .ROUTE ; Start 05/23/18 at 20:04; Stop at 20:05; Status DC Norepinephrine Bitartrate 250 ml @ 0 mls/hr CONT PRN IV PER PROTOCOL Last administered on 06/04/18at 23:53; Start 05/23/18 at 20:30 Sodium Chloride 1,000 ml @ 126 mls/hr [id number] IV ; Start 05/23/18 at 20:40; Stop 05/24/18 at 20:39; Status DC Sodium Chloride 1,000 ml @ 1,000 mls/hr 1X ONCE IV Last administered on at 20:50; Start 05/23/18 at 20:45; Stop 05/23/18 at 21:44; Status DC Sodium Chloride 1,000 ml @ 1,000 mls/hr 1X ONCE IV ; Start 05/23/18 at 21:15; Stop 05/23/18 at 21:16; Status DC Propofol 50 ml @ As Directed STK-MED ONCE IV ; Start 05/23/18 at 21:02; Stop 05/23 at 21:03; Status DC Propofol 50 ml @ 1.082 mls/ hr 1X ONCE IV Last administered on 05/23/18at 21:12 ; Start 05/23/18 at 21:15; Stop 05/25/18 at 19:27; Status DC Vancomycin HCl 1.75 gm/Sodium Chloride 500 ml @ 250 mls/hr 1X ONCE IV Last administered on 05/23/18at 21:23; Start 05/23/18 at 21:30; Stop 05/23/18 at 23:29; Status DC Insulin Human Regular (HumuLIN R VIAL) 14 unit 1X ONCE SQ Last administered on 05/23/18at 21:46; Start 05/23/18 at 21:15; Stop 05/23/18 at 21:16; Status DC Sodium Chloride 1,000 ml @ 75 mls/hr 1X ONCE IV Last administered on at 21:23; Start 05/23/18 at 21:15; Stop 05/24/18 at 10:34; Status DC Etomidate (Amidate) 20 mg STK-MED ONCE IV ; Start 05/23/18 at 21:32; Stop at 21:33; Status DC Succinylcholine Chloride (Anectine) 200 mg STK-MED ONCE .ROUTE ; Start 05/23/18 at 21:32; Stop 05/23/18 at 21:33; Status DC Vancomycin HCl 1 gm/Sodium Chloride 250 ml @ 250 mls/hr Q24H IV Last administered on 05/25/18at 21:37; Start 05/24/18 at 21:30; Stop 05/26/18 at 01:00 ; Status DC Vancomycin HCl (Vancomycin Trough Level) 1 each 1X ONCE MC Last administered on 05/25/18at 21:00; Start 05/25/18 at 21:00; Stop 05/26/18 at 08:58; Status DC Sodium Chloride 500 ml @ 500 mls/hr 1X ONCE IV Last administered on 05/23/18at 22:45; Start 05/23/18 at 22:45; Stop 05/23/18 at 23:44; Status DC Albuterol/ Ipratropium (Duoneb) 3 ml RTQID NEB Last administered on 06/06/18at 08:15; Start 05/24/18 at 08:00 Fentanyl Citrate 30 ml @ 0 mls/hr CONT PRN IV SEE PROTOCOL; Start 05/23/18 at 22 :45; Stop 06/04/18 at 09:06; Status DC Midazolam HCl 100 ml @ 0 mls/hr CONT PRN IV SEE PROTOCOL Last administered on at 23:09; Start 05/23/18 at 22:45; Stop 06/04/18 at 09:06; Status DC Sodium Chloride 500 ml @ 500 mls/hr 1X ONCE IV Last administered on 05/23/18at 23:33; Start 05/23/18 at 23:00; Stop 05/23/18 at 23:59; Status DC Insulin Human Lispro (HumaLOG) 0-9 UNITS TIDWMEALS SQ Last administered on 06/04at 11:34; Start 05/24/18 at 00:00; Stop 06/04/18 at 21:50; Status DC Dextrose (Dextrose 50%-Water Syringe) 12.5 gm PRN Q15MIN PRN IV SEE COMMENTS; Start 05/23/18 at 23:30 Enoxaparin Sodium (Lovenox 40mg Syringe) 40 mg Q24H SQ Last administered on at 22:37; Start 05/23/18 at 23:30 Piperacillin Sod/ Tazobactam Sod (Zosyn Per Pharmacy) 1 each PRN DAILY PRN MC SEE COMMENTS; Start 05/23/18 at 23:30; Stop 05/31/18 at 12:56; Status DC Vancomycin HCl (Vanco Per Pharmacy) 1 each PRN DAILY PRN MC SEE COMMENTS Last administered on 05/26/18at 01:02; Start 05/23/18 at 23:30; Stop 05/26/18 at 08:58 ; Status DC Piperacillin Sod/ Tazobactam Sod 3.375 gm/Sodium Chloride 50 ml @ 100 mls/hr Q6HRS IV Last administered on 05/31/18at 06:06; Start 05/24/18 at 06:00; Stop at 12:53; Status DC Acetaminophen (Tylenol Supp) 650 mg PRN Q6HRS PRN [place] MILD PAIN / TEMP Last administered on 05/26/18at 02:16; Start 05/24/18 at 04:45 Acetaminophen (Tylenol) 650 mg PRN Q8HRS PRN PO MILD PAIN / TEMP Last administered on 06/02/18at 08:06; Start 05/24/18 at 10:45 Aspirin (Children'S Aspirin) 81 mg DAILY PO Last administered on 06/06/18 09: 24; Start 05/24/18 at 12:00 Atorvastatin Calcium (Lipitor) 10 mg HS PEG Last administered on 06/05/18at 21: 09; Start 05/24/18 at 21:00 Citric Acid/ Sodium Citrate (Bicitra) 10 ml QIDAFTMEAL PEG Last administered on 06/06/18 09:24; Start 05/24/18 at 13:00 Magnesium Hydroxide (Milk Of Magnesia) 2,400 mg PRN DAILY PRN PEG CONSTIPATION ; Start 05/24/18 at 10:45 Rivastigmine (Exelon 13.3mg) 1 patch DAILY TD Last administered on 06/06/18at 09 :25; Start 05/24/18 at 11:30 Simvastatin (Zocor) 10 mg DAILY PO ; Start 05/25/18 at 09:00; Status UNV Insulin Glargine (Lantus) 14 units DAILY SQ Last administered on 05/24/18at 12:36 ; Start 05/24/18 at 11:30; Stop 05/25/18 at 07:19; Status DC Metformin HCl (Glucophage) 500 mg BIDWMEALS PO Last administered on 06/06/18at 07:35; Start 05/24/18 at 11:30 Multivitamins (Thera-Plus Oral Liquid) 5 ml DAILY PEG Last administered on 06/06at 09:24; Start 05/24/18 at 11:30 Nystatin (Nystop) 1 ron PRN TID PRN TP REDNESS UNDER BREAST OR ARM; Start at 21:00 Levetiracetam (Keppra) 500 mg BID PO ; Start 05/24/18 at 11:30; Stop 05/24/18 at 12:10; Status DC Sodium Chloride 1,000 ml @ 125 mls/hr 1X ONCE IV Last administered on at 12:03; Start 05/24/18 at 12:30; Stop 05/24/18 at 20:29; Status DC Levetiracetam (Keppra) 500 mg BID PEG Last administered on 06/06/18 09:24; Start 05/24/18 at 12:30 Sodium Chloride 1,000 ml @ 80 mls/hr [id number] IV Last administered on at 22:37; Start 05/24/18 at 23:00 Insulin Glargine (Lantus) 18 units DAILY SQ Last administered on 05/29/18at 09: 23; Start 05/25/18 at 09:00; Stop 05/29/18 at 11:53; Status DC Vancomycin HCl 1 gm/Sodium Chloride 250 ml @ 250 mls/hr Q12H IV ; Start at 10:00; Stop 05/26/18 at 10:00; Status DC Vancomycin HCl (Vancomycin Trough Level) 1 each 1X ONCE MC ; Start 05/27/18 at 09:30; Stop 05/27/18 at 09:30; Status DC Magnesium Sulfate 50 ml @ 25 mls/hr 1X ONCE IV Last administered on 05/26/18at 10:00; Start 05/26/18 at 08:45; Stop 05/26/18 at 10:44; Status DC Acetaminophen (Tylenol) 650 mg PRN Q6HRS PRN PEG MILD PAIN / TEMP Last administered on 06/05/18at 00:02; Start 05/26/18 at 10:15 Potassium Chloride (KCl Oral Soln) 20 meq 1X ONCE PEG Last administered on 01/03at 10:44; Start 05/26/18 at 10:30; Stop 05/26/18 at 10:36; Status DC Famotidine (Pepcid Vial) 20 mg BID IVP Last administered on 06/06/18at 09:25; Start 05/26/18 at 21:00 Linezolid/Dextrose 300 ml @ 300 mls/hr Q12HR IV Last administered on 09:25; Start 05/27/18 at 10:30 Insulin Glargine (Lantus) 22 units DAILY SQ Last administered on 05/30/18 09: 12; Start 05/30/18 at 09:00; Stop 05/31/18 at 09:57; Status DC Furosemide (Lasix) 40 mg 1X ONCE IVP Last administered on 4/15/19at 17:02; Start 05/30/18 at 14:00; Stop 05/30/18 at 14:01; Status DC Potassium Chloride (KCl Oral Soln) 80 meq 1X ONCE PEG Last administered on at 17:03; Start 05/30/18 at 15:00; Stop 05/30/18 at 15:01; Status DC Insulin Glargine (Lantus) 26 units DAILY SQ ; Start 06/01/18 at 09:00; Stop at 09:00; Status DC Insulin Human Lispro (HumaLOG) 3 units QIDACHS SQ Last administered on at 17:52; Start 05/31/18 at 11:30; Stop 06/04/18 at 21:50; Status DC Insulin Human Lispro (HumaLOG) 3 units 1X ONCE SQ Last administered on at 10:07; Start 05/31/18 at 10:00; Stop 05/31/18 at 10:01; Status DC Insulin Glargine (Lantus) 26 units DAILY SQ Last administered on 06/06/18at 09: 26; Start 05/31/18 at 10:15 Furosemide (Lasix) 20 mg 1X ONCE IVP Last administered on 05/31/18at 10:58; Start 05/31/18 at 11:00; Stop 05/31/18 at 11:01; Status DC Meropenem 500 mg/ Sodium Chloride 50 ml @ 100 mls/hr Q6HRS IV Last administered on 06/06/18at 05:30; Start 05/31/18 at 13:00 Insulin Human Lispro (HumaLOG) 6 units 1X ONCE SQ Last administered on at 13:08; Start 05/31/18 at 13:00; Stop 05/31/18 at 13:01; Status DC Vitamin A/Vitamin D (Vitamin A & D Ointment) 1 ron BID TP Last administered on 06/06/18at 09:25; Start 05/31/18 at 21:00 Micafungin Sodium 100 mg/Dextrose 100 ml @ 100 mls/hr Q24H IV Last administered on 06/06/18at 07:37; Start 06/01/18 at 08:00 Doxycycline Hyclate 100 mg/ Dextrose 100 ml @ 50 mls/hr Q12HR IV Last administered on 06/06/18 09:25; Start 06/01/18 at 09:00 Potassium Chloride (KCl Oral Soln) 40 meq 1X ONCE PEG Last administered on 09:50; Start 06/03/18 at 08:45; Stop 06/03/18 at 08:46; Status DC Potassium Chloride/Water 100 ml @ 100 mls/hr Q1H IV Last administered on at 11:05; Start 06/03/18 at 09:00; Stop 06/03/18 at 10:59; Status DC Lorazepam (Ativan) 1 mg PRN Q6HRS PRN IV ANXIETY / AGITATION Last administered on 06/03/18 23:23; Start 06/03/18 at 09:00; Stop 06/04/18 at 09:06; Status DC Furosemide (Lasix) 20 mg 1X ONCE IVP Last administered on 06/04/18 08:10; Start 06/04/18 at 07:00; Stop 06/04/18 at 07:01; Status DC Budesonide (Pulmicort) 0.5 mg RTBID NEB Last administered on 06/06/18 08:15; Start 06/04/18 at 08:00 Lorazepam (Ativan) 0.5 mg PRN Q6HRS PRN IV ANXIETY / AGITATION Last administered on 06/04/18at 21:13; Start 06/04/18 at 09:15 Midodrine (Proamatine) 2.5 mg [id number] PEG Last administered on 06/06/18at 07:37; Start 06/04/18 at 09:15 Insulin Human Lispro (HumaLOG) 0-9 UNITS Q6HRS SQ Last administered on 18:13; Start 06/05/18 at 00:00 Insulin Human Lispro (HumaLOG) 3 units Q6HRS SQ Last administered on 06/05/18at 22:48; Start 06/05/18 at 00:00 Morphine Sulfate (Morphine Sulfate) 4 mg PRN Q2HR PRN IV PAIN Last administered on 06/06/18at 07:50; Start 06/05/18 at 12:30 Active Scripts Active Levemir Flextouch (Insulin Detemir) 300 Units/3 Ml Insuln.pen 14 Units SQ DAILY Milk Of Magnesia (Magnesium Hydroxide) 2,400 Mg/30 Ml Oral.susp 2,400 Mg PEG PRN DAILY PRN 30 Days [Levetiracetam] 500 MG/5 ML Solution 500 Mg PEG BID 30 Days Reported Nystatin 1 Each Powder.ea. 1 Each MC PRN PRN Famotidine 20 Mg Tablet 20 Mg PEG HS Atorvastatin Calcium 10 Mg Tablet 10 Mg PEG HS Metformin Hcl 500 Mg Tablet 500 Mg PEG BIDWMEALS Sod Citrate-Citric Acid Soln (Citric Acid/Sodium Citrate) 15 Ml Solution 10 Ml PEG QIDAFTMEAL Lansoprazole 30 Mg Capsule.dr 1 Cap PO DAILY Cipro (Ciprofloxacin Hcl) 500 Mg Tablet 1 Tab PO BID 2 Days Tylenol (Acetaminophen) 325 Mg Tablet 650 Mg PEG PRN Q8HRS PRN Multivitamins (Multivitamin) 1 Each Tablet 1 Tab PEG DAILY EXELON 13.3mg/24hr (Rivastigmine) 1 Each Patch.td24 1 Patch TD DAILY Aspirin 81 Mg Tab.chew 81 Mg PO DAILY Simvastatin 10 Mg Tablet 10 Mg PO DAILY Vitals/I & O Vital Sign - Last 24 Hours 06/05/18 06/05/18 06/05/18 06/05/18 11:00 11:36 11:42 12:00 Pulse 119 Resp 50 45 B/P (MAP) 121/65 (83) Pulse Ox 94 94 97 O2 Delivery Venturi Mask Venturi Mask Venturi Mask Venturi Mask O2 Flow Rate 15.0 15.0 50.0 15.0 06/05/18 06/05/18 06/05/18 06/05/18 12:00 13:00 13:48 13:49 Temp 99.4 99.4 Pulse 117 113 115 Resp 45 38 45 B/P (MAP) 112/57 (75) 103/68 (80) 100/59 Pulse Ox 97 95 96 O2 Delivery Venturi Mask Venturi Mask Venturi Mask O2 Flow Rate 15.0 15.0 15.0 06/05/18 06/05/18 06/05/18 06/05/18 14:00 14:18 15:00 15:32 Pulse 114 115 Resp 31 38 43 43 B/P (MAP) 107/75 (86) 111/65 (80) Pulse Ox 95 94 94 O2 Delivery Venturi Mask Venturi Mask Venturi Mask O2 Flow Rate 15.0 15.0 15.0 06/05/18 06/05/18 06/05/18 06/05/18 16:00 16:00 16:23 17:00 Temp 98.6 98.6 Pulse 117 119 Resp 26 28 B/P (MAP) 111/60 (77) 114/62 (79) Pulse Ox 95 94 95 O2 Delivery Venturi Mask Venturi Mask Venturi Mask Venturi Mask O2 Flow Rate 15.0 15.0 15.0 15.0 06/05/18 06/05/18 06/05/18 06/05/18 17:53 18:00 18:10 18:23 Pulse 125 119 Resp 35 35 27 B/P (MAP) 117/60 (79) 114/62 Pulse Ox 82 90 O2 Delivery Venturi Mask Venturi Mask O2 Flow Rate 15.0 15.0 06/05/18 06/05/18 06/05/18 06/05/18 19:00 20:00 20:00 20:13 Temp 98.0 98.0 Pulse 113 110 Resp 24 26 B/P (MAP) 78/51 (60) 102/62 (75) Pulse Ox 92 95 92 O2 Delivery Venturi Mask Venturi Mask Venturi Mask Venturi Mask O2 Flow Rate 15.0 15.0 15.0 15.0 06/05/18 06/05/18 06/05/18 06/05/18 20:26 20:27 21:00 21:06 Pulse 120 Resp 24 B/P (MAP) 107/56 (73) Pulse Ox 94 94 98 94 O2 Delivery Venturi Mask Venturi Mask Venturi Mask Venturi Mask O2 Flow Rate 15.0 15.0 15.0 15.0 06/05/18 06/05/18 06/06/18 06/06/18 22:00 23:00 00:00 00:01 Temp 98.0 98.0 Pulse 112 112 116 Resp 28 28 24 B/P (MAP) 101/76 (84) 93/51 (65) 112/56 (74) Pulse Ox 98 98 100 O2 Delivery Venturi Mask Venturi Mask Venturi Mask Venturi Mask O2 Flow Rate 15.0 15.0 15.0 15.0 06/06/18 06/06/18 06/06/18 06/06/18 00:33 01:00 02:00 03:00 Pulse 118 116 114 Resp B/P (MAP) 85/55 (65) 82/46 (58) 82/46 (58) Pulse Ox 98 98 96 98 O2 Delivery Venturi Mask Venturi Mask Venturi Mask Venturi Mask O2 Flow Rate 15.0 15.0 15.0 15.0 06/06/18 06/06/18 06/06/18 06/06/18 03:25 03:55 04:00 04:29 Temp 98.4 98.4 Pulse 114 Resp 22 B/P (MAP) 91/51 (64) Pulse Ox 98 100 100 O2 Delivery Venturi Mask Venturi Mask Venturi Mask Venturi Mask O2 Flow Rate 15.0 15.0 15.0 15.0 06/06/18 06/06/18 06/06/18 06/06/18 05:00 06:00 06:21 06:26 Pulse 120 117 Resp 28 28 B/P (MAP) 91/51 (64) 97/57 (70) Pulse Ox 98 98 98 98 O2 Delivery Venturi Mask Venturi Mask Venturi Mask Venturi Mask O2 Flow Rate 15.0 15.0 15.0 15.0 06/06/18 06/06/18 06/06/18 06/06/18 07:00 07:37 07:50 08:00 Temp 98.9 98.9 Pulse 116 116 114 Resp B/P (MAP) 65/42 (50) 65/42 78/54 (62) Pulse Ox 93 98 98 O2 Delivery Venturi Mask Venturi Mask Venturi Mask O2 Flow Rate 15.0 15.0 15.0 06/06/18 06/06/18 06/06/18 06/06/18 08:00 08:15 08:20 09:00 Pulse 117 Resp 22 B/P (MAP) 84/64 (71) Pulse Ox 96 99 100 O2 Delivery Venturi Mask Venturi Mask Venturi Mask Venturi Mask O2 Flow Rate 15.0 15.0 15.0 15.0 Intake and Output 06/05/18 06/05/18 06/06/18 15:00 23:00 07:00 Intake Total 300 ml 2655 ml 1890 ml Output Total 485 ml 500 ml 400 ml Balance -185 ml 2155 ml 1490 ml SHANIKA HIGGINS MD Jun 06, 2018 10:24
--- NOTE | 2018-06-06 12:00 | NUR ---
Pt began vomiting, tube feed put on hold for now. Will reassess in an hour.
--- NOTE | 2018-06-06 12:45 | PDOC2 ---
PALLIATIVE CARE Palliative Care Note Palliative Care Patient vomited this am. Tube feedings held. Off Levophed. Systolic blood pressure 70's Morphine and Fentanyl for breathlessness and agitation. Met with Ayesha-Mother, sisters-Deborah, Chacho, Renaldo, and brother Jan. Reviewed medical condition. Discussed comfort care/hospice and stopping those medicines and procedures that are not adding to her comfort Family does not want to see her suffer any more. Would want to see her peacefully with dignity. Family informed that medications/procedures including tube feeding and antibiotics will be stopped. Discussed Hospice Options. Family has no preference of Hospice Agency. Dr. Caballero called. Order for [facility] IP services. Irene SOLER will assist with discharge plans. [id number] Patient accepted by [facility] will sign off. LANCE SALAZAR Jun 06, 2018 12:45
--- NOTE | 2018-06-06 12:48 | NUR ---
Dr. Caballero gave the okay for pt to go inpatient hospice with [facility]. 1200 medications non administered due to pt going comfort care measures. All medications non comfort care discontinued.
--- NOTE | 2018-06-06 12:53 | SNU/HH DC ---
DISCHARGE ORDERS DISCHARGE INFORMATION: DISCHARGE DATE: Jun 06, 2018 CONDITION ON DISCHARGE: Unstable CODE STATUS: Code Status: DNR/DNI GROUP HOME: SNF STAY <30 DAYS: No HOSPICE: HOSPICE: Yes HOSPICE EVAL & TREAT: Yes LTAC: ADMIT TO LTAC: No POST DISCHARGE ORDERS: ACTIVITY ORDERS: Bedrest today WEIGHT BEARING STATUS: Non weight bearing DIET AFTER DISCHARGE: NPO OTHER ORDERS: TF diabetisource 1.2; 55 ml/hr cont. 125ml H2O q6h FOLLOW-UP: PHYSICIAN FOLLOW-UP: hospice LAB ORDERS FOR FOLLOW-UP: CBC and BMP weekly on Mondays x 4 weeks TREATMENT/EQUIPMENT ORDERS: ADAPTIVE EQUIPMENT NEEDED: None DISCHARGE MEDICATIONS: Home Meds Active Scripts Insulin Detemir (Levemir Flextouch) 300 Units/3 Ml Insuln.pen, 14 UNITS SQ DAILY, #1 SYR Prov:CHAVEZ NATHAN APR09/05/14 Magnesium Hydroxide (MILK OF MAGNESIA) 2,400 Mg/30 Ml Oral.susp, 2400 MG PEG PRN DAILY PRN for CONSTIPATION for 30 Days, ML Prov:CHAVEZ NATHAN APR09/05/14 [Levetiracetam] 500 MG/5 ML SOLUTION No Conflict Check, 500 MG PEG BID for 30 Days Prov:CHAVEZ NATHAN APR09/05/14 Reported Medications Nystatin (NYSTATIN) 1 Each Powder.ea., 1 EACH MC PRN PRN for redness under breast and folds, EACH 05/24/18 Famotidine (FAMOTIDINE) 20 Mg Tablet, 20 MG PEG HS for GERD, TAB 05/24/18 Atorvastatin Calcium (ATORVASTATIN CALCIUM) 10 Mg Tablet, 10 MG PEG HS for FOR CHOLESTEROL, #30 TAB 0 Refills 05/24/18 Metformin Hcl (METFORMIN HCL) 500 Mg Tablet, 500 MG PEG BIDWMEALS for ANTI- DIABETIC, TAB 0 Refills 05/24/18 Citric Acid/Sodium Citrate (SOD CITRATE-CITRIC ACID SOLN) 15 Ml Solution, 10 ML PEG QIDAFTMEAL, MISC 03/26/17 Lansoprazole (LANSOPRAZOLE) 30 Mg Capsule.dr, 1 CAP PO DAILY, #30 CAP 5 Refills 03/26/17 Ciprofloxacin Hcl (CIPRO) 500 Mg Tablet, 1 TAB PO BID for 2 Days, #4 TAB 03/26/17 Acetaminophen (TYLENOL) 325 Mg Tablet, 650 MG PEG PRN Q8HRS PRN for MILD PAIN / TEMP, TAB 03/17/17 Multivitamin (MULTIVITAMINS) 1 Each Tablet, 1 TAB PEG DAILY, #90 TAB 3 Refills 03/17/17 Rivastigmine (EXELON 13.3mg/24hr) 1 Each Patch.td24, 1 PATCH TD DAILY, PATCH 08/14/14 Aspirin (ASPIRIN) 81 Mg Tab.chew, 81 MG PO DAILY, TAB.CHEW 03/18/13 Simvastatin (SIMVASTATIN) 10 Mg Tablet, 10 MG PO DAILY 03/18/13 SHANIKA HIGGINS MD Jun 06, 2018 12:53
--- NOTE | 2018-06-06 12:56 | PDOC3 ---
Discharge Summary Visit Information Date of Admission: May 23, 2018 Date of Discharge: Jun 06, 2018 Admitting Diagnosis Comment: Septic shock etiology most likely Related to underlying lung process Severe dehydration hypernatremia secondary to the above Down syndrome History of anxiety dementia, diabetes mellitus type II insulin requiring uncontrolled History of PEG tube. Hypernatremia secondary to water deficit Right upper extremity swelling-sided PICC-negative DVT 05/31/18 DNR Brief Hospital Course Allergies Allergies Coded Allergies Type Severity Reaction Last Updated Verified I S O L A T I O N *CONTACT* Allergy Unknown 05/27/18 Yes No Known Medication Allergies Allergy Unknown 05/27/18 Yes Vital Signs Vital Signs Date Time Temp Pulse Resp B/P (MAP) Pulse Ox O2 Delivery O2 Flow Rate FiO2 06/06/18 12:39 98 Venturi Mask 06/06/18 12:00 98.1 114 25 78/47 (57) 15.0 98.1 Lab Results Laboratory Tests Test 06/04/18 17:50 06/04/18 21:21 06/04/18 23:57 06/05/18 06:08 Glucose (Fingerstick) 103 mg/dL (70-99) 91 mg/dL (70-99) 170 mg/dL (70-99) 111 mg/dL (70-99) Test 06/05/18 08:33 06/05/18 12:08 06/05/18 18:12 06/05/18 20:05 Glucose (Fingerstick) 239 mg/dL (70-99) 190 mg/dL (70-99) 166 mg/dL (70-99) 138 mg/dL (70-99) Sodium Level 139 mmol/L (136-145) Potassium Level 3.9 mmol/L (3.5-5.1) Chloride Level 107 mmol/L (98-107) Carbon Dioxide Level 31 mmol/L (21-32) Anion Gap 1 (6-14) Blood Urea Nitrogen 10 mg/dL (7-20) Creatinine 0.8 mg/dL (0.6-1.0) Estimated GFR (Cockcroft-Gault) 89.1 Glucose Level 145 mg/dL (70-99) Calcium Level 7.9 mg/dL (8.5-10.1) Test 06/05/18 22:46 06/06/18 05:28 06/06/18 06:17 06/06/18 09:22 Glucose (Fingerstick) 115 mg/dL (70-99) 103 mg/dL (70-99) 156 mg/dL (70-99) Sodium Level 140 mmol/L (136-145) Potassium Level 4.4 mmol/L (3.5-5.1) Chloride Level 104 mmol/L (98-107) Carbon Dioxide Level 29 mmol/L (21-32) Anion Gap 7 (6-14) Blood Urea Nitrogen 9 mg/dL (7-20) Creatinine 0.7 mg/dL (0.6-1.0) Estimated GFR (Cockcroft-Gault) 104.0 Glucose Level 117 mg/dL (70-99) Calcium Level 7.7 mg/dL (8.5-10.1) Test 06/06/18 12:25 Glucose (Fingerstick) 149 mg/dL (70-99) Laboratory Tests Test 06/05/18 18:12 06/05/18 20:05 06/05/18 22:46 06/06/18 05:28 Glucose (Fingerstick) 166 mg/dL (70-99) 138 mg/dL (70-99) 115 mg/dL (70-99) 103 mg/dL (70-99) Sodium Level 139 mmol/L (136-145) Potassium Level 3.9 mmol/L (3.5-5.1) Chloride Level 107 mmol/L (98-107) Carbon Dioxide Level 31 mmol/L (21-32) Anion Gap 1 (6-14) Blood Urea Nitrogen 10 mg/dL (7-20) Creatinine 0.8 mg/dL (0.6-1.0) Estimated GFR (Cockcroft-Gault) 89.1 Glucose Level 145 mg/dL (70-99) Calcium Level 7.9 mg/dL (8.5-10.1) Test 06/06/18 06:17 06/06/18 09:22 06/06/18 12:25 Sodium Level 140 mmol/L (136-145) Potassium Level 4.4 mmol/L (3.5-5.1) Chloride Level 104 mmol/L (98-107) Carbon Dioxide Level 29 mmol/L (21-32) Anion Gap 7 (6-14) Blood Urea Nitrogen 9 mg/dL (7-20) Creatinine 0.7 mg/dL (0.6-1.0) Estimated GFR (Cockcroft-Gault) 104.0 Glucose Level 117 mg/dL (70-99) Calcium Level 7.7 mg/dL (8.5-10.1) Glucose (Fingerstick) 156 mg/dL (70-99) 149 mg/dL (70-99) Brief Hospital Course Ms. Sanchez is a 57 old with dementia and Downs, please refer to full H&P by colleague. Admitted to the ICU. Stayed here for about 2 weeks. No overall improvement. Hospice appropriate. After family meeting family appropriately decided for DNR and hospice. We are arranging for inpatient hospice here care of [facility]. Blood pressures plummeting Please refer to my final diagnosis for her course 2 Notes today Roxanol intends and other hospice packet initiated, NPO Discharge Information Condition at Discharge: Comment (unstable, hospice) Disposition/Orders: D/C to Home w/ Hospice Scheduled Aspirin (Aspirin) 81 Mg Tab.chew, 81 MG PO DAILY, (Reported) Entered as Reported by: LINDA GAVIRIA on 03/18/138 Last Action: Continued on 05/24/181045 by LUCIEN PUGA MD Atorvastatin Calcium (Atorvastatin Calcium) 10 Mg Tablet, 10 MG PEG HS for FOR CHOLESTEROL, #30 Ref 0 (Reported) Entered as Reported by: JAY MARQUEZ on 05/24/18226 Last Action: Continued on 05/24/181045 by LUCIEN PUGA MD Ciprofloxacin Hcl (Cipro) 500 Mg Tablet, 1 TAB PO BID for 2 Days, #4 (Reported) Entered as Reported by: RICHARD VALLECILLO on 03/26/171215 Last Action: HELD on 05/24/181045 by LUCIEN PUGA MD Citric Acid/Sodium Citrate (Sod Citrate-Citric Acid Soln) 15 Ml Solution, 10 ML PEG QIDAFTMEAL, (Reported) Entered as Reported by: RICHARD VALLECILLO on 03/26/171218 Last Action: Continued on 05/24/181045 by LUCIEN PUGA MD Famotidine (Famotidine) 20 Mg Tablet, 20 MG PEG HS for GERD, (Reported) Entered as Reported by: JAY MARQUEZ on 05/24/18226 Last Action: HELD on 05/24/181045 by LUCIEN PUGA MD Insulin Detemir (Levemir Flextouch) 300 Units/3 Ml Insuln.pen, 14 UNITS SQ DAILY, #1 Prescribed by: Liliya Benavides on 09/05/14856 Last Action: Converted on 05/24/181045 by LUCIEN PUGA MD Lansoprazole (Lansoprazole) 30 Mg Capsule.dr, 1 CAP PO DAILY, #30 Ref 5 (Reported) Entered as Reported by: RICHARD VALLECILLO on 03/26/171215 Last Action: HELD on 05/24/181045 by LUCIEN PUGA MD Metformin Hcl (Metformin Hcl) 500 Mg Tablet, 500 MG PEG BIDWMEALS for ANTI- DIABETIC, Ref 0 (Reported) Entered as Reported by: JAY MARQUEZ on 05/24/18226 Last Action: Converted on 05/24/181045 by LUCIEN PUGA MD Multivitamin (Multivitamins) 1 Each Tablet, 1 TAB PEG DAILY, #90 Ref 3 (Reported) Entered as Reported by: ESME GUY on 03/17/17452 Last Action: Converted on 05/24/181045 by LUCIEN PUGA MD Rivastigmine (EXELON 13.3mg/24hr) 1 Each Patch.td24, 1 PATCH TD DAILY, (Reported) Entered as Reported by: NGA PRATHER on 08/14/14 0435 Last Action: Continued on 05/24/181045 by LUCIEN PUGA MD Simvastatin (Simvastatin) 10 Mg Tablet, 10 MG PO DAILY, (Reported) Entered as Reported by: LINDA GAVIRIA on 03/18/13 1128 Last Action: Continued on 05/24/181045 by LUCIEN PUGA MD [Levetiracetam] 500 MG/5 ML SOLUTION, 500 MG PEG BID for 30 Days Prescribed by: Liliya Benavides on 09/05/1457 Last Action: Converted on 05/24/181045 by LUCIEN PUGA MD Scheduled PRN Acetaminophen (Tylenol) 325 Mg Tablet, 650 MG PEG PRN Q8HRS PRN for MILD PAIN / TEMP, (Reported) Entered as Reported by: ESME GUY on 03/17/17452 Last Action: Continued on 05/24/181045 by LUCIEN PUGA MD Magnesium Hydroxide (Milk Of Magnesia) 2,400 Mg/30 Ml Oral.susp, 2,400 MG PEG PRN DAILY PRN for CONSTIPATION for 30 Days Prescribed by: Liliya Benavides on 09/05/1457 Last Action: Continued on 05/24/181045 by LUCIEN PUGA MD Nystatin (Nystatin) 1 Each Powder.ea., 1 EACH MC PRN PRN for redness under breast and folds, (Reported) Entered as Reported by: JAY MARQUEZ on 05/24/18226 Last Action: Converted on 05/24/181045 by MD GISELA KAUR CHERRIE Y MD Jun 06, 2018 12:56
--- NOTE | 2018-06-06 13:00 | NUR ---
SS following up with discharge planning. Palliative Care RN notified SS that pt will need inpatient hospice with [facility]. SS phoned and faxed referral to [facility], ; fax [phone]. SS will await further communication from [facility] and will proceed accordingly.
--- NOTE | 2018-06-06 15:19 | NUR ---
SS following up with discharge planning. [facility] accepted pt for inpatient hospice. Discharge order on the chart. Breonna Morocho, from registration notified that order will need to be put in for inpatient hospice.
--- NOTE | 2018-06-06 15:27 | NUR ---
Pt transferred to 516 @ 1529 via bed. Family accompanied.
== END 2018-06-06 15:52 | disposition hospice, inpatient (51) | DRG 870 ==
LOC: ER 19:33 → 1 WEST ICU 20:39
PROVIDERS: ADMIT Internal Medicine; ATTEND Internal Medicine
PROC: 0BH17EZ Insertion of Endotracheal Airway into Trachea, Via Natural or Artificial Opening (ICD-10-PCS; 2018-05-23)
PROC: 5A1955Z Respiratory Ventilation, Greater than 96 Consecutive Hours (ICD-10-PCS; 2018-05-23)
PROC: 02HV33Z Insertion of Infusion Device into Superior Vena Cava, Percutaneous Approach (ICD-10-PCS; principal; 2018-05-29)
PROC: 30233N1 Transfusion of Nonautologous Red Blood Cells into Peripheral Vein, Percutaneous Approach (ICD-10-PCS; 2018-05-30)
DX: A41.02 Sepsis due to Methicillin resistant Staphylococcus aureus (principal); J69.0 Pneumonitis due to inhalation of food and vomit; R65.21 Severe sepsis with septic shock; J96.01 Acute respiratory failure with hypoxia; E87.0 Hyperosmolality and hypernatremia; F03.90 Unspecified dementia, unspecified severity, without behavioral disturbance, psychotic disturbance, mood disturbance, and anxiety; F41.9 Anxiety disorder, unspecified; K59.00 Constipation, unspecified; Z51.5 Encounter for palliative care; E86.0 Dehydration; Z66 Do not resuscitate; B95.1 Streptococcus, group B, as the cause of diseases classified elsewhere; D64.9 Anemia, unspecified; E11.9 Type 2 diabetes mellitus without complications; E87.6 Hypokalemia; Q90.9 Down syndrome, unspecified; Z90.710 Acquired absence of both cervix and uterus; Z83.3 Family history of diabetes mellitus; Z79.899 Other long term (current) drug therapy; Z79.82 Long term (current) use of aspirin; Z79.4 Long term (current) use of insulin; Z74.01 Bed confinement status; Z93.1 Gastrostomy status
CPT/HCPCS: 31500; 36415; 36569; 36600; 71045; 71250; 74176; 80048; 80053; 80202; 81001; 82805; 82962; 83605; 83735; 84145; 85025; 85027; 85610; 86850; 86900; 86901; 86920; 87040; 87045; 87070; 87186; 87205; 87493; 87641; 93005; 93306; 93971; 94002; 94003; 94640; 94660; 94760; 96365; 96372; 99291; J1650; J1815; J1940; J2020; J2060; J2185; J2248; J2250; J2270; J2543; J2704; J3010; J3370; J3475; J3480; J3490; J7030; J7040; J7050; J7620; J7626; P9016

== ENCOUNTER 2018-06-06 16:20 | Inpatient (IN) | payer MEDICARE, OTHER ==
[~2018-06-06] VITALS: Ht 152.4 cm; Wt 92.1 kg
[2018-06-06 14:30] VITALS: BP 87/44
[~2018-06-06 16:20] MED LIST changes: +ATOR10TA60 PEG; +FAMO20TA5 PEG; +METF500T16 PEG; +NYST1POW5 MC
--- NOTE | 2018-06-06 16:38 | PDOC1 ---
History and Physical Date of Admission Date of Admission DATE: 06/06/18 TIME: 16:36 Identification/Chief Complaint Chief Complaint hospice Source Source: Caregiver, Chart review History of Present Illness History of Present Illness 57-year-old female with dementia and Down syndrome, I just discharged officially from our care from the ICU as family appropriately decided for inpatient hospice , DNR/DNI. She is septic shock from below Septic shock etiology most likely Related to underlying lung process Severe dehydration hypernatremia secondary to the above Down syndrome History of anxiety dementia, diabetes mellitus type II insulin requiring uncontrolled History of PEG tube. Hypernatremia secondary to water deficit Right upper extremity swelling-sided PICC-negative DVT 05/31/18 DNR They are admitting day 1 under my care again under hospice. Comfort care only. Nothing by mouth, comfort meds Past Medical History Cardiovascular: Syncope Pulmonary: Pneumonia CENTRAL NERVOUS SYSTEM: Dementia, Other Musculoskeletal: Osteoarthritis Renal/: UTI, Urinary Incontinence Endocrine: No pertinent hx Past Surgical History Past Surgical History: Pacemaker, Hysterectomy Family History Family History: Family History Unknown Family History: Parent Social History Smoke: No ALCOHOL: none Drugs: None Current Medications Current Medications Current Medications Ondansetron HCl (Zofran) 4 mg PRN Q6HRS PRN IV NAUSEA/VOMITING; Start 06/06/18 at 16:45; Status UNV Morphine Sulfate (Morphine Sulfate) 1 mg PRN Q1HR PRN IV PAIN; Start 06/06/18 at 16:45; Status UNV Morphine Sulfate (Roxanol Conc) 20 mg PRN Q3HRS PRN SL PAIN; Start 06/06/18 at 16:45; Status UNV Active Scripts Active Levemir Flextouch (Insulin Detemir) 300 Units/3 Ml Insuln.pen 14 Units SQ DAILY Milk Of Magnesia (Magnesium Hydroxide) 2,400 Mg/30 Ml Oral.susp 2,400 Mg PEG PRN DAILY PRN 30 Days [Levetiracetam] 500 MG/5 ML Solution 500 Mg PEG BID 30 Days Reported Nystatin 1 Each Powder.ea. 1 Each MC PRN PRN Famotidine 20 Mg Tablet 20 Mg PEG HS Atorvastatin Calcium 10 Mg Tablet 10 Mg PEG HS Metformin Hcl 500 Mg Tablet 500 Mg PEG BIDWMEALS Sod Citrate-Citric Acid Soln (Citric Acid/Sodium Citrate) 15 Ml Solution 10 Ml PEG QIDAFTMEAL Lansoprazole 30 Mg Capsule. 1 Cap PO DAILY Cipro (Ciprofloxacin Hcl) 500 Mg Tablet 1 Tab PO BID 2 Days Tylenol (Acetaminophen) 325 Mg Tablet 650 Mg PEG PRN Q8HRS PRN Multivitamins (Multivitamin) 1 Each Tablet 1 Tab PEG DAILY EXELON 13.3mg/24hr (Rivastigmine) 1 Each Patch.td24 1 Patch TD DAILY Aspirin 81 Mg Tab.chew 81 Mg PO DAILY Simvastatin 10 Mg Tablet 10 Mg PO DAILY Allergies Allergies: Coded Allergies: I S O L A T I O N *CONTACT* (Verified Allergy, Unknown, 05/27/18) mrsa No Known Medication Allergies (Verified Allergy, Unknown, 05/27/18) ROS Review of System On hospice, could be actively dying hence limited ROS Physical Exam General: moderate distress, Other (tachypneic on Nasal cannula) Lungs: Normal air movement Heart: S1S2, RRR, no thrills, no rubs, no gallops, no murmurs, other (sinus tachycardia) Abdomen: Normal bowel sounds, Other (pos PEG) Extremities: No clubbing, No cyanosis, No edema, Normal pulses, No tenderness/swelling Skin: No rashes, No breakdown, No significant lesion VTE Prophylaxis Ordered VTE Prophylaxis Devices: Yes VTE Pharmacological Prophylaxi: Yes Assessment/Plan Assessment/Plan Admitting Diagnosis Comment: Septic shock etiology most likely Related to underlying lung process Severe dehydration hypernatremia secondary to the above Down syndrome History of anxiety dementia, diabetes mellitus type II insulin requiring uncontrolled History of PEG tube. Hypernatremia secondary to water deficit Right upper extremity swelling-sided PICC-negative DVT 05/31/18 DNR PLAN: HOSPICE INPT DNR COMFORT only NO labs, NPO SHANIKA HIGGINS MD Jun 06, 2018 16:38
[2018-06-06] MEDS ORDERED: oxyCODONE INTENSOL 20 MG/ML ORAL.CONC. SL PRN (16:45)
[2018-06-06] MEDS ORDERED: ONDANSETRON PF 4 MG/2 ML VIAL. IV PRN (16:45)
[2018-06-06] MEDS ORDERED: ACETAMINOPHEN 650 MG/20.3 ML SOLUTION. PEG PRN (18:00)
[2018-06-06] MEDS ORDERED: ACETAMINOPHEN 325 MG SUPP.RECT. PR PRN (18:00)
[2018-06-06 19:00] VITALS: BP 85/48
[2018-06-06] MEDS: MORPHINE SULFATE 2 MG/ML VIAL. IV PRN (21:03)
[2018-06-06] MEDS: ATROPINE 1% OPHTH SOLUTION 5ML BOTTLE. SL PRN (23:59)
[2018-06-07 07:00] VITALS: BP 134/71
[2018-06-07] MEDS: MORPHINE SULFATE 20 MG/ML CONC SOLUTION. SL PRN ×3 (07:43→15:14)
[2018-06-07] MEDS: LORazepam INTENSOL 2 MG/ML ORAL.CONC SL PRN ×2 (09:27→16:44)
[2018-06-07] MEDS: ATROPINE 1% OPHTH SOLUTION 5ML BOTTLE. SL PRN ×2 (09:27→15:14)
--- NOTE | 2018-06-07 11:11 | PDOC ---
PROGRESS NOTES Chief Complaint Chief Complaint Hospice History of Present Illness History of Present Illness Patient awake and appears somewhat restless. Sister Deborah is at the bedside, answered questions. Vitals Vitals Vital Signs Date Time Temp Pulse Resp B/P (MAP) Pulse Ox O2 Delivery O2 Flow Rate FiO2 06/07/18 08:43 Nasal Cannula 06/07/18 08:00 2.0 06/07/18 07:00 97.4 111 20 134/71 (92) 93 97.4 Physical Exam General: Alert, mild distress, Other (tachypneic on Nasal cannula) Heart: Other (tachycardic) Lungs: Crackles, Other Abdomen: Normal bowel sounds, Other (pos PEG) Extremities: No clubbing, No cyanosis, No edema, Normal pulses, No tenderness/swelling Skin: No rashes, No breakdown, No significant lesion Review of Systems Review of Systems non-verbal, unable to obtain Assessment and Plan Assessmemt and Plan 57-year-old female with dementia and Down syndrome who disc harged from the ICU as family appropriately decided for inpatient hospice , DNR/DNI. Assessment: Septic Shock - most likely underlying lung process Severe dehydration Hypernatremia secondary to water deficit Down Syndrome Dementia IDDM2, uncontrolled RUE swelling - negative DVT 05/31/18 History of PEG tube History of anxiety Plan: Comfort care only Nothing by mouth Comfort meds DNR Comment Review of Relevant I have reviewed the following items trey (where applicable) has been applied. Medications Current Medications Ondansetron HCl (Zofran) 4 mg PRN Q6HRS PRN IV NAUSEA/VOMITING; Start 06/06/18 at 16:45 Morphine Sulfate (Morphine Sulfate) 1 mg PRN Q1HR PRN IV PAIN Last administered on 06/06/18at 21:03; Start 06/06/18 at 16:45 Morphine Sulfate (Roxanol Conc) 20 mg PRN Q3HRS PRN SL PAIN Last administered on 06/07/18at 07:43; Start 06/06/18 at 16:45 Lorazepam (Ativan Intensol) 2 mg PRN Q6HRS PRN SL ANXIETY / AGITATION Last administered on 06/07/18at 09:27; Start 06/06/18 at 16:45 Oxycodone HCl (Roxicodone Conc) 10 mg PRN Q6HRS PRN SL PAIN; Start 06/06/18 at 16:45 Atropine Sulfate (Isopto Atropine) 1 drop PRN Q2HR PRN SL SECRETIONS Last administered on 06/07/18at 09:27; Start 06/06/18 at 18:00 Acetaminophen (Tylenol Supp) 325 mg PRN Q6HRS PRN MT MILD PAIN / TEMP; Start 06/06/18 at 18:00 Acetaminophen (Tylenol) 650 mg PRN Q6HRS PRN PEG MILD PAIN / TEMP; Start 06/06/18 at 18:00 Active Scripts Active Levemir Flextouch (Insulin Detemir) 300 Units/3 Ml Insuln.pen 14 Units SQ DAILY Milk Of Magnesia (Magnesium Hydroxide) 2,400 Mg/30 Ml Oral.susp 2,400 Mg PEG PRN DAILY PRN 30 Days [Levetiracetam] 500 MG/5 ML Solution 500 Mg PEG BID 30 Days Reported Nystatin 1 Each Powder.ea. 1 Each MC PRN PRN Famotidine 20 Mg Tablet 20 Mg PEG HS Atorvastatin Calcium 10 Mg Tablet 10 Mg PEG HS Metformin Hcl 500 Mg Tablet 500 Mg PEG BIDWMEALS Sod Citrate-Citric Acid Soln (Citric Acid/Sodium Citrate) 15 Ml Solution 10 Ml PEG QIDAFTMEAL Lansoprazole 30 Mg Capsule.dr 1 Cap PO DAILY Cipro (Ciprofloxacin Hcl) 500 Mg Tablet 1 Tab PO BID 2 Days Tylenol (Acetaminophen) 325 Mg Tablet 650 Mg PEG PRN Q8HRS PRN Multivitamins (Multivitamin) 1 Each Tablet 1 Tab PEG DAILY EXELON 13.3mg/24hr (Rivastigmine) 1 Each Patch.td24 1 Patch TD DAILY Aspirin 81 Mg Tab.chew 81 Mg PO DAILY Simvastatin 10 Mg Tablet 10 Mg PO DAILY Vitals/I & O Vital Sign - Last 24 Hours 06/06/18 06/06/18 06/06/18 06/06/18 14:30 16:00 19:00 20:00 Temp 97.9 99.0 97.9 99.0 Pulse 115 116 Resp 20 24 B/P (MAP) 87/44 (58) 85/48 (60) Pulse Ox 87 O2 Delivery Simple Mask Nasal Cannula Nasal Cannula Nasal Cannula O2 Flow Rate 15.0 4.0 2.0 2.0 4/22/19 4/22/19 4/23/19 4/23/19 21:03 21:33 00:00 01:03 O2 Delivery Nasal Cannula Nasal Cannula Nasal Cannula O2 Flow Rate 2.0 2.0 2.0 2.0 06/07/18 06/07/18 06/07/18 06/07/18 07:00 07:43 08:00 08:43 Temp 97.4 97.4 Pulse 111 Resp 20 B/P (MAP) 134/71 (92) Pulse Ox 93 O2 Delivery Nasal Cannula BiPAP/CPAP Nasal Cannula Nasal Cannula O2 Flow Rate 2.0 2.0 DARCI ALICEA III DO Jun 07, 2018 11:11
[2018-06-07] MEDS: MORPHINE SULFATE 2 MG/ML VIAL. IV PRN (17:08)
[2018-06-07] MEDS ORDERED: GLYCOPYRROLATE 1 MG/5 ML VIAL. IV ONE (18:30)
[2018-06-07 19:00] VITALS: BP 125/73
[2018-06-07] MEDS ORDERED: SCOPOLAMINE 1.5MG PATCH. TD ONE (19:00)
[2018-06-08] MEDS: MORPHINE SULFATE 20 MG/ML CONC SOLUTION. SL PRN ×5 (02:14→17:37)
[2018-06-08 07:00] VITALS: BP 125/83
--- NOTE | 2018-06-08 09:08 | NUR ---
IP: Pt has a hx of mrsa in sputum on 05/23/18 ans serratia on 05/31/18. Pt to be in contact precautions.
[2018-06-08] MEDS: LORazepam INTENSOL 2 MG/ML ORAL.CONC SL PRN ×2 (10:53→16:58)
--- NOTE | 2018-06-08 13:52 | NUR ---
SW following pt. Pt is currently under GIP with [facility]. Spoke with Delilah at [facility] and they are working with [facility] to get a contract so pt can return back to [facility]. Spoke with Joslyn at [facility] and she reported she will check with the SW regarding an update. NAYA RN. Will continue to follow.
--- NOTE | 2018-06-08 17:40 | NUR ---
Discharge Note: CORNELIO SMITH Discharge to [facility]. The following instructions and handouts were given: copy of chart. Patient was discharged with Tamayo catheter and PICC line. [facility] [place] ([facility])
[2018-06-10] MEDS ORDERED: SCOPOLAMINE 1.5MG PATCH. TD SCH (09:00)
--- NOTE | 2018-06-30 13:56 | DS ---
DATE OF DISCHARGE: 06/08/2018 ADMISSION DIAGNOSES: Septic shock (terminal), severe dehydration, hypernatremia, Down syndrome, failure to thrive, diabetes, history of PEG. DISCHARGE DIAGNOSES: Continued sepsis with failure to thrive, probable terminal restlessness. She is being discharged with hospice. HOSPITAL COURSE: The patient is a pleasant middle-aged female who presented with severe sepsis and was discharged and transferred to the inpatient hospice. Over the next 48 hours, she is still decompensated, but the family wants to get her home. We plan to discharge to home with hospice. DISPOSITION: Home with hospice. ACTIVITY: Bed rest. DIET: N.p.o. MEDICATIONS: Resuming her comfort meds only. TOTAL TIME ON DISCHARGE: 31 minutes. DARCI ALICEA DO DR: Alysa JOB#: [id number] / [id number]
== END 2018-06-08 17:44 | disposition hospice, inpatient (51) | DRG 871 ==
LOC: 5 NORTH 16:20
PROVIDERS: ADMIT Internal Medicine; ATTEND Internal Medicine
PROC: 5A09357 Assistance with Respiratory Ventilation, Less than 24 Consecutive Hours, Continuous Positive Airway Pressure (ICD-10-PCS; principal; 2018-06-07)
DX: A41.9 Sepsis, unspecified organism (principal); R65.21 Severe sepsis with septic shock; E87.0 Hyperosmolality and hypernatremia; F03.90 Unspecified dementia, unspecified severity, without behavioral disturbance, psychotic disturbance, mood disturbance, and anxiety; Z66 Do not resuscitate; E86.0 Dehydration; F41.9 Anxiety disorder, unspecified; M19.90 Unspecified osteoarthritis, unspecified site; Z51.5 Encounter for palliative care; E11.9 Type 2 diabetes mellitus without complications; Q90.9 Down syndrome, unspecified; Z90.710 Acquired absence of both cervix and uterus; Z93.1 Gastrostomy status; Z79.4 Long term (current) use of insulin
CPT/HCPCS: J2270; J3490